=== PATIENT | male | born 1955 | race Caucasian/White ===

== ENCOUNTER 2020-03-06 07:24 | Day surgery (SDC) | payer BC, SELFPAY ==
[2020-03-04 12:58] VITALS: BMI 40.6
[2020-03-06 07:39] VITALS: BP 159/78; PULSE 94; RESP 18; TEMP 36.7; O2SAT 95
--- NOTE | 2020-03-06 07:54 | P.PN_ITS ---
[facility] Anesthesia Checklist - Patient Identification Patient Identification: Arm Band, Verbal (Name & ) - Structural Data Admitted From: Home Planned Operative Procedure/s: colon Consent for Planned Operative Procedure(s) Verified: Yes Verified Documents: History and Physical - NPO Status Verified Time NPO: 00:00 - Additional verifications Patient : No Anesthesia Reactions: No Hx Blood Transfusions: No Blood Transfusion Reaction: No Cephalosporin Allergy: No Previous Colonoscopy: Yes - Cardiovascular Assessment Heart Sounds: S1 & S2 Pulse Strength: Baseline Pulse Rhythm: Regular Peripheral Edema: No - Airway Assessment C-Spine Mobility Assessed: Yes TMJ Mobility Assessed: Yes Dentition: Good Dentition - Neurological Assessment Level of Consciousness: Awake, Alert, Appropriate Hx Seizures: No Numbness or tingling in extremities: No - Anesthesia Plan Anesthesia Risk discussed: Yes Anesthesia Plan: Verified ASA Class: III Anesthesia Type: MAC [facility] History I have reviewed the patient's past medical history: Yes Medical History: Reports:: Anxiety, Hyperlipidemia, Hypertension Denies:: Cancer, Diabetes Mellitus Type 1, Diabetes Mellitus Type 2, Internal Pacemaker, Lung Disease, MRSA, Seizures *Have you ever received a pneumonia vaccine?: No *Have you received a flu vaccine this season?: No Other Medical History: Denies: Blood Transfusion Reaction Anesthesia experience/problems:: none Laterality Cases: Left: Arthroscopy Knee, Other Other Surgeries: Yes: Colonoscopy, Other. No: Pacemaker Amputation: No Fractures: No - *Social History Last grade of school completed: Some college Smoking Status: Never smoker Alcohol Intake: current Alcohol Intake Frequency:: holidays/special occasions only Substance Use Type: denies use *Occupational Status:: retired Housing: house Household Members: spouse *Travel in the last 8 weeks: [facility] - Psychiatric History Pschychiatric History:: Reports:: Anxiety Family Hx:: Cancer
[2020-03-06 08:04] VITALS: O2SAT 95
[2020-03-06 08:46] VITALS: BP 91/50; PULSE 89; RESP 18; TEMP 36.5; O2SAT 91
--- NOTE | 2020-03-06 08:46 | P.PCN_ITS ---
- Procedure: Date: 03/06/20 Patient Date of :: 1955 Procedure Performed:: Colonoscopy with polypectomy by means other than snare Indications:: History of colon polyps Diverticulosis Performing Provider:: Sheng Fernandez MD Referring Provider:: . Sedation:: Monitored anesthesia care Procedure:: After informed consent was obtained the patient was taken to the endoscopy suite. Sedation ensued after the patient was transferred to the left lateral decubitus position. Pulse, blood pressure, and oxygen saturation were monitored throughout the procedure. Digital rectal exam revealed no significant abnormality. The colonoscope was placed in position. The entire colon was evaluated. The colonoscope was carefully removed and the patient was t ransferred to recovery in stable condition. Please see findings and specimens below for detail. Findings:: Bowel prep fair Fairly significant lack of relaxation Significant tortuosity of sigmoid Unchanged diverticulosis Polyps (see specimens) Specimens:: Periappendiceal polyp Adjacent sessile polyps of the transverse colon Recommendations:: Timing of repeat colonoscopy is pending pathology but will likely be between 3-5 years secondary to history of polyps, lack of relaxation, and spasticity. Complications:: No immediate Estimated blood obtained (mL): 1
[2020-03-06 08:56] VITALS: BP 129/77; PULSE 91; RESP 18; O2SAT 95
[2020-03-06 09:06] VITALS: BP 135/71; PULSE 77; RESP 18; O2SAT 97
[2020-03-06 09:19] VITALS: BP 150/93; PULSE 78; RESP 18; O2SAT 96
== END 2020-03-06 09:23 | disposition home or self-care (01) ==
LOC: OUTP 07:26
PROVIDERS: PCP Internal Medicine; Visit Provider Surgery
PROC: 0DJD8ZZ Inspection of Lower Intestinal Tract, Via Natural or Artificial Opening Endoscopic (ICD-10-PCS; CPT 45380; principal; 2020-03-06 08:30)
DX: Z12.11 Encounter for screening for malignant neoplasm of colon (principal); Z86.010 Personal history of colon polyps; K56.2 Volvulus; K57.30 Diverticulosis of large intestine without perforation or abscess without bleeding; K63.5 Polyp of colon; I10 Essential (primary) hypertension; E78.5 Hyperlipidemia, unspecified; F41.9 Anxiety disorder, unspecified; Z87.39 Personal history of other diseases of the musculoskeletal system and connective tissue; Z80.9 Family history of malignant neoplasm, unspecified
CPT/HCPCS: 45380

== ENCOUNTER → 2021-01-30 11:22 | Outpatient (CLI) | payer BC, SELFPAY | PROVIDERS: PCP Internal Medicine; Visit Provider Nurse Practitioner | DX: Z20.822 Contact with and (suspected) exposure to COVID-19 (principal); U07.1 COVID-19 | CPT/HCPCS: C9803; U0003; U0005 ==

== ENCOUNTER 2021-02-03 07:56 | Outpatient (CLI) | payer BC, SELFPAY ==
[2021-02-03 08:30] VITALS: BP 134/77; PULSE 82; RESP 18; TEMP 36.9; O2SAT 92
[2021-02-03 09:00] VITALS: BP 131/80; PULSE 79; RESP 18; O2SAT 94
[2021-02-03 09:15] VITALS: BP 140/80; PULSE 83; RESP 18; O2SAT 95
[2021-02-03 09:30] VITALS: BP 143/81; PULSE 72; RESP 18; O2SAT 95
[2021-02-03 09:45] VITALS: BP 143/84; PULSE 75; RESP 18; O2SAT 96
[2021-02-03 10:00] VITALS: BP 151/83; PULSE 76; RESP 18; TEMP 36.5; O2SAT 97
== END 2021-02-03 10:00 | disposition home or self-care (01) ==
LOC: INF 07:57
PROVIDERS: PCP Internal Medicine; Visit Provider Emergency Medicine
DX: U07.1 COVID-19 (principal)
CPT/HCPCS: 96365

== ENCOUNTER → 2021-07-21 10:27 | Outpatient (CLI) | payer MEDICAID, SELFPAY ==
--- NOTE | 2021-07-21 10:40 | XR_ITS ---
FINAL REPORT CLINICAL HISTORY: HTN COMPARISON: January 28, 2017 FINDINGS: Two views of the chest were obtained. The heart size and pulmonary vascularity are within normal limits. The mediastinum is normal. No acute pulmonary abnormality is identified. There is no pneumothorax. There is moderate degenerative change of the thoracic spine. IMPRESSION: No active cardiopulmonary disease. Reviewed, Interpreted and Dictated by Stewart Shah III, MD Transcribed by Jey Grant Authenticated by Stewart Shah III, MD on 07/21/2021 01:03:19 PM [facility]
--- NOTE | 2021-07-21 11:08 | ECG_ITS ---
APPROVED REPORT Exam: Resting ECG HR:76 bpm ECG Measurements Heart Rate 76 AXES WV 166 P 12 QRSd 104 QRS -24 QT 372 T 20 QTc 403 Conclusion SINUS RHYTHM BORDERLINE LEFT AXIS DEVIATION [QRS AXIS < -20] LOW QRS VOLTAGE IN PRECORDIAL LEADS [QRS DEFLECTION < 1.0 mV IN CHEST LEADS] BORDERLINE ECG Electronically signed by : Trae Samuel MD 07/22/2021 13:38:13
[2021-07-21 15:09] LABS: Basophils % 0.4 % (0.1-2.0); Eosinophils # 0.1 K/mm3 (0.0-0.4); Eosinophils % 1.2 % (0.1-12.0); Hematocrit 48.8 % (42.0-52.0); Hemoglobin 15.6 g/dL (14.1-18.0); Lymphocytes # 1.4 K/mm3 (0.7-4.5); Lymphocytes % 23.1 % (10-50); Mean Corpuscular HGB Conc 31.9 g/dL (31.8-35.4); Mean Corpuscular Hemoglobin 34.4 pg (27.0-31.2); Mean Corpuscular Volume 107.6 fl (80-94); Mean Platelet Volume 9.3 fl (7.4-10.4); Monocytes # 0.5 K/mm3 (0.1-1.0); Monocytes % 7.8 % (1.7-9.3); Neutrophils # 4.1 K/mm3 (1.8-7.8); Neutrophils % 67.5 % (37.0-80.0); Platelet Count 225 K/mm3 (142-424); Red Blood Count 4.54 M/mm3 (4.60-6.20); Red Cell Distribution Width 14.4 % (11.5-17.5); White Blood Count 6.1 K/mm3 (4.8-10.8)
[2021-07-21 16:55] LABS: Alanine Aminotransferase 44 U/L (12-78); Albumin Level 4.5 g/dl (3.5-5.0); Albumin/Globulin Ratio 1.7 (1.1-1.8); Alkaline Phosphatase 78 U/L (38-126); Aspartate Amino Transferase 39 U/L (17-59); Bilirubin,Total 0.7 mg/dl (0.2-1.3); Blood Urea Nitrogen 14 mg/dl (9-20); Carbon Dioxide 25 mmol/L (22.0-30.0); Chloride 104 mmol/L (98-107); Estimated Glomerular Filt Rate 135 ml/min (>60); GFR (African American) 164 ML/MIN (>60); Globulin 2.6 g/dL (1.3-3.2); Glucose 98 mg/dl (74-100); Sodium 139 mmol/L (136-145); Total Protein,Serum 7.1 g/dl (6.3-8.2)
[2021-07-21 17:25] LABS: Hemoglobin A1C 5.6 % (4.0-6.0)
[2021-07-21 17:26] LABS: Prostate Specific Ag Screen 1.7 ng/ml (0.0-4.0)
== END ==
PROVIDERS: PCP Internal Medicine; Visit Provider Internal Medicine
DX: Z01.810 Encounter for preprocedural cardiovascular examination (principal); M05.80 Other rheumatoid arthritis with rheumatoid factor of unspecified site; N40.1 Benign prostatic hyperplasia with lower urinary tract symptoms; M15.0 Primary generalized (osteo)arthritis; I10 Essential (primary) hypertension; Z12.5 Encounter for screening for malignant neoplasm of prostate
CPT/HCPCS: 71046; 80053; 83036; 85025; 93005; G0103

== ENCOUNTER → 2021-07-29 16:49 | Outpatient (CLI) | payer MEDICARE, SELFPAY ==
[2021-07-29 17:28] LABS: Activated Partial Thrombo Time 25.1 seconds (22.8-30.6); INR 0.91 (0.9-1.1); Prothrombin Time 10.4 seconds (10.1-12.5)
== END ==
PROVIDERS: PCP Internal Medicine; Visit Provider Internal Medicine
DX: Z01.810 Encounter for preprocedural cardiovascular examination (principal); M17.11 Unilateral primary osteoarthritis, right knee; Z51.81 Encounter for therapeutic drug level monitoring
CPT/HCPCS: 85610; 85730

== ENCOUNTER → 2021-08-12 15:47 | Outpatient (CLI) | payer MEDICARE, SELFPAY ==
--- NOTE | 2021-08-12 | CA_ITS ---
FINAL REPORT TECHNIQUE: Color Doppler, duplex Doppler and compression sonography of the right lower extremity venous system was performed. CLINICAL HISTORY: Patient had a total knee replacement RLE 08/05/21. Has edema RLE with redness x 2-3 days. HTN, hyperlipidemia, obesity. FINDINGS: There is no evidence of deep venous thrombosis from the level of the groin to the calf. The veins are patent and compressible. IMPRESSION: No evidence of deep venous thrombosis right lower extremity. Reviewed, Interpreted and Dictated by Stewart Shah III, MD Transcribed by Dunia Lynn Authenticated by Stewart Shah III, MD on 08/13/2021 08:10:35 AM [facility]
== END ==
PROVIDERS: PCP Internal Medicine; Visit Provider Orthopaedic Surgery
DX: R22.42 Localized swelling, mass and lump, left lower limb (principal)
CPT/HCPCS: 93971

== ENCOUNTER 2021-10-19 08:00 | Outpatient (RCR) | payer MEDICARE, SELFPAY | END 2021-10-19 08:05 | disposition home or self-care (01) | LOC: PT 08:00 | PROVIDERS: PCP Internal Medicine; Visit Provider Orthopaedic Surgery | DX: M25.561 Pain in right knee (principal); Z96.651 Presence of right artificial knee joint | CPT/HCPCS: 97010; 97014; 97110; 97140; 97163; 97164; 97530; 97760; G0283 ==

== ENCOUNTER 2022-05-13 09:00 | Outpatient (RCR) | payer MEDICARE, SELFPAY | END 2022-05-13 09:05 | disposition home or self-care (01) | LOC: PT 09:00 | PROVIDERS: PCP Internal Medicine | DX: M51.36 Other intervertebral disc degeneration, lumbar region (principal) | CPT/HCPCS: 97010; 97012; 97014; 97110; 97163; G0283 ==

== ENCOUNTER → 2023-02-03 06:42 | Outpatient (CLI) | payer MEDICARE, SELFPAY ==
--- NOTE | 2023-02-03 06:49 | US_ITS ---
FINAL REPORT TECHNIQUE: Sonographic images of the right upper quadrant were obtained. CLINICAL HISTORY: HEPATIC FIBROSIS FINDINGS: PANCREAS: Unremarkable. LIVER: Homogeneous. No focal hepatic lesion. No intrahepatic biliary ductal dilatation. GALLBLADDER: No gallstones. No gallbladder wall thickening or pericholecystic fluid. COMMON DUCT: 5 mm. Normal for age. RIGHT KIDNEY: The right kidney measures 12.8 cm. There is no hydronephrosis, mass, or stone. FREE FLUID: None. IMPRESSION: Unremarkable ultrasound of the right upper quadrant. Reviewed, Interpreted and Dictated by Nelly Vargas MD Transcribed by Dunia Lynn Authenticated and [facility]
== END ==
PROVIDERS: PCP Internal Medicine; Visit Provider Physician Assistant
DX: K74.00 Hepatic fibrosis, unspecified (principal)
CPT/HCPCS: 76705

== ENCOUNTER → 2023-02-23 13:32 | Outpatient (CLI) | payer MEDICARE, SELFPAY ==
[2023-02-23 14:17] LABS: Prothrombin Time 10.8 seconds (10.1-12.5)
[2023-02-23 14:28] LABS: Chloride 101 mmol/L (98-107); Potassium 4.4 mmoL/L (3.5-5.1); Sodium 137 mmol/L (136-145)
[2023-02-23 14:30] LABS: Basophils # 0.1 K/mm3 (0-0.2); Basophils % 0.5 % (0.1-2.0); Eosinophils # 0.1 K/mm3 (0.0-0.4); Eosinophils % 0.7 % (0.1-12.0); Hematocrit 43.3 % (42.0-52.0); Hemoglobin 15.2 g/dL (14.1-18.0); Lymphocytes # 1.8 K/mm3 (0.7-4.5); Mean Corpuscular HGB Conc 35.1 g/dL (31.8-35.4); Mean Corpuscular Hemoglobin 34.9 pg (27.0-31.2); Mean Corpuscular Volume 99.4 fl (80-94); Mean Platelet Volume 8.3 fl (7.4-10.4); Monocytes # 0.7 K/mm3 (0.1-1.0); Neutrophils # 9.1 K/mm3 (1.8-7.8); Neutrophils % 77.8 % (37.0-80.0); Platelet Count 217 K/mm3 (142-424); Red Blood Count 4.36 M/mm3 (4.60-6.20); Red Cell Distribution Width 13.1 % (11.5-17.5); White Blood Count 11.7 K/mm3 (4.8-10.8)
[2023-02-23 14:31] LABS: Alanine Aminotransferase 26 U/L (12-78); Albumin Level 3.7 g/dl (3.5-5.0); Albumin/Globulin Ratio 1.2 (1.1-1.8); Alkaline Phosphatase 84 U/L (38-126); Anion Gap 8.4 mEq/L (5-15); Aspartate Amino Transferase 28 U/L (17-59); Bilirubin,Total 0.7 mg/dl (0.2-1.3); Blood Urea Nitrogen 13 mg/dl (9-20); Carbon Dioxide 32 mmol/L (22.0-30.0); Estimated Glomerular Filt Rate 135 ml/min (>60); GFR (African American) 163 ML/MIN (>60); Globulin 3.2 g/dL (1.3-3.2); Glucose 116 mg/dl (74-100); Total Protein,Serum 6.9 g/dl (6.3-8.2)
[2023-02-25 10:11] LABS: HBsAg Screen Negative (Negative); HCV Ab Non Reactive (Non Reactive); Hep A Ab, IgM Negative (Negative); Hep B Core Ab, IgM Negative (Negative); Hepatitis B Surf Ab Quant <3.1 mIU/mL (Immunity>9.9)
[2023-03-02 12:36] LABS: Hep A Ab, IGM Negative
[2023-03-02 12:37] LABS: Fibrosis Score 0.13; Fibrosis Stage F0-NO FIBROSIS; Steatosis Score 0.59
[2023-03-02 12:38] LABS: Steatosis Grade S2-S3
[2023-03-02 12:39] LABS: Alpha 2-Macroglobulins, Qn 200; NASH Grade N1-MILD NASH
[2023-03-02 12:40] LABS: Apolipoprotein A-1 123; Haptoglobin 207
[2023-03-02 12:41] LABS: Bilirubin, Total 0.1; GGT 35
[2023-03-02 12:42] LABS: ALT (SGPT) P5P 19; AST (SGOT) P5P 16
[2023-03-02 12:43] LABS: Cholesterol, Total 158; Glucose 111; Triglycerides 167
== END ==
LOC: LAB 13:36
PROVIDERS: PCP Internal Medicine; Visit Provider Physician Assistant
DX: K75.81 Nonalcoholic steatohepatitis (NASH) (principal); R71.8 Other abnormality of red blood cells
CPT/HCPCS: 36415; 80053; 80074; 85025; 85610; 86706; 86709

== ENCOUNTER 2023-05-24 08:18 | Day surgery (SDC) | payer MEDICARE, SELFPAY ==
[2023-05-19 17:19] VITALS: BMI 37.2
[2023-05-24] MEDS: LACTATED RINGERS 1000ML 1,000 ML 25 ML IV (08:27)
[2023-05-24 08:29] VITALS: BP 157/105; PULSE 123; RESP 18; TEMP 36.2; O2SAT 97
--- NOTE | 2023-05-24 08:31 | P.PCN_ITS ---
Procedure: Date: 05/24/23 Patient Date of :: 1955 Procedure Performed:: Colonoscopy with polypectomy by means other than snare Indications:: History of colon polyps Note: Most recent colonoscopy in February 2020 was somewhat complicated by poor relaxation and fairly severe tortuosity. Bowel preparation was fair. Unchanged diverticulosis noted. Adjacent adenomatous polyps of the transverse colon were excised. Performing Provider:: Sheng Fernandez MD Referring Provider:: . Sedation:: Monitored anesthesia care Procedure:: After informed consent was obtained the patient was taken to the endoscopy carnes ite. Sedation ensued after the patient was transferred to the left lateral decubitus position. Pulse, blood pressure, and oxygen saturation were monitored throughout the procedure. Digital rectal exam revealed no significant abnormality. The colonoscope was placed in position. The entire colon was evaluated. The colonoscope was carefully removed and the patient was transferred to recovery in stable condition. Please see findings and specimens below for detail. Findings:: Bowel preparation fair to moderate Fairly significant spasticity/lack of relaxation Polyp at 60 cm Specimens:: Polyp at 60 cm (cold biopsy forceps) Recommendations:: Timing of repeat colonoscopy is pending pathology but will likely be around 3 years secondary to history of complex polyps, spasticity, and lack of relaxation. Complications:: No immediate Estimated blood obtained (mL): 1 Colonoscopy Component Colonoscopy Component Was a colonoscopy performed during today's procedure?: Yes Recommended follow up colonoscopy of at least 10 years?: No If no, follow up colonoscopy recommended in ___ years?: (See above) Reason for not recommending >/= 10 yr follow-up interval?: (See above)
[2023-05-24 08:48] VITALS: O2SAT 95
--- NOTE | 2023-05-24 09:08 | P.PNANES_ITS ---
[facility] Disclaimer: The information contained in this section may have been updated after the patient was seen, as this information can be updated by other users. Medical History ABIOLA (obstructive sleep apnea) ABIOLA on CPAP Surgical History History of colonoscopy History of colonoscopy with polypectomy History of knee replacement Family History Other Family history of lung cancer Social History Smoking Status: Never smoker second hand exposure: No alcohol intake: current substance use type: denies use current occupational status: retired Travel in the last 8 weeks: None household members: spouse housing: house current occupational exposures/hazards: No caffeine: No [facility] Anesthesia Checklist Patient Identification Patient Identification: Arm Band Structural Data Admitted From: Home Planned Operative Procedure/s: colonoscopy Consent for Planned Operative Procedure(s) Verified: Yes Verified Documents: Surgical Consent and History and Physical NPO Status Verified Time NPO: 00:00 Additional verifications Anesthesia Reactions: No Hx Blood Transfusions: No Blood Transfusion Reaction: No Airway Assessment Mallampati Score:: Class II C-Spine Mobility Assessed: Yes TMJ Mobility Assessed: Yes Dentition: Good Dentition Neurological Assessment Level of Consciousness: Awake and Alert Anesthesia Plan Anesthesia Risk discussed: Yes Anesthesia Plan: Verified ASA Class: III Anesthesia Type: MAC
[2023-05-24 09:23] VITALS: BP 110/64; PULSE 107; RESP 18; TEMP 36.5; O2SAT 93
[2023-05-24 09:33] VITALS: BP 121/77; PULSE 104; RESP 18; O2SAT 95
[2023-05-24 09:41] VITALS: BP 113/74; PULSE 99; RESP 18; O2SAT 95
== END 2023-05-24 09:43 | disposition home or self-care (01) ==
PROVIDERS: PCP Internal Medicine; Visit Provider Surgery
PROC: 0DJD8ZZ Inspection of Lower Intestinal Tract, Via Natural or Artificial Opening Endoscopic (ICD-10-PCS; CPT 45380; principal; 2023-05-24 09:30)
DX: Z12.11 Encounter for screening for malignant neoplasm of colon (principal); Z86.010 Personal history of colon polyps; D12.4 Benign neoplasm of descending colon
CPT/HCPCS: 45380; 88305

== ENCOUNTER 2024-01-03 12:14 | Outpatient (CLI) | payer MEDICARE, SELFPAY ==
--- NOTE | 2024-01-03 12:24 | XR_ITS ---
FINAL REPORT CLINICAL HISTORY: Right knee pain and swelling prev knee replacement FINDINGS: RIGHT KNEE Three views demonstrate postoperative changes from total knee arthroplasty. There is no acute fracture or dislocation. There is a small joint effusion. IMPRESSION: Postoperative changes and a small joint effusion. Reviewed, Interpreted and Dictated by Steven Pantoja MD Transcribed by Radha Lane Authenticated and [facility]
== END 2024-01-03 23:59 | disposition home or self-care (01) ==
LOC: RAD 12:16
PROVIDERS: PCP Internal Medicine; Visit Provider Internal Medicine
DX: Z96.651 Presence of right artificial knee joint (principal); M25.461 Effusion, right knee; M06.9 Rheumatoid arthritis, unspecified
CPT/HCPCS: 73562

== ENCOUNTER 2024-03-07 10:55 | Outpatient (CLI) | payer MEDICARE, SELFPAY ==
[2024-03-07 09:44] LABS: Basophils % 0.7 % (0.1-2.0); Eosinophils # 0.1 K/mm3 (0.0-0.4); Eosinophils % 1.8 % (0.1-12.0); Lymphocytes # 1.6 K/mm3 (0.7-4.5); Lymphocytes % 26.6 % (10-50); Mean Corpuscular HGB Conc 33.3 g/dL (31.8-35.4); Mean Corpuscular Hemoglobin 32.9 pg (27.0-31.2); Mean Corpuscular Volume 98.8 fl (80-94); Mean Platelet Volume 7.7 fl (7.4-10.4); Monocytes # 0.4 K/mm3 (0.1-1.0); Monocytes % 6.8 % (1.7-9.3); Neutrophils # 3.9 K/mm3 (1.8-7.8); Neutrophils % 64.1 % (37.0-80.0); Platelet Count 226 K/mm3 (142-424); Red Blood Count 4.56 M/mm3 (4.60-6.20); Red Cell Distribution Width 13.8 % (11.5-17.5); Reticulocyte % (Auto) 2.1 % (0.9-3.2); White Blood Count 6.1 K/mm3 (4.8-10.8)
[2024-03-07 10:51] LABS: Albumin Level 4.1 g/dl (3.5-5.0); Chloride 105 mmol/L (98-107); Sodium 139 mmol/L (136-145)
[2024-03-07 10:52] LABS: Potassium 4.5 mmoL/L (3.5-5.1)
[2024-03-07 10:54] LABS: Alanine Aminotransferase 22 U/L (12-78); Albumin/Globulin Ratio 1.3 (1.1-1.8); Alkaline Phosphatase 91 U/L (38-126); Anion Gap 13.5 mEq/L (5-15); Aspartate Amino Transferase 25 U/L (17-59); Bilirubin,Total 0.7 mg/dl (0.2-1.3); Blood Urea Nitrogen 14 mg/dl (9-20); Carbon Dioxide 25 mmol/L (22.0-30.0); Estimated Glomerular Filt Rate 112 ml/min (>60); GFR (African American) 136 ML/MIN (>60); Globulin 3.2 g/dL (1.3-3.2); Iron 93 ug/dL (49-181); Total Protein,Serum 7.3 g/dl (6.3-8.2)
[2024-03-07 10:55] LABS: Calcium 9.2 mg/dl (8.4-10.2); Chol/HDL Ratio 4.1 (1-3.5); Cholesterol 148 mg/dl (140-200); Glucose 131 mg/dl (74-100); HDL Cholesterol 36 mg/dl (40-60); Triglycerides 160 mg/dl (30-150); VLDL Cholesterol 32 mg/dL (0-40)
[2024-03-07 11:05] LABS: Total Iron Binding Capacity 325 ug/dL (261-462)
[2024-03-07 11:06] LABS: Direct LDL Cholesterol 86.16 mg/dL (100-129)
[2024-03-07 11:24] LABS: Thyroid Stimulating Hormone 2.87 uIU/mL (0.465-4.68)
[2024-03-07 15:18] LABS: Prostate Specific Ag Screen 0.6 ng/ml (0.0-4.0)
[2024-03-07 15:37] LABS: Vitamin B12 326 pg/mL (239-931)
[2024-03-08 11:38] LABS: Hemoglobin A1C 5.5 % (4.0-6.0)
== END 2024-03-07 23:59 | disposition home or self-care (01) ==
LOC: LAB.DROPOF 10:55
PROVIDERS: PCP Internal Medicine; Visit Provider Internal Medicine
DX: D64.9 Anemia, unspecified (principal); I10 Essential (primary) hypertension; Z12.5 Encounter for screening for malignant neoplasm of prostate; R73.01 Impaired fasting glucose; R53.83 Other fatigue; E78.5 Hyperlipidemia, unspecified
CPT/HCPCS: 80053; 80061; 82607; 83036; 83540; 83550; 84443; 85025; 85044; G0103

== ENCOUNTER 2024-08-30 09:20 | Outpatient (CLI) | payer MEDICARE, SELFPAY ==
[2024-08-30 13:35] LABS: Basophils % 0.3 % (0.1-2.0); Eosinophils # 0.1 Kmm3 (0.0-0.4); Hematocrit 43.3 % (42.0-52.0); Hemoglobin 14.6 g/dL (14.1-18.0); Lymphocytes # 1.9 K/mm3 (0.7-4.5); Lymphocytes % 28.3 % (10-50); Mean Corpuscular HGB Conc 33.7 g/dL (31.8-35.4); Mean Corpuscular Hemoglobin 32.7 pg (27.0-31.2); Mean Corpuscular Volume 96.9 fl (80-94); Mean Platelet Volume 9.7 fl (7.4-10.4); Monocytes # 0.5 K/mm3 (0.1-1.0); Monocytes % 6.9 % (1.7-9.3); Neutrophils # 4.3 K/mm3 (1.8-7.8); Neutrophils % 63.2 % (37.0-80.0); Nucleated Red Blood Cells # 0 10^3/uL; Nucleated Red Blood Cells % 0 %; Platelet Count 236 K/mm3 (142-424); Red Blood Count 4.47 M/mm3 (4.60-6.20); Red Cell Distribution Width 13.2 % (11.5-17.5); Red Cell Distribution Width-SD 47.7 fL; Reticulocyte % (Auto) 2.1 % (0.9-3.2); White Blood Count 6.9 K/mm3 (4.8-10.8)
[2024-08-30 13:57] LABS: Hemoglobin A1C 5.6 % (4.0-6.0)
[2024-08-30 14:27] LABS: Alanine Aminotransferase 25 U/L (12-78); Albumin Level 4.1 g/dl (3.5-5.0); Albumin/Globulin Ratio 1.3 (1.1-1.8); Alkaline Phosphatase 96 U/L (38-126); Anion Gap 14.6 mEq/L (5-15); Aspartate Amino Transferase 23 U/L (17-59); Bilirubin,Total 0.8 mg/dl (0.2-1.3); Blood Urea Nitrogen 17 mg/dl (9-20); Carbon Dioxide 26 mmol/L (22.0-30.0); Chloride 101 mmol/L (98-107); Chol/HDL Ratio 2.7 (1-3.5); Cholesterol 140 mg/dl (140-200); Estimated Glomerular Filt Rate 134 ml/min (>60); GFR (African American) 162 ML/MIN (>60); Globulin 3.1 g/dL (1.3-3.2); Glucose 95 mg/dl (74-100); HDL Cholesterol 51 mg/dl (40-60); Potassium 4.6 mmoL/L (3.5-5.1); Sodium 137 mmol/L (136-145); Total Protein,Serum 7.2 g/dl (6.3-8.2); Triglycerides 66 mg/dl (30-150); VLDL Cholesterol 13 mg/dL (0-40)
[2024-08-30 14:38] LABS: Direct LDL Cholesterol 66.75 mg/dL (100-129)
[2024-08-30 14:47] LABS: Iron 203 ug/dL (49-181)
[2024-08-30 14:59] LABS: Total Iron Binding Capacity 387 ug/dL (261-462)
--- OUTSIDE RECORDS SUMMARY | 2024-08-31 09:40 | XMS_ITS ---
Author Organization [facility] , [facility] Address [address] [place] [address] Phone Care Team Providers Care Cold Type Artist Name Role Phone Terrance JUNIOR, Car Banuelos Unavailable [phone] SHAWN JUNIOR, XAVI Guzman Primary Care Provider [phone] Reason for Referral Date Encounter Description Provider Reason for Referral 07/23/24 Follow Up LUIS MIGUEL LEO PA-C Referral To Physician 04/12/24 Follow Up LUIS MIGUEL LEO PA-C Referral To Physician 12/21/23 Follow Up LUIS MIGUEL LEO PA-C Referral To Physician 09/14/23 Follow Up LUIS MIGUEL LEO PA-C Referral To Physician 06/08/23 Follow Up LUIS MIGUEL LEO PA-C Referral To Physician 04/26/22 IN HOUSE REFERRAL LUIS MIGUEL LEO PA-C Ref erral To Physician 04/15/22 Phone Call Flavia Stafford PA-C Referra l To Physician 04/06/22 NEW PROBLEM/EST PT Flavia Stafford PA-C R eferral To Physician; Referral To Physician 03/15/22 Follow Up Flavia Stafford PA-C Referra l To Physician; Referral To Physician 11/18/21 Follow Up Flavia Stafford PA-C Referra l To Physician; Referral To Physician 08/19/21 Post Op Flavia Stafford PA-C Referra l To Physician 05/18/21 Physician Specified Flavia Stafford PA-C Referral To Physician Problems Includes: Active, inactive, and resolved Problems All Visits Onset Date Resolved Date Provider Condition S tatus Joint Pain in the Left Knee 08/19/2022 Flavia Stafford PA-C Active Last Documented On 3 8:26AM ; [facility], [facility] Pain in the Lumbar Spine 04/15/2022 Flavia west PA-C Active Last Documented On 2 9:45AM ; [facility] Joint Pain in the Right Hip 04/06/2022 Flavia RICARDO-C Active Last Documented On 2 10:08AM ; [facility] Joint Pain in the Right Knee 03/15/2022 Flavia RICARDO-C Active Last Documented On 2 2:37PM ; [facility], [facility] Plan of Treatment Findings Encounter Date Patient screened for future fall risk: documentation of any fall with injury in past year Follow Up with LUIS MIGUEL LEO PA-C 07/23/2024 Last Documented On 5 8:38AM ; [facility] Patient screened for future fall risk: documentation of any fall with injury in past year Follow Up with LUIS MIGUEL LEO PA-C 04/12/2024 Last Documented On 4 1:31PM ; [facility] Patient screened for future fall risk: documentation of any fall with injury in past year Follow Up with LUIS MIGUEL LEO PA-C 12/21/2023 Last Documented On 4 7:08PM ; [facility] Patient screened for future fall risk: documentation of any fall with injury in past year Follow Up with LUIS MIGUEL LEO PA-C 09/14/2023 Last Documented On 4 8:04AM ; [facility] Referrals To Diagnosis Consult with Rhuematologist Last Documented On 9 3:23PM ; [facility], [facility] Future Appointments Date Time Location Provi sahra Follow Up 11/07/2024 8:00AM [facility] LUIS MIGUEL LEO PA-C Last Documented On 5 11:32AM ; [facility] Epidural Steroid Injection 11/14/2024 8:45AM [facility] Paulo eLmus CRNA Last Documented On 5 11:33AM ; [facility] Instructions to patient Lose weight Last Documented On 5 8:47AM ; [facility] Lose weight Last Documented On 4 9:34AM ; [facility] Lose weight Last Documented On 4 9:11AM ; [facility] Lose weight Last Documented On 4 8:35AM ; [facility] Lose weight Last Documented On 4 2:12PM ; [facility] Lose weight Last Documented On 3 8:26AM ; [facility] Lose weight Last Documented On 3 8:16AM ; [facility] Lose weight Last Documented On 2 8:25AM ; [facility] Lose weight Last Documented On 2 10:09AM ; [facility] Lose weight Last Documented On 2 2:37PM ; [facility] Lose weight Last Documented On 2 9:11AM ; [facility] Lose weight Last Documented On 2 10:49AM ; [facility] Instructions for patient to see pcp for weight and bp Last Documented On 2 8:22AM ; [facility] Lose weight Last Documented On 2 8:22AM ; [facility] Instructions for patient to see pcp for weight and bp Last Documented On 0 10:03AM ; [facility] Lose weight Last Documented On 0 10:03AM ; [facility] Instructions for patient to see pcp for weight and bp Last Documented On 0 8:46AM ; [facility] Lose weight Last Documented On 0 8:46AM ; [facility] Instructions for patient to see pcp for weight and bp Last Documented On 9 8:28AM ; [facility] Lose weight Last Documented On 9 8:28AM ; [facility] Lose weight Last Documented On 9 8:30AM ; [facility] Instructions for patient see pcp for bp and weight Last Documented On 8 11:18AM ; [facility] Lose weight Last Documented On 8 11:18AM ; [facility] Instructions for patient see pcp for bp and weight Last Documented On 8 9:26AM ; [facility] Lose weight Last Documented On 8 9:26AM ; [facility] Instructions for patient see pcp for bp and weight Last Documented On 7 9:26AM ; [facility] Lose weight Last Documented On 7 9:26AM ; [facility] Instructions for patient see pcp for bp and weight Last Documented On 7 9:26AM ; [facility] Lose weight Last Documented On 7 9:26AM ; [facility] Assessments Includes: Assessments for all patient encounters Findings Encounter Date Overweight Follow Up with LUIS MIGUEL Siddiqi 07/23/2024 Last Documented On 5 8:38AM ; [facility] Overweight Follow Up with LUIS MIGUEL RICARDO -C 04/12/2024 Last Documented On 4 1:31PM ; [facility] Overweight Follow Up with LUIS MIGUEL RICARDO -C 12/21/2023 Last Documented On 4 7:08PM ; [facility] Overweight Follow Up with LUIS MIGUEL RICARDO -C 09/14/2023 Last Documented On 4 8:04AM ; [facility] Referral to physician Phone Call with Flavia Stafford PA-C 04/15/2022 Last Documented On 2 10:23AM ; [facility] Referral to physician NEW PROBLEM/EST PT with Aleja Stafford PA-C 04/06/2022 Last Documented On 2 12:09PM ; [facility] Referral to physician Follow Up with Flavia west PA-C 03/15/2022 Last Documented On 2 4:35PM ; [facility] Referral to physician Follow Up with Flavia west PA-C 11/18/2021 Last Documented On 2 9:52AM ; [facility] Instructions Includes: Instructions for all patient encounters Instructions to patient Lose weight Last Documented On 5 8:47AM ; [facility] Lose weight Last Documented On 4 9:34AM ; [facility] Lose weight Last Documented On 4 9:11AM ; [facility] Lose weight Last Documented On 4 8:35AM ; [facility] Lose weight Last Documented On 4 2:12PM ; [facility] Lose weight Last Documented On 3 8:26AM ; [facility] Lose weight Last Documented On 3 8:16AM ; [facility] Lose weight Last Documented On 2 8:25AM ; [facility] Lose weight Last Documented On 2 10:09AM ; [facility] Lose weight Last Documented On 2 2:37PM ; [facility] Lose weight Last Documented On 2 9:11AM ; [facility] Lose weight Last Documented On 2 10:49AM ; [facility] Instructions for patient to see pcp for weight and bp Last Documented On 2 8:22AM ; [facility] Lose weight Last Documented On 2 8:22AM ; [facility] Instructions for patient to see pcp for weight and bp Last Documented On 0 10:03AM ; [facility] Lose weight Last Documented On 0 10:03AM ; [facility] Instructions for patient to see pcp for weight and bp Last Documented On 0 8:46AM ; [facility] Lose weight Last Documented On 0 8:46AM ; [facility] Instructions for patient to see pcp for weight and bp Last Documented On 9 8:28AM ; [facility] Lose weight Last Documented On 9 8:28AM ; [facility] Lose weight Last Documented On 9 8:30AM ; [facility] Instructions for patient see pcp for bp and weight Last Documented On 8 11:18AM ; [facility] Lose weight Last Documented On 8 11:18AM ; [facility] Instructions for patient see pcp for bp and weight Last Documented On 8 9:26AM ; [facility] Lose weight Last Documented On 8 9:26AM ; [facility] Instructions for patient see pcp for bp and weight Last Documented On 7 9:26AM ; [facility] Lose weight Last Documented On 7 9:26AM ; [facility] Instructions for patient see pcp for bp and weight Last Documented On 7 9:26AM ; [facility] Lose weight Last Documented On 7 9:26AM ; [facility] Medical Equipment - Implanted Devices Includes: Current and historical Devices No Medical Equipment Recorded Medications Includes: Current and historical Medications Current Medications (continue as prescribed) Finasteride 1 MG Oral Tablet 02/21/2023 Provider: Diagnosis: Last Documented On 3 11:13AM By Blossom Acuña ; [facility], [facility] Lisinopril 10 MG Oral Tablet 02/21/2023 Provider: Diagnosis: Last Documented On 3 11:13AM By Blossom Acuña ; [facility] Esomeprazole Magnesium 20 MG Oral Capsule De layed Release 02/21/2023 Provider: Diagnosis: Last Documented On 3 11:11AM By Blossom Acuña ; [facility], [facility] Tamsulosin HCl 0.4 MG Oral Capsule 02/21/2023 Provid er: Diagnosis: Last Documented On 3 11:12AM By Blossom Acuña ; [facility], [facility] HYDROcodone-Acetaminophen 5-325 MG Oral Tablet 022 Provider: XAVI ESCOBAR MD Diagnosis: Last Documented On 2 8:21AM By Val Swift ; [facility], [facility] diazePAM 5 MG Oral Tablet 04/19/2022 Provider: BLUE ESCOBAR MD Diagnosis: Last Documented On 2 8:22AM By Val Swift ; [facility] Methotrexate Sodium 2.5 MG Oral Tablet 04/19/2022 Pr ovider: Levi Stark Diagnosis: Last Documented On 2 8:22AM By Val Swift ; [facility] azaTHIOprine 50 MG Oral Tablet 04/14/2022 Provider: Levi Stark Diagnosis: Last Documented On 2 8:22AM By Val Swift ; [facility] Folic Acid 1 MG Oral Tablet 04/14/2022 Provider: Levitessa Stark Diagnosis: Last Documented On 2 8:22AM By Val Swift ; [facility] Past Medications on file Ativan 1 MG Oral Tablet 04/06/2022 - 04/07/2022 Provid er: Car Carlos MD Diagnosis: take as directed; Take 1 tab let 1 hour before MRI; May take an additional tablet if needed. Last Documented On 2 12:46PM By Dr. Carlos ; [facility] Folic Acid 1 MG Oral Tablet 11/18/2021 - 02/16/2022 Pr ovider: Levi Stark Diagnosis: Last Documented On 2 9:10AM By Javier Choe ; [facility] Tamsulosin HCl 0.4 MG Oral Capsule 11/18/2021 - 02/16/2022 Provider: XAVI Martinez Diagnosis: Last Documented On 2 9:10AM By Javier Choe ; [facility] azaTHIOprine 50 MG Oral Tablet 11/18/2021 - 12/18/2021 Provider: Levi Stark Diagnosis: Last Documented On 2 9:10AM By Javier Choe ; [facility] HYDROcodone-Acetaminophen 5- 325 MG Oral Tablet 11/13/2021 - 11/18/2021 Provider: XAVI ESCOBAR MD Diagnosis: Last Documented On 2 9:11AM By Javier Choe ; [facility] diazePAM 5 MG Oral Tablet 11/13/2021 - 11/18/2021 Prov ider: XAVI ESCOBAR MD Diagnosis: Last Documented On 2 9:10AM By Javier Choe ; [facility] Methotrexate Sodium 2.5 MG O ral Tablet 11/03/2021 - 11/18/2021 Provider: Levi hartman Diagnosis: Last Documented On 2 9:11AM By Javier Choe ; [facility] Tamsulosin HCl 0.4 MG Oral Capsule 10/31/2021 - 11/18/2021 Provider: XAVI Martinez Diagnosis: Last Documented On 2 9:10AM By Javier Choe ; [facility] azaTHIOprine 50 MG Oral Tablet 10/31/2021 - 11/18/2021 Provider: Levi Stark Diagnosis: Last Documented On 2 9:10AM By Javier Choe ; [facility] Folic Acid 1 MG Oral Tablet 10/31/2021 - 11/18/2021 Pr ovider: Levi Stark Diagnosis: Last Documented On 2 9:10AM By Javier Choe ; [facility] traMADol HCl 50 MG Oral Tablet 08/12/2021 - 08/19/2021 Provider: Car byrd MD Diagnosis: 1-2 po q6h prn pain Last Documented On 2 10:42AM By Dr. Carlos ; [facility] oxyCODONE HCl 5 MG Oral Tablet 08/12/2021 - 11/18/2021 Provider: Diagnosis: Last Documented On 2 9:09AM By Javier Choe ; [facility] oxyCODONE HCl 5 MG Oral Tablet 08/12/2021 - 08/19/2021 Provider: Car byrd MD Diagnosis: 1-2 po q 4-6h prn pain Last Documented On 2 10:42AM By Dr. Carlos ; [facility] traMADol HCl 50 MG Oral Tablet 08/12/2021 - 11/18/2021 Provider: Diagnosis: Last Documented On 2 9:09AM By Javier Choe ; [facility] Nystatin [id number] UNIT/GM Exte rnal Cream 08/11/2021 - 11/18/2021 Provider: XAVI Martinez Diagnosis: Last Documented On 2 9:09AM By Javier Choe ; [facility] azaTHIOprine 50 MG Oral Tablet 08/10/2021 - 11/18/2021 Provider: Levi Stark Diagnosis: Last Documented On 2 9:09AM By Javier Choe ; [facility] oxyCODONE HCl 5 MG Oral Tablet 08/04/2021 - 08/11/2021 Provider: Car byrd MD Diagnosis: 1-2 po q 4-6h prn pain Last Documented On 2 5:29PM By Dr. Carlos ; [facility] Ondansetron HCl 4 MG Oral Tablet 08/04/2021 - 08/08/2021 Provider: Car byrd MD Diagnosis: 1 po q 6h prn nausea Last Documented On 2 5:29PM By Dr. Carlos ; [facility] Mobic 15 MG Oral Tablet 08/04/2021 - 08/18/2021 Provid er: Car Carlos MD Diagnosis: once a day Last Documented On 2 5:29PM By Dr. Carlos ; [facility] traMADol HCl 50 MG Oral Tablet 08/04/2021 - 08/11/2021 Provider: Car byrd MD Diagnosis: 1-2 po q6h prn pain Last Documented On 2 5:29PM By Dr. Carlos ; [facility] Cefadroxil 500 MG Oral Capsule 08/04/2021 - 11/18/2021 Provider: Diagnosis: Last Documented On 2 9:09AM By Javier Choe ; [facility] Docusate Sodium 100 MG Oral Capsule 08/04/2021 - 11/18 Provider: Diagnosis: Last Documented On 2 9:09AM By Javier Choe ; [facility] Meloxicam 15 MG Oral Tablet 08/04/2021 - 11/18/2021 Pr ovider: Diagnosis: Last Documented On 2 9:09AM By Javier Choe ; [facility], [facility] Acetaminophen 500 MG Oral Tablet 08/04/2021 - 09/03/2021 Provider: Car byrd MD Diagnosis: take as directed; take 2 tablets three times a d ay Last Documented On 2 5:29PM By Dr. Carlos ; [facility] Aspirin Adult Low Dose 81 MG Oral Tablet Delayed Release 08/04/2021 - 09/15/2021 Provider: Car Carlos MD Diagnosis: twice a day Last Documented On 2 5:29PM By Dr. Carlos ; [facility] Cefadroxil 500 MG Oral Capsule 08/04/2021 - 08/07/2021 Provider: Car byrd MD Diagnosis: twice a day Last Documented On 2 5:29PM By Dr. Carlos ; [facility], [facility] Colace 100 MG Oral Capsule 08/04/2021 - 11/02/2021 Pro vider: Car Carlos MD Diagnosis: 1-2 tabs daily Last Documented On 2 5:29PM By Dr. Carlos ; [facility] Ondansetron HCl 4 MG Oral Tablet 08/04/2021 - 11/19/19 Provider: Diagnosis: Last Documented On 2 9:09AM By Javier Choe ; [facility] diazePAM 5 MG Oral Tablet 07/31/2021 - 11/18/2021 Prov ider: XAVI ESCOBAR MD Diagnosis: Last Documented On 2 9:09AM By Javier Choe ; [facility], [facility] Tamsulosin HCl 0.4 MG Oral Capsule 07/31/2021 - 11/18/2021 Provider: XAVI Martinez Diagnosis: Last Documented On 2 9:10AM By Javier Choe ; [facility] Acyclovir 400 MG Oral Tablet 07/30/2021 - 11/18/2021 P rovider: XAVI ESCOBAR MD Diagnosis: Last Documented On 2 9:10AM By Javier Choe ; [facility] Folic Acid 1 MG Oral Tablet 06/23/2021 - 11/18/2021 Pr ovider: Levi Stark Diagnosis: Last Documented On 2 9:10AM By Javier Choe ; [facility] HYDROcodone-Acetaminophen 5- 300MG Oral Tablet 08/15/2018 - 08/19/2021 Provider: XAVI ESCOBAR MD Diagnosis: Last Documented On 2 10:24AM By Javier Choe ; [facility] Fluticasone Propionate 50MCG/ACT Nasal Suspension 08/15/2018 - 08/19/2021 Provider: XAVI ESCOBAR MD Diagnosis: Last Documented On 2 10:24AM By Javier Choe ; [facility] Enbrel 25MG Subcutaneous Solution Reconstituted 08/08/2018 - 08/19/2021 Provider: Diagnosis: Last Documented On 2 10:24AM By Javier Choe ; [facility] B Iqnydwz-A-Nmvzp Acid Oral Tablet 08/08/2018 - 08/19/2021 Provider: Levi hartman Diagnosis: Last Documented On 2 10:24AM By Javier Choe ; [facility] diazePAM 10MG Rectal Gel 08/07/2018 - 08/19/2021 Provi sahra: XAVI ESCOBAR MD Diagnosis: Last Documented On 2 10:24AM By Javier Choe ; [facility] Enbrel 25MG/0.5ML Subcutaneo us Solution Prefilled Syringe 07/28/2018 - 08/19/2021 Provider: Diagnosis: Last Documented On 2 10:24AM By Javier Choe ; [facility] Methotrexate 2.5MG Oral Tablet 07/28/2018 - 08/19/2021 Provider: Diagnosis: Last Documented On 2 10:24AM By Javier Choe ; [facility] Naproxen 500 MG OR TABS 03/15/2018 - 04/14/2018 Provid er: Ranjith Avila MD Diagnosis: Take one tablet twice a day prn following surger y Last Documented On 8 11:11AM By Fátima Willis ; [facility] Vitamin C 1000 MG OR TABS 03/15/2018 - 05/14/2018 Prov ider: Ranjith Avila MD Diagnosis: Take one tablet once a day following surgery Last Documented On 8 11:11AM By Fátima Willis ; [facility] PredniSONE Powder 01/19/2018 - 08/19/2021 Provider: Diagnosis: Last Documented On 2 10:24AM By Javier Choe ; [facility] NexIUM 10MG Oral Powder, packet 01/19/2018 - Provider: Diagnosis: Last Documented On 2 10:24AM By Javier Choe ; [facility] Hydrocodone-Acetaminophen 5-325 MG Tablet 12/30/2016 - 01/19/2018 Provider: Diagnosis: Last Documented On 8 9:27AM By Nury Gaming ; [facility] Simvastatin 40 MG Tablet 12/30/2016 - 08/19/2021 Provi sahra: Diagnosis: Last Documented On 2 10:24AM By Javier Choe ; [facility] Xeljanz 5 MG Tablet 12/30/2016 - 01/19/2018 Provider: Diagnosis: Last Documented On 8 9:27AM By Nury Gaming ; [facility] Acyclovir 400 MG Tablet 12/30/2016 - 01/19/2018 Provid er: Diagnosis: Last Documented On 8 9:27AM By Nury Gaming ; [facility] Omeprazole 40 MG Capsule Delayed Release 12/30/2016 - 01/19/2018 Provider: Diagnosis: Last Documented On 8 9:27AM By Nury Gaming ; [facility] DiazePAM 5 MG Tablet 12/29/2016 - 08/19/2021 Provider: XAVI ESCOBAR MD Diagnosis: Last Documented On 2 10:24AM By Javier Choe ; [facility] Fluticasone Propionate 50 MC G/ACT Suspension 11/30/2016 - 01/19/2018 Provider: XAVI Martinez Diagnosis: Last Documented On 8 9:27AM By Nury Gaming ; [facility] Lisinopril 20 MG Tablet 11/30/2016 - 08/19/2021 Provid er: XAVI ESCOBAR MD Diagnosis: Last Documented On 10:24AM By Javier Choe ; [facility] Diclofenac Sodium 75 MG Tablet Delayed Release 0 11/30/2016 - 08/19/2021 Provider: Diagnosis: Last Documented On 10:24AM By Javier Choe ; [facility], [facility] Medications Administered Includes: Administered Medications in patient's chart No Administered Medications Recorded Vital Signs Includes: Vital Signs from 09/01/2023 through 08/31/2024 Vital Name 04/12/2024 09:38A 12/21/2023 10:13A 09/13 08:51A Height (in) 74 74 74 Weight (lb) 313 314 316.2 Body Mass Index 40.2 40.3 40.6 Body Surface Area 2.6 2.6 2.6 Note: PW PW ct Last Documented: On 04/12/2024 9:39AM ; [facility] On 12/21/2023 10:13AM ; [facility] On 09/14/2023 8:52AM ; [facility], [facility] Results Includes: Results from 09/01/2023 through 08/31/2024 No Results Recorded For Specified Dates History of Present Illness History of Present Illness not supported for this document type No History of Present Illness Recorded Social History Description Last Updated Tobacco non-user 08/19/2022 Last Documented On 4 6:52PM ; [facility] Not a smoker 08/19/2022 Last Documented On 4 6:52PM ; [facility], [facility] No recent change in diet 05/20/2022 Last Documented On 4 2:18PM ; [facility] Not a current smoker. 05/20/2022 Last Documented On 4 2:18PM ; [facility] Non-smoker 11/18/2021 Last Documented On 2 9:52AM ; [facility] No caffeine use 07/28/2018 Last Documented On 9 3:18PM ; [facility] No recent change in diet 07/28/2018 Last Documented On 9 3:18PM ; [facility] Not a current smoker 07/28/2018 Last Documented On 9 3:18PM ; [facility] Not exercising regularly 07/28/2018 Last Documented On 9 3:18PM ; [facility] Not using alcohol 07/28/2018 Last Documented On 9 3:18PM ; [facility] Not using drugs 07/28/2018 Last Documented On 9 3:18PM ; [facility] No tobacco use 07/28/2018 Last Documented On 9 3:18PM ; [facility] Smoking status : Never smoker 07/28/2018 Last Documented On 9 3:18PM ; [facility] Procedures and Surgical History Includes: Procedures from 09/01/2023 through 08/31/2024 Procedures Code Diagnosis Performing Provider Service Location Service Date Triamcinolone/Ke nalog, 10mg per cc [id number] Spinal stenosis, lumbar region with neurogenic claudication Paulo Lemus CRNA [facility] 08/08/2024 Last Documented On 5 3:48PM ; [facility] Lumbar epidural 89423 Spinal stenosis, lumbar region with neurogenic claudication Paulo Lemus CRNA [facility] 08/08/2024 Last Documented On 5 3:48PM ; [facility] X-RAY EXAM OF LOWER SPINE 2-3 VIEWS LIMITED [id number] Spinal stenosis, lumbar region with neurogenic claudication LUIS MIGUEL LEO PA-C [facility] 07/23/2024 Last Documented On 5 2:04PM ; [facility] Triamcinolone/Kenalog, 10mg per cc [id number] Spinal stenosis, lumbar region with neurogenic claudication Paulo Lemus CRNA [facility] 04/18/2024 Last Documented On 4 10:22AM ; [facility] Lumbar epidural 31961 Spinal stenosis, lumbar region with neurogenic claudication Paulo Lemus [employer] [facility] 04/18/2024 Last Documented On 4 10:22AM ; [facility] Triamcinolone/Kenalog, 10mg per cc [id number] Spinal stenosis, lumbar region with neurogenic claudication Paulo Lemus [employer] [facility] 01/13/2024 Last Documented On 4 9:58AM ; [facility] Lumbar epidural 13471 Spinal stenosis, lumbar region with neurogenic claudication Paulo Lemus [employer] [facility] 01/13/2024 Last Documented On 4 9:58AM ; [facility] Triamcinolone/Kenalog, 10mg per cc [id number] Spinal stenosis, lumbar region with neurogenic claudication Paulo Lemus [employer] [facility] 09/28/2023 Last Documented On 4 5:41AM ; [facility] Lumbar epidural [id number] Spinal stenosis, lumbar region with neurogenic claudication Paulo Lemus [employer] [facility] 09/28/2023 Last Documented On 4 5:41AM ; [facility] Surgical History Last Updated History of total knee arthroplasty 04/26 Last Documented On 2 8:50AM ; [facility] Medical History Includes: Medical History in patient's chart Description Last Updated Past medical and surgical history non-co ntributory 08/19/2022 Last Documented On 4 6:52PM ; [facility] Past Surgical History: left hand sx ~ Last Documented On 2 8:50AM ; [facility] History of arthritis 04/26/2022 Last Documented On 2 8:50AM ; [facility] History of Heartburn / Acid Reflux 04/26 Last Documented On 2 8:50AM ; [facility] History of History of Rheumatology 12/19 /2022 Last Documented On 2 8:50AM ; [facility], [facility] History of Hypertension 04/26/2022 Last Documented On 2 8:50AM ; [facility], [facility] History of Sleep Apnea 04/26/2022 Last Documented On 2 8:50AM ; [facility] Recent immunization for flu 02/2022 Last Documented On 2 8:50AM ; [facility] No recent immunization for pneumococcal pneumonia 04/26/2022 Last Documented On 2 8:50AM ; [facility] A recent injection 07/28/2018 Last Documented On 9 3:18PM ; [facility] Arthritic joint problems 07/28/2018 Last Documented On 9 3:18PM ; [facility] History of gastric ulcer 07/28/2018 Last Documented On 9 3:18PM ; [facility] Intermittent hypertension 07/28/2018 Last Documented On 9 3:18PM ; [facility] Rheumatology history 07/28/2018 Last Documented On 9 3:18PM ; [facility], [facility] Family History Includes: Family History in patient's chart Description Last Updated No significant family history 08/19/2022 Last Documented On 4 6:52PM ; [facility] Family history of cancer 07/28/2018 Last Documented On 9 3:18PM ; [facility] Family history of hypertension 9 Last Documented On 9 3:18PM ; [facility] Review of Systems Review of Systems not supported for this document type No Review of Systems Recorded Mental Status No Mental Status Recorded Functional Status No Functional Status Recorded Physical Exam Physical Exam not supported for this document type No Physical Exam Recorded Immunizations Includes: Immunizations in patient's chart Vaccine Dose # Date Site Reaction(s) Status Source Influenza 1 02/06/2022 Complete (Reported) Patient Last Documented On 2 8:34AM ; [facility], [facility] Allergies Includes: Active, inactive, and resolved Allergies No Known Allergies Encounters Includes: Encounters from 09/01/2023 through 08/31/2024 Encounter Provider Location Date Check-In Time Check-Out Time Diagnosis Epidural Steroid Injection Paulo Lemus [employer] 08/09/19 25 07/23/2024 1:00PM 07/23/2024 11:59PM Epidural Steroid Injection Paulo Lemus [employer] [facility] 08/09/19 11:01AM 11:30AM Epidural Steroid Injection Paulo Lemus [employer] 08/02/19 25 04/18/2024 4:01PM 04/18/2024 11:59PM Follow Up LUIS MIGUEL LEO PA-C [facility] 07/24/19 8:45AM 9:18AM Overweight Epidural Steroid Injection Paulo Lemus [employer] 04/18/20 24 04/12/2024 2:27PM 04/12/2024 11:59PM Epidural Steroid Injection Paulo Lemus [employer] [facility] 04/18/20 9:02AM 9:41AM Follow Up LUIS MIGUEL LEO PA-C [facility] 04/12/20 24 9:24AM 9:55AM Overweight Epidural Steroid Injection Paulo Lemus [employer] 01/13/20 24 12/21/2023 11:31AM 12/21/2023 11:59PM Epidural Steroid Injection Paulo Lemus [employer] [facility] 01/13/20 24 9:05AM 9:19AM Follow Up LUIS MIGUEL LEO PA-C [facility] 12/21/19 9:11AM 9:31AM Overweight Epidural Steroid Injection Paulo Lemus [employer] 09/28/19 24 09/14/2023 1:19PM 09/14/2023 11:59PM Epidural Steroid Injection Paulo Lemus [employer] [facility] 09/28/19 24 9:15AM 9:39AM Follow Up LUIS MIGUEL LEO PA-C [facility] 09/14/19 8:29AM 9:11AM Overweight Insurance Includes: Active Insurance Policies Plan Name Member ID Group # Subscriber Relationship Effect arcadio Dates 1 - [employer] [id number] Bryant Jacobson 06/09/2021 - Unknown Clinical Notes Includes: Signed Clinical Notes starting from 04/22/2022 * Progress note Date Encounter Last Documented by 07/23/2024 Follow Up Last documented on 08/01/2024; 8:38 AM, LUIS MIGUEL Dunlap; [facility], [facility] Active Problems & Conditions - Joint Pain in the Left Knee - Joint Pain in the Right Hip - Joint Pain in the Right Knee - Pain in the Lumbar Spine Chief Complaint The Chief Complaint is: Lower back pain. Referred Here Referred by IHR. History of Present Illness Bryant Bonds is a 69 year old male. - Allergy list reviewed - Problem list reviewed - Medication reconciliation performed - Medication list reviewed - Previous history of new onset pain Injury is not work related or an automotive accident - Patient pain level from 1-10: 7 - Yes, previous treatment. - History of Home Exercise 05/23/2023 DAILY HEP USING SPINE BROCHURE - History of Injections 09/28/2023 05/05/2022-JUAN JOSE L2-3 11/24/2022 JUAN JOSE L2-3 02/25/2023 JUAN JOSE L2-3 06/29/2023 JUAN JOSE L2-3 09/28/2023 L2-3 JUAN JOSE 90% FOR 2 MTHS 01/13/2024 L2-3 JUAN JOSE 100% FOR 3 MTHS 04/18/2024 L2-3 JUAN JOSE 80-90% FOR 2 MTHS - - Review of medications documented Patient returns ready to repeat a lumbar epidural injection. He is still getting excellent results out of the injections. Having 80-90% relief for at least 2 months before the symptoms started to worsen. His last injection was April 18. He is just now starting to notice worsening symptoms. Patient reports increasing pain and tightness across the lower back after he had been standing or walking for several minutes this affect the anterior thighs both right and left sides. Having difficulty going up and down steps due to the leg weakness. The injections significantly improve the strength and function of his legs for a couple of months before the symptoms worsened. In his ready to repeat an injection. He reports that his pain improvement is now around 60%. Current Medication - azaTHIOprine 50 MG Oral Tablet once a day 30 days, 0 refills - [facility] Esomepraz[facility] Magnesium 20 MG Oral Capsule Delayed Release take as directed 0 days, 0 refills - diazePAM 5 MG Oral Tablet take as directed 17 days, 0 refills - Finasteride 1 MG Oral Tablet take as directed 0 days, 0 refills - Folic Acid 1 MG Oral Tablet twice a day 30 days, 0 refills - HYDROcodone-Acetaminophen 5-325 MG Oral Tablet use as directed 13 days, 0 refills - Lisinopril 10 MG Oral Tablet take as directed 0 days, 0 refills - Methotrexate Sodium 2.5 MG Oral Tablet take as directed 28 days, 0 refills - Tamsulosin HCl 0.4 MG Oral Capsule take as directed 0 days, 0 refills Past Medical/Surgical History Reported: Medical: Rheumatology history. Arthritic joint problems. Intermittent hypertension. Medications: A recent injection. Immunization History: Recent immunization for flu 02/2022. No recent immunization for pneumococcal pneumonia. Diagnoses: Sleep Apnea Heartburn / Acid Reflux Hypertension History of Rheumatology. Gastric ulcer. Arthritis Past medical and surgical history non-contributory. Surgical: - Total knee arthroplasty Social History Not a current smoker. Current diet: No recent change in diet. Caffeine use: No caffeine use. Tobacco use: Not a smoker. Alcohol: Not using alcohol. Drug Use: Not using drugs. Habits: Not exercising regularly. Allergies - No Known Allergies Family History Cancer No significant family history Systemic hypertension Review Of Systems Systemic: Not feeling tired, no recent weight loss, and no recent weight gain. No edema. Head: No headache and no sinus pain. Eyes: No vision problems and no glaucomatous visual field defect. No Cataracts. Glasses/Contacts. No Glaucoma. Otolaryngeal: No hearing loss. Tinnitus. No nasal symptoms. Cardiovascular: No chest pain or discomfort and no palpitations. Hypertension and High Cholesterol. Pulmonary: No daytime asthma symptoms, no cough, and no chronic cough. No wheezing. Gastrointestinal: No heartburn and no abdominal pain. No Indigestion, no Peptic Ulcer, and no GI Stomach Bleed. Ulcers and Acid Reflux. Endocrine: No hot flashes, no muscle weakness, no Diabetes, no Hypothyroid, and no Hyperthyroid. Hematologic: No easy bleeding, no tendency for easy bruising, and no Anemia. Musculoskeletal: Arthritis and lower back pain. No soft tissue swelling. Pain localized to one or more joints. Neurological: No dizziness, no convulsions, and no numbness. Psychological: Anxiety. No emotional lability, no depression, and no insomnia. Not crying for no reason. Skin: No dry skin. No Ulcers. Scars. No rash and no ulcers. Allergic and Immunologic: Complaint of seasonal allergic reaction. Physical Findings Standard Measurements: - Patient was overweight. Skin is unremarkable. Patient has good mobility. He has a normal gait. Patient's symptoms occur after he had been standing or walking for several minutes at that point then started getting some upper and mid lumbar pain and tightness and discomfort with referred symptoms down into the hips and legs affecting the anterior thighs mostly. Tests 2v lumbar spine xrays AP and Lateral views of the lumbar spine were obtained today X-rays lumbar spine essentially unchanged from his last x-rays. He has advanced disc degeneration throughout the lumbar spine. This is associated with facet arthritis and advanced foraminal narrowing at multiple levels. Assessment - Overweight Lumbar disc degeneration with stenosis predominantly at the L2-3 level. Patient has been receiving the epidural injections fairly regularly over the past couple of years with great success. He would like to continue this. He does not have any interested in pursuing surgical treatment. Previous Tests Imaging: X-Ray: X-ray 04/06/2022-[facility] @ [facility] 05/21/2023 [facility] 07/23/2024 [facility]. MRI Scan: An MRI was performed 04/14/2022-[facility] @ [facility] . Therapy - Follow-up visit in one month. - Referral to physician. Counseling/Education - Tobacco non-user - Use of tobacco assessment performed - Lose weight Plan - Patient screened for future fall risk: documentation of any fall with injury in past year Fall Risk Assessment: This patient has been identified as a fall risk. Balance/gait along with postural blood pressure, vision and home fall hazards have been assessed. Medications have been reviewed, and recommendations made with regard to contributing factors for future falls. Plan of care: Consideration of vitamin D supplementation along with balance and strength training with consideration for formal physical therapy has been discussed with the patient. PCP is sent each office and procedure note, they are aware of continued steroid injection use. They are aware if the patient is having a positive response to the steroid injections we will continue these instead of providing surgical intervention. Repeat L2-3 epidural injection. Follow up as needed. Notes This dictation was done with the voice recognition software and may contain errors and omissions. Practice Management Use of tobacco assessment performed and patient screened for future fall risk documentation of any fall with injury in past year. Care Team - XAVI ESCOBAR MD - HOG STOMACH PREPARER Health Reminders - Assess Tobacco Use satisfied 07/23/2024. - Follow Up Plan BMI Management satisfied 07/23/2024. * Progress note Date Encounter Last Documented by 04/12/2024 Follow Up Last documented on 04/13/2024; 1:31 PM, LUIS MIGUEL Dunlap; [facility], [facility] Active Problems & Conditions - Joint Pain in the Left Knee - Joint Pain in the Right Hip - Joint Pain in the Right Knee - Pain in the Lumbar Spine Chief Complaint The Chief Complaint is: Lower back pain. Referred Here Referred by IHR. History of Present Illness Bryant Bonds is a 68 year old male. - Allergy list reviewed - Problem list reviewed - Medication reconciliation performed - Medication list reviewed - Previous history of new onset pain Injury is not work related or an automotive accident - Patient pain level from 1-10: 7 - Yes, previous treatment. - History of Home Exercise 05/23/2023 DAILY HEP USING SPINE BROCHURE - History of Injections 09/28/2023 05/05/2022-JUAN JOSE L2-3 11/24/2022 JUAN JOSE L2-3 02/25/2023 JUAN JOSE L2-3 06/29/2023 JUAN JOSE L2-3 09/28/2023 L2-3 JUAN JOSE 90% FOR 2 MTHS 01/13/2024 L2-3 JUAN JOSE 100% FOR 3 MTHS - - Review of medications documented Patient has returned ready to repeat the L2-3 epidural injection. Patient is getting excellent results out of the injections. He reports 100% relief of his back hip and leg symptoms. These tend to last close to 3 months. It has been 3 months since his last injection and he is just now starting to notice some increasing symptoms. Having increasing discomfort in the upper mid lumbar spine with some referred numbness and weakness that affect the both legs. Patient feels like the present time he is about 70% improved. In his ready to repeat the injection as it dramatically improves his pain and improves his function allowing him to continue with his regular activities. Current Medication - azaTHIOprine 50 MG Oral Tablet once a day 30 days, 0 refills - [facility] Esomepraz[facility] Magnesium 20 MG Oral Capsule Delayed Release take as directed 0 days, 0 refills - diazePAM 5 MG Oral Tablet take as directed 17 days, 0 refills - Finasteride 1 MG Oral Tablet take as directed 0 days, 0 refills - Folic Acid 1 MG Oral Tablet twice a day 30 days, 0 refills - HYDROcodone-Acetaminophen 5-325 MG Oral Tablet use as directed 13 days, 0 refills - Lisinopril 10 MG Oral Tablet take as directed 0 days, 0 refills - Methotrexate Sodium 2.5 MG Oral Tablet take as directed 28 days, 0 refills - Tamsulosin HCl 0.4 MG Oral Capsule take as directed 0 days, 0 refills Past Medical/Surgical History Reported: Medical: Rheumatology history. Arthritic joint problems. Intermittent hypertension. Medications: A recent injection. Immunization History: Recent immunization for flu 02/2022. No recent immunization for pneumococcal pneumonia. Diagnoses: Sleep Apnea Heartburn / Acid Reflux Hypertension History of Rheumatology. Gastric ulcer. Arthritis Past medical and surgical history non-contributory. Surgical: - Past Surgical History: left hand sx - Total knee arthroplasty Social History Not a current smoker. Current diet: No recent change in diet. Caffeine use: No caffeine use. Tobacco use: Tobacco non-user. Alcohol: Not using alcohol. Drug Use: Not using drugs. Habits: Not exercising regularly. Allergies - No Known Allergies Family History Cancer No significant family history Systemic hypertension Review Of Systems Systemic: Not feeling tired, no recent weight loss, and no recent weight gain. No edema. Head: No headache and no sinus pain. Eyes: No vision problems and no glaucomatous visual field defect. No Cataracts. Glasses/Contacts. No Glaucoma. Otolaryngeal: No hearing loss. Tinnitus. No nasal symptoms. Cardiovascular: No chest pain or discomfort and no palpitations. Hypertension and High Cholesterol. Pulmonary: No daytime asthma symptoms, no cough, and no chronic cough. No wheezing. Gastrointestinal: No heartburn and no abdominal pain. No Indigestion, no Peptic Ulcer, and no GI Stomach Bleed. Ulcers and Acid Reflux. Endocrine: No hot flashes, no muscle weakness, no Diabetes, no Hypothyroid, and no Hyperthyroid. Hematologic: No easy bleeding, no tendency for easy bruising, and no Anemia. Musculoskeletal: Arthritis and lower back pain. No soft tissue swelling. Pain localized to one or more joints. Neurological: No dizziness, no convulsions, and no numbness. Psychological: Anxiety. No emotional lability, no depression, and no insomnia. Not crying for no reason. Skin: No dry skin. No Ulcers. Scars. No rash and no ulcers. Allergic and Immunologic: Complaint of seasonal allergic reaction. Physical Findings - Vitals taken 04/12/2024 09:38 am PW Height 74 in 60 - 80 Weight 313 lbs 123 - 215 Body Mass Index 40.2 kg/m2 Body Surface Area 2.6 m2 Standard Measurements: - Patient was overweight. At rest he does not have a lot of symptoms. He is able to get up and down easily without assistance. He has a normal gait. He does have stiffness with range of motion but his symptoms usually occur after he had been standing or walking for several minutes. Then he will have some increasing tightness and discomfort across the upper lumbar region with referred symptoms down the hips in the legs with some numbness and tingling and some L3 radicular symptoms that bother him especially with weight-bearing activities. Hip knee and ankle motion are unremarkable. Straight leg raising is negative for nerve root compression Assessment - Overweight Patient has advanced lumbar disc degeneration with facet arthropathy and stenosis predominantly at the L2-3 level. Patient is getting excellent results out of the occasional epidural injection. He would like to continue these. He is not interested in pursuing anything surgical at this time. Previous Tests Imaging: X-Ray: An X-ray was performed 04/06/2022-[facility] @ [facility] 05/21/2023 [facility]. MRI Scan: An MRI was performed 04/14/2022-[facility] @ [facility] . Therapy - Follow-up visit in one month. - Referral to physician. Counseling/Education - Tobacco non-user - Use of tobacco assessment performed - Lose weight Plan - Patient screened for future fall risk: documentation of any fall with injury in past year Fall Risk Assessment: This patient has been identified as a fall risk. Balance/gait along with postural blood pressure, vision and home fall hazards have been assessed. Medications have been reviewed, and recommendations made with regard to contributing factors for future falls. Plan of care: Consideration of vitamin D supplementation along with balance and strength training with consideration for formal physical therapy has been discussed with the patient. Repeat L2-3 epidural injection. He will continue his daily home therapy and follow up as needed. PCP is sent each office and procedure note, they are aware of continued steroid injection use. They are aware if the patient is having a positive response to the steroid injections we will continue these instead of providing surgical intervention. Notes This dictation was done with the voice recognition software and may contain errors and omissions. Practice Management Use of tobacco assessment performed and patient screened for future fall risk documentation of any fall with injury in past year. Care Team - XAVI ESCOBAR MD - HOG STOMACH PREPARER Health Reminders - Assess BMI satisfied 04/12/2024. - Assess Tobacco Use satisfied 08/19/2022. - Follow Up Plan BMI Management satisfied 04/12/2024. * Progress note Date Encounter Last Documented by 12/21/2023 Follow Up Last documented on 01/05/2024; 7:08 PM, LUIS MIGUEL Dunlap; [facility], [facility] Active Problems & Conditions - Joint Pain in the Left Knee - Joint Pain in the Right Hip - Joint Pain in the Right Knee - Pain in the Lumbar Spine Chief Complaint The Chief Complaint is: Lower back pain. Referred Here Referred by IHR. History of Present Illness Bryant Bonds is a 68 year old male. - Allergy list reviewed - Problem list reviewed - Medication reconciliation performed - Medication list reviewed - Previous history of new onset pain Injury is not work related or an automotive accident - Patient pain level from 1-10: 9 - Yes, previous treatment. - History of Home Exercise 05/23/2023 - History of Injections 09/28/2023 05/05/2022-JUAN JOSE L2-3 11/24/2022 JUAN JOSE L2-3 02/25/2023 JUAN JOSE L2-3 06/29/2023 JUAN JOSE L2-3 09/28/2023 L2-3 JUAN JOSE 90% FOR 2 MTHS - - Review of medications documented Patient returns ready to schedule repeat lumbar epidural injection. Typically he will get 90% relief for close to 3 months before the symptoms started to worsen. Patient is just 8 days shy of his three-month mireya in his last injection. He is still doing well but starting to notice some increasing symptoms again with some lower back pain and leg numbness and weakness that affects mainly the anterior and lateral aspect of the legs. Patient finds the injections very effective. It allows him to be a lot more active. He can participate with most of his activities. With the results of the injections he is not interested in pursuing any surgical treatment as he finds the injections very effective. Patient also continues with a home exercise program to do some stretches and strengthening. He will modifies his activities accordingly depending on his symptoms. Amended- 01/05/2024 patient is still reporting 90% pain relief it has been 3 mths and 7 days. Current Medication - azaTHIOprine 50 MG Oral Tablet once a day 30 days, 0 refills - [facility] Esomepraz[facility] Magnesium 20 MG Oral Capsule Delayed Release take as directed 0 days, 0 refills - diazePAM 5 MG Oral Tablet take as directed 17 days, 0 refills - Finasteride 1 MG Oral Tablet take as directed 0 days, 0 refills - Folic Acid 1 MG Oral Tablet twice a day 30 days, 0 refills - HYDROcodone-Acetaminophen 5-325 MG Oral Tablet use as directed 13 days, 0 refills - Lisinopril 10 MG Oral Tablet take as directed 0 days, 0 refills - Methotrexate Sodium 2.5 MG Oral Tablet take as directed 28 days, 0 refills - Tamsulosin HCl 0.4 MG Oral Capsule take as directed 0 days, 0 refills Past Medical/Surgical History Reported: Medical: Rheumatology history. Arthritic joint problems. Intermittent hypertension. Medications: A recent injection. Immunization History: Recent immunization for flu 02/2022. No recent immunization for pneumococcal pneumonia. Diagnoses: Sleep Apnea Heartburn / Acid Reflux Hypertension History of Rheumatology. Gastric ulcer. Arthritis Past medical and surgical history non-contributory. Surgical: - Past Surgical History: left hand sx - Total knee arthroplasty Social History Not a current smoker. Current diet: No recent change in diet. Caffeine use: No caffeine use. Tobacco use: Tobacco non-user. Alcohol: Not using alcohol. Drug Use: Not using drugs. Habits: Not exercising regularly. Allergies - No Known Allergies Family History Cancer No significant family history Systemic hypertension Review Of Systems Systemic: Not feeling tired, no recent weight loss, and no recent weight gain. No edema. Head: No headache and no sinus pain. Eyes: No vision problems and no glaucomatous visual field defect. No Cataracts. Glasses/Contacts. No Glaucoma. Otolaryngeal: No hearing loss. Tinnitus. No nasal symptoms. Cardiovascular: No chest pain or discomfort and no palpitations. Hypertension and High Cholesterol. Pulmonary: No daytime asthma symptoms, no cough, and no chronic cough. No wheezing. Gastrointestinal: No heartburn and no abdominal pain. No Indigestion, no Peptic Ulcer, and no GI Stomach Bleed. Ulcers and Acid Reflux. Endocrine: No hot flashes, no muscle weakness, no Diabetes, no Hypothyroid, and no Hyperthyroid. Hematologic: No easy bleeding, no tendency for easy bruising, and no Anemia. Musculoskeletal: Arthritis and lower back pain. No soft tissue swelling. Pain localized to one or more joints. Neurological: No dizziness, no convulsions, and no numbness. Psychological: Anxiety. No emotional lability, no depression, and no insomnia. Not crying for no reason. Skin: No dry skin. No Ulcers. Scars. No rash and no ulcers. Allergic and Immunologic: Complaint of seasonal allergic reaction. Physical Findings - Vitals taken 12/21/2023 10:13 am PW Height 74 in 60 - 80 Weight 314 lbs 123 - 215 Body Mass Index 40.3 kg/m2 Body Surface Area 2.6 m2 Standard Measurements: - Patient was overweight. Tests Review of his previous MRI scan shows that he is on a fused at the L1-2 level. He has advanced disc degeneration with facet arthritis and stenosis at multiple levels throughout the remaining lumbar spine. With the most severe level being at the L2-3 level. Assessment - Overweight Lumbar spinal stenosis mainly at the L2-3 level. Patient is getting excellent results out of the occasional epidural injection. Previous Tests Imaging: X-Ray: An X-ray was performed 04/06/2022-Garry espinoza @ [facility]. MRI Scan: An MRI was performed 04/14/2022-Kira @ [facility] . Therapy - Follow-up visit in one month. - Referral to physician. Counseling/Education - Tobacco non-user - Use of tobacco assessment performed - Lose weight Plan - Patient screened for future fall risk: documentation of any fall with injury in past year Fall Risk Assessment: This patient has been identified as a fall risk. Balance/gait along with postural blood pressure, vision and home fall hazards have been assessed. Medications have been reviewed, and recommendations made with regard to contributing factors for future falls. Plan of care: Consideration of vitamin D supplementation along with balance and strength training with consideration for formal physical therapy has been discussed with the patient. We will see if we can go ahead and schedule repeat L2-3 epidural injection. Hopefully this will continue to provide good relief. We will see him back on an as-needed basis otherwise. PCP is sent each office and procedure note, they are aware of continued steroid injection use. They are aware if the patient is having a positive response to the steroid injections we will continue these instead of providing surgical intervention. Notes This dictation was done with the voice recognition software and may contain errors and omissions. Practice Management Use of tobacco assessment performed and patient screened for future fall risk documentation of any fall with injury in past year. Care Team - XAVI ESCOBAR MD - HOG STOMACH PREPARER Health Reminders - Assess BMI satisfied 12/21/2023. - Assess Tobacco Use satisfied 08/19/2022. - Follow Up Plan BMI Management satisfied 12/21/2023. * Progress note Date Encounter Last Documented by 09/14/2023 Follow Up Last documented on 09/15/2023; 8:04 AM, LUIS MIGUEL [place]; [facility], [facility] Active Problems & Conditions - Joint Pain in the Left Knee - Joint Pain in the Right Hip - Joint Pain in the Right Knee - Pain in the Lumbar Spine Chief Complaint The Chief Complaint is: Lower back pain. Referred Here Referred by [facility]. History of Present Illness Bryant Bonds is a 68 year old male. - Allergy list reviewed - Problem list reviewed - Medication reconciliation performed - Medication list reviewed - Previous history of new onset pain Injury is not work related or an automotive accident - Patient pain level from 1-10: 9 - Yes, previous treatment. - History of Injections 05/05/2022-JUAN JOSE L2-3 11/24/2022 JUAN JOSE L2-3 02/25/2023 JUAN JOSE L2-3 06/29/2023 JUAN JOSE L2-3 - - Review of medications documented Patient returns prior to another L2-3 lumbar epidural injection. Patient finds him very effective. He has been receiving these over the past year and a half with good success. Patient reports that he will get 90% relief for 3 months before he is in need of another injection. The injections allow him to be more mobile. He would get out and function. He can participate with some home activities and even some yd work. Without the injections he would need a very sedentary life him. Patient reports that he has increasing symptoms with prolonged standing or walking. With some symptoms at rest. Patient has been doing some home exercises to try to manage his symptoms. He also sees a chiropractor on a regular basis with good results. Patient is not interested in pursuing any surgical treatment. He finds the injections very effective and would like to continue these. Current Medication - azaTHIOprine 50 MG Oral Tablet once a day 30 days, 0 refills - [facility] Esomeprazole Magnesium 20 MG Oral Capsule Delayed Release take as directed 0 days, 0 refills - diazePAM 5 MG Oral Tablet take as directed 17 days, 0 refills - Finasteride 1 MG Oral Tablet take as directed 0 days, 0 refills - Folic Acid 1 MG Oral Tablet twice a day 30 days, 0 refills - HYDROcodone-Acetaminophen 5-325 MG Oral Tablet use as directed 13 days, 0 refills - Lisinopril 10 MG Oral Tablet take as directed 0 days, 0 refills - Methotrexate Sodium 2.5 MG Oral Tablet take as directed 28 days, 0 refills - Tamsulosin HCl 0.4 MG Oral Capsule take as directed 0 days, 0 refills Past Medical/Surgical History Reported: Medical: Rheumatology history. Arthritic joint problems. Intermittent hypertension. Medications: A recent injection. Immunization History: Recent immunization for flu 02/2022. No recent immunization for pneumococcal pneumonia. Diagnoses: Sleep Apnea Heartburn / Acid Reflux Hypertension History of Rheumatology. Gastric ulcer. Arthritis Past medical and surgical history non-contributory. Surgical: - Past Surgical History: left hand sx - Total knee arthroplasty Social History Not a current smoker. Current diet: No recent change in diet. No recent change in diet. Caffeine use: No caffeine use. Tobacco use: No tobacco use and not a current smoker. Tobacco non-user. Not a smoker. Non-smoker. Smoking status: Never smoker. Alcohol: Not using alcohol. Drug Use: Not using drugs. Habits: Not exercising regularly. Allergies - No Known Allergies Family History Cancer No significant family history Systemic hypertension Review Of Systems Systemic: Not feeling tired, no recent weight loss, and no recent weight gain. No edema. Head: No headache and no sinus pain. Eyes: No vision problems and no glaucomatous visual field defect. No Cataracts. Glasses/Contacts. No Glaucoma. Otolaryngeal: No hearing loss. Tinnitus. No nasal symptoms. Cardiovascular: No chest pain or discomfort and no palpitations. Hypertension and High Cholesterol. Pulmonary: No daytime asthma symptoms, no cough, and no chronic cough. No wheezing. Gastrointestinal: No heartburn and no abdominal pain. No Indigestion. Acid Reflux. No Peptic Ulcer and no GI Stomach Bleed. Ulcers. Endocrine: No hot flashes, no muscle weakness, no Diabetes, no Hypothyroid, and no Hyperthyroid. Hematologic: No easy bleeding, no tendency for easy bruising, and no Anemia. Musculoskeletal: Arthritis and lower back pain. No soft tissue swelling. Pain localized to one or more joints. Neurological: No dizziness, no convulsions, and no numbness. Psychological: Anxiety. No emotional lability, no depression, and no insomnia. Not crying for no reason. Skin: No dry skin. No Ulcers. Scars. No rash and no ulcers. Allergic and Immunologic: Complaint of seasonal allergic reaction. Physical Findings - Vitals taken 09/14/2023 08:[address] Height 74 in 60 - 80 Weight 316 lbs 3.2 oz 123 - 215 Body Mass Index 40.6 kg/m2 Body Surface Area 2.6 m2 Standard Measurements: - Patient was overweight. At rest he does not have any symptoms. He is able to get up and down easily without assistance. He does have some stiffness with range of motion. Hip knee and ankle motion normal. He has good strength and function in the lower extremities. But after prolonged standing or walking he will get some referred symptoms into the right anterior thigh and knee with some numbness and weakness Tests Patient's x-ray shows that he has advanced degenerative changes throughout the lumbar spine. He has vacuum phenomena noted in the upper lumbar levels. He had a be auto fused at the L4-5 and L5-S1 levels. There is considerable foraminal narrowing with facet arthritis noted throughout the lumbar spine. Assessment - Overweight Symptomatic lumbar disc degeneration with stenosis mainly at the L2-3 level. Patient is being getting excellent results with the occasional injection. He would like to continue these as long as they are effective. Previous Tests Imaging: Intravascular Ultrasound (Coronary Vessel/Graft): An X-ray was performed 04/06/2022-Lsp ine @ [facility]. CT Scan Lower Extremity Foot: An MRI was performed 04/14/2022-Lspine @ [facility] . Therapy - Follow-up visit in one month. - Referral to physician. Counseling/Education - Tobacco non-user - Use of tobacco assessment performed - Lose weight Plan - Patient screened for future fall risk: documentation of any fall with injury in past year Fall Risk Assessment: This patient has been identified as a fall risk. Balance/gait along with postural blood pressure, vision and home fall hazards have been assessed. Medications have been reviewed, and recommendations made with regard to contributing factors for future falls. Plan of care: Consideration of vitamin D supplementation along with balance and strength training with consideration for formal physical therapy has been discussed with the patient. Patient is already scheduled for repeat epidural injection. As long as he is getting good results nothing needs to be changed. We will continue these. He will continue his exercises and chiropractic treatments. Anti-inflammatories as needed. Notes This dictation was done with the voice recognition software and may contain errors and omissions. Practice Management Use of tobacco assessment performed and patient screened for future fall risk documentation of any fall with injury in past year. Care Team - XAVI ESCOBAR MD - HOG STOMACH PREPARER Health Reminders - Assess BMI satisfied 09/14/2023. - Assess Tobacco Use satisfied 07/28/2018. - Follow Up Plan BMI Management satisfied 09/14/2023.
--- OUTSIDE RECORDS SUMMARY | 2024-08-31 09:40 | XMS_ITS | Data Portability ---
Author Organization [facility] [facility] [place] & TERE Flowers ADMIN Address [address] [place] [id number] Assessment Encounter Date Assessment Date Assessment LastModified by Organization Details LastModified Time 01/26/2023 01/26/2023 67-year-old male referred for evaluation of hepatic fibrosis stage 1-2 based off of labs from Rheumatology. -Will order a liver US (faxed to [facility]). -I suspect SCHWARTZ. Will start vitamin E supplementation . I have counseled continued efforts for additional weight loss. He practices intermittent fasting. I have also recommended he cut back significantly on his alcohol consumption, preferably by being completely abstinent. -He will follow-up in 3 weeks to discuss the US results. I will plan to repeat his hepatic function labs at that time in the setting of (hopeful) reduced etoh consumption, as well as plan to check viral hepatitis labs and a SCHWARTZ fibrosure. I would allow him likely 4-6 months at that point to continue lifestyle changes. 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 US liver recently was negative. He reported mild to moderate alcohol consumption. He has recently decreased his drinking and has been successful at losing weight via lifestyle changes. -I suspect SCHWARTZ. Continue vitamin E supplementation . I have counseled continued efforts for additional weight loss. He practices intermittent fasting. He was encouraged to continue to limit alcohol intake. -Will obtain labs per below for baseline monitoring. Will check for immunity to hepatitis A & B and offer vaccination if indicated. -He will continue his currently lifestyle changes and follow-up in 4-6 months. [email or web address] Not available 02/23/2023 12:50:26 07/15/2023 07/15/2023 68-year-old with history of hepatic fibrosis stage 1-2 based off of prior labs from Rheumatology. US liver recently was 01/2023. His liver enzymes previously normalized with reduction in alcohol consumption and weight loss. He is binge drinking once weekly. He reports recent labs with Rheumatology were unremarkable.. -I suspect hepatic steatosis due to both metabolic reasons as well as alcohol consumption. Continue vitamin E supplementation . I have counseled continued efforts for additional weight loss. He was encouraged to continue to limit alcohol intake. -Will obtain recent labs from [facility] Rheumatology. If hepatic function labs are again normal, I recommend continued follow-up with his PCP for routine lab monitoring and return to our office is he develops recurrence of transaminitis. [email or web address] Not available 07/15/2023 11:56:33 Plan of Treatment Reminders Order Date Submit Date Provider Last Modified By Organization Details Last Modified Time Details Appointments None recorded. Lab nonalcoholi c steatohepat itis + fibrosis panel, serum or plasma [facility]), [address] [place] [address], [place], [address], 3 08:38:03 CMP, serum or plasma [facility] [address] [place] [address], [place], [address], 3 15:15:15 PT/INR 2022 023 [facility] (Lab), [address], [place], [address], 3 15:15:15 CBC 2022 023 [facility] (Lab), [address], [place], [address], 3 15:15:15 hepatitis panel (A+B+C), acute, serum 2022 023 [email or web address] [facility] (Lab), [address] [place] [address], [place], [address], 3 08:38:03 hepatitis A Ab, total, serum [address] (Lab), [address] [place], [place] [address], [place], [address], 3 08:38:03 hepatitis B surface Ab, quantitativ e, serum [address] (Lab), [address] [place] [address] [address], [place], [address], 3 08:38:04 Referral None recorded. Procedures None recorded. Surgeries None recorded. Imaging US, liver 2022 023 [facility] ([facility] [address] [place] [address] [address], [place], [address], 3 08:53:31 Medication Orders vitamin E 268 mg (400 unit) capsule 2023 024 [facility], [address] [place] [address] E [address], [id number], 4 17:24:58 vitamin E 268 mg (400 unit) capsule 2022 023 [facility], [address] [place] [address] E [address]-[place]umber[place], [id number], 4 11:32:31 Patient TargetsNo targets recorded. Patient InstructionsNo instructions recorded. Reason for Referral None Reported. Results Created Date Observation Date Name Description Value Unit Range Abnormal Flag Note LastModifiedBy Organization Detail LastModifiedTime 02/04/20 23 02/03/2023 US, liver No observ ation record ed. [address], [place], [address], 03/25/2023 15:41:09 Result Notes None recorded. Problems Name Problem SNOMED Code Status Onset Date Resolution Date Notes Provider Name and Address Organization Details Recorded Time Hepatic fibrosis 04999125 Active 2022 Roby Vaughan PA-C [address], [place], [address] , [facility] & [place] 3 09:33:53 Nonalcoholic steatohepatit is 366545256 Active 2022 Roby Vaughan PA-C [address], [place], [address] , [facility] & [place] 3 09:34:16 Binge drinker 304824125 Active 2023 Roby Vaughan PA-C [address], [place], [address] , [facility] & [place] 4 11:54:37 Problem Notes None recorded. Procedures Surgical History None recorded. Imaging Results Imaging Date Name Status LastModified by Organiz ation Details LastModified Time 02/03/2023 US, liver completed [facility] [address], [place], [address], 03/25/2023 15:41:09 Procedure Notes None recorded. Medical Equipment None Reported. Medications Name Sig Start Date Stop Date Status Note LastModified by Organization Details LastModified Time amoxicillin 500 mg capsule TAKE FOUR CAPSULES BY MOUTH 1 hour prior TO appointme nt active Not Available Not Available No t Available prednisone 10 mg tablet take 4 tablets by mouth once daily in the morning for 5 days, then take 3 tablets each morning for 2 days, then take 2 tablets each morning for 2 days, then take 1 tablet each morning for 2 days, then stop --take with food-- active Not Available Not Available No t Available hydrocodone 5 mg-acetamin ophen 325 mg tablet TAKE ONE TABLET BY MOUTH EVERY 6 HOURS NEEDED FOR PAIN MAY CAUSE DROWSINES S active Not Available Not Available No t Available lisinopril 20 mg tablet TAKE ONE TABLET BY MOUTH EVERY DAY active Not Available Not Available No t Available fluorouraci l 5 % topical cream APPLY TOPICALLY TO THE AFFECTED AREA(S) TWICE DAILY FOR 3 TO 6 WEEKS DIRECTED -- FOR EXTERNAL USE ONLY-- active Not Available Not Available No t Available Remicade 100 mg intravenous solution INFUSE 690MG INTRAVENO USLY EVERY 8 WEEKS active Not Available Not Available No t Available azathioprin e 50 mg tablet TAKE ONE TABLET BY MOUTH EVERY DAY active Not Available Not Available No t Available acyclovir 400 mg tablet TAKE ONE TABLET BY MOUTH THREE TIMES DAILY FOR 7 DAYS -- FINISH ALL MEDICINE -- active Not Available Not Available No t Available ciprofloxac in 500 mg tablet TAKE ONE TABLET BY MOUTH EVERY TWELVE HOURS FOR 10 DAYS -- FINISH ALL MEDICINE -- 01/26 completed Not Available Not Available Not Available simvastatin 40 mg tablet TAKE ONE TABLET BY MOUTH EVERY DAY AT BEDTIME active Not Available Not Available No t Available oxycodone-a cetaminophe n 5 mg-325 mg tablet TAKE ONE TABLET BY MOUTH EVERY 6 HOURS NEEDED FOR PAIN MAY CAUSE DROWSINES S active Not Available Not Available No t Available methotrexat e sodium 2.5 mg tablet take 10 TABLETS BY MOUTH every WEEK active Not Available Not Available No t Available tamsulosin 0.4 mg capsule TAKE TWO CAPSULES BY MOUTH EVERY DAY AT BEDTIME active Not Available Not Available No t Available erythromyci n 5 mg/gram (0.5 %) eye ointment apply a 1/4 INCH ribbon of ointment TO each eye DIRECTED EVERY DAY AT BEDTIME active Not Available Not Available No t Available esomeprazol e magnesium 40 mg capsule,del ayed release TAKE ONE CAPSULE BY MOUTH EVERY DAY active Not Available Not Available No t Available folic acid 1 mg tablet TAKE TWO TABLETS BY MOUTH EVERY DAY active Not Available Not Available No t Available lorazepam 1 mg tablet TAKE ONE TABLET BY MOUTH 1 hour BEFORE MRI, MAY take an additiona l tablet if needed MAY CAUSE DROWSINES S active Not Available Not Available No t Available vitamin E 268 mg (400 unit) capsule Take 2 capsule(s ) every day by oral route with meals for 30 days. active Not Available Not Available No t Available finasteride 5 mg tablet TAKE ONE TABLET BY MOUTH ONCE DAILY FOR PROSTATE active Not Available Not Available No t Available diazepam 5 mg tablet TAKE ONE TABLET BY MOUTH THREE TIMES DAILY NEEDED FOR nerves MAY CAUSE DROWSINES S active Not Available Not Available No t Available vitamin E (dl, acetate) 180 mg (400 unit) capsule TAKE TWO CAPSULES BY MOUTH EVERY DAY with meals active Not Available Not Available No t Available Clenpiq 10 mg-3.5 gram-12 gram/175 mL oral solution take 175 ML BY MOUTH DAILY FOR 2 doses; take THE first DOSE AT 5-9pm THE evening BEFORE THE colonosco py; THEN take THE second DOSE THE NEXT DAY approxima tely 5 hours BEFORE colonosco py active Not Available Not Available No t Available Vitals Date Recorded Body weight Body mass index (BMI) Body height Heart rate Body temperature Oxygen saturation Oxygen saturation in Arterial blood by Pulse oximetry Heart rate Systolic blood pressure Diastolic blood pressure Provider Name and Address Organization Details Last Updated DateTime 3 675312. 08 g 39 kg/m2 187.96 cm 85 /min 98.6 [degF] 97 % 97 % 73 /min 155 mm[Hg] 85 mm[Hg] Malachi [facility] & [place] 3 08:58:50 Social History Question Answer Notes LastModified by Handup ion Details LastModified Time What Is Your Level Of Alcohol Consumption? Occasional [email or web address] Information not available 01/26/2023 What Is Your Level Of Caffeine Consumption? None [email or web address] Information not available 01/26/2023 What Type Of Diet Are You Following? REGULAR [email or web address] Information n ot available 01/26/2023 Do You Use Any Illicit Or Recreational Drugs? No [email or web address] Information not available 01/26/2023 Do You Or Have You Ever Used Any Other Forms Of Tobacco Or Nicotine? No [email or web address] Information not available 01/26/2023 Sex: Unknown Functional Status Question Answer Note LastModified by [employer] ion Details LastModified Time What is your exercise level? Occasional [email or web address] Information not available 01/26/2023 Mental Status None recorded. Family History Nothing Reported Notes:mother had lung cancer Medical History Condition Response Arthritis Y Hypertension Y Colon Polyps Y GERD/Reflux Y Past Encounters Encounter ID Performer Location Encounter Start Date Encounter Closed Date Diagnosis/Indication Diagnosis SNOMED-CT Code Diagnosis ICD10 Code Diagnosis Note [id number] Roby Vaughan PA-C [facility] [address] [facility] [address] [place] [address] 01/26/2023 08:30:22 01/26/2023 09:35:07 Hepatic fibrosis 96026271 K74.00 Nonalcohol ic steatohepatitis 510546202 K75.81 [id number] Roby Vaughan PA-C [facility] [address] [address] 02/23/2023 11:42:27 02/23/2023 12:58:50 Nonalcoholic steatohepatitis 040455084 K75.81 Hepatic fibrosis 1154483 2 K74.00 [id number] Roby Vaughan PA-C [facility] [address] [address] 07/15/2023 11:26:14 07/15/2023 11:50:37 Nonalcoholic steatohepatitis 924857827 K75.81 Hepatic fibrosis 6983049 2 K74.00 Binge drinker 712248171 F10.10 Health Concerns Section Related Observation LastModified by Organization Detai ls LastModified Time None Recorded Concern Status LastModified by Organization Details LastModified Time None Recorded Advance Directives Directive None Recorded Payers Encounter Date Sequence Insurance Name Policy Number Policy Regalado Covered Member ID Regalado Member ID Guarantor Name 01/26/2023 1 [employer] (MEDICARE REPLACEMENT/A DVANTAGE - PPO) Bryant Poole Vamshi [id number] Bryant Poole Vamshi 02/23/2023 1 [employer] (MEDICARE REPLACEMENT/A DVANTAGE - PPO) Bryant Poole Vamshi [id number] Bryant Poole Vamshi 07/15/2023 1 [employer] (MEDICARE REPLACEMENT/A DVANTAGE - PPO) Bryant Poole Vamshi [id number] Bryant Poole Bonds Notes Date Note Type Note Provider Name and Address Organization Details Recorded Time 01/26/2023 text/html Mr. Bonds is a very pleasant 67-year-old male who was referred by Dr. Levi Stark (Rheumatology) for evaluation of elevated liver enzymes with recent serum hepatic fibrosis panel c/w F1-F2 fibrosis stage with minimal (A1-A2) necroinflammatory grade. He is prescribed Remicade and Methotrexate for treatment of rheumatoid arthritis. He reports prior finding of possible fatty liver. He states he has lost approximately 30 lbs recently with lifestyle changes. He drinks 6-8 Michelob ultra beers 2 days per week when golfing, but does not drink the rest of the week. He denies a family history of cirrhosis or liver disease otherwise. He feels well overall at this time. Roby Vaughan PA-C [address], [place], [address], [facility] & [place] 01/26/2023 16:02:30 02/23/2023 text/html PREVIOUS ( 3): Mr. Bonds is a very pleasant 67-year-old male who was referred by Dr. Levi Stark (Rheumatology) for evaluation of elevated liver enzymes with recent serum hepatic fibrosis panel c/w F1-F2 fibrosis stage with minimal (A1-A2) necroinflammatory grade. He is prescribed Remicade and Methotrexate for treatment of rheumatoid arthritis. He reports prior finding of possible fatty liver. He states he has lost approximately 30 lbs recently with lifestyle changes. He drinks 6-8 Michelob ultra beers 2 days per week when golfing, but does not drink the rest of the week. He denies a family history of cirrhosis or liver disease otherwise. He feels well overall at this time. CURRENT (02/23/23): Mr. Bonds Presents via telephonic encounter today for follow-up regarding fatty liver disease. Recent liver ultrasound was performed that was unremarkable. States he has decreased his alcohol consumption to approximately 6 beers per week. He has continued to do well with weight loss and has lost an additional 9 lb since his last office visit 1 month ago. He reports feeling well overall at this time and denies any particular physical complaints. I spent a total of 13 minutes during this real-time clinical encounter that was initiated by the patient which started at 1227 and ended at 1240. Consent was obtained to engage in telephonic service. Greater than 50% of the time spent was devoted to counseling and coordinating care including review of patient record, patient lab data and studies as well as discussing diagnostic evaluation and workup, planned therapeutic intervention and further disposition of care. Roby Vaughan PA-C [address], [place], [address], [facility] & [place] 02/23/2023 12:50:41 07/15/2023 text/html PREVIOUS ( 3): Mr. Bonds is a very pleasant 67-year-old male who was referred by Dr. Levi Stark (Rheumatology) for evaluation of elevated liver enzymes with recent serum hepatic fibrosis panel c/w F1-F2 fibrosis stage with minimal (A1-A2) necroinflammatory grade. He is prescribed Remicade and Methotrexate for treatment of rheumatoid arthritis. He reports prior finding of possible fatty liver. He states he has lost approximately 30 lbs recently with lifestyle changes. He drinks 6-8 Michelob ultra beers 2 days per week when golfing, but does not drink the rest of the week. He denies a family history of cirrhosis or liver disease otherwise. He feels well overall at this time. PREVIOUS (02/23/23): Mr. Bonds Presents via telephonic encounter today for follow-up regarding fatty liver disease. Recent liver ultrasound was performed that was unremarkable. States he has decreased his alcohol consumption to approximately 6 beers per week. He has continued to do well with weight loss and has lost an additional 9 lb since his last office visit 1 month ago. He reports feeling well overall at this time and denies any particular physical complaints. JGT (07/15/23): Mr. Bonds presents via telephonic encounter today for follow-up regarding hepatic steatosis with history of elevated liver enzymes. He reports feeling very well at this time. He states that he recently had labs with Rheumatology at [facility] and was told that his hepatic function labs were again unremarkable. He states that his weight has remained steady in the low 300s. He is not exercising or dieting regularly. He reports drinking around 12 beers 1 day per week when [place] is playing on TV. He does not typically drink the remainder of the week. He has no additional complaints at this time. I spent a total of 6 minutes during this real-time clinical encounter that was initiated by the patient which started at 1130 and ended at 1136. Consent was obtained to engage in telephonic service. Greater than 50% of the time spent was devoted to counseling and coordinating care including review of patient record, patient lab data and studies as well as discussing diagnostic evaluation and workup, planned therapeutic intervention and further disposition of care. Roby Vaughan PA-C [address] , [place], [address], [facility] [place] & [place] 07/15/2023 11:56:54
--- OUTSIDE RECORDS SUMMARY | 2024-08-31 09:40 | XMS_ITS | Clinical Summary ---
Author Organization [facility] , [facility] Address [address] [place] [address] Phone Care Team Providers Care Principal Network Engineer Name Role Phone Terrance JUNIOR, Car Banuelos Unavailable [phone] SHAWN JUNIOR, XAVI Guzman Primary Care Provider [phone] Reason for Referral Date Encounter Description Provider Reason for Referral 07/23/24 Follow Up LUIS MIGUEL LEO PA-C Referral To Physician Reason for Visit and Chief Complaint The Chief Complaint is: lower back pain Problems Includes: Problems addressed during this encounter and other active Problems All Visits Onset Date Resolved Date Provider Condition S tatus Joint Pain in the Left Knee 08/19/2022 Flavia Stafford PA-C Active Last Documented On 3 8:26AM ; [facility] Pain in the Lumbar Spine 04/15/2022 Flavia west PA-C Active Last Documented On 2 9:45AM ; [facility] Joint Pain in the Right Hip 04/06/2022 Flavia Stafford PA-C Active Last Documented On 2 10:08AM ; [facility] Joint Pain in the Right Knee 03/15/2022 Flavia Stafford PA-C Active Last Documented On 2 2:37PM ; [facility], [facility] Plan of Treatment - Patient screened for future fall risk: documentation of any fall with injury in past year - Last Documented On 08/01/2024 8:38AM ; [facility], [facility] Fall Risk Assessment: This patient has been [...] therapy has been discussed with the patient. - Last Documented On 08/01/2024 8:38AM ; [facility], [facility] PCP is sent each office and procedure note, they are aware of continued steroid injection use. They are aware if the patient is having a positive response to the steroid injections we will continue these instead of providing surgical intervention. - Last Documented On 08/01/2024 8:38AM ; [facility], [facility] Repeat L2-3 epidural injection. Follow up as needed. - Last Documented On 08/01/2024 8:38AM ; [facility], [facility] Future Appointments Date Time Location Provi sahra Follow Up 11/07/2024 8:00AM [facility] LUIS MIGUEL LEO PA-C Last Documented On 11:32AM ; [facility] Epidural Steroid Injection 11/14/2024 8:45AM [facility] Paulo Lemus MANAGER [employer] Last Documented On 11:33AM ; [facility], [facility] Instructions to patient Lose weight Last Documented On 8:47AM ; [facility] Assessments Includes: Assessments from this encounter Findings - Overweight - Last Documented On 08/01/2024 8:38AM ; [facility], [facility] Lumbar disc degeneration with stenosis predominantly at the L2-3 level. Patient has been receiving the epidural injections fairly regularly over the past couple of years with great success. He would like to continue this. He does not have any interested in pursuing surgical treatment. - Last Documented On 08/01/2024 8:38AM ; [facility], [facility] Instructions Includes: Instructions from this encounter Instructions to patient Lose weight Last Documented On 8:47AM ; [facility] Medical Equipment - Implanted Devices Includes: Current Devices No Medical Equipment Recorded Medications Includes: Medications discussed during this encounter and other current Medications Current Medications (continue as prescribed) Finasteride 1 MG Oral Tablet 02/21/2023 Provider: Diagnosis: Last Documented On 11:13AM By Blossom Acuña ; [facility], [facility] Lisinopril 10 MG Oral Tablet 02/21/2023 Provider: Diagnosis: Last Documented On 3 11:13AM By Blossom Acuña ; [facility] Esomeprazole Magnesium 20 MG Oral Capsule De layed Release 02/21/2023 Provider: Diagnosis: Last Documented On 3 11:11AM By Blossom Acuña ; [facility] Tamsulosin HCl 0.4 MG Oral Capsule 02/21/2023 Provid er: Diagnosis: Last Documented On 3 11:12AM By Blossom Acuña ; [facility] HYDROcodone-Acetaminophen 5-325 MG Oral Tablet 022 Provider: XAVI ESCOBAR MD Diagnosis: Last Documented On 2 8:21AM By Val Swift ; [facility] diazePAM 5 MG Oral Tablet 04/19/2022 Provider: BLUE ESCOBAR MD Diagnosis: Last Documented On 2 8:22AM By Val Swift ; [facility] Methotrexate Sodium 2.5 MG Oral Tablet 04/19/2022 Pr ovider: Levitessa Stark Diagnosis: Last Documented On 2 8:22AM By Val Swift ; [facility] azaTHIOprine 50 MG Oral Tablet 04/14/2022 Provider: Levi Stark Diagnosis: Last Documented On 2 8:22AM By Val Swift ; [facility] Folic Acid 1 MG Oral Tablet 04/14/2022 Provider: Levi Stark Diagnosis: Last Documented On 2 8:22AM By Val Swift ; [facility] Past Medications on file Ativan 1 MG Oral Tablet 04/06/2022 - 04/07/2022 Provid er: Car Carlos MD Diagnosis: take as directed; Take 1 tab let 1 hour before MRI; May take an additional tablet if needed. Last Documented On 2 12:46PM By Dr. Carlos ; [facility] Folic Acid 1 MG Oral Tablet 11/18/2021 - 02/16/2022 Pr ovider: Levi Nino Abbcorey Diagnosis: Last Documented On 2 9:10AM By Javier Choe ; [facility], [facility] Tamsulosin HCl 0.4 MG Oral Capsule 11/18/2021 - 02/16/2022 Provider: XAVI Martinez Diagnosis: Last Documented On 2 9:10AM By Javier Choe ; [facility] azaTHIOprine 50 MG Oral Tablet 11/18/2021 - 12/18/2021 Provider: Levi Stark Diagnosis: Last Documented On 2 9:10AM By Javier Choe ; [facility] traMADol HCl 50 MG Oral Tablet 08/12/2021 - 08/19/2021 Provider: Car byrd MD Diagnosis: 1-2 po q6h prn pain Last Documented On 2 10:42AM By Dr. Carlos ; [facility] oxyCODONE HCl 5 MG Oral Tablet 08/12/2021 - 08/19/2021 Provider: Car byrd MD Diagnosis: 1-2 po q 4-6h prn pain Last Documented On 2 10:42AM By Dr. Carlos ; [facility] oxyCODONE HCl 5 MG Oral Tablet 08/04/2021 - 08/11/2021 Provider: Car byrd MD Diagnosis: 1-2 po q 4-6h prn pain Last Documented On 2 5:29PM By Dr. Carlos ; [facility], [facility] Ondansetron HCl 4 MG Oral Tablet 08/04/2021 - 08/08/2021 Provider: Car byrd MD Diagnosis: 1 po q 6h prn nausea Last Documented On 2 5:29PM By Dr. Carlos ; [facility], [facility] Mobic 15 MG Oral Tablet 08/04/2021 - 08/18/2021 Provid er: Car Carlos MD Diagnosis: once a day Last Documented On 2 5:29PM By Dr. Carlos ; [facility], [facility] traMADol HCl 50 MG Oral Tablet 08/04/2021 - 08/11/2021 Provider: Car byrd MD Diagnosis: 1-2 po q6h prn pain Last Documented On 2 5:29PM By Dr. Carlos ; [facility], [facility] Acetaminophen 500 MG Oral Tablet 08/04/2021 - 09/03/2021 Provider: Car byrd MD Diagnosis: take as directed; take 2 tablets three times a d ay Last Documented On 2 5:29PM By Dr. Carlos ; [facility], [facility] Aspirin Adult Low Dose 81 MG Oral Tablet Delayed Release 08/04/2021 - 09/15/2021 Provider: Car Carlos MD Diagnosis: twice a day Last Documented On 2 5:29PM By Dr. Carlos ; [facility], [facility] Cefadroxil 500 MG Oral Capsule 08/04/2021 - 08/07/2021 Provider: Car byrd MD Diagnosis: twice a day Last Documented On 2 5:29PM By Dr. Carlos ; [facility], [facility] Colace 100 MG Oral Capsule 08/04/2021 - 11/02/2021 Pro vider: Car Carlos MD Diagnosis: 1-2 tabs daily Last Documented On 2 5:29PM By Dr. Carlos ; [facility], [facility] Naproxen 500 MG OR TABS 03/15/2018 - 04/14/2018 Provid er: Ranjith Avila MD Diagnosis: Take one tablet twice a day prn following surger y Last Documented On 8 11:11AM By Fátima Willis ; [facility], [facility] Vitamin C 1000 MG OR TABS 03/15/2018 - 05/14/2018 Prov ider: Ranjith Avila MD Diagnosis: Take one tablet once a day following surgery Last Documented On 8 11:11AM By Fátima Willis ; [facility], [facility] Medications Administered Includes: Administered Medications from this encounter No Administered Medications Recorded Results Includes: Results discussed during this encounter No Results Recorded For Specified Dates History of Present Illness Includes: History of Present Illness from this encounter ALEJANDRA Bonds is a 69 year old male. [...] his pain improvement is now around 60%. Social History Description Last Updated Not a smoker 08/19/2022 Last Documented On 5 8:47AM ; [facility], [facility] No recent change in diet 05/20/2022 Last Documented On 5 8:47AM ; [facility], [facility] Not a current smoker. 05/20/2022 Last Documented On 5 8:47AM ; [facility], [facility] No caffeine use 07/28/2018 Last Documented On 5 8:47AM ; [facility], [facility] Not exercising regularly 07/28/2018 Last Documented On 5 8:47AM ; [facility] Not using alcohol 07/28/2018 Last Documented On 5 8:47AM ; [facility] Not using drugs 07/28/2018 Last Documented On 5 8:47AM ; [facility] Smoking Status Unknown Procedures and Surgical History Includes: Procedures from this encounter Procedures Code Diagnosis Performing Provider Service Location Service Date X-RAY EXAM OF LOWER SPINE 2-3 VIEWS LIMITED 44640 Spinal stenosis, lumbar region with neurogenic claudication LUIS MIGUEL LEO PA-C [facility] 07/23/2024 Last Documented On 5 2:04PM ; [facility] use of tobacco assessment performed 1000F Last Documented On 5 8:47AM ; [facility] patient screened for future fall risk 3288F Last Documented On 5 8:47AM ; [facility] patient screened for future fall risk: documentation of any fall with injury in past year 1100F Last Documented On 5 8:47AM ; [facility] follow-up visit in one month Last Documented On 5 8:47AM ; [facility] referral to physician Last Documented On 5 8:47AM ; [facility] X-ray 04/06/2022-[facility] ~05/21/19 24 [facility] ~07/23/2024 [facility] [id number] Last Documented On 5 8:48AM ; [facility] an MRI was performed 04/14/2022-[facility]ine @ [facility] ~ [id number] Last Documented On 5 8:47AM ; [facility] Surgical History Last Updated History of total knee arthroplasty 04/26 Last Documented On 5 8:47AM ; [facility] Medical History Includes: Medical History addressed during this encounter Description Last Updated Past medical and surgical history non-co ntributory 08/19/2022 Last Documented On 5 8:47AM ; [facility] History of arthritis 04/26/2022 Last Documented On 5 8:47AM ; [facility] History of Heartburn / Acid Reflux 04/26 Last Documented On 5 8:47AM ; [facility] History of History of Rheumatology 04/26 Last Documented On 5 8:47AM ; [facility], [facility] History of Hypertension 04/26/2022 Last Documented On 5 8:47AM ; [facility], [facility] History of Sleep Apnea 04/26/2022 Last Documented On 5 8:47AM ; [facility], [facility] Recent immunization for flu 02/2022 Last Documented On 5 8:47AM ; [facility], [facility] No recent immunization for pneumococcal pneumonia 04/26/2022 Last Documented On 5 8:47AM ; [facility], [facility] A recent injection 07/28/2018 Last Documented On 5 8:47AM ; [facility], [facility] Arthritic joint problems 07/28/2018 Last Documented On 5 8:47AM ; [facility], [facility] History of gastric ulcer 07/28/2018 Last Documented On 5 8:47AM ; [facility] Intermittent hypertension 07/28/2018 Last Documented On 5 8:47AM ; [facility] Rheumatology history 07/28/2018 Last Documented On 5 8:47AM ; [facility], [facility] Family History Includes: Family History addressed during this encounter Description Last Updated No significant family history 08/19/2022 Last Documented On 5 8:47AM ; [facility], [facility] Family history of cancer 07/28/2018 Last Documented On 5 8:47AM ; [facility] Family history of hypertension 9 Last Documented On 5 8:47AM ; [facility], [facility] Review of Systems Includes: Review of Systems from this encounter Systemic: Not feeling tired, no recent weight [...] and Immunologic: Complaint of seasonal allergic reaction. Mental Status Includes: Mental Status from this encounter Description Anxiety Functional Status Includes: Functional Status from this encounter No Functional Status Recorded Physical Exam Includes: Physical Exam from this encounter Allergies Includes: Active Allergies No Known Allergies Encounters Encounter Provider Location Date Check-In Time Check-Out Time Diagnosis Follow Up LUIS MIGUEL LEO PA-C [facility] 8:45AM 9:18AM Overweight Insurance Includes: Active Insurance Policies Plan Name Member ID Group # Subscriber Relationship Effect arcadio Dates 1 - [employer] [id number] Bryant Bonds Self 06/09/2021 - Unknown Clinical Notes Includes: Clinical Notes from this encounter * Progress note Date Encounter Last Documented by 07/23/2024 Follow Up Last documented on 08/01/2024; 8:38 AM, LUIS MIGUEL [place]; [facility] Active Problems & Conditions - Joint [...] surgical treatment. Previous Tests Imaging: X-Ray: X-ray 04/06/2022-[facility] @ [facility] 05/21/2023 [facility] 07/23/2024 [facility]. MRI Scan: An MRI was performed 04/14/2022-Lspine @ [facility] . 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 - Follow Up Plan BMI Management satisfied 07/23/2024.
--- OUTSIDE RECORDS SUMMARY | 2024-08-31 09:40 | XMS_ITS | Data Portability ---
Author Organization [facility] OUSMANE YangS MAXBASS CLOSED Address [address] [place] [address] Care Team Providers Care Finishing Technician Name Role Phone SHAWNCHARISSAKirsty Guzman Primary Care Provider [phone] MAGDALENA CANTU Microfilm Equipment Inspector Assessment Encounter Date Assessment Date Assessment LastModified by Organization Details LastModified Time 08/20/2024 08/20/2024 69-year-old with rheumatoid arthritis. Follow-up visit: lori Not available 08/20/2024 15:48:37 Plan of Treatment Reminders Order Date Submit Date Provider Last Modified By Organization Details Last Modified Time Details Appointments REMICADE RAPID 2024 08:30A M RHEUM_INF USION Not available Not available Not available IV INFUSION MIX 2024 08:30A M Pharmacy_ infusion Not available Not available Not available IV INFUSION MIX 2024 08:30A M Pharmacy_ infusion Not available Not available Not available REMICADE RAPID 2024 08:30A M RHEUM_INF USION Not available Not available Not available RHEUM RECHECK 2024 08:45A M MAGDALENA CANTU MD Not available Not available Not available Lab None recorded. Referral None recorded. Procedures None recorded. Surgeries None recorded. Imaging XR, knee, 3 view 2024 025 [facility], [address] [facility], [place], [address], 07/03/2024 09:24:45 Medication Orders Remicade 100 mg intraveno us solution [address] [facility], [address] [place] [address] [address] [place], [id number], 08/20/2024 14:40:59 Remicade 100 mg intraveno us solution [address] [facility], [address] [place] [address] [address] [place], [id number], 07/09/2024 10:35:05 Remicade 100 mg intraveno us solution [address] [facility], [address] [place] [address] [address] [place], [id number], 05/28/2024 11:41:12 Patient TargetsNo targets recorded. Patient InstructionsNo instructions recorded. Reason for Referral None Reported. Results Created Date Observation Date Name Description Value Unit Range Abnormal Flag Note LastModifiedBy Organization Detail LastModifiedTime 07/10/1907/09/2024 COMPL ETE BLOOD COUNT white blood cells 7.7 10*3/ uL 3.8-10 .8 normal Not Available [facility] [address] [place] [address], [phone], 07/09/2024 09:45:52 07/10/19 25 07/09/2024 COMPL ETE BLOOD COUNT red blood cells 4.47 10*6/ uL 4.20-5 .80 normal Not Available [facility] [address] [place] [address], [address], 07/09/2024 09:45:52 07/10/19 25 07/09/2024 COMPL ETE BLOOD COUNT hemoglobin 14.2 g/dL 14.0-1 8.0 normal Not Available [facility] [address] [place] [address], [phone], 07/09/2024 09:45:52 07/10/19 25 07/09/2024 COMPL ETE BLOOD COUNT hematocrit 42.7 % 40.0-5 2.0 normal Not Available [facility] [address] [place] [address], [phone], 07/09/2024 09:45:52 07/10/19 25 07/09/2024 COMPL ETE BLOOD COUNT MCV 95 fL 80-100 normal Not Available [facility] [address] [place] [address], [phone], 07/09/2024 09:45:52 07/10/19 25 07/09/2024 COMPL ETE BLOOD COUNT MCH 32 pg 26-35 normal Not Available [facility] [address] [place] [address], [address], 07/09/2024 09:45:52 07/10/19 25 07/09/2024 COMPL ETE BLOOD COUNT MCHC 33 g/dL 32-36 normal Not Available [facility] [address] [place] [address], [address], 07/09/2024 09:45:52 07/10/19 25 07/09/2024 COMPL ETE BLOOD COUNT RDW 14.2 % 11.0-1 5.0 normal Not Available [facility] [address] [place] [address], [address], 07/09/2024 09:45:52 07/10/19 25 07/09/2024 COMPL ETE BLOOD COUNT MPV 7.6 fL 6.2-10 .5 normal Not Available [facility] [address] [place] [address], [address], 07/09/2024 09:45:52 07/10/19 25 07/09/2024 COMPL ETE BLOOD COUNT platelet count 276 10*3/ uL 150-40 0 normal Not Available [facility] [address] [place] [address], [address], 07/09/2024 09:45:52 07/10/19 25 07/09/2024 COMPL ETE BLOOD COUNT neutrophil,a bsolute 5.2 10*3/ uL 1.6-8. 4 normal Not Available [facility] [address] [place] [address], [address], 07/09/2024 09:45:52 07/10/19 25 07/09/2024 COMPL ETE BLOOD COUNT lymphocyte,a bsolute 1.8 10*3/ uL 0.4-5. 1 normal Not Available [facility] [address] [place] [address], [address], 07/09/2024 09:45:52 07/10/19 25 07/09/2024 COMPL ETE BLOOD COUNT monocyte,abs olute 0.5 10*3/ uL 0.0-1. 2 normal Not Available [facility] [address] [place] [address], [address], 07/09/2024 09:45:52 07/10/19 25 07/09/2024 COMPL ETE BLOOD COUNT eosinophil,a bsolute 0.1 10*3/ uL 0.0-0. 8 normal Not Available [facility] [address] [place] [address], [address], 07/09/2024 09:45:52 07/10/19 25 07/09/2024 COMPL ETE BLOOD COUNT basophil,abs olute 0.0 10*3/ uL 0.0-0. 3 normal Not Available [facility] [address] [place] [address], [address], 07/09/2024 09:45:52 07/10/19 25 07/09/2024 COMPL ETE BLOOD COUNT % neutrophils 67.6 % 42.0-7 8.0 normal Not Available [facility] [address] [place] [address], [address], 07/09/2024 09:45:52 07/10/19 25 07/09/2024 COMPL ETE BLOOD COUNT % lymphocytes 23.8 % 11.0-4 7.0 normal Not Available [facility] [address] [place] [address], [address], 07/09/2024 09:45:52 07/10/19 25 07/09/2024 COMPL ETE BLOOD COUNT % monocytes 6.5 % 0.0-11 .0 normal Not Available [facility] [address] [place] [address], [address], 07/09/2024 09:45:52 07/10/19 25 07/09/2024 COMPL ETE BLOOD COUNT % eosinophils 1.6 % 0.0-7. 0 normal Not Available [facility] [address] [place] [address], [address], 07/09/2024 09:45:52 07/10/19 25 07/09/2024 COMPL ETE BLOOD COUNT % basophils 0.5 % 0.0-3. 0 normal Not Available [facility] [address] [place] [address], [address], 07/09/2024 09:45:52 07/10/19 25 07/09/2024 COMPL ETE BLOOD COUNT nucleated red cells 0.0 % 0.0-0. 9 normal Not Available [facility] [address] [place] [address], [address], 07/09/2024 09:45:52 07/10/19 25 07/09/2024 COMPL ETE BLOOD COUNT nucleated RBCs, absolute 0.00 10*3/ uL not estab. normal Not Available [facility] [address] [place] [address], [address], 07/09/2024 09:45:52 07/10/19 25 07/09/2024 ESR, AUTOM ATED ESR, automated 25 mm 0-19 high Not Available [facility] [address] [place] [address], [address], 07/09/2024 10:09:03 07/10/19 25 07/09/2024 GFR ESTIM ATE GFR 99 >= 60 normal NOT E New calcu latcarla n for GFR (CKD- EPI 2020) is formu lated witho ut race adjus tment facto rs at the recom menda tion of the Natio nal Kidne y Found ation and [place] can Socie ty of Nephr ology . This calcu latio n has not been valid ated in pregn ant women . For nevaeh genna patie nts refer to https ://jaxson w.sue fariay.o rg/pr ofess ional s/KDO QI/gf r_cal culat orPed Not Available [facility] [address] [place] [address], [address], 07/09/2024 10:12:52 07/10/19 25 07/09/2024 AST AST 15 U/L 0-40 normal Not Available [facility] [address] [place] [address], [address], 07/09/2024 10:12:54 07/10/19 25 07/09/2024 ALT ALT 18 U/L 0-41 normal Not Available [facility] [address] [place] [address], [address], 07/09/2024 10:12:56 07/10/19 25 07/09/2024 CREAT ININE creatinine 0.74 mg/dL 0.70-1 .28 normal Not Available [facility] [address] [place] [address], [address], 07/09/2024 10:12:57 07/03/19 25 07/03/2024 XR, knee, [address] [address] Patien t Name: BRYANT Andersonen t : [birth year] 58 Patien t Orderi ng Provid er: CARROL CANTU EXAM DATE: 2024 EXAM: XR LT KNEE 3 VIEWS COMPAR ROBERTO: None. HISTOR Y: Left knee pain. FINDIN GS: No fractu re is identi fied. 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 There is near comple te latera l joint space loss. There is modera te to severe margin al spurri ng. Contra latera l knee: There is a total knee arthro plasty is place. IMPRES DM: 1. 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 Interp reted By: Derrell barber MD Electr onical ly Signed By: Derrell barber MD on 025 9:19 AM [facility] [address] [place], [address], 07/06/2024 13:47:18 Result Notes None recorded. Problems No Known Problems Procedures Surgical History Date Name Laterality Status Provider Name and Address Organization Details Recorded Time 08/21/19 25 Remicade Infusion completed Aracely Jim [facility] 08/20/2024 14:31:08 07/10/19 25 Remicade Infusion completed [facility] 07/09/2024 10:54:46 07/03/19 25 Injection Joint/Bursa, Major, w/o US completed MAGDALENA CANTU MD [address] [place], [address], [facility] 07/03/2024 09:38:50 05/28/19 25 Remicade Infusion completed [facility] 05/28/2024 12:01:37 04/06/20 24 Remicade Infusion completed [facility] 04/06/2024 08:53:00 03/15/20 24 Injection Joint/Bursa, Major, w/o US completed MAGDALENA CANTU MD [facility] [place], [address], [facility] 03/15/2024 12:34:32 02/24/20 24 Remicade Infusion completed [facility] 02/24/2024 12:12:59 01/12/20 24 Injection Joint/Bursa, Major, w/o US completed MAGDALENA CANTU MD [address] [place], [address], [facility] 01/12/2024 12:58:03 01/12/20 24 Remicade Infusion completed Shashi Saldaña [facility] 01/12/2024 09:33:19 11/17/19 24 Remicade Infusion completed Paulo Camarillo [facility] 11/17/2023 09:40:51 09/22/19 24 Injection Joint/Bursa, Major, w/o US completed MAGDALENA CANTU MD [address] [place], [address], [facility] 09/22/2023 08:32:32 09/22/19 24 Remicade Infusion completed Shashi Saldaña [facility] 09/22/2023 09:24:57 07/28/19 24 Remicade Infusion completed Shashi Piotr [facility] 07/28/2023 09:49:14 06/02/19 24 Remicade Infusion completed Shashi Piotr [facility] 06/02/2023 12:09:58 04/07/20 23 Remicade Infusion completed Shashi Saldaña [facility] 04/07/2023 11:31:24 03/03/20 23 Injection Joint/Bursa, Major, w/o US completed MAGDALENA CANTU MD [address] [place], [address], [facility] 03/03/2023 11:59:07 02/11/20 23 Remicade Infusion completed Paulo Camarillo [facility] 02/10/2023 12:22:47 12/17/19 23 Remicade Infusion completed Shashi Saldaña [facility] 12/16/2022 12:18:00 12/03/19 23 Injection Joint/Bursa, Major, w/o US completed MAGDALENA CANTU MD [address] [place], [address], [facility] 12/02/2022 11:48:47 12/03/19 23 Injection Joint/Bursa, Second, Major completed MAGDALENA CANTU MD [address] [place], [address], [place] [facility] 12/02/2022 11:49:53 10/22/19 23 Remicade Infusion completed Shashi Saldaña [facility] 10/21/2022 13:08:33 09/10/19 23 Remicade Infusion completed Shashi Saldaña [facility] 09/09/2022 10:55:34 08/28/19 23 Remicade Infusion completed Shashi Saldaña [facility] 08/27/2022 12:09:41 04/16/20 21 Injection Joint/Bursa, Major, w/o US completed MAGDALENA CANTU MD [address] [place], [address], [facility] 04/16/2021 09:03:50 02/05/20 21 Injection Joint/Bursa, Major, w/o US completed MAGDALENA CANTU MD [address] [place], [address], [facility] 02/04/2021 08:54:38 11/05/19 21 Injection Joint/Bursa, Major, w/o US completed MAGDALENA CANTU MD [address] [place], [address], [facility] 11/04/2020 08:38:34 08/07/19 21 Injection Joint/Bursa, Interm, w/o US completed MAGDALENA CANTU MD [address] [place], [address], [facility] 08/06/2020 08:39:30 08/07/19 21 Injection Joint/Bursa, Major, w/o US completed MAGDALENA CANTU MD [address] [place], [address], [facility] 08/06/2020 08:39:49 05/07/20 20 Injection Joint/Bursa, Interm, w/o US completed MAGDALENA CANTU MD [address] [place], [address], [facility] 05/07/2020 10:36:34 05/07/20 20 Injection Joint/Bursa, Major, w/o US completed MAGDALENA CANTU MD [address] [place], [address], [facility] 05/07/2020 10:36:11 02/05/20 20 Injection Joint/Bursa, Interm, w/o US completed MAGDALENA CANTU MD [address] [place], [address], [facility] 02/05/2020 16:19:36 02/05/20 20 Injection Joint/Bursa, Major, w/o US completed MAGDALENA CANTU MD [address] [place], [address], [facility] 02/05/2020 16:19:32 11/07/19 20 Injection Joint/Bursa, Interm, w/o US completed MAGDALENA CANTU MD [address] [place], [address], [facility] 11/07/2019 08:40:12 11/07/19 20 Injection Joint/Bursa, Major, w/o US completed MAGDALENA CANTU MD [address] [place], [address], [facility] 11/07/2019 08:40:05 11/07/19 20 Injection Joint/Bursa, Second, Intermediate completed MAGDALENA CANTU MD [address] [place], [address], [facility] 11/07/2019 08:40:35 07/11/19 20 Injection Joint/Bursa, Interm, w/o US completed MAGDAELNA CANTU MD [address] [place], [address], [facility] 07/11/2019 08:36:01 04/10/20 19 Injection Joint/Bursa, Interm, w/o US completed MAGDALENA CANTU MD [address] [place], [address], [facility] 04/10/2019 08:47:22 12/15/19 19 Injection Joint/Bursa, Interm, w/o US completed MAGDALENA CANTU MD [address] [place], [address], [facility] 12/14/2018 09:04:11 12/15/19 19 Injection Joint/Bursa, Major, w/o US completed MAGDALENA CANTU MD [address] [place], [address], [facility] 12/14/2018 09:04:39 02/16/20 18 Skin Tag Removal completed Aissatou Wilson [facility] 02/15/2018 08:32:42 02/16/20 18 Destruction Premalignant Lesion(s) completed Aissatou Katie [facility] 02/15/2018 08:27:15 Imaging Results Imaging Date Name Status LastModified by Organiz ation Details LastModified Time 07/03/2024 XR, knee, 3 view completed [facility] [address] [place], [address], 07/06/2024 13:47:18 Procedure Notes None recorded. Medical Equipment None Reported. Allergies No known drug allergies Medications Name Sig Start Date Stop Date Status Note LastModified by Organization Details LastModified Time Compound Rx Alternati ves General Pain Cream apply 1 gm q 8 hours 2022 active Not Available Not Available Not Avai lable amoxicill in 500 mg capsule TAKE FOUR CAPSULES BY MOUTH 1 hour prior TO appointm ent active Not Available Not Available No t Available neomycin- polymyxin -hydrocor t 3.5 mg/mL-10, 000 unit/mL-1 % ear solution instill 2 drops in each affected ear FOUR TIMES DAILY active Not Available Not Available No t Available nystatin 100,000 unit/mL oral suspensio n 02/15 completed Not Available Not Available Not Available prednison e 10 mg tablet take 4 tablets by mouth once daily in the morning for 5 days, then take 3 tablets each morning for 2 days, then take 2 tablets each morning for 2 days, then take 1 tablet each morning for 2 days, then stop --take with food-- active Not Available Not Available No t Available doxycycli ne hyclate 100 mg capsule TAKE ONE CAPSULE BY MOUTH TWICE DAILY -- FINISH ALL MEDICINE -- 08/06 completed Not Available Not Available Not Available azithromy jean 250 mg tablet 02/15 completed Not Available Not Available Not Available ofloxacin 0.3 % eye drops 08/06 completed Not Available Not Available Not Available fluconazo le 150 mg tablet 02/15 completed Not Available Not Available Not Available benzonata te 200 mg capsule 08/06 completed Not Available Not Available Not Available hydrocodo ne 5 mg-acetam inophen 325 mg tablet TAKE ONE TABLET BY MOUTH EVERY 6 HOURS NEEDED FOR PAIN MAY CAUSE DROWSINE SS active Not Available Not Available No t Available bacitraci n 500 unit/gram eye ointment 08/06 completed Not Available Not Available Not Available meloxicam 15 mg tablet TAKE ONE TABLET BY MOUTH EVERY DAY --TAKE WITH FOOD-- 03/03 completed Not Available Not Available Not Available lisinopri l 20 mg tablet TAKE ONE TABLET BY MOUTH EVERY DAY active Not Available Not Available No t Available ondansetr on HCl 4 mg tablet TAKE ONE TABLET BY MOUTH EVERY 6 HOURS NEEDED FOR NAUSEA active Not Available Not Available No t Available prednison e 20 mg tablet TAKE THREE TABLETS BY MOUTH EVERY MORNING FOR 7 DAYS, THEN TAKE TWO TABLETS BY MOUTH EVERY MORNING FOR 2 DAYS, THEN TAKE ONE TABLET BY MOUTH EVERY MORNING FOR 2 DAYS, THEN TAKE 1/2 TABLET BY MOUTH EVERY MORNING FOR 2 DAYS, THEN STOP 04/16 completed Not Available Not Available Not Available fluoroura cil 5 % topical cream APPLY TOPICALL Y TO THE AFFECTED AREA(S) TWICE DAILY FOR 3 TO 6 WEEKS DIRECTED -- FOR EXTERNAL USE ONLY-- active Not Available Not Available No t Available prednison e 5 mg tablet 15mg poqd in am x 2 weeks, then 10 mg poqd x 2 weeks, then 5 mg poqd x 2 weeks, 08/06 completed Not Available Not Available Not Available Remicade 100 mg intraveno us solution INFUSE 5 mg/kg (700 MG) IV EVERY 6 WEEKS 2024 active Remicade 700 mg - 5 mg/kg - q6wks - next infusion 10/04/19 25 @ 0830 - ICD 10 M05.79 - med by Leslie - DO NOT BILL - rapid infusion Not Available Not Available Not Available azathiopr ine 50 mg tablet TAKE ONE TABLET BY MOUTH EVERY DAY active Not Available Not Available No t Available acyclovir 400 mg tablet TAKE ONE TABLET BY MOUTH THREE TIMES DAILY FOR 7 DAYS -- FINISH ALL MEDICINE -- 07/03 completed Not Available Not Available Not Available ciproflox acin 500 mg tablet TAKE ONE TABLET BY MOUTH EVERY TWELVE HOURS FOR 10 DAYS -- FINISH ALL MEDICINE -- 03/03 completed Not Available Not Available Not Available aspirin 81 mg tablet,de layed release TAKE ONE TABLET BY MOUTH TWICE DAILY 10/22 completed Not Available Not Available Not Available tramadol 50 mg tablet TAKE 1 TO 2 TABLET(S ) BY MOUTH EVERY 6 HOURS NEEDED FOR PAIN MAY CAUSE DROWSINE SS 03/03 completed Not Available Not Available Not Available simvastat in 40 mg tablet TAKE ONE TABLET BY MOUTH EVERY DAY AT BEDTIME active Not Available Not Available No t Available Depo-Medr ol 80 mg/mL suspensio n for injection Take 120 mg by injectio n route. 2022 active Not Available Not Available Not Avai lable cefadroxi l 500 mg capsule TAKE ONE CAPSULE BY MOUTH TWICE DAILY FOR 3 DAYS -- FINISH ALL MEDICINE -- 10/22 completed Not Available Not Available Not Available oxycodone -acetamin ophen 5 mg-325 mg tablet TAKE ONE TABLET BY MOUTH EVERY 6 HOURS NEEDED FOR PAIN MAY CAUSE DROWSINE SS 07/22 completed Not Available Not Available Not Available terbinafi ne HCl 250 mg tablet TAKE ONE TABLET BY MOUTH EVERY DAY active Not Available Not Available No t Available prednisol one acetate 1 % eye drops,mago pension INSTILL ONE DROP into BOTH eyes FOUR TIMES DAILY 08/06 completed Not Available Not Available Not Available methotrex ate sodium 2.5 mg tablet take 5 TABLETS BY MOUTH every WEEK 2024 active Not Available Not Available Not Avai lable tamsulosi n 0.4 mg capsule TAKE TWO CAPSULES BY MOUTH EVERY DAY AT BEDTIME active Not Available Not Available No t Available cephalexi n 500 mg capsule 02/15 completed Not Available Not Available Not Available erythromy jean 5 mg/gram (0.5 %) eye ointment apply a 1/4 INCH ribbon of ointment TO each eye DIRECTED EVERY DAY AT BEDTIME active Not Available Not Available No t Available esomepraz ole magnesium 40 mg capsule,d elayed release TAKE ONE CAPSULE BY MOUTH EVERY DAY active Not Available Not Available No t Available tobramyci n 0.3 % eye drops 08/06 completed Not Available Not Available Not Available nystatin 100,000 unit/gram topical cream APPLY TOPICALL Y TO THE AFFECTED AREA(S) TWICE DAILY active Not Available Not Available No t Available docusate sodium 100 mg capsule TAKE 1 TO 2 CAPSULE( S) BY MOUTH EVERY DAY 10/22 completed Not Available Not Available Not Available diclofena c sodium 75 mg tablet,de layed release 07/10 completed Not Available Not Available Not Available folic acid 1 mg tablet TAKE TWO TABLETS BY MOUTH EVERY DAY active Not Available Not Available No t Available lorazepam 1 mg tablet TAKE ONE TABLET BY MOUTH 1 hour BEFORE MRI, MAY take an addition al tablet if needed MAY CAUSE DROWSINE SS 07/22 completed Not Available Not Available Not Available methylpre dnisolone 4 mg tablets in a dose pack TAKE ACCORDIN G TO PACKAGE INSTRUCT IONS --TAKE WITH FOOD-- -- FINISH ALL MEDICINE -- active Not Available Not Available No t Available cefdinir 300 mg capsule 05/07 completed Not Available Not Available Not Available piroxicam 20 mg capsule TAKE ONE CAPSULE BY MOUTH EVERY MORNING WITH FOOD active Not Available Not Available No t Available fluticaso ne propionat e 50 mcg/actua tion nasal spray,mago pension 08/06 completed Not Available Not Available Not Available finasteri de 5 mg tablet TAKE ONE TABLET BY MOUTH ONCE DAILY FOR PROSTATE active Not Available Not Available No t Available naproxen 500 mg tablet 07/10 completed Not Available Not Available Not Available diazepam 5 mg tablet TAKE ONE TABLET BY MOUTH THREE TIMES DAILY NEEDED FOR ANXIETY active Not Available Not Available No t Available oxycodone 5 mg tablet TAKE 1 TO 2 TABLET(S ) BY MOUTH EVERY 4 TO 6 HOURS NEEDED FOR PAIN MAY CAUSE DROWSINE 07/22 completed Not Available Not Available Not Available neomycin- polymyxin -hydrocor t 3.5 mg-10,000 unit/mL-1 % ear drops,mgao p 02/15 completed Not Available Not Available Not Available Allergy Relief (loratadi ne) 10 mg tablet TAKE ONE TABLET BY MOUTH EVERY DAY NEEDED FOR ALLERGIE S 08/06 completed Not Available Not Available Not Available moxifloxa jean 0.5 % eye drops INSTILL ONE DROP into BOTH eyes FOUR TIMES DAILY FOR 10 DAYS 08/06 completed Not Available Not Available Not Available magnesium active Not Available Not Chrissie ilable Not Available Vitamin C active Not Available Not Chrissie ilable Not Available zinc active Not Available Not Availa ble Not Available Solu-Medr ol 500mg IV every 4 wks x 3months (infusio n partners ) 07/10 completed stopped 12/14/18 BCBS ref # [id number] no PA required Not Available Not Available Not Available Vitamin D3 active Not Available Not Available Not Available Nexium 08/06 completed Not Available Not Available Not Available Enbrel SureClick qwk 08/11 completed Not Available Not Available Not Available MoviPrep 100 gram-7.5 gram-2.69 1 gram oral powder packet 02/15 completed Not Available Not Available Not Available Enbrel SureClick 50 mg/mL (1 mL) subcutane ous pen injector INJECT 1 PEN UNDER THE SKIN EVERY 7 DAYS. 11/15 completed Not Available Not Available Not Available Vaqta (PF) 50 unit/mL intramusc ular syringe 07/10 completed Not Available Not Available Not Available Vaqta (PF) 50 unit/mL intramusc ular suspensio n 07/10 completed Not Available Not Available Not Available vitamin E (dl, acetate) 180 mg (400 unit) capsule TAKE TWO CAPSULES BY MOUTH EVERY DAY with meals active Not Available Not Available No t Available Suprep Bowel Prep Kit 17.5 gram-3.13 gram-1.6 gram oral solution TAKE ACCORDIN G TO PACKAGE INSTRUCT IONS 08/06 completed Not Available Not Available Not Available Xeljanz 5 mg tablet 02/15 completed Not Available Not Available Not Available Gel-One 30 mg/3 mL intra-art icular syringe 07/10 completed Not Available Not Available Not Available Enbrel Mini 50 mg/mL (1 mL) subcutane ous cartridge 07/10 completed Not Available Not Available Not Available Kevzara 200 mg/1.14 mL subcutane ous pen injector 08/11 completed Not Available Not Available Not Available cannabidi ol (CBD) extract 07/10 completed Not Available Not Available Not Available turmeric 12/14 completed Not Available Not Available Not Available Rinvoq 15 mg tablet,ex tended release TAKE 1 TABLET BY MOUTH 1 TIME A DAY. 10/22 completed Not Available Not Available Not Available Fluarix Quad (PF) 60 mcg (15 mcg x 4)/0.5 mL IM syringe ADM 0.5ML IM UTD 08/06 completed Not Available Not Available Not Available Clenpiq 10 mg-3.5 gram-12 gram/175 mL oral solution active Not Available Not Available Not Available Vitals Date Recorded Body height Respiratory rate Body mass index (BMI) Body weight Oxygen saturation Oxygen saturation in Arterial blood by Pulse oximetry Heart rate Systolic blood pressure Diastolic blood pressure Provider Name and Address Organization Details Last Updated DateTime 5 187.96 cm 16 /min 36.8 kg/m2 606107. 01 g 98 % 98 % 95 /min 124 mm[Hg] 78 mm[Hg] Antonio Aidan [facility] 5 08:34:06 Date Recorded Body height Body mass index (BMI) Body weight Body temperature Heart rate Respiratory rate Systolic blood pressure Diastolic blood pressure Provider Name and Address Organization Details Last Updated DateTime 5 187.96 cm 37 kg/m2 561532. 7 g 97.9 [degF] 94 /min 16 /min 136 mm[Hg] 83 mm[Hg] Aracely Diandra [facility] 5 12:37:56 Social History Question Answer Notes LastModified by Organizat ion Details LastModified Time Tobacco Smoking Status [facility]10[facility]2018 10:37:10 What Is Your Level Of Alcohol Consumption? Occasional Information not available 07/22/2022 How Much Tobacco Do You Chew? None Information not available 12/14/2018 Do You Or Have You Ever Used E-cigarettes Or Vape? Never Used Electronic Cigarettes Information not available 12/14/2018 What Was The Date Of Your Most Recent Tobacco Screening? 08/20/2024 [email or web address] Information not available 08/20/2024 Do You Or Have You Ever Used Smokeless Tobacco? Never Used Smokeless Tobacco Information not available 12/14/2018 How Much Tobacco Do You Smoke? No Information not available 12/14/2018 Do You Use Any Illicit Or Recreational Drugs? No Information not available 01/06/2021 Has Tobacco Cessation Counseling Been Provided? No Information not available 12/14/2018 On What Date Was Tobacco Cessation Counseling Provided? 08/06/2020 [email or web address] Answered No To The Tobacco Cessation Counseling Provided Question On 12/14/2018. [email or web address] Information not available 08/06/2020 How Many Years Have You Smoked Tobacco? 0 Information not available 12/14/2018 Have You Recently Traveled Abroad? No Information not available 07/22/2022 Do You Or Have You Ever Used Any Other Forms Of Tobacco Or Nicotine? No Information not available 01/06/2021 Sex: Male Functional Status None recorded. Mental Status None recorded. Family History Relationship Description Onset Age of this Age Resolved Age Notes LastModified by Organization Details LastModified Time Father Hypertensive disorder [email or web address] Not available 07/10 10:37:03 Medical History Condition Response Emphysema N COPD N Diabetes N Bleeding Disorder N Arthritis Y Acid Reflux (GERD) Y Asthma N Heart Disease N Rheumatoid Arthritis Y Hypertension Y Immunizations Vaccine Type Date Status Note Provider Nam e and Address Organization Details Recorded Time Hep A, adult 12/07/2018 completed Marcelo Cooper [facility] 12/14/2018 08:21:28 Hep A, adult 07/07/2018 completed Marcelo Cooper [facility] 12/14/2018 08:22:13 Past Encounters Encounter ID Performer Location Encounter Start Date Encounter Closed Date Diagnosis/Indication Diagnosis SNOMED-CT Code Diagnosis ICD10 Code Diagnosis Note [id number] DOMINIC DEUTSCH MD [facility] [address] [place] [id number] 02/15/2018 07:54:43 02/15/2018 13:13:58 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 Despite being on the current combinatio n of medication s, his disease is clinically very active and symptomati c. He has active synovitis involving the bilateral hands, right wrist with significan t nodulosis, along with contractur es at bilateral elbows. further has significan t fatigue and morning stiffness. We had a rodney discussion about rheumatoid arthritis and its management . He has tried and failed to benefit from leflunomid e, sulfasalaz ine, Orencia, and most recently Kevzara. He has done relatively well on the Enbrel injections in the past. Did best on Xeljanz which caused his liver inflammati on and had to stop. At this point, I would consider to go on a combinatio n therapy with reintroduc tion of Enbrel injection at 50 mg once a week in combinatio n with methotrexa te at 12.5 mg once a week and folic acid 1 mg a day. I will discontinu e both diclofenac as well as prednisone . Further, I will initiate IV Methyl prednisolo ne 500 mg once a month for the next 3 months. He is also given IM Depo-Medro l 80 mg today. Labs 04/10/2018. Reviewed and stable. Medication [facility]#:[id number] Medication Lot#:[id number] Medication Exp: 9. [id number] MAGDALENA CANTU MD R[facility]UMATOL [place] [address] [place] [address] 09/12/2018 08:31:17 09/12/2018 09:01:15 Rheumatoid arthritis [id number] M06.9 63-year-ol d gentleman with significan t rheumatoid arthritis followed at the [facility]. this is his follow-up visit after an initial visit in July 2018. He is now on the combinatio n of Enbrel injections 50 mg once a week along with methotrexa te at 12.5 mg once a week, folic acid 1 mg a day and has recently started IV Solu-Medro l 500 mg every once a month for total of 3 months. He has come off the nonsteroid al anti-infla mmatory medication s as well as oral prednisone . Further he has stopped Kevzara. overall, he is heading in the right direction with some improvemen t in his pains, stiffness as well as some joint swelling. However he still has a long way to go. Still has some evidence of synovitis involving his joints especially in the upper extremitie s. Contractur es at the elbows. Chronic synovitis at the wrists. His systemic examinatio n remained stable. at this point, I would like him to continue with Enbrel injections 50 mg once a week, titrate the methotrexa te dose to 20 mg once a week along with folic acid 1 mg a day.. He will complete the IV Solu-Medro l infusions 500 mg every once a month for total of 3 months. Labs 04/10/2018. he will repeat the labs today. I plan to see him back in 3 months. Long-term drug therapy [id number] Z79.899 labs obtained to follow-up on the current medication s. [id number] MAGDALENA CANTU MD RHEUMATOL [facility] [address] [place] [address] 12/14/2018 08:05:40 12/15/2018 14:12:12 Rheumatoid arthritis [id number] M06.9 63-year-ol d gentleman with significan t rheumatoid arthritis followed at the arthritis Center, [facility]. He is now on the combinatio n of Enbrel injections 50 mg once a week along with methotrexa te at 17.5 mg once a week, folic acid 1 mg a day and has recently completed IV Solu-Medro l 500 mg every once a month for total of 3 months. He has come off the nonsteroid al anti-infla mmatory medication s as well as oral prednisone . Further he has stopped Kevzara. His systemic examinatio n remained stable. At this point, I would like him to continue with Enbrel injections 50 mg once a week, maintain the methotrexa te dose to 17.5 mg once a week along with folic acid 1 mg a day.. we injected the elbows and right knee. Labs 09/2018 reviewed. He will repeat the labs today. I plan to see him back in 3 months. Long-term drug therapy [id number] Z79.899 labs obtained to follow-up on the current medication s. Synovitis of joint of right knee [id number] 6629393 M25.861 symptomati c right knee secondary to rheumatoid arthritis along with chronic underlying osteoarthr itis. Maintain the rheumatoid treatment as above. For symptomati c relief the right knee joint is injected with Depo-Medro l. Synovitis of elbow 09387 6008 M65.9 symptomati c bilateral elbow joint with fixed flexion contractur e. Maintain cardiac care as above. On account of pain and discomfort in the elbow joints are injected with Depo-Medro l. [id number] MAGDALENA CANTU MD RHEUMATOL [facility] [address] [place] [address] 04/10/2019 08:17:04 04/10/2019 09:01:43 Rheumatoid arthritis [id number] M06.9 63-year-ol d gentleman with chronic but active rheumatoid arthritis. He is now on the combinatio n of Enbrel injections 50 mg once a week along with methotrexa te at 17.5 mg once a week, folic acid 1 mg a day and has completed IV Solu-Medro l 500 mg once a month for total of 3 months in summer. He has come off the nonsteroid al anti-infla mmatory medication s as well as oral prednisone . Further he has stopped Kevzara. musculoske letal examinatio n demonstrat ed chronic but active synovitis involving multiple joints in both upper and lower extremitie s. He is very tender at the elbows with contractur es. His systemic examinatio n remained stable. At this point, I would like him to continue with Enbrel injections 50 mg once a week, and increase methotrexa te to 25 mg once a week, folic acid 2 mg a day. I performed bilateral elbow joint corticoste roid injection. If this combinatio n fails to help his symptoms, I would consider changing the Enbrel injections to Actemra 162 mg once a week. He has tried Xeljanz in the past but stopped because of the elevated liver enzymes. Similarly he has failed Kevzara. Labs 09/2018 reviewed. He will repeat the labs today. I plan to see him back in 3 months. Long-term drug therapy [id number] Z79.899 labs obtained to follow-up on the current medication s. Synovitis of elbow 71379 6008 M65.9 symptomati c bilateral elbow joint with fixed flexion contractur e. On account of pain and discomfort in the elbow joints, both joints are injected with Depo-Medro l. Screening for malignant neoplasm of prostate 506713777 Z12.5 he has concerns about BPH, suggested him to follow with his family physician and consider urology evaluation . Meantime I've obtained a PSA. [id number] MAGDALENA CANTU MD RHEUMATOL [facility] [address] [place] [address] 07/11/2019 08:08:41 07/11/2019 08:41:31 Rheumatoid arthritis 99048789 M06.9 64-year-ol d gentleman with chronic but symptomati c rheumatoid arthritis. He is now on the combinatio n of Enbrel injections 50 mg once a week along with methotrexa te at 25 mg once a week, folic acid 1 mg a day. He has come off the nonsteroid al anti-infla mmatory medication s as well as oral prednisone . Further he has stopped Kevzara. His musculoske letal examinatio n demonstrat ed chronic but active synovitis involving right elbow and right wrist. Rest of the joints are stable. His systemic examinatio n remained stable. At this point, I would like him to continue with Enbrel injections 50 mg once a week, and methotrexa te to 25 mg once a week, folic acid 2 mg a day. I performed right elbow joint corticoste roid injection. I contact his insurance to see if he can be approved for Actemra 162 mg once a week increase of Enbrel. Other options include Rinvoq 15 mg po qd. He has tried Xeljanz in the past but stopped because of the elevated liver enzymes. Similarly he has failed Kevzara. He will repeat the labs today. I plan to see him back in 3 - 4 months. Long-term drug therapy [id number] Z79.899 labs obtained to follow-up on the current medication s. Synovitis of elbow 37858 6008 M65.9 symptomati c bilateral elbow joint with fixed flexion contractur e right > left. x-rays obtained [id number] MAGDALENA CANTU MD R[facility]UMATOL [facility] [address] [place] [address] 11/07/2019 07:58:15 11/07/2019 08:32:31 Rheumatoid arthritis [id number] M06.9 64-year-ol d gentleman with chronic but symptomati c rheumatoid arthritis. He is now on the combinatio n of Enbrel injections 50 mg once a week along with methotrexa te at 25 mg once a week, folic acid 1 mg a day. He has come off the nonsteroid al anti-infla mmatory medication s as well as oral prednisone . Further he has stopped Kevzara. His musculoske letal examinatio n demonstrat ed chronic but active synovitis involving right elbow and right wrist and tenderness along with synovitis involving the right knee. Rest of the joints are stable. His systemic examinatio n remained stable. At this point, I would like him to consider trial of Rinvoq 15 mg once a day. We can discontinu e Enbrel once approved for the Rinvoq. Maintain methotrexa te to 25 mg once a week, folic acid 2 mg a day. I performed right elbow, right knee and right wrist steroid injection. I also gave him a brief course of oral prednisone . joint corticoste roid injection. He has tried Xeljanz in the past but stopped because of the elevated liver enzymes. Similarly he has failed Kevzara. He will repeat the labs today. I plan to see him back in 3 - 4 months. Long-term drug therapy [id number] Z79.899 labs obtained to follow-up on the current medication s. [id number] MAGDALENA CANTU [facility] [address] [place] [address] 02/05/2020 14:52:56 02/05/2020 15:33:37 Rheumatoid arthritis [id number] M06.9 64-year-ol d gentleman with chronic rheumatoid arthritis. He is now on the combinatio n of Rinvoq 15 mg once a day and methotrexa te at 25 mg once a week, folic acid 2 mg a day. He has come off the nonsteroid al anti-infla mmatory medication s as well as oral prednisone . Further he has stopped Enbrel and before that stopped the Kevzara. His musculoske letal examinatio n demonstrat ed chronic but active synovitis involving right elbow and right knee, modest right wrist. otherwise rest of the joints look much better. Systemic examinatio n is stable. I want him to maintain the current combinatio n of Rinvoq 15 mg once a day. Maintain methotrexa te to 25 mg once a week, folic acid 2 mg a day. I performed right elbow, and right knee steroid injection. hold off on oral steroids. as mentioned before, has tried Xeljanz in the past but stopped because of the elevated liver enzymes. Similarly he has failed Kevzara/ Enbrel. He will repeat the labs today. I plan to see him back in 3 - 4 months. Long-term drug therapy [id number] Z79.899 labs obtained to follow-up on the current medication s. [id number] MAGDALENA CANTU MD RHEUMATOL [facility] [address] [place] [address] 05/07/2020 07:39:15 05/07/2020 10:52:40 Rheumatoid arthritis [id number] M06.9 64-year-ol d gentleman with chronic rheumatoid arthritis. Chronic disease, fairly stable. Most of his pains are now mechanical because of Superimpos ed secondary degenerati ve process. Especially in his right elbow and right knee joint. In therapy discussed the need for considerin g right knee joint replacemen t. He is now on the combinatio n of Rinvoq 15 mg once a day and methotrexa te at 25 mg once a week, folic acid 2 mg a day. He has come off the nonsteroid al anti-infla mmatory medication s as well as oral prednisone . Has failed the Enbrel as well as Kevzara. His musculoske letal examinatio n demonstrat ed chronic, deformity right elbow and right knee, modest right wrist. otherwise rest of the joints look much better. Systemic examinatio n is stable. I want him to maintain the current combinatio n of Rinvoq 15 mg once a day.[place]ta in methotrexa te to 25 mg once a week, folic acid 2 mg a day. I performed right elbow, and right knee steroid injection. As mentioned before, has tried Xeljanz in the past but stopped because of the elevated liver enzymes. Similarly he has failed Kevzara/ Enbrel. He will repeat the labs in 4 weeks. Last lab studies February were normal. I plan to see him back in 3 - 4 months. Long-term drug therapy [id number] Z79.899 labs obtained to follow-up on the current medication s. Pain in right knee 06130 49497 99928 M25.561 secondary to osteoarthr itis. Symptomati feliz treatment for now, the right knee is given steroid injection. He will contact [facility] to discuss knee joint replacemen t. [id number] [place] [address] [place] [address] 08/06/2020 07:44:24 08/06/2020 09:09:16 Rheumatoid arthritis [id number] M06.9 very pleasant 65-year-ol d gentleman with chronic rheumatoid arthritis. Chronic disease, with some activity in his right elbow and right knee joint. Minimal activity in the right wrist. Otherwise, rest of the joints are fair. Cardiopulm onary examinatio n is physiologi c. Today, the right knee and the right elbow are given steroid injection. suggested to maintain the combinatio n of Rinvoq 15 mg once a day and methotrexa te at 25 mg once a week, folic acid 2 mg a day. He has come off the nonsteroid al anti-infla mmatory medication s as well as oral prednisone . As mentioned before, has tried Xeljanz in the past but stopped because of the elevated liver enzymes. Similarly he has failed Kevzara/ Enbrel. obtain lab studies from his primary care physician. Follow-up with me in 3 months. Long-term drug therapy [id number] Z79.899 high-risk medication s. Labs every 3 months. Recently done through primary care physician. Pain in right knee 80446 76299 78189 M25.561 chronic, secondary to osteoarthr itis. Symptomati feliz treatment for now, the right knee is given steroid injection. He will contact [facility] to discuss knee joint replacemen t. [id number] [place] [address] [place] [address] 11/04/2020 07:43:39 11/04/2020 09:22:37 Rheumatoid arthritis 39337726 M06.9 very pleasant 65-year-ol d gentleman with chronic rheumatoid arthritis. Chronic disease, In general has done very well. The right knee pain secondary to osteoarthr itis. Most of the joints are doing very well. In fact the right elbow looks great. The contractur e has significan tly improved after the steroid injection. Stable cardiopulm onary examinatio n. We discussed his Medicare situation in the coming months and the need to change to a new biologic. I would suggest intravenou s Simponi aria at 2 mg/kg q 1 month. will discontinu e the Rinvoq once he goes into Medicare. Continue with the current dose of methotrexa te at 25 mg once a week, folic acid 2 mg a day. He has come off the non-steroi jazmin anti-infla mmatory medication s as well as oral prednisone . As mentioned before, has tried Xeljanz in the past but stopped because of the elevated liver enzymes. Similarly he has failed Kevzara/ Enbrel. obtain lab studies. follow-up 3 months Long-term drug therapy [id number] Z79.899 high-risk medication s. Labs every 3 months. Pain in right knee 45324 62907 12128 M25.561 chronic, secondary to osteoarthr itis. Symptomati c treatment for now, the right knee is given steroid injection. In case of knee replacemen t, he would like to see [facility] sDr. Priyank en. 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 Unfortunat amna the insurance has refused Rinvoq which has helped him a lot in the last 12 months. His disease is clinically active without the Rinvoq. We are trying to provide him some samples. He remains on methotrexa te at 25 mg once a week. He remains on steroids both oral as well as intra-sy cular. Remains on folic acid. The clinical disease activity index, CDAI is 47.5, suggestive of very active disease. Routine assessment of patient index data, RAPID3 21 out of 30, high severity disease activity. Stable cardiopulm onary charley guzman We discussed his Medicare situation in the coming months and the need to change to a new biologic. I would suggest intravenou s Simponi aria at 2 mg/kg q 1 month or intravenou s Remicade infusion between 5 to 10 mg/kg body weight. Of course we will discontinu e Rinvoq once he goes into Medicare insurance and starts intravenou s biologic. As mentioned before, has tried Xeljanz in the past but stopped because of the elevated liver enzymes. Similarly he has failed Kevzara/ Enbrel. Long-term drug therapy [id number] Z79.899 high-risk medication s. Labs every 3 months. Most recent labs 11/04/2020 fairly stable. Modest elevation in the ALT. Repeat next month [id number] MAGDALENA CANTU [facility] [address] [place] [address] 02/04/2021 08:03:35 02/04/2021 09:22:13 Pain in right knee [id number] 56547 M25.561 Symptomati c right knee joint, advanced degenerati ve process. Today the right knee is given intra-sy cular steroid injection. Ultimately as discussed, he would need to consider right knee replacemen t. He would like to see Dr. Lita guzman in case if he decides to proceed with a knee replacemen t. Weight loss and exercise reviewed. Long-term drug therapy [id number] Z79.899 high-risk medication s. Labs every 3 months. Most recent labs 11/04/2020 fairly stable. Modest elevation in the ALT. Repeat next month Repeat the CBC today. 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 Unfortunat amna the insurance has refused Rinvoq which has helped him a lot in the last 12 months. We decided to continue to provide him the samples. He is still on methotrexa te at 25 mg q. weekly and folic acid once a day. The clinical disease activity index, CDAI is 47.5, suggestive of very active disease. Routine assessment of patient index data, RAPID3 21 out of 30, high severity disease activity. Stable cardiopulm onary examinatio n We have stopped Simponi aria. Of course we will discontinu e Rinvoq once he goes into Medicare insurance and starts intravenou s biologic, such as IV Inflectra As mentioned before, has tried Xeljanz in the past but stopped because of the elevated liver enzymes. Similarly he has failed Kevzara/ Enbrel. Follow-up with me in couple of months. [id number] MAGDALENA CANTU MD RHEUMATOL [facility] [address] [place] [address] 04/16/2021 07:42:44 04/16/2021 09:27:15 Pain in right knee [id number] 44514 M25.561 Symptomati c right knee joint, advanced degenerati ve process. He needs right knee replacemen t. He is requesting [facility]. In the meantime, the right knee is given intra-sy cular steroid for symptomati c relief. We are trying to schedule his appointmen t in early spring next year to consider the knee replacemen t Weight loss and exercise reviewed. Long-term drug therapy [id number] Z79.899 high-risk medication s. Labs every 3 months. Lab studies 02/04/2021 stable negative TB test. 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 On Rinvoq 15 mg po qd, he is still on methotrexa te at 25 mg q. weekly and folic acid once a day. The combinatio n is very helpful!ex cept for right knee, rest of the msk is stable. Has, clinical disease activity index, CDAI is 47.5, suggestive of very active disease. Routine assessment of patient index data, RAPID3 21 out of 30, high severity disease activity. Stable cardiopulm onary examinatio n We have stopped Simponi aria. As mentioned before, has tried Xeljanz in the past but stopped because of the elevated liver enzymes. Similarly he has failed Kevzara/ Enbrel. Follow-up with me in couple of months. [id number] MAGDALENA CANTU MD RHEUMATOL [facility] [address] [place] [address] 07/23/2021 08:05:52 07/23/2021 13:03:53 Pain in right knee [id number] M25.561 Symptomati c right knee joint, advanced degenerati ve process.He has failed conservati ve care in terms of right knee management . He is now scheduled for total replacemen t. I agree with the plan. Schedule knee replacemen t on the fourth day post event walk intake. Do not take Rinvoq for at least 3 days prior to the knee replacemen t. He can still maintain methotrexa te and folic acid without interrupti on. No steroid is given in the knee in anticipati on of knee replacemen t surgery. Long-term drug therapy [id number] Z79.899 high-risk medication s. Labs every 3 months.Lab s are repeated. TPMT enzyme activity obtained in anticipati on of Imuran. 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 He has done well on Rinvoq 15 mg po qd, he is still on methotrexa te at 25 mg q. weekly and folic acid once a day.Unfort unately, the cost of Rinvoq is a concern. He is going to be on Medicare. Not covered by the insurance. We will try to help him with the patient assistance program. We will also explore options for other medication s including Imuran. TPMT enzyme activity obtained. As mentioned before, has had clinical disease activity index, CDAI is 47.5, suggestive of very active disease. Routine assessment of patient index data, RAPID3 21 out of 30, high severity disease activity. Stable cardiopulm onary examinatio n We have stopped Simponi aria. He has tried Xeljanz in the past but stopped because of the elevated liver enzymes. Similarly he has failed Kevzara/ Enbrel. Follow-up with me in couple of months. [id number] MAGDALENA CANTU MD RHEUMATOL [facility] [address] [place] [address] 10/22/2021 07:33:37 10/22/2021 13:06:31 Long-term drug therapy [id number] Z79.899 66-year-ol d gentleman on high risk medication including methotrexa te and Imuran. labs every 3 months.Lab s are repeated. 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 He did very well on the Rinvoq which is now off on account of insurance denial. Cost was a big concern. He is now on the combinatio n of methotrexa te 25 mg once a week folic acid 1 mg once a day and Imuran 50 mg once a day. Tolerating them well. Fairly stable examinatio n. Post right knee replacemen t which is clinically stable. Stable cardiopulm onary exam. Has had high disease activity indicis ; clinical disease activity index, CDAI is 47.5, suggestive of very active disease. Routine assessment of patient index data, RAPID3 21 out of 30, high severity disease activity. He has tried Xeljanz in the past but stopped because of the elevated liver enzymes. Similarly he has failed Kevzara/ Enbrel and Simponi. Follow-up with me in couple of months. [id number] MAGDALENA CANTU [facility] [address] [place] [address] 02/24/2022 07:41:09 02/24/2022 14:00:08 Long-term drug therapy [id number] Z79.899 66-year-ol d gentleman on high risk medication including methotrexa te and Imuran. labs every 3 months.Lab s are repeated. 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 Is now on the combinatio n of methotrexa te and Imuran. Tolerating the combinatio n well. As mentioned in the last notes, on account of cost we have stopped the Rinvoq extended release. This combinatio n seems to have kept him going. He is tolerating it quite well. Post right knee replacemen t which is clinically stable.The current MSK exam is stable.Sta ble cardiopulm onary exam. His previous disease activity index: clinical disease activity index, CDAI is 47.5, suggestive of very active disease. Routine assessment of patient index data, RAPID3 21 out of 30, high severity disease activity. He has tried Xeljanz in the past but stopped because of the elevated liver enzymes. Similarly he has failed Kevzara/ Enbrel and Simponi. Repeat CDAI on his next visit. Follow-up with me in couple of months. Benign pro static hyperplasia with outflow obstruction [id number] N40.1 History of BPH with changes in the urine stream. Has not done PSA recently I suggested him to repeat a PSA and we will schedule him to see a urologist. [id number] MAGDALENA CANTU MD RHEUMATOL [facility] [address] [place] [address] 07/22/2022 08:16:06 07/26/2022 11:25:05 Long-term drug therapy [id number] Z79.899 67-year-ol d gentleman on high risk medication including methotrexa te and Imuran. labs every 3 months.Lab s are repeated. 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 He is now on the combinatio n of methotrexa te and Imuran. He is having increased flares. As mentioned in the last notes, on account of cost we had to stopp the Rinvoq extended release. Unfortunat amna more symptomati c. Post right knee replacemen t which is clinically stable. Has more pains with recurrent flare up.Stable cardiopulm onary exam. His previous disease activity index: His last clinical disease activity index, CDAI is 29, high activity He has tried Xeljanz in the past but stopped because of the elevated liver enzymes. Similarly he has failed Kevzara/ Enbrel and Simponi.IM depo 120 mg to help the flares.Obt niko PA for Remicade at 3 Mg per KG body weight 8 weeks 0 ? 2 ? 6 as a loading dose and then a maintenanc e dose at 5 Mg per KG body weight.Pre medication with a loading dose Tylenol 1 g, Benadryl 50 mg and Solu-Medro l 60 mg.Premedi cation with maintenanc e dose Tylenol 1 g and Benadryl 25 mg. Follow-up with me in one month Fatigue [id number] R53.83 Chronic multifacto rial.Obtai n labs, hep panel toComplete the work-up [id number] [facility] WEINSTEIN APRN [facility] [address] [place] [address] 08/19/2022 10:23:26 08/24/2022 15:49:10 Long-term drug therapy [id number] Z79.899 67-year-ol d gentleman on high risk medication including methotrexa te and Imuran. 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 He is now on the combinatio n of methotrexa te and Imuran. He is having increased flares. As mentioned in the last notes, on account of cost we had to stopp the Rinvoq extended release. Unfortunat amna more symptomati c. Post right knee replacemen t which is clinically stable. Has more pains with recurrent flare up.Stable cardiopulm onary exam. His previous disease activity index: His last clinical disease activity index, CDAI is 29, high activity He has tried Xeljanz in the past but stopped because of the elevated liver enzymes. Similarly he has failed Kevzara/ Enbrel and Simponi. Depo medrol 120mg today for flare. He is scheduled for Remicade infusion on 08/27/22 Obtain PA for Remicade at 3 Mg per KG body weight 8 weeks 0 ? 2 ? 6 as a loading dose and then a maintenanc e dose at 5 Mg per KG body weight.Pre medication with a loading dose Tylenol 1 g, Benadryl 50 mg and Solu-Medro l 60 mg.Premedi cation with maintenanc e dose Tylenol 1 g and Benadryl 25 mg. 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 He is now on the combinatio n of methotrexa te and Imuran. He is having increased flares. As mentioned in the last notes, on account of cost we had to stopp the Rinvoq extended release. Unfortunat amna more symptomati c. Post right knee replacemen t which is clinically stable. Has more pains with recurrent flare up.Stable cardiopulm onary exam. His previous disease activity index: His last clinical disease activity index, CDAI is 29, high activity He has tried Xeljanz in the past but stopped because of the elevated liver enzymes. Similarly he has failed Kevzara/ Enbrel and Simponi.IM depo 120 mg to help the flares.Obt ain PA for Remicade at 3 Mg per KG body weight 8 weeks 0 ? 2 ? 6 as a loading dose and then a maintenanc e dose at 5 Mg per KG body weight.Pre medication with a loading dose Tylenol 1 g, Benadryl 50 mg and Solu-Medro l 60 mg.Premedi cation with maintenanc e dose Tylenol 1 g and Benadryl 25 mg. 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 He is now on the combinatio n of methotrexa te and Imuran. He is having increased flares. As mentioned in the last notes, on account of cost we had to stopp the Rinvoq extended release. Unfortunat amna more symptomati c. Post right knee replacemen t which is clinically stable. Has more pains with recurrent flare up.Stable cardiopulm onary exam. His previous disease activity index: His last clinical disease activity index, CDAI is 29, high activity He has tried Xeljanz in the past but stopped because of the elevated liver enzymes. Similarly he has failed Kevzara/ Enbrel and Simponi.IM depo 120 mg to help the flares.Obt ain PA for Remicade at 3 Mg per KG body weight 8 weeks 0 ? 2 ? 6 as a loading dose and then a maintenanc e dose at 5 Mg per KG body weight.Pre medication with a loading dose Tylenol 1 g, Benadryl 50 mg and Solu-Medro l 60 mg.Premedi cation with maintenanc e dose Tylenol 1 g and Benadryl 25 mg. 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 He is now on the combinatio n of methotrexa te and Imuran. As mentioned in the last notes, on account of cost we had to stop the Rinvoq extended release. Currently on Remicade infusions without adverse side effects. Remicade at 3 Mg per KG body weight 8 weeks 0 ? 2 ? 6 as a loading dose and then a maintenanc e dose at 5 Mg per KG body weight.Pre medication with a loading dose Tylenol 1 g, Benadryl 50 mg and Solu-Medro l 60 mg.Premedi cation with maintenanc e dose Tylenol 1 g and Benadryl 25 mg. Post right knee replacemen t which is clinically stable. Has more pains with recurrent flare up.Stable cardiopulm onary exam. His previous disease activity index: His last clinical disease activity index, CDAI is 29, high activity He has tried Xeljanz in the past but stopped because of the elevated liver enzymes. 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 He is now on the combinatio n of methotrexa te and Imuran. He is having increased flares. As mentioned in the last notes, on account of cost we had to stopp the Rinvoq extended release. Unfortunat amna more symptomati c. Post right knee replacemen t which is clinically stable. Has more pains with recurrent flare up.Stable cardiopulm onary exam. His previous disease activity index: His last clinical disease activity index, CDAI is 29, high activity He has tried Xeljanz in the past but stopped because of the elevated liver enzymes. Similarly he has failed Kevzara/ Enbrel and Simponi.IM depo 120 mg to help the flares.Obt niko PA for Remicade at 3 Mg per KG body weight 8 weeks 0 ? 2 ? 6 as a loading dose and then a maintenanc e dose at 5 Mg per KG body weight.Pre medication with a loading dose Tylenol 1 g, Benadryl 50 mg and Solu-Medro l 60 mg.Premedi cation with maintenanc e dose Tylenol 1 g and Benadryl 25 mg. 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 He is now on the combinatio n of methotrexa te and Remicade infusion therapy has made a huge difference . Tolerating it very well. Currently symptomati c left knee and right knee pes anserine bursa. Post right knee replacemen t which is clinically stable. His previous disease activity index: His last clinical disease activity index, CDAI is 29, high activity He has tried Xeljanz in the past but stopped because of the elevated liver enzymes. Similarly he has failed Kevzara/ Enbrel and Simponi.Re issa on methotrexa te. Suggested to continue methotrexa te at 25 mg once a week, folic acid 2 mg once a day and Remicade infusion therapy at 5 Mg per KG body weight every 8 weeks. The right knee pes anserine bursa and left knee intra-sy cular steroid injections were performed. Labs dated 10/21/2022 reviewed and fairly stable. Osteoarthr itis of left knee joint [id number] 45300 M17.12 Symptomati c left knee joint. Positive joint line tenderness with medial lateral joint line. Positive crepitus. Minimal synovitis. Unfortunat amna very symptomati c and discomfort . Local cares have not helped. Using ice applicatio n regularly. Today the left knee is given intra-sy cular steroid injection without complicati ons. Pes anseri nus bursitis of right knee [id number] M70.51 He is status post right knee replacemen t. However has persistent pain and discomfort involving the Pez anserine bursa. He has failed conservati ve care including ice applicatio n stretching for the last few months. Today the past anserine bursa is given a steroid injection without complicati on. 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 He is now on the combinatio n of methotrexa te and Remicade infusion therapy has made a huge difference . Tolerating it very well. Currently symptomati c left knee and right knee pes anserine bursa. Post right knee replacemen t which is clinically stable. His previous disease activity index: His last clinical disease activity index, CDAI is 29, high activity He has tried Xeljanz in the past but stopped because of the elevated liver enzymes. Similarly he has failed Kevzara/ Enbrel and Simponi.Re issa on methotrexa te. Suggested to continue methotrexa te at 25 mg once a week, folic acid 2 mg once a day and Remicade infusion therapy at 5 Mg per KG body weight every 8 weeks. The right knee pes anserine bursa and left knee intra-sy cular steroid injections were performed. Labs dated 10/21/2022 reviewed and fairly stable. 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 He is now on the combinatio n of methotrexa te and Remicade infusion therapy, tolerating it well. Has helped his RA. Mechanical pain left knee. Bursitis pain right knee. He has tried Xeljanz in the past but stopped because of the elevated liver enzymes. Similarly he has failed Kevzara/ Enbrel and Simponi. Suggested to continue methotrexa te at 10 mg once a week, folic acid 2 mg once a day and Remicade infusion therapy at 5 Mg per KG body weight every 8 weeks. Left knee intra-sy cular steroid injections was performed today, no complicati ons noted. Patient was given post injection instructio ns. Labs dated 02/09/2023 reviewed, all normal.Of note he has had elevated liver enzymes in the past. We have cut back on the methotrexa te which seems to have helped his liver enzymes.Me d list updated. Rx alternativ es compound cream reviewed with the patient as a potential alternativ e to injections . Prescripti on sent. Osteoarthr itis of left knee joint [id number] 60315 M17.12 Symptomati c left knee joint.Mode rately advanced disease.On account of his pain, discomfort the left knee is given intra-sy cular steroid injection. Further prescripti on for topical compound gel sent to the pharmacy. Ultimately , he would need left knee arthroplas ty. Pes anseri nus bursitis of right knee [id number] M70.51 Chronic recurrent right pes anserine bursitis. Post steroid injection modest benefit. Suggested local care ice heat. Further prescribed topical compound gel for symptomati c relief. 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 He is now on the combinatio n of methotrexa te and Remicade infusion therapy, tolerating it well. Has helped his RA. Mechanical pain left knee. Bursitis pain right knee. He has tried Xeljanz in the past but stopped because of the elevated liver enzymes. Similarly he has failed Kevzara/ Enbrel and Simponi. Suggested to continue methotrexa te at 10 mg once a week, folic acid 2 mg once a day and Remicade infusion therapy at 5 Mg per KG body weight every 8 weeks. Left knee intra-sy cular steroid injections was performed today, no complicati ons noted. Patient was given post injection instructio ns. Labs dated 02/09/2023 reviewed, all normal.Of note he has had elevated liver enzymes in the past. We have cut back on the methotrexa te which seems to have helped his liver enzymes.Me d list updated. Rx alternativ es compound cream reviewed with the patient as a potential alternativ e to injections . Prescripti on sent. 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 He is now on the combinatio n of methotrexa te and Remicade infusion therapy, tolerating it well. Has helped his RA. Mechanical pain left knee. Bursitis pain right knee. He has tried Xeljanz in the past but stopped because of the elevated liver enzymes. Similarly he has failed Kevzara/ Enbrel and Simponi. Suggested to continue methotrexa te at 10 mg once a week, folic acid 2 mg once a day and Remicade infusion therapy at 5 Mg per KG body weight every 8 weeks. Left knee intra-sy cular steroid injections was performed today, no complicati ons noted. Patient was given post injection instructio ns. Labs dated 02/09/2023 reviewed, all normal.Of note he has had elevated liver enzymes in the past. We have cut back on the methotrexa te which seems to have helped his liver enzymes.Me d list updated. Rx alternativ es compound cream reviewed with the patient as a potential alternativ e to injections . Prescripti on sent. 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 He is now on the combinatio n of methotrexa te and Remicade infusion therapy, tolerating it well. Some activity of the disease specially in the left hand second and third MCP as well as left second PIP, some activity in the right second and third MCP joint. 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 Right hand print shop helper strength is fairly stable. No active nodules. Cardiopulm onary semination is physiologi c. Left knee Pez anserine bursitis has resolved. He has tried Xeljanz in the past but stopped because of the elevated liver enzymes. Similarly he has failed Kevzara/ Enbrel and Simponi. Suggested to continue methotrexa te at 10 mg once a week, folic acid 2 mg once a day and Remicade infusion therapy at 5 Mg per KG body weight every 8 weeks. He has started Rapid Infusion therapy today. Bilateral hand synovitis, chronic findings. Encouraged he maintain use of his hands. Labs dated 02/09/2023 reviewed, all normal.Of note he has had elevated liver enzymes in the past. We have cut back on the methotrexa te which seems to have helped his liver enzymes.Me d list updated. Long-term current use of immunosuppressive drug [id number] Z79.60 Lab studies 06/02/2023, normal ESR/CRP. Normal AST and ALT. GFR normal at 102 mL/min. TB test up-to-date March 2023. Repeat in March 2024. 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 He is now on the combinatio n of methotrexa te and Remicade infusion therapy, tolerating it well.Sympt omatic left knee joint otherwise rest of the joints are fairly stable. Some chronic limitation in the left print shop helper strength. Cardiopulm onary semination is physiologi c. He has tried Xeljanz in the past but stopped because of the elevated liver enzymes. Similarly he has failed Kevzara/ Enbrel and Simponi. Suggested to continue methotrexa te at 10 mg once a week, folic acid 2 mg once a day and Remicade infusion therapy at 5 Mg per KG body weight every 8 weeks. Today we also gave left knee intra-sy cular steroid injection Patient was given post injection instructio ns. Labs dated 02/09/2023 reviewed, all normal.Of note he has had elevated liver enzymes in the past. We have cut back on the methotrexa te which seems to have helped his liver enzymes.Ia d list updated. 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 He is now on the combinatio n of methotrexa te and Remicade infusion therapy, tolerating it well.Sympt omatic left knee joint otherwise rest of the joints are fairly stable. Some chronic limitation in the left print shop helper strength. Cardiopulm onary semination is physiologi c. He has tried Xeljanz in the past but stopped because of the elevated liver enzymes. Similarly he has failed Kevzara/ Enbrel and Simponi. Suggested to continue methotrexa te at 10 mg once a week, folic acid 2 mg once a day and Remicade infusion therapy at 5 Mg per KG body weight every 8 weeks. Today we also gave left knee intra-sy cular steroid injection Patient was given post injection instructio ns. Labs dated 02/09/2023 reviewed, all normal.Of note he has had elevated liver enzymes in the past. We have cut back on the methotrexa te which seems to have helped his liver enzymes.Ia d list updated. Long-term current use of immunosuppressive drug [id number] Z79.60 Lab studies 06/02/2023, normal ESR/CRP. Normal AST and ALT. GFR normal at 102 mL/min. TB test up-to-date March 2023. Repeat in March 2024. Synovitis of joint of left knee [id number] M65.862 Symptomati c secondary to rheumatoid arthritis. Today the left knee is given intra-sy cular steroid injection without complicati ons. 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 He is now on the combinatio n of methotrexa te and Remicade infusion therapy, tolerating it well.Howev er he seems to be more symptomati c around sixth week post Remicade infusion. The Remicade infusion is at 5 Mg per KG body weight. Today is more tender in his wrist joint as well as left knee joint. He has morning stiffness and fatigue which tends to improve by the middle of the day. His right knee is replaced and stable. Cardiopulm onary semination is physiologi c. He has tried Xeljanz in the past but stopped because of the elevated liver enzymes. Similarly he has failed Kevzara/ Enbrel and Simponi. Suggested to continue methotrexa te at 10 mg once a week, folic acid 2 mg once a day and Remicade infusion therapy at 5 Mg per KG body weight with a plan to request his insurance to approve the infusion every 6 weeks instead of every 8 weeks to control his symptomato logy. He is also given IV Solu-Medro l at 120 mg. Patient was given post injection instructio ns. Labs from September 2023 reviewed and stableOf note he has had elevated liver enzymes in the past. We have cut back on the methotrexa te which seems to have helped his liver enzymes.Me d list updated. Long-term current use of immunosuppressive drug [id number] Z79.60 09/22/23 labs including CBC, GFR and liver functions. All normal Synovitis of joint of left knee [id number] M65.862 Chronic recurrent and symptomati c. Combinatio n of both OA and RA. Today suggested IV Solu-Medro l in combinatio n with the Remicade and we decided to hold off on the intra-sy cular steroid injection. 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 He is now on the combinatio n of methotrexa te and Remicade infusion therapy, tolerating it well.Howev er he seems to be more symptomati c around sixth week post Remicade infusion. The Remicade infusion is at 5 Mg per KG body weight. Today is more tender in his wrist joint as well as left knee joint. He has morning stiffness and fatigue which tends to improve by the middle of the day. His right knee is replaced and stable. Cardiopulm onary semination is physiologi c. He has tried Xeljanz in the past but stopped because of the elevated liver enzymes. Similarly he has failed Kevzara/ Enbrel and Simponi. Suggested to continue methotrexa te at 10 mg once a week, folic acid 2 mg once a day and Remicade infusion therapy at 5 Mg per KG body weight with a plan to request his insurance to approve the infusion every 6 weeks instead of every 8 weeks to control his symptomato logy. He is also given IV Solu-Medro l at 120 mg. Patient was given post injection instructio ns. Labs from September 2023 reviewed and stableOf note he has had elevated liver enzymes in the past. We have cut back on the methotrexa te which seems to have helped his liver enzymes.Me d list updated. 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 He is now on the combinatio n of methotrexa te and Remicade infusion therapy, tolerating it well.Sympt omatic left knee. Left shoulder pain is secondary to supraspina tus tendinopat hy. No interval infections . Cardiopulm onary semination is physiologi c. He has tried Xeljanz in the past but stopped because of the elevated liver enzymes. Similarly he has failed Kevzara/ Enbrel and Simponi.Coleman ggested to continue methotrexa te at 10 mg once a week, folic acid 2 mg once a day and Remicade infusion therapy at 5 Mg per KG body weight every 6 weeks. Left knee is given intra-sy cular steroid injectionP atient was given post injection instructio ns. Labs from September 2023 reviewed and stableOf note he has had elevated liver enzymes in the past. We have cut back on the methotrexa te which seems to have helped his liver enzymes.Me d list updated. Long-term current use of immunosuppressive drug [id number] Z79.60 09/22/23 labs including CBC, GFR and liver functions. 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 He is trying to hold off on the knee replacemen t. Today the left knee is given intra-sy cular steroid injection. No complicati ons noted. Patient was given post care instructio ns. Pain of le ft shoulder joint [id number] M25.512 Left shoulder pain seems to be more from supraspina tus tendinopat hy and some AC osteoarthr itis. Negative drop arm test. Negative effusion. Does have positive empty can test. Suggested local massage therapy such as [place] balm to apply to the left shoulder at least twice a day. Range of motion exercises reviewed. 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 He is now on the combinatio n of methotrexa te and Remicade infusion therapy, tolerating it well.Sympt omatic left knee. Left shoulder pain is secondary to supraspina tus tendinopat hy. No interval infections . Cardiopulm onary semination is physiologi c. He has tried Xeljanz in the past but stopped because of the elevated liver enzymes. Similarly he has failed Kevzara/ Enbrel and Simponi.Coleman ggested to continue methotrexa te at 10 mg once a week, folic acid 2 mg once a day and Remicade infusion therapy at 5 Mg per KG body weight every 6 weeks. Left knee is given intra-sy cular steroid injectionP atient was given post injection instructio ns. Labs from September 2023 reviewed and stableOf note he has had elevated liver enzymes in the past. We have cut back on the methotrexa te which seems to have helped his liver enzymes.Ia d list updated. 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 He is now on the combinatio n of methotrexa te and Remicade infusion therapy, tolerating it well.Sympt omatic left knee. Positive synovitis and effusion. No interval infections . Cardiopulm onary semination is physiologi c. He has tried Xeljanz in the past but stopped because of the elevated liver enzymes. Similarly he has failed Kevzara/ Enbrel and Simponi.Coleman ggested to continue methotrexa te at 10 mg once a week, folic acid 2 mg once a day and Remicade infusion therapy at 5 Mg per KG body weight every 6 weeks. Left knee is given intra-sy cular steroid injectionP atient was given post injection instructio ns. Labs from January 2024 reviewed. Of note he has had elevated liver enzymes in the past. We have cut back on the methotrexa te which seems to have helped his liver enzymes.Me d list updated. Long-term current use of immunosuppressive drug [id number] Z79.60 01/12/24 labsESR 20, CRP 0.60Creati nine, GFR normalAST, ALT normalCBC 13.7 hemoglobin . Recommende d to take 40mg iron supplement every other day. Synovitis of joint of left knee [id number] M65.862 Symptomati c left knee. Recurrent effusion and synovitis. Secondary to rheumatoid although there is a component of OA. Today the left knee is given intra-sy cular steroid injection. No complicati ons noted. Patient was given post care instructio ns. 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 He is now on the combinatio n of methotrexa te and Remicade infusion therapy, tolerating it well.Sympt omatic left knee. Positive synovitis and effusion. No interval infections . Cardiopulm onary semination is physiologi c. He has tried Xeljanz in the past but stopped because of the elevated liver enzymes. Similarly he has failed Kevzara/ Enbrel and Simponi.Coleman ggested to continue methotrexa te at 10 mg once a week, folic acid 2 mg once a day and Remicade infusion therapy at 5 Mg per KG body weight every 6 weeks. Left knee is given intra-sy cular steroid injectionP atient was given post injection instructio ns. Labs from January 2024 reviewed. Of note he has had elevated liver enzymes in the past. We have cut back on the methotrexa te which seems to have helped his liver enzymes.Me d list updated. 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 He is now on the combinatio n of methotrexa te and Remicade infusion therapy, tolerating it well.Sympt omatic left knee. Positive synovitis and effusion. No interval infections . Cardiopulm onary semination is physiologi c. He has tried Xeljanz in the past but stopped because of the elevated liver enzymes. Similarly he has failed Kevzara/ Enbrel and Simponi.Coleman ggested to continue methotrexa te at 10 mg once a week, folic acid 2 mg once a day and Remicade infusion therapy at 5 Mg per KG body weight every 6 weeks. Left knee is given intra-sy cular steroid injectionP atient was given post injection instructio ns. Labs from January 2024 reviewed. Of note he has had elevated liver enzymes in the past. We have cut back on the methotrexa te which seems to have helped his liver enzymes.Me d list updated. 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 He is now on the combinatio n of methotrexa te and Remicade infusion therapy, tolerating it well.Sympt omatic left knee. Secondary to the combinatio n of osteo and rheumatoid arthritis. Positive synovitis and effusion. No interval infections . Cardiopulm onary semination is physiologi c. Currently on Remicade infusion therapy the most recent therapy was on 05/28/2024 the next therapy is due on 07/09/2024 at 5 Mg per KG body weight. He has tried Xeljanz in the past but stopped because of the elevated liver enzymes. Similarly he has failed Kevzara/ Enbrel and Simponi.Coleman ggested to continue methotrexa te at 10 mg once a week, folic acid 2 mg once a day and Remicade infusion therapy at 5 Mg per KG body weight every 6 weeks. Left knee is given intra-sy cular steroid injectionP atient was given post injection instructio ns. Labs dated 04/06/2024 reviewed. Of note he has had elevated liver enzymes in the past. We have cut back on the methotrexa te which seems to have helped his liver enzymes. Follow-up with me in 3 to 4-month Long-term current use of immunosuppressive drug [id number] Z79.60 01/12/24 labsESR 20, CRP 0.60Creati nine, GFR normalAST, ALT normalCBC 13.7 hemoglobin . Recommende d to take 40mg iron supplement every other day. Synovitis of joint of left knee [id number] M65.862 Symptomati c left knee. Recurrent effusion and synovitis. Secondary to severe osteoarthr itis with superimpos ed rheumatoid . We are trying to avoid knee replacemen t. He is post right knee replacemen t. Today the left knee is given intra-sy cular steroid injection. No complicati ons noted. Patient was given post care instructio ns. Updated x-ray of left knee. 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 He is now on the combinatio n of methotrexa te and Remicade infusion therapy, tolerating it well.Sympt omatic left knee. Secondary to the combinatio n of osteo and rheumatoid arthritis. Positive synovitis and effusion. No interval infections . Cardiopulm onary semination is physiologi c. Currently on Remicade infusion therapy the most recent therapy was on 05/28/2024 the next therapy is due on 07/09/2024 at 5 Mg per KG body weight. He has tried Xeljanz in the past but stopped because of the elevated liver enzymes. Similarly he has failed Kevzara/ Enbrel and Simponi.Coleman ggested to continue methotrexa te at 10 mg once a week, folic acid 2 mg once a day and Remicade infusion therapy at 5 Mg per KG body weight every 6 weeks. Left knee is given intra-sy cular steroid injectionP atient was given post injection instructio ns. Labs dated 04/06/2024 reviewed. Of note he has had elevated liver enzymes in the past. We have cut back on the methotrexa te which seems to have helped his liver enzymes. 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 On the combinatio n of methotrexa te and Remicade infusion therapy, tolerating it well.Sympt omatic left knee. Residual synovitis with degenerati ve arthritis. Right knee replaced and stable. Cardiopulm onary semination is physiologi c. Currently on Remicade infusion therapy 5 Mg per KG body weight every 6 weeks Has failed multiple medication s including Xeljanz because of the elevated liver enzymes. Similarly he has failed Kevzara/ Enbrel and Simponi.Coleman ggested to continue methotrexa te at 10 mg once a week, folic acid 2 mg once a day and Remicade infusion therapy at 5 Mg per KG body weight every 6 weeks. Given IV Solu-Medro l during the infusion. Labs dated July 2024 reviewed and stable Of note he has had elevated liver enzymes in the past. We have cut back on the methotrexa te which seems to have helped his liver enzymes. Follow-up with me in 3 to 4-month Long-term current use of immunosuppressive drug [id number] Z79.60 01/12/24 labsESR 20, CRP 0.60Creati nine, GFR normalAST, ALT normalCBC 13.7 hemoglobin . July 09, 2024 reviewed. Stable Health Concerns Section Related Observation LastModified by Organization Detai ls LastModified Time None Recorded Concern Status LastModified by Organization Details LastModified Time None Recorded Advance Directives Directive None Recorded Payers Encounter Date Sequence Insurance Name Policy Number Policy Regalado Covered Member ID Regalado Member ID Guarantor Name 05/28/2024 1 [employer] (MEDICARE REPLACEMENT/A DVANTAGE - PPO) Bryant Zulema Vamshi [id number] Bryant Zulema Vamshi 07/03/2024 1 [employer] (MEDICARE REPLACEMENT/A DVANTAGE - PPO) Bryant Zulema Vamshi [id number] Bryant Zulema Vamshi 07/09/2024 1 [employer] (MEDICARE REPLACEMENT/A DVANTAGE - PPO) Bryant Bonds [id number] Bryant Zulema Vamshi 08/20/2024 1 [employer] (MEDICARE REPLACEMENT/A DVANTAGE - PPO) Bryant Zulema Vamshi [id number] Bryant Zulema Vamshi 08/20/2024 1 [employer] (MEDICARE REPLACEMENT/A DVANTAGE - PPO) Bryant Zulema Vamshi [id number] Bryant Zulema Vamshi Notes Date Note Type Note Provider Name and Address Organization Details Recorded Time 07/03/2024 text/html 69-year-old gentleman very well-known to me with rheumatoid arthritis. Bryant was last seen here in our rheumatology department 03/15/24. Currently on combination of methotrexate and Remicade infusion therapy. Has lost weight is now 288lbs. Has been trying some glucosamine. In terms of osteoarthritis is also on piroxicam once a day for as needed basis He is post right knee replacement and is trying to avoid the left knee replacement. As of chronic and recurrent pain in the left knee. No interval infections. No fevers or chills. Working on weight loss. His last Remicade infusion was on 05/28/2024. The next infusion is due on 07/09/2024 MAGDALENA CANTU MD [address] [place], [address], [facility] 07/03/2024 09:40:35 08/20/2024 text/html 69-year-old gentleman very well-known to me with rheumatoid arthritis. Bryant was last seen here in our rheumatology department June 2024. Currently on combination of methotrexate and Remicade infusion therapy. Has lost weight is now 288lbs. In terms of osteoarthritis is also on piroxicam once a day for as needed basis He is post right knee replacement and is trying to avoid the left knee replacement. Recurrent pain in the joints left knee a bit more symptomatic No interval infections. No fevers or chills. Working on weight loss. His Remicade infusion is done today. MAGDALENA CANTU MD [address] [place] [address], [phone], [facility] 08/20/2024 15:50:32
--- OUTSIDE RECORDS SUMMARY | 2024-08-31 09:40 | XMS_ITS | Clinical Summary ---
Author Organization [facility] Address [address] [place] [address] Phone Care Team Providers Care Manager Respiratory Care Name Role Phone Terrance JUNIOR, aCr Banuelos Unavailable [phone] SHAWN JUNIOR, XAVI Guzman Primary Care Provider [phone] Reason for Visit and Chief Complaint Epidural Steroid Injection Problems Includes: Problems addressed during this encounter and other active Problems All Visits Onset Date Resolved Date Provider Condition S tatus Joint Pain in the Left Knee 08/19/2022 Flavia Stafford PA-C Active Last Documented On 3 8:26AM ; [facility] Pain in the Lumbar Spine 04/15/2022 Flavia west PA-C Active Last Documented On 2 9:45AM ; [facility] Joint Pain in the Right Hip 04/06/2022 Flavia Stafford PA-C Active Last Documented On 2 10:08AM ; [facility] Joint Pain in the Right Knee 03/15/2022 Flavia MUÑOZC Active Last Documented On 2 2:37PM ; [facility] Plan of Treatment Future Appointments Date Time Location Provi sahra Follow Up 11/07/2024 8:00AM [facility] REINA RICARDO-C Last Documented On 5 11:32AM ; [facility] Epidural Steroid Injection 11/14/2024 8:45AM [facility] REINA Lemus MANAGER HUMAN [employer]OURCES Last Documented On 5 11:33AM ; [facility] Assessments Includes: Assessments from this encounter No Assessments Recorded Medical Equipment - Implanted Devices Includes: Current Devices No Medical Equipment Recorded Medications Includes: Medications discussed during this encounter and other current Medications Current Medications (continue as prescribed) Finasteride 1 MG Oral Tablet 02/21/2023 Provider: Diagnosis: Last Documented On 3 11:13AM By Blossom Acuña ; [facility] Lisinopril 10 MG Oral Tablet 02/21/2023 Provider: Diagnosis: Last Documented On 3 11:13AM By Blossom Acuña ; [facility] Esomeprazole Magnesium 20 MG Oral Capsule De layed Release 02/21/2023 Provider: Diagnosis: Last Documented On 3 11:11AM By Blossom Acuña ; [facility] Tamsulosin HCl 0.4 MG Oral Capsule 02/21/2023 Provid er: Diagnosis: Last Documented On 3 11:12AM By Blossom Acuña ; [facility] HYDROcodone-Acetaminophen 5-325 MG Oral Tablet 022 Provider: XAVI ESCOBAR MD Diagnosis: Last Documented On 2 8:21AM By Val Swift ; [facility] diazePAM 5 MG Oral Tablet 04/19/2022 Provider: BLUE ESCOBAR MD Diagnosis: Last Documented On 2 8:22AM By Val Swift ; [facility] Methotrexate Sodium 2.5 MG Oral Tablet 04/19/2022 Pr ovider: Levi Stark Diagnosis: Last Documented On 2 8:22AM By Val Swift ; [facility] azaTHIOprine 50 MG Oral Tablet 04/14/2022 Provider: Levi Stark Diagnosis: Last Documented On 2 8:22AM By Val Swift ; [facility] Folic Acid 1 MG Oral Tablet 04/14/2022 Provider: Levi Stark Diagnosis: Last Documented On 2 8:22AM By Val Swift ; [facility] Medications Administered Includes: Administered Medications from this encounter No Administered Medications Recorded Results Includes: Results discussed during this encounter No Results Recorded For Specified Dates History of Present Illness Includes: History of Present Illness from this encounter No History of Present Illness Recorded Social History No Social History Recorded - Smoking Status Unknown Medical History Includes: Medical History addressed during this encounter No Medical History Recorded Family History Includes: Family History addressed during this encounter No Family History Recorded Review of Systems Includes: Review of Systems from this encounter No Review of Systems Recorded Mental Status Includes: Mental Status from this encounter No Mental Status Recorded Functional Status Includes: Functional Status from this encounter No Functional Status Recorded Physical Exam Includes: Physical Exam from this encounter No Physical Exam Recorded Allergies Includes: Active Allergies No Known Allergies Encounters Encounter Provider Location Date Check-In Time Check-Out Time Diagnosis Epidural Steroid Injection Paulo Lemus CRNA 08/08/2024 1:00PM 11:59PM Insurance Includes: Active Insurance Policies Plan Name Member ID Group # Subscriber Relationship Effect arcadio Dates 1 - [employer] [id number] Bryant Jacobson 06/09/2021 - Unknown Clinical Notes Includes: Clinical Notes from this encounter No Clinical Notes Recorded
--- OUTSIDE RECORDS SUMMARY | 2024-08-31 09:40 | XMS_ITS | Clinical Summary ---
Author Organization [facility] , [facility] Address [address] [place] [address] Phone Care Team Providers Care Proofer Apprentice Name Role Phone Terrance JUNIOR, Car Banuelos Unavailable [phone] SHAWN JUNIOR, XAVI Guzman Primary Care Provider [phone] Reason for Visit and Chief Complaint Epidural Steroid Injection Problems Includes: Problems addressed during this encounter and other active Problems All Visits Onset Date Resolved Date Provider Condition S tatus Joint Pain in the Left Knee 08/19/2022 Flavia Stafford PA-C Active Last Documented On 3 8:26AM ; [facility], [facility] Pain in the Lumbar Spine 04/15/2022 Flavia wset PA-C Active Last Documented On 2 9:45AM ; [facility], [facility] Joint Pain in the Right Hip 04/06/2022 Flavia Stafford PA-C Active Last Documented On 2 10:08AM ; [facility], [facility] Joint Pain in the Right Knee 03/15/2022 Flavia Stafford PA-C Active Last Documented On 2 2:37PM ; [facility], [facility] Plan of Treatment Future Appointments Date Time Location Provi sahra Follow Up 11/07/2024 8:00AM [facility] REINA RICARDO-Germán Last Documented On 5 11:32AM ; [facility], [facility] Epidural Steroid Injection 11/14/2024 8:45AM [facility] REINA Lemus RETAIL TRAINING MANAGER Last Documented On 5 11:33AM ; [facility], [facility] Assessments Includes: Assessments from this encounter No Assessments Recorded Medical Equipment - Implanted Devices Includes: Current Devices No Medical Equipment Recorded Medications Includes: Medications discussed during this encounter and other current Medications Current Medications (continue as prescribed) Finasteride 1 MG Oral Tablet 02/21/2023 Provider: Diagnosis: Last Documented On 3 11:13AM By Blossom Acuña ; [facility] Lisinopril 10 MG Oral Tablet 02/21/2023 Provider: Diagnosis: Last Documented On 3 11:13AM By Blossom Acuña ; [facility] Esomeprazole Magnesium 20 MG Oral Capsule De layed Release 02/21/2023 Provider: Diagnosis: Last Documented On 3 11:11AM By Blossom Acuña ; [facility] Tamsulosin HCl 0.4 MG Oral Capsule 02/21/2023 Provid er: Diagnosis: Last Documented On 3 11:12AM By Blossom Acuña ; [facility] HYDROcodone-Acetaminophen 5-325 MG Oral Tablet 022 Provider: XAVI ESCOBAR MD Diagnosis: Last Documented On 2 8:21AM By Val Swift ; [facility] diazePAM 5 MG Oral Tablet 04/19/2022 Provider: BLUE ESCOBAR MD Diagnosis: Last Documented On 2 8:22AM By Val Swift ; [facility] Methotrexate Sodium 2.5 MG Oral Tablet 04/19/2022 Pr ovider: Levi Stark Diagnosis: Last Documented On 2 8:22AM By Val Swift ; [facility] azaTHIOprine 50 MG Oral Tablet 04/14/2022 Provider: Levi Stark Diagnosis: Last Documented On 2 8:22AM By Val Swift ; [facility] Folic Acid 1 MG Oral Tablet 04/14/2022 Provider: Levi Stark Diagnosis: Last Documented On 2 8:22AM By Val Swift ; [facility] Medications Administered Includes: Administered Medications from this encounter No Administered Medications Recorded Results Includes: Results discussed during this encounter No Results Recorded For Specified Dates History of Present Illness Includes: History of Present Illness from this encounter No History of Present Illness Recorded Social History No Social History Recorded - Smoking Status Unknown Procedures and Surgical History Includes: Procedures from this encounter Procedures Code Diagnosis Performing Provider Service Location Service Date Lumbar epidural 77064 Spinal stenosis, lumbar region with neurogenic claudication Paulo Sellers Trist[place]y RETAIL TRAINING MANAGER [facility] 08/08/2024 Last Documented On 5 3:48PM ; [facility] Triamcinolone/Kenalog, 10mg per cc [id number] Spinal stenosis, lumbar region with neurogenic claudication Paulo Sellers Allan PAYNE [facility] 08/08/2024 Last Documented On 5 3:48PM ; [facility] Medical History Includes: Medical History addressed [...] Check-Out Time Diagnosis Epidural Steroid Injection Paulo Sellers Tr[place]y [facility] 08/09/19 25 11:01AM 11:30AM Insurance Includes: Active Insurance Policies Plan Name Member ID Group # Subscriber Relationship Effect arcadio Dates 1 - [employer] [id number] Bryant Jacobson 06/09/2021 - Unknown Clinical Notes Includes: Clinical Notes from this encounter No Clinical Notes Recorded
--- OUTSIDE RECORDS SUMMARY | 2024-08-31 09:40 | XMS_ITS | Clinical Summary ---
Author Organization [facility] , [facility] Address [address] [place] [address] Phone Care Team Providers Care Hand Tool Lapper Name Role Phone Terrance JUNIOR, Car Banuelos Unavailable [phone] SHAWN JUNIOR, XAVI Guzman Primary Care Provider [phone] Reason for Visit and Chief Complaint Epidural Steroid Injection Problems Includes: Problems addressed during this encounter and other active Problems All Visits Onset Date Resolved Date Provider Condition S tatus Joint Pain in the Left Knee 08/19/2022 Flavia Stafford PA-C Active Last Documented On 3 8:26AM ; [facility], [facility] Pain in the Lumbar Spine 04/15/2022 Flavia west PA-C Active Last Documented On 2 9:45AM ; [facility], [facility] Joint Pain in the Right Hip 04/06/2022 Flavia Stafford PA-C Active Last Documented On 2 10:08AM ; [facility], [facility] Joint Pain in the Right Knee 03/15/2022 Flavia MUÑOZC Active Last Documented On 2 2:37PM ; [facility], [facility] Plan of Treatment Future Appointments Date Time Location Provi sahra Follow Up 11/07/2024 8:00AM [facility] REINA RICARDO-C Last Documented On 5 11:32AM ; [facility], [facility] Epidural Steroid Injection 11/14/2024 8:45AM [facility] REINA Lemus MANAGER LABORATORY Last Documented On 5 11:33AM ; [facility], [facility] Assessments Includes: Assessments from this encounter No Assessments Recorded Medical Equipment - Implanted Devices Includes: Current Devices No Medical Equipment Recorded Medications Includes: Medications discussed during this encounter and other current Medications Current Medications (continue as prescribed) Finasteride 1 MG Oral Tablet 02/21/2023 Provider: Diagnosis: Last Documented On 3 11:13AM By Blossom Acuña ; [facility] Lisinopril 10 MG Oral Tablet 02/21/2023 Provider: Diagnosis: Last Documented On 3 11:13AM By Blossom Acuña ; [facility], [facility] Esomeprazole Magnesium 20 MG Oral Capsule De layed Release 02/21/2023 Provider: Diagnosis: Last Documented On 3 11:11AM By Blossom Acuña ; [facility] Tamsulosin HCl 0.4 MG Oral Capsule 02/21/2023 Provid er: Diagnosis: Last Documented On 3 11:12AM By Blossom Acuña ; [facility], [facility] HYDROcodone-Acetaminophen 5-325 MG Oral Tablet 022 Provider: XAVI ESCOBAR MD Diagnosis: Last Documented On 2 8:21AM By Val Swift ; [facility], [facility] diazePAM 5 MG Oral Tablet 04/19/2022 Provider: BLUE ESCOBAR MD Diagnosis: Last Documented On 2 8:22AM By Val Swift ; [facility] Methotrexate Sodium 2.5 MG Oral Tablet 04/19/2022 Pr ovider: Levi Stark Diagnosis: Last Documented On 2 8:22AM By Val Swift ; [facility] azaTHIOprine 50 MG Oral Tablet 04/14/2022 Provider: Levi Stark Diagnosis: Last Documented On 2 8:22AM By Val Swift ; [facility] Folic Acid 1 MG Oral Tablet 04/14/2022 Provider: Levi Stark Diagnosis: Last Documented On 2 8:22AM By Val Swift ; [facility], [facility] Medications Administered Includes: Administered Medications [...] Diagnosis Epidural Steroid Injection Paulo Lemus CRNA 04/18/2024 2:27PM 11:59PM Insurance Includes: Active Insurance Policies Plan Name Member ID Group # Subscriber Relationship Effect arcadio Dates 1 - [employer] [id number] Bryant Jacobson 06/09/2021 - Unknown Clinical Notes Includes: Clinical Notes from this encounter No Clinical Notes Recorded
--- OUTSIDE RECORDS SUMMARY | 2024-08-31 09:40 | XMS_ITS ---
Care Plan - [facility], [facility] Created on: August 31, 2024 Bryant Bonds : 1955 Sex: Male Author Organization [facility] , [facility] Address [address] [place] [address] Phone Care Team Providers Care Fleet Salesperson Name Role Phone Terrance JUNIOR, Car Banuelos Unavailable [phone] SHAWN JUNIOR, XAVI Guzman Primary Care Provider [phone]
--- OUTSIDE RECORDS SUMMARY | 2024-08-31 09:41 | XMS_ITS | Continuity of Care Document ---
Author Organization [facility] Address [address] [place] [address] Care Team Providers Care Deputy Sheriff Civil Division Name Role Phone XAVI ESCOBAR Thomas Primary Care Provider MAGDALENA CANTU Pressure Welder Assessment No assessment recorded. Plan of Treatment Reminders Order Date Submit [...] available RHEUM RECHECK 2024 08:45A M MAGDALENA CARROL CANTU MD Not available Not available Not available Lab None recorded. Referral None recorded. Procedures None recorded. Surgeries None recorded. Imaging None recorded. Medication Orders Remicade 100 mg intraveno us solution [address] [facility], [facility] [address], [id number], 08/20/2024 14:40:59 Patient TargetsNo targets recorded. Patient InstructionsNo instructions recorded. Reason for Referral None Reported. Problems No Known Problems Procedures Surgical History Date Name Laterality Status Provider Name and Address Organization Details Recorded Time 08/21/19 25 Remicade Infusion completed Aracely Jim [facility] 08/20/2024 14:31:08 07/10/19 25 Rem[facility]ade Infusion [facility] 07/09/2024 10:54:46 07/03/19 25 Injection Joint/Bursa, Major, w/o US completed MAGDALENA CANTU MD [address] [place], [address], [facility] 07/03/2024 09:38:50 05/28/19 25 Remicade Infusion completed Shashi Piotr [facility] 05/28/2024 12:01:37 04/06/20 24 Remicade Infusion completed Shashi Piotr [facility] 04/06/2024 08:53:00 03/15/20 24 Injection Joint/Bursa, Major, w/o US completed MAGDALENA CANTU MD [address] [place], [address], [facility] 03/15/2024 12:34:32 02/24/20 24 Remicade Infusion completed Shashi Piotr [facility] 02/24/2024 12:12:59 01/12/20 24 Injection Joint/Bursa, Major, w/o US completed MAGDALENA CANTU MD [address] [place], [address], [facility] 01/12/2024 12:58:03 01/12/20 24 Remicade Infusion completed Shashi Saldaña [facility] 01/12/2024 09:33:19 11/17/19 24 Remicade Infusion completed Paulo Camarillo [facility] 11/17/2023 09:40:51 09/22/19 24 Injection Joint/Bursa, Major, w/o US completed MAGDALENA CANTU MD [address] [place], [address], [facility] 09/22/2023 08:32:32 09/22/19 24 Remicade Infusion completed Shashi Piotr [facility] 09/22/2023 09:24:57 07/28/19 24 Remicade Infusion completed Shashi Piotr [facility] 07/28/2023 09:49:14 06/02/19 24 Remicade Infusion completed Shashi Piotr [facility] 06/02/2023 12:09:58 04/07/20 23 Remicade Infusion completed Shashi Saldaña [facility] 04/07/2023 11:31:24 03/03/20 23 Injection Joint/Bursa, Major, w/o US completed MAGDALENA CANTU MD [address] [place], [address], [facility] 03/03/2023 11:59:07 02/11/20 23 Remicade Infusion completed Paulo Camarillo [facility] 02/10/2023 12:22:47 12/17/19 23 Remicade Infusion completed Shashi Saldaña [facility] 12/16/2022 12:18:00 12/03/19 23 Injection Joint/Bursa, Major, w/o US completed MAGDALENA CANTU MD [address] [place], [address], [facility] 12/02/2022 11:48:47 12/03/19 23 Injection Joint/Bursa, Second, Major completed MAGDALENA CANTU MD [address] [place], [address], [facility] 12/02/2022 11:49:53 10/22/19 23 Remicade Infusion completed Shashi Saldaña [facility] 10/21/2022 13:08:33 09/10/19 23 Remicade Infusion completed Shashi Saldaña [facility] 09/09/2022 10:55:34 08/28/19 23 Remicade Infusion completed Shashi Saldaña [facility] 08/27/2022 12:09:41 04/16/20 21 Injection Joint/Bursa, Major, w/o US completed MAGDALENA CANTU MD [address] [place], [address], [place] [facility] 04/16/2021 09:03:50 02/05/20 21 Injection Joint/Bursa, Major, w/o US completed MAGDALENA CANTU MD [address] [place], [address], [place] [facility] 02/04/2021 08:54:38 11/05/19 21 Injection Joint/Bursa, Major, w/o US completed MAGDALENA CANTU MD [address] [place], [address], [place] [facility] 11/04/2020 08:38:34 08/07/19 21 Injection Joint/Bursa, Interm, w/o US completed MAGDALENA CANTU MD [address] [place], [address], [facility] 08/06/2020 08:39:30 08/07/19 21 Injection Joint/Bursa, Major, w/o US completed MAGDALENA CANTU MD [address] [place], [address], [place] [facility] 08/06/2020 08:39:49 05/07/20 20 Injection Joint/Bursa, Interm, w/o US completed MAGDALENA CANTU MD [address] [place], [address], [facility] 05/07/2020 10:36:34 05/07/20 20 Injection Joint/Bursa, Major, w/o US completed MAGDALENA CANTU MD [address] [place], [address], [facility] 05/07/2020 10:36:11 02/05/20 20 Injection Joint/Bursa, Interm, w/o US completed MAGDALENA CANTU MD [address] [place], [address], [facility] 02/05/2020 16:19:36 02/05/20 20 Injection Joint/Bursa, Major, w/o US completed MAGDALENA CANTU MD [address] [place], [address], [facility] 02/05/2020 16:19:32 11/07/19 20 Injection Joint/Bursa, Interm, w/o US completed MAGDALENA CANTU MD [address] [place], [address], [facility] 11/07/2019 08:40:12 11/07/19 20 Injection Joint/Bursa, Major, w/o US completed MAGDALENA CANTU MD [address] [place], [address], [facility] 11/07/2019 08:40:05 11/07/19 20 Injection Joint/Bursa, Second, Intermediate completed MAGDALENA CANTU MD [address] [place], [address], [facility] 11/07/2019 08:40:35 07/11/19 20 Injection Joint/Bursa, Interm, w/o US completed MAGDALENA CANTU MD [address] [place], [address], [facility] 07/11/2019 08:36:01 04/10/20 19 Injection Joint/Bursa, Interm, w/o US completed MAGDALENA CANTU MD [address] [place], [address], [facility] 04/10/2019 08:47:22 12/15/19 19 Injection Joint/Bursa, Interm, w/o US completed MAGDALENA CANTU MD [address] [place], [address], [facility] 12/14/2018 09:04:11 12/15/19 19 Injection Joint/Bursa, Major, w/o US completed MAGDALENA CANTU MD [address] [place], [address], [facility] 12/14/2018 09:04:39 02/16/20 18 Skin Tag Removal completed Aissatou Wilson [facility] 02/15/2018 08:32:42 02/16/20 18 Destruction Premalignant Lesion(s) completed Aissatou Wilson [facility] 02/15/2018 08:27:15 Imaging Results None recorded. Procedure Notes None recorded. Medical Equipment None [...] - ICD 10 M05.79 - med by [facility] - DO NOT BILL - rapid infusion [...] -hydrocor t 3.5 mg-10,000 unit/mL-1 % ear drops,mago p 02/15 completed Not Available Not Available [...] 07/10 completed stopped 12/14/18 BCBS ref # [id number] no PA required Not Available Not [...] Not Available Vitals Date Recorded Body height Body mass index (BMI) Body weight Body temperature Heart rate Respiratory rate Systolic blood pressure Diastolic blood pressure Provider Name and Address Organization Details Last Updated DateTime 5 187.96 cm 37 kg/m2 238122. 7 g 97.9 [degF] 94 /min 16 /min 136 mm[Hg] 83 mm[Hg] Aracely Jim [facility] 5 12:37:56 Social History Question Answer Notes LastModified by Organizat ion Details LastModified Time Tobacco Smoking Status Never Smoker Yissel paz, [facility] 07/10/2018 10:37:10 What Is Your Level Of Alcohol Consumption? Occasional Information not available 07/22/2022 How Much Tobacco Do You Chew? None Information not available 12/14/2018 Do You Or Have You Ever Used E-cigarettes Or Vape? Never Used Electronic Cigarettes Information not available 12/14/2018 What Was The Date Of Your Most Recent Tobacco Screening? 08/20/2024 [email or web address] Information not available 08/20/2024 Do You Or [...] Tobacco Cessation Counseling Provided Question On 12/14/2018. [email or web address] Information not available 08/06/2020 How Many Years [...] Organization Details LastModified Time Father Hypertensive disorder [email or web address] Not available 07/10 10:37:03 Medical History Condition Response Emphysema N COPD N Arthritis Y Acid Reflux (GERD) Y Rheumatoid Arthritis Y Bleeding Disorder N Asthma N Diabetes N Heart Disease N Hypertension Y Immunizations Vaccine Type Date Status Note Provider Nam e and Address Organization Details Recorded Time Hep A, adult 12/07/2018 completed Marcelo Cooper [facility] 12/14/2018 08:21:28 Hep A, adult 07/07/2018 completed Marcelo Cooper [facility] 12/14/2018 08:22:13 Past Encounters Encounter ID Performer Location Encounter Start Date Encounter Closed Date Diagnosis/Indication Diagnosis SNOMED-CT Code Diagnosis ICD10 Code Diagnosis Note [id number] MAGDALENA CANTU MD [facility] [address] [place] [address] 08/20/2024 12:12:04 08/20/2024 14:36:36 Seropositive rheumatoid arthritis 227666409 M05.79 [id number] MAGDALENA CANTU MD [facility] [address] [place] [address] 08/20/2024 13:29:40 08/21/2024 15:32:36 Rheumatoid arthritis 00255074 M05.79 69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 On the combinatio [...] 4-month Long-term current use of immunosuppressive drug 520882156 Z79.60 01/12/24 labsESR 20, CRP 0.60Creati nine, GFR normalAST, ALT normalCBC 13.7 hemoglobin . July 09, 2024 reviewed. Stable Health Concerns Section Related Observation LastModified by Organization Detai ls LastModified Time None Recorded Concern Status LastModified by Organization Details LastModified Time None Recorded Payers Encounter Date Sequence Insurance Name Policy Number Policy Regalado Covered Member ID Regalaod Member ID Guarantor Name 08/20/2024 1 [employer] (MEDICARE REPLACEMENT/A DVANTAGE - PPO) Bryant Bonds [id number] Bryant Bonds Notes Date Note Type Note Provider Name and Address Organization Details Recorded Time 08/20/2024 text/html 69-year-old gentleman very well-known to [...] infusion is done today. MAGDALENA [place], [address], [facility] 08/20/2024 15:50:32
--- OUTSIDE RECORDS SUMMARY | 2024-08-31 09:41 | XMS_ITS | Continuity of Care Document ---
Author Organization [facility], RHEUMATOLOGY SB Address [address] [place] [address] Care Team Providers Care Manager Advanced Name Role Phone SHAWNCHARISSAKirsty Guzman Primary Care Provider MAGDALENA CANTU Construction Executive Assessment Encounter Date Assessment Date Assessment LastModified [...] None recorded. Imaging None recorded. Medication Orders None recorded. Patient TargetsNo targets recorded. Patient InstructionsNo instructions recorded. Reason for Referral None Reported. Problems No Known Problems Procedures Surgical History Date Name Laterality Status Provider Name and Address Organization Details Recorded Time 08/21/19 25 Remicade Infusion completed Aracely Jim [facility] 08/20/2024 14:31:08 07/10/19 25 Remicade Infusion completed Shashi Saldaña [facility] 07/09/2024 10:54:46 07/03/19 25 Injection Joint/Bursa, Major, w/o US completed MAGDALENA CANTU MD [address] [place], [address], [facility] 07/03/2024 09:38:50 05/28/19 25 Remicade Infusion completed Shashi Piotr [facility] 05/28/2024 12:01:37 04/06/20 24 Remicade Infusion completed [facility] 04/06/2024 08:53:00 03/15/20 24 Injection Joint/Bursa, Major, w/o US completed MAGDALENA CANTU MD [address] [place], [address], [facility] 03/15/2024 12:34:32 02/24/20 24 Remicade Infusion completed [facility] 02/24/2024 12:12:59 01/12/20 24 Injection Joint/Bursa, Major, w/o US completed MAGDALENA CANTU MD [address] [place], [address], [facility] 01/12/2024 12:58:03 01/12/20 24 Remicade Infusion completed Shashi Piotr [facility] 01/12/2024 09:33:19 11/17/19 24 Remicade Infusion completed Paulo Camarillo [facility] 11/17/2023 09:40:51 09/22/19 24 Injection Joint/Bursa, Major, w/o US completed MAGDALENA CANTU MD [address] [place], [address], [facility] 09/22/2023 08:32:32 09/22/19 24 Remicade Infusion completed Shashi Piotr [facility] 09/22/2023 09:24:57 07/28/19 24 Remicade Infusion completed [facility] 07/28/2023 09:49:14 06/02/19 24 Remicade Infusion completed [facility] 06/02/2023 12:09:58 04/07/20 23 Remicade Infusion completed Shashi Saldaña [facility] 04/07/2023 11:31:24 03/03/20 23 Injection Joint/Bursa, Major, w/o US completed MAGDALENA CANTU MD [address] [place], [address], [facility] 03/03/2023 11:59:07 02/11/20 23 Remicade Infusion completed Paulo Camarillo [facility] 02/10/2023 12:22:47 12/17/19 23 Remicade Infusion completed Shashi Saldaña [facility] 12/16/2022 12:18:00 12/03/19 23 Injection Joint/Bursa, Major, w/o US completed MAGDALENA CANTU MD [address] [place], [address], [facility] 12/02/2022 11:48:47 12/03/19 23 Injection Joint/Bursa, Second, Major completed MAGDALENA CANTU MD [address] [place], [address], [facility] 12/02/2022 11:49:53 10/22/19 23 Remicade Infusion completed Shashi Saldaña [facility] 10/21/2022 13:08:33 09/10/19 23 Remicade Infusion completed Shashi Saldaña [facility] 09/09/2022 10:55:34 08/28/19 23 Remicade Infusion completed Shashi Saldaña [facility] 08/27/2022 12:09:41 04/16/20 21 Injection Joint/Bursa, Major, w/o US completed MAGDALENA CANTU MD [address] [place], [address], [facility] 04/16/2021 09:03:50 02/05/20 21 Injection Joint/Bursa, Major, w/o US completed MAGDALEAN CANTU MD [address] [place], [address], [facility] 02/04/2021 08:54:38 11/05/19 21 Injection Joint/Bursa, Major, w/o US completed MAGDALENA CANTU MD [address] [place], [address], [place] [facility] 11/04/2020 08:38:34 08/07/19 21 Injection Joint/Bursa, Interm, w/o US completed MAGDALENA CANTU MD [address] [place], [address], [place] [facility] 08/06/2020 08:39:30 08/07/19 21 Injection Joint/Bursa, Major, w/o US completed MAGDALENA CANTU MD [address] [place], [address], [place] [facility] 08/06/2020 08:39:49 05/07/20 20 Injection Joint/Bursa, Interm, w/o US completed MAGDALENA CANTU MD [address] [place], [address], [place] [facility] 05/07/2020 10:36:34 05/07/20 20 Injection Joint/Bursa, Major, w/o US completed MAGDALENA CANTU MD [address] [place], [address], [place] [facility] 05/07/2020 10:36:11 02/05/20 20 Injection Joint/Bursa, Interm, w/o US completed MAGDALENA CANTU MD [address] [place], [address], [place] [facility] 02/05/2020 16:19:36 02/05/20 20 Injection Joint/Bursa, Major, w/o US completed MAGDALENA CANTU MD [address] [place], [address], [place] [facility] 02/05/2020 16:19:32 11/07/19 20 Injection Joint/Bursa, Interm, w/o US completed MAGDALENA CANTU MD [address] [place], [address], [place] [facility] 11/07/2019 08:40:12 11/07/19 20 Injection Joint/Bursa, Major, w/o US completed MAGDALENA CANTU MD [address] [place], [address], [facility] 11/07/2019 08:40:05 11/07/19 20 Injection Joint/Bursa, Second, Intermediate completed MAGDALENA CANTU MD [address] [place], [address], [facility] 11/07/2019 08:40:35 07/11/19 20 Injection Joint/Bursa, Interm, w/o US completed MAGDALENA CANTU MD [address] [place], [address] 07/11/2019 08:36:01 04/10/20 19 Injection Joint/Bursa, Interm, w/o US completed MAGDALENA CANTU MD [address] [place], [address] 04/10/2019 08:47:22 12/15/19 19 Injection Joint/Bursa, Interm, w/o US completed MAGDALENA CANTU MD [address] [place], [address] 12/14/2018 09:04:11 12/15/19 19 Injection Joint/Bursa, Major, w/o US completed MAGDALENA CANTU MD [address] [place], [address] 12/14/2018 09:04:39 02/16/20 18 Skin Tag Removal completed Aissatou Maskell [facility] 02/15/2018 08:32:42 02/16/20 18 Destruction Premalignant Lesion(s) completed Aissatou Wilson [facility] 02/15/2018 08:27:15 Imaging Results None [...] - ICD 10 M05.79 - med by [facility] - DO NOT BILL - rapid infusion [...] mg tablets in a dose pack TAKE BALDOMERO G TO PACKAGE INSTRUCT IONS --TAKE WITH [...] 07/10 completed stopped 12/14/18 BCBS ref # [id number] no PA required Not Available Not [...] Updated DateTime 5 187.96 cm 37 kg/m2 021369. 7 g 97.9 [degF] 94 /min 16 /min 136 mm[Hg] 83 mm[Hg] Aracely Jim [facility] 5 12:37:56 Social History Question Answer Notes LastModified by Organizat ion Details LastModified Time Tobacco Smoking Status [facility] 10:37:10 What Is Your Level Of Alcohol Consumption? Occasional Information not available 07/22/2022 How Much Tobacco Do You Chew? None Information not available 12/14/2018 Do You Or Have You Ever Used E-cigarettes Or Vape? Never Used Electronic Cigarettes Information not available 12/14/2018 What Was The Date Of Your Most Recent Tobacco Screening? 08/20/2024 [email or web address] Information not available 08/20/2024 Do You Or [...] Tobacco Cessation Counseling Provided Question On 12/14/2018. [email or web address] Information not available 08/06/2020 How Many Years [...] Organization Details LastModified Time Father Hypertensive disorder [email or web address] Not available 07/10 10:37:03 Medical History Condition Response Emphysema N COPD N Diabetes N Bleeding Disorder N Arthritis Y Acid Reflux (GERD) Y Asthma N Heart Disease N Rheumatoid Arthritis Y Hypertension Y Immunizations Vaccine Type Date Status Note Provider Nam e and Address Organization Details Recorded Time Hep A, adult 12/07/2018 completed Marcelo Cooper [facility] 12/14/2018 08:21:28 Hep A, adult 07/07/2018 completed Marcelo Cooper [facility] 12/14/2018 08:22:13 Past Encounters Encounter ID Performer Location Encounter Start Date Encounter Closed Date Diagnosis/Indication Diagnosis SNOMED-CT Code Diagnosis ICD10 Code Diagnosis Note [id number] MAGDALENA CANTU MD [facility] [address] [place] [address] 08/20/2024 12:12:04 08/20/2024 14:36:36 Seropositive rheumatoid arthritis 526740159 M05.79 [id number] MAGDALENA CANTU MD [facility] [address] [place] [address] 08/20/2024 13:29:40 08/21/2024 15:32:36 Rheumatoid arthritis 46305014 M05.79 69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 On the combinatio [...] 4-month Long-term current use of immunosuppressive drug 193646407 Z79.60 01/12/24 labsESR 20, CRP 0.60Creati nine, GFR normalAST, ALT normalCBC 13.7 hemoglobin . July 09, 2024 reviewed. Stable Health Concerns Section Related Observation LastModified by Organization Detai ls LastModified Time None Recorded Concern Status LastModified by Organization Details LastModified Time None Recorded Payers Encounter Date Sequence Insurance Name Policy Number Policy Regalado Covered Member ID Regalado Member ID Guarantor Name 08/20/2024 1 [employer] (MEDICARE REPLACEMENT/A DVANTAGE - PPO) Bryant Bonds [id number] Bryant Bonds Notes Date Note Type Note [...] infusion is done today. MAGDALENA CANTU MD [address] [place] [address], [address], [facility] 08/20/2024 15:50:32
--- OUTSIDE RECORDS SUMMARY | 2024-08-31 09:41 | XMS_ITS | Clinical Summary ---
Author Organization [facility] Address [address] [place] [address] Phone Care Team Providers Care Centrifugal Separator Name Role Phone Terrance JUNIOR, Car Banuelos Unavailable [phone] SHAWN JUNIOR, XAVI Guzman Primary Care Provider [phone] Reason for Visit and Chief Complaint Epidural Steroid Injection Problems Includes: Problems addressed during this encounter and other active Problems All Visits Onset Date Resolved Date Provider Condition S tatus Joint Pain in the Left Knee 08/19/2022 Flavia Stafford PA-C Active Last Documented On 3 8:26AM ; [facility] Pain in the Lumbar Spine 04/15/2022 Flavia west PA-C Active Last Documented On 2 9:45AM ; [facility] Joint Pain in the Right Hip 04/06/2022 Flavia Stafford PA-C Active Last Documented On 2 10:08AM ; [facility] Joint Pain in the Right Knee 03/15/2022 Flavia MUÑOZC Active Last Documented On 2 2:37PM ; [facility], [facility] Plan of Treatment Future Appointments Date Time Location Provi sahra Follow Up 11/07/2024 8:00AM [facility] REINA RICARDO-C Last Documented On 5 11:32AM ; [facility] Epidural Steroid Injection 11/14/2024 8:45AM [facility] REINA Lemus [employer]UR[employer] REPRESENTATIVE Last Documented On 5 11:33AM ; [facility] Assessments Includes: Assessments from this encounter No Assessments Recorded Medical Equipment - Implanted Devices Includes: Current Devices No Medical Equipment Recorded Medications Includes: Medications discussed during this encounter and other current Medications Current Medications (continue as prescribed) Finasteride 1 MG Oral Tablet 02/21/2023 Provider: Diagnosis: Last Documented On 3 11:13AM By Blossom Acuña ; [facility] Lisinopril 10 MG Oral Tablet 02/21/2023 Provider: Diagnosis: Last Documented On 3 11:13AM By Blossom Acuña ; [facility] Esomeprazole Magnesium 20 MG Oral Capsule De layed Release 02/21/2023 Provider: Diagnosis: Last Documented On 3 11:11AM By Blossom Acuña ; [facility] Tamsulosin HCl 0.4 MG Oral Capsule 02/21/2023 Provid er: Diagnosis: Last Documented On 3 11:12AM By Blossom Acuña ; [facility] HYDROcodone-Acetaminophen 5-325 MG Oral Tablet 022 Provider: XAVI ESCOBAR MD Diagnosis: Last Documented On 2 8:21AM By Val Swift ; [facility] diazePAM 5 MG Oral Tablet 04/19/2022 Provider: BLUE ESCOBAR MD Diagnosis: Last Documented On 2 8:22AM By Val Swift ; [facility] Methotrexate Sodium 2.5 MG Oral Tablet 04/19/2022 Pr ovider: Levi Stark Diagnosis: Last Documented On 2 8:22AM By Val Swift ; [facility] azaTHIOprine 50 MG Oral Tablet 04/14/2022 Provider: Levi Stark Diagnosis: Last Documented On 2 8:22AM By Val Swift ; [facility] Folic Acid 1 MG Oral Tablet 04/14/2022 Provider: Levi Stark Diagnosis: Last Documented On 2 8:22AM By Val Swift ; [facility] Medications Administered Includes: Administered Medications from this [...] Diagnosis Epidural Steroid Injection Paulo Lemus CRNA 08/01/2024 4:01PM 11:59PM Insurance Includes: Active Insurance Policies Plan Name Member ID Group # Subscriber Relationship Effect arcadio Dates 1 - [employer] [id number] Bryant Jacobson 06/09/2021 - Unknown Clinical Notes Includes: Clinical Notes from this encounter No Clinical Notes Recorded
== END 2024-08-30 23:59 | disposition home or self-care (01) ==
LOC: LAB.DROPOF 08-31 09:38
PROVIDERS: PCP Internal Medicine; Visit Provider Internal Medicine
DX: D64.9 Anemia, unspecified (principal); I10 Essential (primary) hypertension; E78.5 Hyperlipidemia, unspecified; R73.02 Impaired glucose tolerance (oral)
CPT/HCPCS: 80053; 80061; 83036; 83540; 83550; 85025; 85044

== ENCOUNTER 2024-10-13 23:15 | Emergency (ER) | payer MEDICARE, SELFPAY ==
[2024-10-13 23:26] VITALS: BP 150/80; PULSE 85; RESP 18; TEMP 37.1; O2SAT 98; BMI 37.5
--- NOTE | 2024-10-13 23:47 | XR_ITS ---
PROCEDURE INFORMATION: Exam: XR Right Knee Exam date and time: 10/14/2024 12:45 AM Age: 69 years old Clinical indication: Injury or trauma; Fall; Blunt trauma; Lower leg; Right; Additional info: Fall swelling ttp inferolateral aspect TECHNIQUE: Imaging protocol: Radiologic exam of the right knee. Views: 3 views. COMPARISON: CR XR KNEE RT 3V 01/03/2024 12:26 PM FINDINGS: Bones/joints: Stable knee arthroplasty without periprosthetic lucency. No fracture. Normal alignment. No effusion. Osteopenia. Soft tissues: Unremarkable. IMPRESSION: No acute radiographic findings identified.
--- NOTE | 2024-10-13 23:47 | XR_ITS ---
PROCEDURE INFORMATION: Exam: XR Chest Exam date and time: 10/14/2024 12:45 AM Age: 69 years old Clinical indication: Injury or trauma; Fall; Blunt trauma (contusions or hematomas); Additional info: Trauma, blunt strike to chest TECHNIQUE: Imaging protocol: Radiologic exam of the chest. Views: 1 view. COMPARISON: CT ANGIO CHEST 10/14/2024 12:33 AM FINDINGS: Lungs: Unremarkable. No consolidation. Pleural spaces: Unremarkable. No pleural effusion. No pneumothorax. Heart/Mediastinum: Unremarkable. No cardiomegaly. Bones/joints: Unremarkable. IMPRESSION: No acute findings.
--- NOTE | 2024-10-13 23:47 | XR_ITS ---
PROCEDURE INFORMATION: Exam: XR Pelvis Exam date and time: 10/14/2024 12:45 AM Age: 69 years old Clinical indication: Injury or trauma; Fall; Blunt trauma (contusions or hematomas); Does not apply; Abdomen, lower TECHNIQUE: Imaging protocol: Radiologic exam of the pelvis. Views: 1 or 2 view. COMPARISON: CT LUMBAR SPINE WO CON 10/14/2024 12:23 AM FINDINGS: Bones/joints: Unremarkable. No acute fracture. Soft tissues: Unremarkable. IMPRESSION: No acute findings.
--- NOTE | 2024-10-13 23:47 | XR_ITS ---
PROCEDURE INFORMATION: Exam: XR Right Tibia and Fibula Exam date and time: 10/14/2024 12:45 AM Age: 69 years old Clinical indication: Injury or trauma; Fall; Blunt trauma; Lower leg; Right; Additional info: Fall ttp swelling proximal fibula area TECHNIQUE: Imaging protocol: Radiologic exam of the right tibia and fibula. Views: 2 views. COMPARISON: CR XR TIBIA FIBULA RT 2V 10/14/2024 12:45 AM FINDINGS: Bones/joints: Stable knee arthroplasty without periprosthetic lucency. No fracture. Normal alignment. No effusion. Soft tissues: Unremarkable. IMPRESSION: No acute findings.
--- NOTE | 2024-10-13 23:49 | CT_ITS ---
PROCEDURE INFORMATION: Exam: CT Cervical Spine Without Contrast Exam date and time: 10/14/2024 12:18 AM Age: 69 years old Clinical indication: Injury or trauma; Fall; Blunt trauma; Additional info: Fall, blunt strike to chest w/ pain TECHNIQUE: Imaging protocol: Computed tomography of the cervical spine without contrast. Radiation optimization: All CT scans at this facility use at least one of these dose optimization techniques: automated exposure control; mA and/or kV adjustment per patient size (includes targeted exams where dose is matched to clinical indication); or iterative reconstruction. COMPARISON: CT HEAD/BRAIN WO CON 10/14/2024 12:15 AM FINDINGS: Bones: No acute fracture. Normal alignment. C4/5 and C5/6 fusion. Multilevel degenerative disc and joint space changes. Lungs: Unremarkable. Soft tissues: Unremarkable. IMPRESSION: No acute findings.
--- NOTE | 2024-10-13 23:49 | CT_ITS ---
PROCEDURE INFORMATION: Exam: CTA Head With Contrast, Arteriography Exam date and time: 10/14/2024 12:28 AM Age: 69 years old Clinical indication: Injury or trauma; Additional info: Fall, blunt strike to chest w/ pain TECHNIQUE: Imaging protocol: Computed tomographic angiography of the head with contrast. Exam focused on the arteries. 3D rendering (Not supervised by radiologist): MIP and/or 3D reconstructed images were created by the technologist. Radiation optimization: All CT scans at this facility use at least one of these dose optimization techniques: automated exposure control; mA and/or kV adjustment per patient size (includes targeted exams where dose is matched to clinical indication); or iterative reconstruction. Contrast material: ISOVUE; Contrast volume: 160 ml; Contrast route: INTRAVENOUS (IV); COMPARISON: CT HEAD/BRAIN WO CON 10/14/2024 12:15 AM FINDINGS: ANTERIOR CIRCULATION: Right internal carotid artery: Intracranial segment is patent with no significant stenosis or occlusion. No aneurysm. Right middle cerebral artery: No occlusion or significant stenosis. No aneurysm. Right anterior cerebral artery: No occlusion or significant stenosis. No aneurysm. Left internal carotid artery: Intracranial segment is patent with no significant stenosis. No aneurysm. Left middle cerebral artery: No occlusion or significant stenosis. No aneurysm. Left anterior cerebral artery: No occlusion or significant stenosis. No aneurysm. POSTERIOR CIRCULATION: Right vertebral artery: No occlusion or significant stenosis. No aneurysm. Left vertebral artery: No occlusion or significant stenosis. No aneurysm. Basilar artery: No occlusion or significant stenosis. No aneurysm. Right posterior cerebral artery: No occlusion or significant stenosis. No aneurysm. Left posterior cerebral artery: No occlusion or significant stenosis. No aneurysm. Veins: There is no venous thrombosis. Brain: Normal. No hemorrhage. Unremarkable white matter. No mass effect. Cerebral ventricles: Normal. No ventriculomegaly. Bones/joints: Unremarkable. No acute fracture. Soft tissues: Unremarkable. IMPRESSION: No evidence for a embolism, dissection, aneurysm, or venous thrombosis. There is no significant stenosis. PROCEDURE INFORMATION: Exam: CTA Neck With Contrast Exam date and time: 10/14/2024 12:28 AM Age: 69 years old Clinical indication: Injury or trauma; Additional info: Fall, blunt strike to chest w/ pain TECHNIQUE: Imaging protocol: Computed tomographic angiography of the neck with contrast. Exam focused on the cervical segments of the vasculature. 3D rendering (Not supervised by radiologist): MIP and/or 3D reconstructed images were created by the technologist. Radiation optimization: All CT scans at this facility use at least one of these dose optimization techniques: automated exposure control; mA and/or kV adjustment per patient size (includes targeted exams where dose is matched to clinical indication); or iterative reconstruction. COMPARISON: CT CERVICAL SPINE WO CON 10/14/2024 12:18 AM FINDINGS: Right common carotid artery: No stenosis. No dissection or occlusion. Right internal carotid artery: No significant stenosis. No dissection or occlusion. Right external carotid artery: No occlusion or stenosis of the origin. Left common carotid artery: No stenosis. No dissection or occlusion. Left internal carotid artery: No significant stenosis. No dissection or occlusion. Left external carotid artery: No occlusion or stenosis of the origin. Right vertebral artery: No stenosis. No dissection or occlusion. Left vertebral artery: No stenosis. No dissection or occlusion. Soft tissues: Normal. No significant soft tissue swelling. Bones/joints: No acute fracture. IMPRESSION: Unremarkable examination with no significant stenosis, dissection, or occlusion. REFERENCES: NASCET CRITERIA. The degree of stenosis in the cervical segment of the internal carotid artery is based on NASCET criteria. Normal is no stenosis. Mild is less than 50% stenosis. Moderate is 50-69% stenosis. Severe is 70% to 99% stenosis. Total occlusion is no detectable patent lumen.
--- NOTE | 2024-10-13 23:49 | CT_ITS ---
PROCEDURE INFORMATION: Exam: CT Lumbar Spine Without Contrast Exam date and time: 10/14/2024 12:23 AM Age: 69 years old Clinical indication: Injury or trauma; Additional info: Trauma, critical injury suspected TECHNIQUE: Imaging protocol: Computed tomography of the lumbar spine without contrast. Radiation optimization: All CT scans at this facility use at least one of these dose optimization techniques: automated exposure control; mA and/or kV adjustment per patient size (includes targeted exams where dose is matched to clinical indication); or iterative reconstruction. COMPARISON: CT THORACIC SPINE WO CON 10/14/2024 12:20 AM FINDINGS: Bones/joints: No acute fracture. Normal alignment. T12/L1 and L1/2 fusion. Multilevel degenerative disc and joint space changes most pronounced from L2/3 to L3/4 levels. Vertebral body heights grossly preserved. Osteopenia. Soft tissues: Unremarkable. IMPRESSION: No acute findings.
--- NOTE | 2024-10-13 23:49 | CT_ITS ---
PROCEDURE INFORMATION: Exam: CTA Chest With Contrast Exam date and time: 10/14/2024 12:33 AM Age: 69 years old Clinical indication: Injury or trauma; Additional info: Fall, blunt strike to chest w/ pain TECHNIQUE: Imaging protocol: Computed tomographic angiography of the chest with contrast. Exam focused on the arteries. 3D rendering (Not supervised by radiologist): MIP and/or 3D reconstructed images were created by the technologist. Radiation optimization: All CT scans at this facility use at least one of these dose optimization techniques: automated exposure control; mA and/or kV adjustment per patient size (includes targeted exams where dose is matched to clinical indication); or iterative reconstruction. Contrast material: ISOVUE; Contrast volume: 80 ml; Contrast route: INTRAVENOUS (IV); COMPARISON: CR XR CHEST 2V 07/21/2021 10:48 AM FINDINGS: Pulmonary arteries: No central or segmental pulmonary arterial embolism identified. Aorta: Atherosclerotic calcification of thoracic aorta without aneurysm or dissection. Lungs: Unremarkable. No consolidation. No masses. Pleural spaces: . No pneumothorax. No pleural effusion. Heart: Moderate pericardial effusion measuring 1.1 cm. Lymph nodes: Unremarkable. No enlarged lymph nodes. Bones/joints: Unremarkable. No acute fracture. Soft tissues: Unremarkable. IMPRESSION: 1. No acute findings identified. 2. Likely non traumatic pericardial effusion.
--- NOTE | 2024-10-13 23:49 | CT_ITS ---
PROCEDURE INFORMATION: Exam: CTA Abdomen and Pelvis With Contrast Exam date and time: 10/14/2024 12:33 AM Age: 69 years old Clinical indication: Fall, blunt strike to chest w/ pain TECHNIQUE: Imaging protocol: Computed tomographic angiography of the abdomen and pelvis with contrast. Exam focused on the arteries. 3D rendering (Not supervised by radiologist): MIP and/or 3D reconstructed images were created by the technologist. COMPARISON: CT LUMBAR SPINE WO CON 10/14/2024 12:23 AM FINDINGS: Aorta: No aortic aneurysm. No aortic dissection. Atherosclerotic calcification. Celiac trunk and mesenteric arteries: No occlusion or significant stenosis. Ostial atherosclerotic calcification. Renal arteries: No occlusion or significant stenosis. Ostial atherosclerotic calcification. Right iliac arteries: No occlusion or significant stenosis. Atherosclerotic calcification. Left iliac arteries: No occlusion or significant stenosis. Atherosclerotic calcification. Liver: No mass. Mild fatty infiltration. Measures 24 cm. Gallbladder and biliary ducts: Unremarkable. No calcified stones. No ductal dilation. Pancreas: Unremarkable. No mass. No ductal dilation. Spleen: Unremarkable. No splenomegaly. Adrenal glands: Unremarkable. No mass. Kidneys and ureters: Unremarkable. No solid mass. No nephroureterolithiasis. No hydronephrosis. Stomach and bowel: Unremarkable. No obstruction. No mucosal thickening. Appendix: No evidence of appendicitis. Intraperitoneal space: Unremarkable. No free air. No significant fluid collection. Lymph nodes: Unremarkable. No enlarged lymph nodes. Urinary bladder: Unremarkable. No mass. Reproductive: Unremarkable as visualized. Bones/joints: No acute fracture. Soft tissues: Unremarkable. IMPRESSION: 1. No acute findings. 2. Unremarkable CTA. 3. Hepatomegaly with mild fatty infiltration.
--- NOTE | 2024-10-13 23:49 | CT_ITS ---
PROCEDURE INFORMATION: Exam: CTA Neck With Contrast Exam date and time: 10/14/2024 12:28 AM Age: 69 years old Clinical indication: Injury or trauma; Additional info: Fall, blunt strike to chest w/ pain TECHNIQUE: Imaging protocol: Computed tomographic angiography of the neck with contrast. Exam focused on the cervical segments of the vasculature. 3D rendering (Not supervised by radiologist): MIP and/or 3D reconstructed images were created by the technologist. Radiation optimization: All CT scans at this facility use at least one of these dose optimization techniques: automated exposure control; mA and/or kV adjustment per patient size (includes targeted exams where dose is matched to clinical indication); or iterative reconstruction. Contrast material: ISOVUE; Contrast volume: 80 ml; Contrast route: INTRAVENOUS (IV); COMPARISON: CT ANGIO HEAD 10/14/2024 12:28 AM FINDINGS: Right common carotid artery: No dissection or laceration. No significant stenosis or occlusion. Right internal carotid artery: No dissection or laceration. No significant stenosis or occlusion. Right external carotid artery: No dissection or laceration. No significant stenosis or occlusion. Left common carotid artery: No dissection or laceration. No significant stenosis or occlusion. Left internal carotid artery: No dissection or laceration. No significant stenosis or occlusion. Left external carotid artery: No dissection or laceration. No significant stenosis or occlusion. Right vertebral artery: No dissection or laceration. No significant stenosis or occlusion. Left vertebral artery: No dissection or laceration. No significant stenosis or occlusion. Soft tissues: Normal. No significant soft tissue swelling. Bones/joints: There is no cervical fracture or dislocation present. IMPRESSION: No significant traumatic injury of the major vessels. REFERENCES: NASCET CRITERIA. The degree of stenosis in the cervical segment of the internal carotid artery is based on NASCET criteria. Normal is no stenosis. Mild is less than 50% stenosis. Moderate is 50-69% stenosis. Severe is 70% to 99% stenosis. Total occlusion is no detectable patent lumen.
--- NOTE | 2024-10-13 23:49 | CT_ITS ---
PROCEDURE INFORMATION: Exam: CT Head Without Contrast Exam date and time: 10/14/2024 12:15 AM Age: 69 years old Clinical indication: Injury or trauma; Additional info: Fall, blunt strike to chest w/ pain TECHNIQUE: Imaging protocol: Computed tomography of the head without contrast. Radiation optimization: All CT scans at this facility use at least one of these dose optimization techniques: automated exposure control; mA and/or kV adjustment per patient size (includes targeted exams where dose is matched to clinical indication); or iterative reconstruction. COMPARISON: No relevant prior studies available. FINDINGS: Brain: No hemorrhage. Unremarkable white matter. No mass effect. Cerebral ventricles: No ventriculomegaly. Paranasal sinuses: Visualized sinuses are unremarkable. No fluid levels. Mastoid air cells: Visualized mastoid air cells are well aerated. Bones: Unremarkable. No acute fracture. Soft tissues: Unremarkable. IMPRESSION: No acute intracranial abnormality.
--- NOTE | 2024-10-13 23:49 | CT_ITS ---
PROCEDURE INFORMATION: Exam: CT Thoracic Spine Without Contrast Exam date and time: 10/14/2024 12:20 AM Age: 69 years old Clinical indication: Injury or trauma; Additional info: Fall, blunt strike to chest w/ pain TECHNIQUE: Imaging protocol: Computed tomography of the thoracic spine without contrast. Radiation optimization: All CT scans at this facility use at least one of these dose optimization techniques: automated exposure control; mA and/or kV adjustment per patient size (includes targeted exams where dose is matched to clinical indication); or iterative reconstruction. COMPARISON: CT CERVICAL SPINE WO CON 10/14/2024 12:18 AM FINDINGS: Bones/joints: No acute fracture. Normal alignment. No significant disc bulge or herniation. No severe spinal canal stenosis. No significant neural foraminal narrowing. Soft tissues: Unremarkable. IMPRESSION: There is no significant traumatic injury of the thoracic spine.
[2024-10-14] VITALS (7 sets, daily range): BP systolic 98–160; BP diastolic 51–82; PULSE 76–89; RESP 12–18; TEMP 37.1; O2SAT 93–98
[2024-10-14] MEDS: ONDANSETRON 4MG/2ML VIAL 4 MG IV (00:08)
[2024-10-14] MEDS: MORPHINE 4MG/ML SYRINGE 4 MG IV ×2 (00:08→02:20)
--- NOTE | 2024-10-14 00:09 | HMH.EDGENADL ---
Discharge Plan Disposition Patient Disposition: Xfer Short-Term Hosp Condition: Fair Prescriptions Prescriptions: No Action folic acid 1 mg tablet 1 mg PO DAILY Patient Comments: TAKE TWO TABLETS BY MOUTH EVERY DAY acyclovir 400 mg tablet 400 mg PO DAILY PRN (Reason: herpes zoster) Patient Comments: TAKE ONE TABLET BY MOUTH THREE TIMES DAILY -- FINISH ALL MEDICINE -- methotrexate sodium 2.5 mg tablet 12.5 mg PO QWEEK Rx Instructions: TAKE 5 TABS ONCE WEEKLY piroxicam 20 mg capsule 20 mg PO DAILY Patient Comments: TAKE ONE CAPSULE BY MOUTH EVERY MORNING WITH FOOD vitamin E (dl, acetate) 180 mg (400 unit) capsule 180 mg PO BID Patient Comments: TAKE TWO CAPSULES BY MOUTH EVERY DAY with meals infliximab [Remicade] 100 mg recon soln IV Patient Comments: INFUSE 690 MG IV EVERY 8 WEEKS sertraline 25 mg tablet 25 mg PO DAILY Qty: 90 1RF finasteride 5 mg tablet See Rx Instructions .ROUTE .COMPLEX Qty: 90 1RF Dose Instruction: TAKE ONE TABLET BY MOUTH ONCE DAILY FOR PROSTATE Rx Instructions: TAKE ONE TABLET BY MOUTH ONCE DAILY FOR PROSTATE simvastatin 40 mg tablet See Rx Instructions .ROUTE .COMPLEX Qty: 90 1RF Dose Instruction: TAKE ONE TABLET BY MOUTH EVERY DAY AT BEDTIME Rx Instructions: TAKE ONE TABLET BY MOUTH EVERY DAY AT BEDTIME esomeprazole magnesium 40 mg capsule,delayed release(DR/EC) See Rx Instructions .ROUTE .COMPLEX Qty: 90 1RF Dose Instruction: TAKE ONE CAPSULE BY MOUTH EVERY DAY Rx Instructions: TAKE ONE CAPSULE BY MOUTH EVERY DAY lisinopril 20 mg tablet See Rx Instructions .ROUTE .COMPLEX Qty: 90 1RF Dose Instruction: TAKE ONE TABLET BY MOUTH EVERY DAY Rx Instructions: TAKE ONE TABLET BY MOUTH EVERY DAY tamsulosin 0.4 mg capsule 0.8 mg PO HS Qty: 180 1RF diazepam 5 mg tablet 5 mg PO TID PRN (Reason: anxiety) Qty: 60 0RF hydrocodone-acetaminophen 5-325 mg tablet 1 tab PO Q6H PRN (Reason: pain) Qty: 50 0RF Referrals Follow up/Referrals: Trae Samuel MD [Primary Care Provider, Medical] - See instructions Clinical Impressions Clinical Impression: Blunt chest trauma, Pericardial effusion, Hyponatremia Stand Alone Forms Stand Alone Forms: Transfer Record - ED Print Language Print Language: Czech Discharge ED Provider: Melani Iqbal General Adult HPI General Chief complaint: Fall Stated complaint: pain in right chest from fall Time Seen by Provider: 10/13/24 23:29 Mode of Arrival: Ambulatory Source of Information: Patient Description of Symptoms (Recalled from ER Triage Doc. by RN): PT presents to the ED for evaluation for a fall down stairs and hitting chest on a flower pot 1 hour ago. PT doesnt have abrasion, swelling on right chest. PT has abrasions to right knee and swelling. Denies LOC. Denies hitting head. Denies blood thinners. A&Ox4. PT stated he has had 7-12 beers today. PT was wheeled in Ed, was able to transfer per self to stretcher. History of Present Illness HPI narrative: 69-year-old male presents to the ER for complaints of fall and chest pain. Patient reports he tripped going down a few stairs and struck his chest on a ceramic flowerpot 1 hour ago. He has significant pain in the central and right side of the chest with associated bruising and abrasion. He also has a scrape to the right knee with swelling but states the right knee is not really hurting him. No blood thinners. Patient denies striking his head or losing consciousness, no neck pain or back pain, no numbness, tingling, or weakness. Patient admits he has had about a dozen beers today. He has been ambulatory since the incident. There is also an abrasion on the left forearm. No other complaints or concerns. Related Data Home Medications ?Medication ?Instructions ?Recorded ?Confirmed folic acid 1 mg tablet 1 mg PO DAILY Supplement 02/19/20 08/30/24 acyclovir 400 mg tablet 400 mg PO DAILY PRN herpes zoster 01/03/24 08/30/24 infliximab 100 mg intravenous mg IV 01/03/24 08/30/24 solution (Remicade) piroxicam 20 mg capsule 20 mg PO DAILY 01/03/24 08/30/24 vitamin E (dl, acetate) 180 mg 180 mg PO BID 01/03/24 08/30/24 (400 unit) capsule methotrexate sodium 2.5 mg tablet 12.5 mg PO QWEEK immunosuppressant 08/30/24 08/30/24 Previous Rx's ?Medication ?Instructions ?Recorded finasteride 5 mg tablet See Rx Instructions .Route 02/29/24 .COMPLEX #90 tabs simvastatin 40 mg tablet See Rx Instructions .Route 05/24/24 .COMPLEX #90 tabs esomeprazole magnesium 40 mg See Rx Instructions .Route 06/21/24 capsule,delayed release .COMPLEX #90 caps lisinopril 20 mg tablet See Rx Instructions .Route 06/21/24 .COMPLEX #90 tabs tamsulosin 0.4 mg capsule 0.8 mg (2 x 0.4 mg) PO HS #180 caps 06/21/24 sertraline 25 mg tablet 25 mg PO DAILY #90 tabs 08/30/24 diazepam 5 mg tablet 5 mg PO TID PRN anxiety #60 tabs 09/17/24 hydrocodone 5 mg-acetaminophen 325 1 tab PO Q6H PRN pain #50 tabs 09/17/24 mg tablet Allergies Allergy/AdvReac Type Severity Reaction Status Date / Time No Known Allergies Allergy Verified 08/30/24 08:34 [facility] Disclaimer: The information contained in this section may have been updated after the patient was seen, as this information can be updated by other users. Medical History ABIOLA (obstructive sleep apnea) ABIOLA on CPAP Surgical History History of colonoscopy with polypectomy History of colonoscopy History of knee replacement Family History Other Family history of lung cancer Social History Smoking Status: Never smoker second hand exposure: No alcohol intake: current alcohol intake frequency: holidays/special occasions only substance use type: denies use current occupational status: retired Travel in the last 8 weeks?: None household members: spouse housing: house current occupational exposures/hazards: No caffeine: No Have you lived/traveled outside US in past 30 days?: No Contact w/someone who lives/traveled outside US past 30 days?: No Exposure to someone with infectious disease in past 14 days?: No Do you have a fever (greater than 100.4 F or 38 C)?: No Have you tested positive for COVID-19?: No Exposed to someone with COVID-19 in past 14 days?: No Do you have a sore throat?: No Do you have a cough?: No Do you have any weakness?: No Do you have any diarrhea?: No Are you experiencing any unusual bleeding?: No Do you have any muscle aches/pain?: No Do you have any abdominal pain?: No Are you experiencing loss of taste or smell?: No Other Medical History Have you received the Flu Vaccine for this season: No Have you received the Pneumonia Vaccine: No ROS Obtained: Yes Systems reviewed as appropriate & no additional complaints except as documented Per HPI Physical Exam General General appearance: alert Comment: Appears uncomfortable but nontoxic, hemodynamically stable Head Head exam: atraumatic and normocephalic Eye Eye exam: Present PERRL and EOMI ENT ENT exam: Present mucous membranes moist Neck Neck exam: Present normal inspection, full ROM and trachea midline; Absent tenderness Chest Chest inspection: Present symmetric chest wall rise and tenderness (Low anterior chest wall tenderness with associated ecchymosis and abrasion extending to the right chest with no crepitus or deformity) Respiratory Respiratory exam: Present normal lung sounds bilaterally; Absent respiratory distress, wheezes or stridor Cardiovascular Cardiovascular exam: Present regular rate and normal rhythm Abdominal Exam Abdominal exam: Present soft; Absent distention, tenderness, guarding or rebound Extremities Exam Extremities exam: Present full ROM, normal capillary refill, edema (+1 bilateral lower extremity pitting edema), joint swelling (Swelling at the inferior lateral aspect of the right knee overlying the fibular head area with overlying abrasion, patient denies tenderness in this area) and other (Neurovascularly intact throughout) Neurological Exam Neurological exam: Present alert and oriented X3; Absent motor sensory deficit Psychiatric Psychiatric exam: Present normal affect and normal mood Skin Skin exam: Present warm and dry Medical Decision Making Medical Records Medical records reviewed: Yes I reviewed the patient's medical records. Screening: Per USPSTF and CDC recommendations, given the prevalence of disease in our region, it is our hospital?s policy to screen for HIV and viral Hepatitis for all patients aged 18 and over and those with ongoing risk factors. Jean Inquiry Pt receiving controlled substance: No Vital Signs: 10/13/24 23:26 10/14/24 00:00 10/14/24 01:06 Temperature 98.7 F Temperature Source Oral Pulse Rate 79 89 Pulse Rate [Left] 85 Respiratory Rate 18 18 16 Blood Pressure 160/82 H 144/68 H Blood Pressure [Left Arm] 150/80 H Blood Pressure Mean [Left Arm] 103 Blood Pressure Source Blood Pressure Position 02 Sat by Pulse Oximetry 98 98 97 Oxygen Delivery Method Room Air 10/14/24 01:31 10/14/24 02:00 10/14/24 02:31 Temperature Temperature Source Pulse Rate 82 80 78 Pulse Rate [Left] Respiratory Rate 12 15 13 Blood Pressure 128/61 125/62 98/51 L Blood Pressure [Left Arm] Blood Pressure Mean [Left Arm] Blood Pressure Source Blood Pressure Position 02 Sat by Pulse Oximetry 97 93 L 95 Oxygen Delivery Method 10/14/24 03:00 10/14/24 03:43 Temperature 98.7 F Temperature Source Oral Pulse Rate 76 80 Pulse Rate [Left] Respiratory Rate 15 18 Blood Pressure 98/52 L 121/71 Blood Pressure [Left Arm] Blood Pressure Mean [Left Arm] Blood Pressure Source Automatic Cuff Blood Pressure Position Sitting 02 Sat by Pulse Oximetry 93 L Oxygen Delivery Method Room Air Lab Data Lab Results 10/13/24 23:55: WBC 10.0, RBC 4.13 L, Hgb 13.5 L, Hct 40.0 L, MCV 96.9 H, MCH 32.7 H, MCHC 33.8, RDW 14.1, Plt Count 282, MPV 10.3, Neut % (Auto) 63.1, Lymph % (Auto) 27.0, [place] % (Auto) 7.0, Eos % (Auto) 1.5, Baso % (Auto) 0.4, Neut # (Auto) 6.3, Lymph # (Auto) 2.7, [place] # (Auto) 0.7, Eos # (Auto) 0.2, Baso # (Auto) 0.0 10/14/24 01:25: PT 10.9, INR 0.98, APTT 21.7 L, Sodium 127 L, Potassium 4.2, Chloride 98, Carbon Dioxide 22, Anion Gap 11.2, BUN 18, Creatinine 0.80, Estimated Creat Clear 129, Estimated GFR 96, Est GFR ( Amer) 116, Glucose 107 H, Calcium 8.4, Total Bilirubin 0.8, AST 31, ALT 21, Alkaline Phosphatase 88, Troponin I < 0.01, Total Protein 6.9, Albumin 3.8, Globulin 3.1, Albumin/Globulin Ratio 1.2 10/13/24 23:55 10/14/24 01:25 Orders (Tests/Meds): ED MEDICATIONS Discontinued Medications Generic Name Dose Route Start Last Admin Trade Name Alexys PRN Reason Stop Dose Admin Iopamidol 160 ml 10/14/24 00:37 10/14/24 00:38 Iopamidol-370 (76%);100ml Bottle IV 10/14/24 00:38 160 ml ONCE ONE Administration Lidocaine 1 each 10/14/24 02:41 10/14/24 02:49 Lidocaine 5% Transdermal Patch TD 10/14/24 02:42 1 each ONCE ONE Administration Morphine Sulfate 4 mg 10/13/24 23:47 10/14/24 00:08 Morphine 4mg/Ml Syringe IV 10/13/24 23:48 4 mg ONCE ONE Administration Morphine Sulfate 4 mg 10/14/24 02:02 10/14/24 02:20 Morphine 4mg/Ml Syringe IV 10/14/24 02:03 4 mg ONCE ONE Administration Ondansetron HCl 4 mg 10/13/24 23:47 10/14/24 00:08 Ondansetron 4mg/2ml Vial IV 10/13/24 23:48 4 mg ONCE ONE Administration Sodium Chloride 10 ml 10/13/24 23:47 Sodium Chloride 0.9% 10ml Flush Syringe IV 11/12/24 23:46 NEEDED PRN Maintain IV Site Sodium Chloride 50 ml 10/14/24 00:37 10/14/24 00:38 0.9 % Sodium Chloride 50 Ml Vial IV 10/14/24 00:38 50 ml ONCE ONE Administration Sodium Chloride 10 ml 10/14/24 00:37 10/14/24 00:38 Sodium Chloride 0.9% 10ml Syr (Rad Only) IV 10/14/24 00:38 10 ml ONCE ONE Administration ORDERS Category Date Time Status CT angio abd/pel - TRAUMA Stat Cat Scan 10/13/24 23:[address] angio chest - dissection Stat Cat Scan 10/13/24 23:[address] angio head Stat Cat Scan 10/13/24 23:[address] angio neck Stat Cat Scan 10/13/24 23:[address] cervical spine wo con Stat Cat Scan 10/13/24 23:[address] head/brain wo con Stat Cat Scan 10/13/24 23:[address] lumbar spine wo con Stat Cat Scan 10/13/24 23:[address] thoracic spine wo con Stat Cat Scan 10/13/24 23:49 Completed Knee XR right 3 views [XR knee RT 3V] Stat Exams 10/13/24 23:47 Completed POCUS Point of Care (ER Only) Stat Exams 10/13/24 23:48 Completed XR chest portable Stat Exams 10/13/24 23:47 Completed XR pelvis 1-2V Stat Exams 10/13/24 23:47 Completed XR tibia fibula RT 2V Stat Exams 10/13/24 23:47 Completed Activated Partial Thrombo Time Stat Lab 10/13/24 01:25 Completed Complete Blood Count Auto Diff Stat Lab 10/13/24 23:55 Completed Comprehensive Metabolic Panel Stat Lab 10/13/24 01:25 Completed Prothrombin Time INR Stat Lab 10/13/24 01:25 Completed Troponin I Stat Lab 10/13/24 01:25 Completed ECG Request Stat Y 10/14/24 00:12 Completed Medical Decision Narrative: In summary, this 69-year-old male with history of obesity, GERD, hyperlipidemia, hypertension, rheumatoid arthritis presents to the emergency department today with chest wall pain after fall striking the anterior chest. On initial evaluation patient has intact airway, bilateral breath sounds, 2+ radial pulses, GCS 15, patient has tenderness to the anterior chest wall with associated ecchymosis and abrasion as well as swelling, ecchymosis, abrasion over the right inferolateral aspect of the knee overlying the area of the fibular head, however the patient does not have tenderness here. Neurovascularly intact throughout. Abrasion on the left forearm present.. [id number] ultrasound personally performed and interpreted at bedside demonstrates negative E-FAST. See procedure note for details. Differential diagnosis includes but is not limited to intracranial bleed, skull fracture, spine injury including C-spine injury cannot be ruled out since patient reports alcohol use today, additionally I am concerned for potential blunt cardiac trauma, aortic dissection, pericardial effusion, pneumothorax, intra-abdominal trauma, fracture, among others. Based on these concerns, I ordered serum labs, CT imaging, cardiac workup, x-rays. ECG personally interpreted demonstrates sinus rhythm, rate 89, borderline left axis, normal NH and QTc, no STEMI. Patient received morphine, Zofran initially for treatment. Labs personally reviewed demonstrate no leukocytosis, anemia with hemoglobin 13.5 is present, platelets normal, PT/INR normal, APTT slightly low at 21.7 nonactionable, patient does have hyponatremia with sodium 127, initial troponin undetectably low less than 0.01. XR personally interpreted demonstrates no acute intrathoracic or pelvic injury, no fracture in the right lower extremity. See radiology read for final interpretation CT head and C-spine personally interpreted do not demonstrate acute traumatic injury, see radiology read for full interpretation. Additional CT imaging was all reviewed and is notable for pericardial effusion which has not been previously identified. Though radiology reads this as likely nontraumatic, patient had blunt anterior chest wall trauma with significant chest pain associated and I am concerned that this could be traumatic in nature. Patient does have fatty infiltration of the liver. No other acute traumatic injuries See radiology reads for full interpretations. On reassessment patient continues to be very uncomfortable, additional morphine administered. Patient also had lidocaine patch administered. As long as he does not have movement or deep breathing, his pain is controlled. I believe he requires transfer to higher level of care for admission for continued monitoring of blunt cardiac injury. I discussed this case with Dr. Pompa at . After reviewing this case, findings on CT, and patient's current symptoms, she graciously accepted the patient for ED to ED transfer to [facility]. Patient will be transferred by ALS ambulance for continued cardiac monitoring. Patient and family agreeable to this plan. Patient was reassessed immediately prior to transfer. He remains hemodynamically stable, GCS 15, airway patent. He is appropriate for transfer at this time. He was transferred in stable condition. Critical Care Critical Care Time Critical Care Time: Yes Attestation: On 10/13/24, the high probability of a clinically significant, sudden or life threatening deterioration of the following system(s) required my full and direct attention, intervention and personal management. The time I documented below is in addition to time spent performing reported procedures but includes the following listed in this critical care notation. Total Time Total Critical Care Time: 35
--- NOTE | 2024-10-14 00:09 | PC.NURSE ---
Pt taken to Ct scan at this time via er carrier with radiagraph operator
--- NOTE | 2024-10-14 00:10 | PC.NURSE ---
large hematoma to lateral aspect of right lower leg, no bleeding. Bruising and tenderness noted to epigastric area with painful inspiration. Small hematoma noted to ulnar side of right forearm.
[2024-10-14 00:12] LABS: Basophils % 0.4 % (0.1-2.0); Eosinophils # 0.2 Kmm3 (0.0-0.4); Eosinophils % 1.5 % (0.1-12.0); Hemoglobin 13.5 g/dL (14.1-18.0); Lymphocytes # 2.7 K/mm3 (0.7-4.5); Mean Corpuscular HGB Conc 33.8 g/dL (31.8-35.4); Mean Corpuscular Hemoglobin 32.7 pg (27.0-31.2); Mean Corpuscular Volume 96.9 fl (80-94); Mean Platelet Volume 10.3 fl (7.4-10.4); Monocytes # 0.7 K/mm3 (0.1-1.0); Neutrophils # 6.3 K/mm3 (1.8-7.8); Neutrophils % 63.1 % (37.0-80.0); Nucleated Red Blood Cells # 0 10^3/uL; Nucleated Red Blood Cells % 0 %; Platelet Count 282 K/mm3 (142-424); Red Blood Count 4.13 M/mm3 (4.60-6.20); Red Cell Distribution Width 14.1 % (11.5-17.5); Red Cell Distribution Width-SD 50.7 fL
--- NOTE | 2024-10-14 00:12 | ECG_ITS ---
APPROVED REPORT Exam: Resting ECG HR:89 bpm ECG Measurements Heart Rate 89 AXES [place] 167 P -50 QRSd 97 QRS -22 QT 373 T 60 QTc 419 Conclusion ECTOPIC ATRIAL RHYTHM BORDERLINE LEFT AXIS DEVIATION [QRS AXIS < -20] ABNORMAL RHYTHM ECG Electronically signed by : MARY RASMUSSEN, 10/14/2024 07:13:07
--- NOTE | 2024-10-14 00:17 | PC.NURSE ---
pt medicated while in CT scan in an attempt to ease patient pain while lying flat.
--- OUTSIDE RECORDS SUMMARY | 2024-10-14 00:22 | XMS_ITS | Referral Summary ---
Author Organization [employer] Address [address] [place] [address] Care Team Providers Care Electronic Scale Subassembler Name Role Phone Unavailable Primary Care Provider Unavailabl e Social History Tobacco Use Types Packs/Day Years Used Date Smoking Tobacco: Never Assessed Sex and Gender Information Value Date Recorded Sex Assigned at Male 11/03/2021 8:25 PM CDT Legal Sex Male 8:25 PM CDT Gender Identity Male 11/03/2021 8:25 PM CDT Sexual Orientation Not on file Plan of Treatment Not on file
--- OUTSIDE RECORDS SUMMARY | 2024-10-14 00:23 | XMS_ITS | Continuity of Care Document ---
Author Organization [facility], RHEUMATOLOGY SB Address [address] [place] [address] Care Team Providers Care Removable Prosthodontist Name Role Phone SHAWNXAVI Thomas Primary Care Provider MAGDALENA CANTU Director Of Career Resources Assessment No assessment recorded. Plan of Treatment Reminders Order Date Submit Date Provider Last Modified By Organization Details Last Modified Time Details Appointments REMICADE RAPID 2024 08:00A M RHEUM_INF USION Not available Not available Not available IV INFUSION MIX 2024 08:00A M Pharmacy_ infusion Not available Not available Not available RHEUM RECHECK 2024 08:45A M MAGDALENA CANTU MD Not available Not available Not available IV INFUSION MIX 2024 08:00A M Pharmacy_ infusion Not available Not available Not available REMICADE RAPID 2024 08:00A M RHEUM_INF USION Not available Not available Not available IV INFUSION MIX 2024 07:30A M Pharmacy_ infusion Not available Not available Not available REMICADE RAPID 2024 07:30A M RHEUM_INF USION Not available Not available Not available RHEUM RECHECK 2024 08:15A M MAGDALENA CANTU MD Not available Not available Not available Lab None recorded. Referral None recorded. Procedures None recorded. Surgeries None recorded. Imaging None recorded. Medication Orders Remicade 100 mg intraveno us solution [address] [facility], [address] [facility] [address], [place], [place], [id number], 10/05/2024 10:05:18 Patient TargetsNo targets recorded. Patient InstructionsNo instructions recorded. Reason for Referral None Reported. Problems No Known Problems Procedures Surgical History Date Name Laterality Status Provider Name and Address Organization Details Recorded Time 10/06/19 25 Remicade Infusion completed [facility] 10/05/2024 09:15:47 08/21/19 25 Remicade Infusion completed Aracely Kayricks [facility] 08/20/2024 14:31:08 07/10/19 25 Remicade Infusion completed [facility] 07/09/2024 10:54:46 07/03/19 25 Injection Joint/Bursa, Major, w/o US completed MAGDALENA CANTU MD [facility] [place], [address], [facility] 07/03/2024 09:38:50 05/28/19 25 Remicade Infusion completed [facility] 05/28/2024 12:01:37 04/06/20 24 Remicade Infusion completed [facility] 04/06/2024 08:53:00 03/15/20 24 Injection Joint/Bursa, Major, w/o US completed MAGDALENA CANTU MD [facility] [place], [address], [facility] 03/15/2024 12:34:32 02/24/20 24 Remicade Infusion completed [facility] 02/24/2024 12:12:59 01/12/20 24 Injection Joint/Bursa, Major, w/o US completed MAGDALENA CANTU MD [facility] [place], [address], [facility] 01/12/2024 12:58:03 01/12/20 24 Remicade Infusion completed [facility] 01/12/2024 09:33:19 11/17/19 24 Remicade Infusion completed Paulo Camarillo [facility] 11/17/2023 09:40:51 09/22/19 24 Injection Joint/Bursa, Major, w/o US completed MAGDALENA CANTU MD [facility] [place], [address], [facility] 09/22/2023 08:32:32 09/22/19 24 Remicade Infusion completed Shashi Piotr [facility] 09/22/2023 09:24:57 07/28/19 24 Remicade Infusion completed Shashi Piotr [facility] 07/28/2023 09:49:14 06/02/19 24 Remicade Infusion completed [facility] 06/02/2023 12:09:58 04/07/20 23 Remicade Infusion completed [facility] 04/07/2023 11:31:24 03/03/20 23 Injection Joint/Bursa, Major, w/o US completed MAGDALENA CANTU MD [address] [place], [address], [facility] 03/03/2023 11:59:07 02/11/20 23 Remicade Infusion completed Paulo Camarillo [facility] 02/10/2023 12:22:47 12/17/19 23 Remicade Infusion completed [facility] 12/16/2022 12:18:00 12/03/19 23 Injection Joint/Bursa, Major, w/o US completed MAGDALNEA CANTU MD [address] [place], [address], [facility] 12/02/2022 11:48:47 12/03/19 23 Injection Joint/Bursa, Second, Major completed MAGDALENA CANTU MD [address] [place], [address], [facility] 12/02/2022 11:49:53 10/22/19 23 Remicade Infusion completed [facility] 10/21/2022 13:08:33 09/10/19 23 Remicade Infusion completed [facility] 09/09/2022 10:55:34 08/28/19 23 Remicade Infusion completed [facility] 08/27/2022 12:09:41 04/16/20 21 Injection Joint/Bursa, Major, w/o US completed MAGDALENA CANTU MD [address] [place], [address], [facility] 04/16/2021 09:03:50 02/05/20 21 Injection Joint/Bursa, Major, w/o US completed MAGDALENA CANTU MD [address] [place], [address], [facility] 02/04/2021 08:54:38 11/05/19 21 Injection Joint/Bursa, Major, w/o US completed MAGDALENA CANTU MD [facility] [place], [address], [facility] 11/04/2020 08:38:34 08/07/19 21 Injection Joint/Bursa, Interm, w/o US completed MAGDALENA CANTU MD [facility] [place], [address], [facility] 08/06/2020 08:39:30 08/07/19 21 Injection Joint/Bursa, Major, w/o US completed MAGDALENA CANTU MD [facility] [place], [address], [facility] 08/06/2020 08:39:49 05/07/20 20 Injection Joint/Bursa, Interm, w/o US completed MAGDALENA CANTU MD [facility] [place], [address], [facility] 05/07/2020 10:36:34 05/07/20 20 Injection Joint/Bursa, Major, w/o US completed MAGDALENA CANTU MD [facility] [place], [address], [facility] 05/07/2020 10:36:11 02/05/20 20 Injection Joint/Bursa, Interm, w/o US completed MAGDALENA CANTU MD [address] [place], [address], [facility] 02/05/2020 16:19:36 02/05/20 20 Injection Joint/Bursa, Major, w/o US completed [place], [address], [facility] 02/05/2020 16:19:32 11/07/19 20 Injection Joint/Bursa, Interm, w/o US completed MAGDALENA CANTU MD [address] [place], [address], [facility] 11/07/2019 08:40:12 11/07/19 20 Injection Joint/Bursa, Major, w/o US completed MAGDALENA CANTU MD [address] [place], [address], [facility] 11/07/2019 08:40:05 11/07/19 20 Injection Joint/Bursa, Second, Intermediate completed MAGDALENA CANTU MD [address] [place], [address], [facility] 11/07/2019 08:40:35 07/11/19 20 Injection Joint/Bursa, Interm, w/o US completed MAGDALENA CANTU MD [address] [place], [address], [facility] 07/11/2019 08:36:01 04/10/20 19 Injection Joint/Bursa, Interm, w/o US completed MAGDALENA CANTU MD [address] [place], [address], [facility] 04/10/2019 08:47:22 12/15/19 19 Injection Joint/Bursa, Interm, w/o US completed MAGDALENA CANTU MD [address] [place], [address], [facility] 12/14/2018 09:04:11 12/15/19 19 Injection Joint/Bursa, Major, w/o US completed MAGDALENA CANTU MD [address] [place], [address], [facility] 12/14/2018 09:04:39 02/16/20 18 Skin Tag Removal completed Aissatou Wilson [facility] 02/15/2018 08:32:42 02/16/20 18 Destruction Premalignant Lesion(s) completed Aissatou Wilson [facility] 02/15/2018 08:27:15 Imaging Results None recorded. Procedure [...] IV EVERY 6 WEEKS 2024 active Remicade - 5 mg/kg - 700 mg - Q 6 wks - next infusion 11/15/24 @ 0800 - ICD 10 - M05.79 - med by Leslie - DO NOT BILL - Rapid Infusion . Not Available Not Available Not Available azathiopr [...] completed Not Available Not Available Not Available sertralin e 25 mg tablet Take 1 tablet every day by oral route in the morning. 2024 active Not Available Not Available Not Avai lable diclofena c sodium 75 mg tablet,de layed [...] CAPSULE BY MOUTH EVERY MORNING WITH FOOD 2024 active Not Available Not Available Not Avai lable fluticaso ne propionat e 50 mcg/actua tion [...] n partners ) 07/10 completed stopped 12/14/18 BS ref # [id number] [id number] no PA required Not Available Not [...] height Body mass index (BMI) Body weight Provider Name and Address Organization Details Last Updated DateTime 10/05/2024 187.96 cm 37.2 kg/m2 241715.99 g [facility] 10/05/2024 08:09:26 Social History Question Answer Notes LastModified by Organizat ion Details LastModified Time Tobacco Smoking Status Never Smoker Yissel paz [facility] 07/10/2018 10:37:10 How Much Tobacco Do You Chew? None Information not available 12/14/2018 What Was The Date Of Your Most Recent Tobacco Screening? 08/20/2024 [email or web address] Information not available 08/20/2024 How Much Tobacco Do You Smoke? No Information not available 12/14/2018 Has Tobacco Cessation Counseling Been Provided? No Information not available 12/14/2018 On What Date Was Tobacco Cessation Counseling Provided? 08/06/2020 [email or web address] Answered No To The Tobacco Cessation Counseling Provided Question On 12/14/2018. [email or web address] Information not available 08/06/2020 How Many Years Have You Smoked Tobacco? 0 Information not available 12/14/2018 Have You Recently Traveled Abroad? No Information not available 07/22/2022 Sex: Male Functional Status Question Answer Note LastModified by Organizat ion Details LastModified Time Do you use any illicit or recreational drugs? No Information not available 01/06/2021 Do you or have you ever used any other forms of tobacco or nicotine? No Information not available 01/06/2021 What is your level of alcohol consumption? Occasional Information not available 07/22/2022 Do you or have you ever used smokeless tobacco? Never used smokeless tobacco Information not available 12/14/2018 Do you or have you ever used e-cigarettes or vape? Never used electronic cigarettes Information not available 12/14/2018 Mental Status None recorded. Family History Relationship Description Onset Age of this Age Resolved Age Notes LastModified by Organization Details LastModified Time Father Hypertensive disorder [email or web address] Not available 07/10 10:37:03 Medical History Condition Response Emphysema N COPD N Arthritis Y Acid Reflux (GERD) Y Rheumatoid Arthritis Y Bleeding Disorder N Asthma N Diabetes N Heart Disease N Hypertension Y Immunizations Vaccine Type Date Status Note Provider Nam e and Address Organization Details Recorded Time Hep A, adult 12/07/2018 [facility] 08:21:28 Hep A, adult 07/07/2018 [facility] 08:22:13 Past Encounters Encounter ID Performer Location Encounter Start Date Encounter Closed Date Diagnosis/Indication Diagnosis SNOMED-CT Code Diagnosis ICD10 Code Diagnosis Note [id number] MAGDALENA CANTU MD [facility] [address] [place] [address] 10/05/2024 07:20:32 10/05/2024 09:22:12 Rheumatoid arthritis of multiple joints 581940140 M05.79 69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 On the combinatio [...] Follow-up with me in 3 to 4-month Health Concerns Section Related Observation LastModified by Organization Detai ls LastModified Time None Recorded Concern Status LastModified by Organization Details LastModified Time None Recorded Payers Encounter Date Sequence Insurance Name Policy Number Policy Regalado Covered Member ID Regalado Member ID Guarantor Name 10/05/2024 1 [employer] (MEDICARE REPLACEMENT/A DVANTAGE - PPO) Bryant Bonds [id number] Bryant Bonds
--- OUTSIDE RECORDS SUMMARY | 2024-10-14 00:23 | XMS_ITS | Data Portability ---
Author Organization [facility] [place] & [facility] ADMIN Address [address] [place] [address] Assessment Encounter Date Assessment Date Assessment LastModified by Organization Details LastModified Time 01/26/2023 01/26/2023 67-year-old male referred for evaluation of hepatic fibrosis stage 1-2 based off of labs from Rheumatology. -Will order a liver US (faxed to [facility]). -I suspect SCHWARTZ. Will start vitamin [...] at that point to continue lifestyle changes. [email or web address] Not available 01/26/2023 16:01:46 02/23/2023 02/23/2023 67-year-old [...] lifestyle changes and follow-up in 4-6 months. [email or web address] Not available 02/23/2023 12:50:26 07/15/2023 07/15/2023 68-year-old [...] alcohol intake. -Will obtain recent labs from [facility] Rheumatology. If hepatic function labs are again normal, I recommend continued follow-up with his PCP for routine lab monitoring and return to our office is he develops recurrence of transaminitis. [email or web address] Not available 07/15/2023 11:56:33 Plan of Treatment Reminders Order Date Submit Date Provider Last Modified By Organization Details Last Modified Time Details Appointments None recorded. Lab nonalcoholi c steatohepat itis + fibrosis panel, serum or plasma 2022 023 [email or web address] ([facility]), [address], [place], [address], 3 08:38:03 CMP, serum or plasma 20[facility] [address], [place], [address], 3 15:15:15 PT/INR 2022 023 [facility] (Lab), [address], [place], [address], 3 15:15:15 CBC 2022 023 [facility] (Lab), [address], [place], [address], 3 15:15:15 hepatitis panel (A+B+C), acute, serum 2022 023 [email or web address] [facility] (Lab), [address], [place], [address], 3 08:38:03 hepatitis A Ab, total, serum [address] (Lab), [address] [place], [place] [address], [place], [address], 3 08:38:03 hepatitis B surface Ab, quantitativ e, serum [address] (Lab), [address] [place] [address] [address], [place], [address], 3 08:38:04 Referral None recorded. Procedures None recorded. Surgeries None recorded. Imaging US, liver 2022 023 [facility] ([facility]), [address] [place] [address] [address], [place], [address], 3 08:53:31 Medication Orders vitamin E 268 mg (400 unit) capsule 2023 024 [facility], [address] [place] [address] [address], [id number], 4 17:24:58 vitamin E 268 mg (400 unit) capsule 2022 023 [facility], [address] [place] [address] [address] Garcia-[place]umber[place], [id number], 4 11:32:31 Patient TargetsNo targets recorded. Patient InstructionsNo instructions recorded. Reason for Referral None Reported. Results Created Date Observation Date Name Description Value Unit Range Abnormal Flag Note LastModifiedBy Organization Detail LastModifiedTime 02/04/20 23 02/03/2023 US, liver No observ ation record ed. [address], [place], [address], 03/25/2023 15:41:09 Result Notes None recorded. Problems Name Problem SNOMED Code Status Onset Date Resolution Date Notes Provider Name and Address Organization Details Recorded Time Hepatic fibrosis 70626554 Active 2022 Roby Vaughan PA-C [address], [place], [address] , [facility] - [facility] & [place] 3 09:33:53 Metabolic dysfunction-a ssociated steatohepatit is 180617387 Active 2022 Roby Vaughan PA-C [address], [place], [address] , [facility] - [facility] & [place] 3 09:34:16 Binge drinker 275969441 Active 2023 Roby Vaughan PA-C [address], [place], [address] , [facility] - [facility] & [place] 4 11:54:37 Problem Notes None recorded. Medical Equipment None Reported. [...] Address Organization Details Last Updated DateTime 3 392915. 08 g 39 kg/m2 187.96 cm 85 /min 98.6 [degF] 97 % 97 % 73 /min 155 mm[Hg] 85 mm[Hg] Malachi Jay [place] - [facility] [place] & [place] 08:58:50 Social History Question Answer Notes LastModified by Organization D etails LastModified Time What Is Your Level Of Caffeine Consumption? None [email or web address] Information not available 01/26/2023 What Type Of Diet Are You Following? REGULAR [email or web address] Information not available 01/26/2023 Sex: Unknown Functional Status Question Answer Note LastModified by Organizat ion Details LastModified Time Do you use any illicit or recreational drugs? No [email or web address] Information not available 01/26/2023 Do you or have you ever used any other forms of tobacco or nicotine? No [email or web address] Information not available 01/26/2023 What is your level of alcohol consumption? Occasional [email or web address] Information not available 01/26/2023 What is your exercise level? Occasional [email or web address] Information not available 01/26/2023 Mental Status None recorded. Family History Nothing Reported Notes:mother had lung cancer Medical History Condition Response Arthritis Y Colon Polyps Y GERD/Reflux Y Hypertension Y Past Encounters Encounter ID Performer Location Encounter Start Date Encounter Closed Date Diagnosis/Indication Diagnosis SNOMED-CT Code Diagnosis ICD10 Code Diagnosis Note [id number] Roby Vaughan PA-C [facility] [address] [address] 01/26/2023 08:30:22 01/26/2023 09:35:07 Hepatic fibrosis 59892873 K74.00 Metabolic dysfunction-associate d steatohepatitis 901844597 K75.81 [id number] Roby Vaughan PA-C [facility] [address] [address] 02/23/2023 11:42:27 02/23/2023 12:58:50 Metabolic dysfunction-associate d steatohepatitis 114832178 K75.81 Hepatic fibrosis 3036041 2 K74.00 [id number] Roby Vaughan PA-C [facility] [address] [facility] [address] [place] [address] 07/15/2023 11:26:14 07/15/2023 11:50:37 Metabolic dysfunction-associate d steatohepatitis 696085795 K75.81 Hepatic fibrosis 4757147 2 K74.00 Binge drinker 268079588 F10.10 Health Concerns Section Related Observation LastModified by Organization Detai ls LastModified Time None Recorded Concern Status LastModified by Organization Details LastModified Time None Recorded Advance Directives Directive None Recorded Payers Insurance Date Sequence Insurance Name Policy Number Policy Regalado Covered Member ID Regalado Member ID Guarantor Name 07/12/2023 1 [employer] (MEDICARE REPLACEMENT/A DVANTAGE - PPO) Bryant Bonds [id number] Bryant Poole Vamshi Notes Date Note Type Note Provider [...] overall at this time. Roby Vaughan PA-C [facility], [place], [address], [facility] - [place] & [place] 01/26/2023 16:02:30 02/23/2023 text/html PREVIOUS ( 3): [...] further disposition of care. Roby Vaughan PA-C [address] [facility], [place], [address], [facility] - [place] - [place] & [place] 02/23/2023 12:50:41 07/15/2023 text/html PREVIOUS ( 3): [...] time and denies any particular physical complaints. DESIRAE (07/15/23): Mr. Bodns presents via telephonic encounter today for follow-up regarding hepatic steatosis with history of elevated liver enzymes. He reports feeling very well at this time. He states that he recently had labs with Rheumatology at [facility] and was told that his hepatic function [...] further disposition of care. Roby Vaughan PA-C [address] , [place], [address], [facility] - [place] - [place] & [place] 07/15/2023 11:56:54
--- OUTSIDE RECORDS SUMMARY | 2024-10-14 00:23 | XMS_ITS | Continuity of Care Document ---
Author Organization [facility], RHEUMATOLOGY SB Address [address] [place] [address] Care Team Providers Care Jet Operator Name Role Phone SHAWNCHARISSAKirsty Guzman Primary Care Provider [phone] MAGDALENA CANTU Child Support Case Officer Assessment Encounter Date Assessment Date Assessment LastModified [...] Recorded Time 10/06/19 25 Remicade Infusion completed [facility] 10/05/2024 09:15:47 08/21/19 25 Remicade Infusion completed Aracely Diandra [facility] 08/20/2024 14:31:08 07/10/19 25 Remicade Infusion completed [facility] 07/09/2024 10:54:46 07/03/19 25 Injection Joint/Bursa, Major, w/o US completed MAGDALENA CANTU MD [address] [place], [address], [facility] 07/03/2024 09:38:50 05/28/19 25 Remicade Infusion completed [facility] 05/28/2024 12:01:37 04/06/20 24 Remicade Infusion completed [facility] 04/06/2024 08:53:00 03/15/20 24 Injection Joint/Bursa, Major, w/o US completed MAGDALENA CANTU MD [address] [place], [address], [facility] 03/15/2024 12:34:32 02/24/20 24 Remicade Infusion completed [facility] 02/24/2024 12:12:59 01/12/20 24 Injection Joint/Bursa, Major, w/o US completed MAGDALENA CANTU MD [address] [place], [address], [facility] 01/12/2024 12:58:03 01/12/20 24 Remicade Infusion completed Shashi Saldaña [facility] 01/12/2024 09:33:19 11/17/19 24 Remicade Infusion completed Paulo Camarillo [facility] 11/17/2023 09:40:51 09/22/19 24 Injection Joint/Bursa, Major, w/o US completed MAGDALENA CANTU MD [address] [place], [address], [facility] 09/22/2023 08:32:32 09/22/19 24 Remicade Infusion completed [facility] 09/22/2023 09:24:57 07/28/19 24 Remicade Infusion completed [facility] 07/28/2023 09:49:14 06/02/19 24 Remicade Infusion completed [facility] 06/02/2023 12:09:58 04/07/20 23 Remicade Infusion completed [facility] 04/07/2023 11:31:24 03/03/20 23 Injection Joint/Bursa, Major, w/o US completed MAGDALENA CANTU MD [address] [place], [address], [facility] 03/03/2023 11:59:07 02/11/20 23 Remicade Infusion completed Paulo [facility] 02/10/2023 12:22:47 12/17/19 23 Remicade Infusion completed [facility] 12/16/2022 12:18:00 12/03/19 23 Injection Joint/Bursa, Major, w/o US completed MAGDALENA CANTU MD [address] [place], [address], [facility] 12/02/2022 11:48:47 12/03/19 23 Injection Joint/Bursa, Second, Major completed MAGDALENA CANTU MD [address] [place], [address], [facility] 12/02/2022 11:49:53 10/22/19 23 Remicade Infusion completed [facility] 10/21/2022 13:08:33 09/10/19 23 Remicade Infusion completed [facility] 09/09/2022 10:55:34 08/28/19 23 Remicade Infusion completed [facility] 08/27/2022 12:09:41 04/16/20 21 Injection Joint/Bursa, Major, w/o US completed MAGDALENA CANTU MD [address] [place], [address], [facility] 04/16/2021 09:03:50 02/05/20 21 Injection Joint/Bursa, Major, w/o US completed MAGDALENA CANTU MD [address] [place], [address], [facility] 02/04/2021 08:54:38 11/05/19 21 Injection Joint/Bursa, Major, w/o US completed MAGDALENA CANTU MD [address] [place], [address], [facility] 11/04/2020 08:38:34 08/07/19 21 Injection Joint/Bursa, Interm, w/o US completed MAGDALENA CANTU MD [address] [place], [address], [facility] 08/06/2020 08:39:30 08/07/19 21 Injection Joint/Bursa, Major, w/o US completed MAGDALENA CANTU MD [address] [place], [address], [facility] 08/06/2020 08:39:49 05/07/20 20 Injection Joint/Bursa, Interm, w/o US completed MAGDALENA CANTU MD [address] [place], [address], [facility] 05/07/2020 10:36:34 05/07/20 20 Injection Joint/Bursa, Major, w/o US completed MAGDALENA CANTU MD [address] [place], [address], [facility] 05/07/2020 10:36:11 02/05/20 20 Injection Joint/Bursa, Interm, w/o US completed MAGDALENA CANTU MD [address] [place], [address], [facility] 02/05/2020 16:19:36 02/05/20 20 Injection Joint/Bursa, Major, w/o US completed MAGDALENA CANTU MD [address] [place], [address], [facility] 02/05/2020 16:19:32 11/07/19 20 Injection Joint/Bursa, Interm, w/o US completed MAGDALENA CANTU MD [address] [place], [address], [facility] 11/07/2019 08:40:12 11/07/19 20 Injection Joint/Bursa, Major, w/o US completed MAGDALENA CANTU MD [address] [place], [address], [facility] 11/07/2019 08:40:05 11/07/19 20 Injection Joint/Bursa, Second, Intermediate completed MAGDALENA CANTU MD [address] [place], [address], [facility] 11/07/2019 08:40:35 07/11/19 20 Injection Joint/Bursa, Interm, w/o US completed MAGDALENA CANTU MD [address] [place], [address], [facility] 07/11/2019 08:36:01 04/10/20 19 Injection Joint/Bursa, Interm, w/o US completed MAGDALENA CANTU MD [address] [place], [address], [facility] 04/10/2019 08:47:22 12/15/19 19 Injection Joint/Bursa, Interm, w/o US completed MAGDALENA CANTU MD [address] [place], [address], [facility] 12/14/2018 09:04:11 12/15/19 19 Injection Joint/Bursa, Major, w/o US completed MAGDALENA CANTU MD [address] [place], [address], [facility] 12/14/2018 09:04:39 02/16/20 18 Skin Tag Removal completed Aissatou Wilson [facility] 02/15/2018 08:32:42 02/16/20 18 Destruction Premalignant Lesion(s) completed Aissatou Wilson [facility] 02/15/2018 08:27:15 Imaging Results None recorded. Procedure [...] ICD 10 - M05.79 - med by [employer] - DO NOT BILL - Rapid Infusion [...] 07/10 completed stopped 12/14/18 BCBS ref # [id number] no PA required Not Available Not [...] Updated DateTime 5 187.96 cm 37 kg/m2 746783. 7 g 97.9 [degF] 94 /min 16 /min 136 mm[Hg] 83 mm[Hg] Aracely Jim [facility] 12:37:56 Social History Question Answer Notes LastModified by Organizat ion Details LastModified Time Tobacco Smoking Status Never Smoker Yissel Zaldivar brandi, [facility] 07/10/2018 10:37:10 How Much Tobacco Do You Chew? None Information not available 12/14/2018 What Was The Date Of Your Most Recent Tobacco Screening? 08/20/2024 Information not available 08/20/2024 How Much Tobacco Do You Smoke? No Information not available 12/14/2018 Has Tobacco Cessation Counseling Been Provided? No Information not available 12/14/2018 On What Date Was Tobacco Cessation Counseling Provided? 08/06/2020 [email or web address] Answered No To The Tobacco Cessation Counseling Provided Question On 12/14/2018. [email or web address] Information not available 08/06/2020 How Many Years [...] Organization Details LastModified Time Father Hypertensive disorder [email or web address] Not available 07/10 10:37:03 Medical History Condition Response Emphysema N COPD N Arthritis Y Acid Reflux (GERD) Y Rheumatoid Arthritis Y Bleeding Disorder N Asthma N Diabetes N Heart Disease N Hypertension Y Immunizations Vaccine Type Date Status Note Provider Nam e and Address Organization Details Recorded Time [facility], [facility]07[facility] 08:[facility]28 Hep A, adult 07[facility]07[facility]2018 [facility] 08:22:13 Past Encounters Encounter ID Performer Location Encounter Start Date Encounter Closed Date Diagnosis/Indication Diagnosis SNOMED-CT Code Diagnosis ICD10 Code Diagnosis Note [id number] MAGDALENA CANTU MD [facility] [address] [place] [address] 08/20/2024 12:12:04 08/20/2024 14:36:36 Seropositive rheumatoid arthritis 396439370 M05.79 [id number] MAGDALENA CANTU MD [address] [facility] [address] [place] [address] 08/20/2024 13:29:40 08/21/2024 15:32:36 Rheumatoid arthritis 40876664 M05.79 69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 On the [...] 4-month Long-term current use of immunosuppressive drug [id number] Z79.60 01/12/24 labsESR 20, CRP 0.60Creati nine, [...] (MEDICARE REPLACEMENT/A DVANTAGE - PPO) Bryant Bonds [id number] Bryant Bonds Notes Date Note Type Note [...] infusion is done today. MAGDALENA CANTU MD [facility] [place], [address], [facility] 08/20/2024 15:50:32
--- OUTSIDE RECORDS SUMMARY | 2024-10-14 00:23 | XMS_ITS | Data Portability ---
Author Organization [facility] [place] [facility] Address [address] [place] [address] Care Team Providers Care Peoplesoft Functional Analyst Name Role Phone SHAWN XAVI Guzman Primary Care Provider MAGDALENA CANTU Building Construction Supervisor Assessment Encounter Date Assessment Date Assessment LastModified [...] Imaging XR, knee, 3 view 2024 025 MARGARET [facility], [address] [place], [address], 07/03/2024 09:24:45 Medication Orders Remicade 100 mg intraveno us solution [address] [place] [address] Pharmacy [facility], [address] [place] [address] [place], [id number], 10/05/2024 10:05:18 Remicade 100 mg intraveno us solution [address] [place] [address] Pharmacy [facility], [address] [place] [address] E Edinson Garcia[place]Humber[place], [id number], 08/20/2024 14:40:59 Remicade 100 mg intraveno us solution [address] [place] [address] Pharmacy [facility], [address] [place] [address] E Humberto Aguilar [place], [id number], 07/09/2024 10:35:05 Patient TargetsNo targets recorded. Patient InstructionsNo instructions recorded. Reason for Referral None Reported. Results Created Date Observation Date Name Description Value Unit Range Abnormal Flag Note LastModifiedBy Organization Detail LastModifiedTime 07/10/1907/09/2024 COMPL ETE BLOOD COUNT white blood cells 7.7 10*3/ uL 3.8-10 .8 normal Not Available [facility] [address] [place] [address], [address], 07/09/2024 09:45:52 07/10/1907/09/2024 COMPL ETE BLOOD COUNT red blood cells 4.47 10*6/ uL 4.20-5 .80 normal Not Available [facility] [address] [place] [address], [address], 07/09/2024 09:45:52 07/10/19 25 07/09/2024 COMPL ETE BLOOD COUNT hemoglobin 14.2 g/dL 14.0-1 8.0 normal Not Available [facility] [address] [place] [address], [address], 07/09/2024 09:45:52 07/10/19 25 07/09/2024 COMPL ETE BLOOD COUNT hematocrit 42.7 % 40.0-5 2.0 normal Not Available [facility] [address] [place] [address], [address], 07/09/2024 09:45:52 07/10/19 25 07/09/2024 COMPL ETE BLOOD COUNT MCV 95 fL 80-100 normal Not Available [facility] [address] [place] [address], [address], 07/09/2024 09:45:52 07/10/19 25 07/09/2024 COMPL ETE BLOOD COUNT MCH 32 pg 26-35 normal Not Available [facility] [address] [place] [address], [address], 07/09/2024 09:45:52 07/10/19 25 07/09/2024 COMPL ETE BLOOD COUNT MCHC 33 g/dL 32-36 normal Not Available [facility] [address] [place] [address], [address], 07/09/2024 09:45:52 07/10/19 25 07/09/2024 COMPL ETE BLOOD COUNT RDW 14.2 % 11.0-1 5.0 normal Not Available [facility] [address] [place] [address], [address], 07/09/2024 09:45:52 07/10/19 25 07/09/2024 COMPL ETE BLOOD COUNT MPV 7.6 fL 6.2-10 .5 normal Not Available [facility] [address] [place] [address], [address], 07/09/2024 09:45:52 07/10/19 25 07/09/2024 COMPL ETE BLOOD COUNT platelet count 276 10*3/ uL 150-40 0 normal Not Available [facility] [address] [place] [address], [address], 07/09/2024 09:45:52 07/10/19 25 07/09/2024 COMPL ETE BLOOD COUNT neutrophil,a bsolute 5.2 10*3/ uL 1.6-8. 4 normal Not Available [facility] [address] [place] [address], [address], 07/09/2024 09:45:52 07/10/19 25 07/09/2024 COMPL ETE BLOOD COUNT lymphocyte,a bsolute 1.8 10*3/ uL 0.4-5. 1 normal Not Available [facility] [address] [place] [address], [address], 07/09/2024 09:45:52 07/10/19 25 07/09/2024 COMPL ETE BLOOD COUNT monocyte,abs olute 0.5 10*3/ uL 0.0-1. 2 normal Not Available [facility] [address] [place] [address], [address], 07/09/2024 09:45:52 07/10/19 25 07/09/2024 COMPL ETE BLOOD COUNT eosinophil,a bsolute 0.1 10*3/ uL 0.0-0. 8 normal Not Available [facility] [address] [place] [address], [address], 07/09/2024 09:45:52 07/10/19 25 07/09/2024 COMPL ETE BLOOD COUNT basophil,abs olute 0.0 10*3/ uL 0.0-0. 3 normal Not Available [facility] [address] [place] [address], [address], 07/09/2024 09:45:52 07/10/19 25 07/09/2024 COMPL ETE BLOOD COUNT % neutrophils 67.6 % 42.0-7 8.0 normal Not Available [facility] [address] [place] [address], [address], 07/09/2024 09:45:52 07/10/19 25 07/09/2024 COMPL ETE BLOOD COUNT % lymphocytes 23.8 % 11.0-4 7.0 normal Not Available [facility] [address] [place] [address], [address], 07/09/2024 09:45:52 07/10/19 25 07/09/2024 COMPL ETE BLOOD COUNT % monocytes 6.5 % 0.0-11 .0 normal Not Available [facility] [address] [place] [address], [address], 07/09/2024 09:45:52 07/10/19 25 07/09/2024 COMPL ETE BLOOD COUNT % eosinophils 1.6 % 0.0-7. 0 normal Not Available [facility] [address] [place] [address], [address], 07/09/2024 09:45:52 07/10/19 25 07/09/2024 COMPL ETE BLOOD COUNT % basophils 0.5 % 0.0-3. 0 normal Not Available [facility] [address] [place] [address], [address], 07/09/2024 09:45:52 07/10/19 25 07/09/2024 COMPL ETE BLOOD COUNT nucleated red cells 0.0 % 0.0-0. 9 normal Not Available [facility] [address] [place] [address], [address], 07/09/2024 09:45:52 07/10/19 25 07/09/2024 COMPL ETE BLOOD COUNT nucleated RBCs, absolute 0.00 10*3/ uL not estab. normal Not Available [facility] [address] [place] [address], [address], 07/09/2024 09:45:52 07/10/19 25 07/09/2024 ESR, AUTOM ATED ESR, automated 25 mm 0-19 high Not Available [facility] [address] [place] [address], [address], 07/09/2024 10:09:03 07/10/19 25 07/09/2024 GFR ESTIM ATE GFR 99 >= 60 normal NOT E New calcu latio n for GFR (CKD- EPI 2020) is formu lated witho ut race adjus tment facto rs at the recom menda tion of the Natio nal Kidne y Found ation and Ameri can [place] ty of Nephr ology . This calcu latio n has not been valid ated in pregn ant women . For pedia tric patie nts refer to https ://jaxson w.sue fariay.o rg/pr ofess ional s/KDO QI/gf r_cal culat orPed Not Available [facility] [address] [place] [address], [address], 07/09/2024 10:12:52 07/10/19 25 07/09/2024 AST AST 15 U/L 0-40 normal Not Available [facility] [address] [place] [address], [address], 07/09/2024 10:12:54 07/10/19 25 07/09/2024 ALT ALT 18 U/L 0-41 normal Not Available [facility] [address] [place] [address], [address], 07/09/2024 10:12:56 07/10/19 25 07/09/2024 CREAT ININE creatinine 0.74 mg/dL 0.70-1 .28 normal Not Available [facility] [address] [place] [address], [address], 07/09/2024 10:12:57 07/03/19 25 07/03/2024 XR, [facility], [address] [facility] [address] [place], [place] [id number] Patihugh t Name: BRYANT Yepez t : [birth year] 58 Patihugh t Orderi ng Provid er: CARROL CANTU [...] Derrell barber MD on 025 9:19 AM [facility] Radiology [facility] [address] [place] [address], [address], 07/06/2024 13:47:18 Result Notes None recorded. Problems No Known Problems Procedures Surgical History Date Name Laterality Status Provider Name and Address Organization Details Recorded Time 10/06/19 25 Remicade Infusion completed [facility] 10/05/2024 09:15:47 08/21/19 25 Remicade Infusion completed Aracely Jim [facility] 08/20/2024 14:31:08 07/10/19 25 Remicade Infusion completed [facility] 07/09/2024 10:54:46 07/03/19 25 Injection Joint/Bursa, Major, w/o US completed MAGDALENA CANTU MD [address] [place], [address], [facility] 07/03/2024 09:38:50 05/28/19 25 Remicade Infusion completed [facility] 05/28/2024 12:01:37 04/06/20 24 Remicade Infusion completed [facility] 04/06/2024 08:53:00 03/15/20 24 Injection Joint/Bursa, Major, w/o US completed MAGDALENA CANTU MD [address] [place], [address], [facility] 03/15/2024 12:34:32 02/24/20 24 Remicade Infusion completed Shashi Saldaña [facility] 02/24/2024 12:12:59 01/12/20 24 Injection Joint/Bursa, Major, w/o US completed MAGDALENA CANTU MD [address] [place], [address], [facility] 01/12/2024 12:58:03 01/12/20 24 [facility]/12/[facility]24 09:33:19 11/17/19 24 Remicade Infusion completed Paulo Camarillo [facility] 11/17/2023 09:40:51 09/22/19 24 Injection Joint/Bursa, Major, w/o US completed MAGDALENA CANTU MD [address] [place], [address], [facility] 09/22/2023 08:32:32 09/22/19 24 Rem[facility]ade [facility]fusion [facility] 09/22/2023 09:24:57 07/28/19 24 Remicade Infusion completed Shashi Saldaña [facility] 07/28/2023 09:49:14 06/02/19 24 Remicade Infusion completed Shashi Piotr [facility] 06/02/2023 12:09:58 04/07/20 23 Remicade Infusion completed Shashi Saldaña [facility] 04/07/2023 11:31:24 03/03/20 23 Injection Joint/Bursa, Major, w/o US completed MAGDALENA CANTU MD [address] [place], [address], [facility] 03/03/2023 11:59:07 02/11/20 23 Remicade Infusion completed Paulo Camarillo [facility] 02/10/2023 12:22:47 12/17/19 23 Remicade Infusion [facility] 12/16/2022 12:18:00 12/03/19 23 Injection Joint/Bursa, Major, w/o US completed MAGDALENA CANTU MD [address] [place], [address], [facility] 12/02/2022 11:48:47 12/03/19 23 Injection Joint/Bursa, Second, Major completed MAGDALENA CANTU MD [address] [place], [address], [facility] 12/02/2022 11:49:53 10/22/19 23 Remicade Infusion completed Shashi Saldaña [facility] 10/21/2022 13:08:33 09/10/19 23 Remicade Infusion completed Shashi Saldaña [facility] 09/09/2022 10:55:34 08/28/19 23 Remicade Infusion completed Shashi Saldaña [facility] 08/27/2022 12:09:41 04/16/20 21 Injection Joint/Bursa, Major, w/o US completed MAGDALENA CANTU MD [address] [place], [address], [facility] 04/16/2021 09:03:50 02/05/20 21 Injection Joint/Bursa, Major, w/o US completed MAGDALENA CANTU MD [address] [place], [address], [facility] 02/04/2021 08:54:38 11/05/19 21 Injection Joint/Bursa, Major, w/o US completed MAGDALENA CANTU MD [address] [place], [address], [facility] 11/04/2020 08:38:34 08/07/19 21 Injection Joint/Bursa, Interm, w/o US completed MAGDALENA CANTU MD [address] [place], [address], [facility] 08/06/2020 08:39:30 08/07/19 21 Injection Joint/Bursa, Major, w/o US completed MAGDALENA CANTU MD [address] [place], [address], [facility] 08/06/2020 08:39:49 05/07/20 20 Injection Joint/Bursa, Interm, w/o US completed MAGDALENA CANTU MD [address] [place], [address], [facility] 05/07/2020 10:36:34 05/07/20 20 Injection Joint/Bursa, Major, w/o US completed MAGDALENA CANTU MD [address] [place], [address], [facility] 05/07/2020 10:36:11 02/05/20 20 Injection Joint/Bursa, Interm, w/o US completed MAGDALENA CANTU MD [address] [place], [address], [facility] 02/05/2020 16:19:36 02/05/20 20 Injection Joint/Bursa, Major, w/o US completed MAGDALENA CANTU MD [address] [place], [address], [facility] 02/05/2020 16:19:32 11/07/19 20 Injection Joint/Bursa, Interm, w/o US completed MAGDALENA CANTU MD [address] [place], [address], [facility] 11/07/2019 08:40:12 11/07/19 20 Injection Joint/Bursa, Major, w/o US completed MAGDALENA CANTU [place] [facility] [place], [address], [facility] 11/07/2019 08:40:05 11/07/19 20 Injection Joint/Bursa, Second, Intermediate completed MAGDALENA CANTU MD [address] [place], [address], [facility] 11/07/2019 08:40:35 07/11/19 20 Injection Joint/Bursa, Interm, w/o US completed MAGDALENA CANTU MD [address] [place], [address], [facility] 07/11/2019 08:36:01 04/10/20 19 Injection Joint/Bursa, Interm, w/o US completed MAGDALENA CANTU MD [address] [place], [address], [facility] 04/10/2019 08:47:22 12/15/19 19 Injection Joint/Bursa, Interm, w/o US completed MAGDALENA CANTU MD [address] [place], [address], [facility] 12/14/2018 09:04:11 12/15/19 19 Injection Joint/Bursa, Major, w/o US completed MAGDALENA CANTU MD [address] [place], [address], [facility] 12/14/2018 09:04:39 02/16/20 18 Skin Tag Removal completed Aissatou [facility] 02/15/2018 08:32:42 02/16/20 18 Destruction Premalignant Lesion(s) completed Aissatou Katie [facility] 02/15/2018 08:27:15 Imaging Results None recorded. [...] Not Available ofloxacin 0.3 % eye drops 03/31 /2021 completed Not Available Not Available Not Available [...] active Not Available Not Available Not Avai labyumiko diclofena c sodium 75 mg tablet,de layed [...] 07/10 completed stopped 12/14/18 BCBS ref # [id number] no PA required Not Available Not [...] 5 187.96 cm 16 /min 36.8 kg/m2 488128. 01 g 98 % 98 % 95 /min 124 mm[Hg] 78 mm[Hg] Antonio Bermudez [facility] 5 08:34:06 Date Recorded Body height Body mass index (BMI) Body weight Body temperature Heart rate Respiratory rate Systolic blood pressure Diastolic blood pressure Provider Name and Address Organization Details Last Updated DateTime 5 187.96 cm 37 kg/m2 973640. 7 g 97.9 [degF] 94 /min 16 /min 136 mm[Hg] 83 mm[Hg] Aracely Diandra [facility] 5 12:37:56 Date Recorded Body height Body mass index (BMI) Body weight Provider Name and Address Organization Details Last Updated DateTime 10/05/2024 187.96 cm 37.2 kg/m2 555335.99 g Shashi Saldaña [facility] 10/05/2024 08:09:26 Social History Question Answer Notes LastModified by Organizat ion Details LastModified Time Tobacco Smoking Status Never Smoker Yissel paz, [facility] 07/10/2018 10:37:10 How Much Tobacco Do You Chew? None Information not available 12/14/2018 What Was The Date Of Your Most Recent Tobacco Screening? 08/20/2024 [email or web address] Information not available 08/20/2024 How Much Tobacco Do You Smoke? No Information not available 12/14/2018 Has Tobacco Cessation Counseling Been Provided? No Information not available 12/14/2018 On What Date Was Tobacco Cessation Counseling Provided? 08/06/2020 [email or web address] Answered No To The Tobacco Cessation Counseling Provided Question On 12/14/2018. [email or web address] Information not available 08/06/2020 How Many Years [...] Organization Details LastModified Time Father Hypertensive disorder [email or web address] Not available 07/10 10:37:03 Medical History Condition Response Emphysema N COPD N Arthritis Y Acid Reflux (GERD) Y Rheumatoid Arthritis Y Bleeding Disorder N Asthma N Diabetes N Heart Disease N Hypertension Y Immunizations Vaccine Type Date Status Note Provider Nam e and Address Organization Details Recorded Time Hep A, adult 12/07/2018 completed Marcelo Cooper [facility] 12/14/2018 08:21:28 Hep A, adult 07/07/2018 completed Marcelo Cooper [facility] 12/14/2018 08:22:13 Past Encounters Encounter ID Performer Location Encounter Start Date Encounter Closed Date Diagnosis/Indication Diagnosis SNOMED-CT Code Diagnosis ICD10 Code Diagnosis Note [id number] DOMINIC DEUTSCH MD [facility] [address] [place] [address] 02/15/2018 07:54:43 02/15/2018 13:13:58 Lentigo 502925459 L81.4 reassuranc e Actinic keratosis 606952 [address] x 4 Senile hyperkeratosis 39 4904968 L82.1 reassuranc e Multiple skin tags [address] x 5 Pain of skin 593834303 R 52 [id number] MAGDALENA CANTU MD RHEUMATOL [facility] [address] [place] [address] 07/10/2018 09:36:35 07/12/2018 10:16:50 Rheumatoid arthritis 04811290 M06.9 a very pleasant 63-year-ol d gentleman [...] today. Labs 04/10/2018. Reviewed and stable. Medication [facility]#:[id number] Medication Lot#:[id number] Medication Exp: 9. [id number] MAGDALENA CANTU MD RHEUMATOL [facility] [address] [place] [address] 09/12/2018 08:31:17 09/12/2018 09:01:15 Rheumatoid arthritis 76307708 M06.9 63-year-ol d gentleman with significan t [...] back in 3 months. Long-term drug therapy 416192308 Z79.899 labs obtained to follow-up on the current medication s. [id number] MAGDALENA CANTU MD RHEUMATOL [facility] [address] [place] [address] 12/14/2018 08:05:40 12/15/2018 14:12:12 Rheumatoid arthritis 10038874 M06.9 63-year-ol d gentleman with significan t rheumatoid arthritis followed at the arthritis Center, [facility]. He is now on the combinatio n [...] back in 3 months. Long-term drug therapy 628976981 Z79.899 labs obtained to follow-up on the current medication s. Synovitis of joint of right knee 1179047194 1435044 M25.861 symptomati c right knee secondary to rheumatoid arthritis along with chronic underlying osteoarthr itis. Maintain the rheumatoid treatment as above. For symptomati c relief the right knee joint is injected with Depo-Medro l. Synovitis of elbow 31689 6008 M65.9 symptomati c bilateral elbow joint with fixed flexion contractur e. Maintain cardiac care as above. On account of pain and discomfort in the elbow joints are injected with Depo-Medro l. [id number] MAGDALENA CANTU MD RHEUMATOL [facility] [address] [place] [address] 04/10/2019 08:17:04 04/10/2019 09:01:43 Rheumatoid arthritis 70027756 M06.9 63-year-ol d gentleman with chronic but [...] back in 3 months. Long-term drug therapy 884887726 Z79.899 labs obtained to follow-up on the current medication s. Synovitis of elbow 36684 6008 M65.9 symptomati c bilateral elbow joint with fixed flexion contractur e. On account of pain and discomfort in the elbow joints, both joints are injected with Depo-Medro l. Screening for malignant neoplasm of prostate 487184499 Z12.5 he has concerns about BPH, suggested him to follow with his family physician and consider urology evaluation . Meantime I've obtained a PSA. [id number] MAGDALENA CANTU MD RHEUMATOL [facility] [address] [place] [address] 07/11/2019 08:08:41 07/11/2019 08:41:31 Rheumatoid arthritis 89383828 M06.9 64-year-ol d gentleman with chronic but [...] 3 - 4 months. Long-term drug therapy 727141233 Z79.899 labs obtained to follow-up on the current medication s. Synovitis of elbow 77285 6008 M65.9 symptomati c bilateral elbow joint with fixed flexion contractur e right > left. x-rays obtained [id number] MAGDALENA CANTU MD RHEUMATOL [facility] [address] [place] [address] 11/07/2019 07:58:15 11/07/2019 08:32:31 Rheumatoid arthritis 00635313 M06.9 64-year-ol d gentleman with chronic but [...] 3 - 4 months. Long-term drug therapy 262846818 Z79.899 labs obtained to follow-up on the current medication s. [id number] MAGDALENA CANTU MD [facility] [address] [place] [address] 02/05/2020 14:52:56 02/05/2020 15:33:37 Rheumatoid arthritis 09062323 M06.9 64-year-ol d gentleman with chronic rheumatoid [...] 3 - 4 months. Long-term drug therapy 124982644 Z79.899 labs obtained to follow-up on the current medication s. [id number] MAGDALENA CANTU MD RHEUMATOL [facility] [address] [place] [address] 05/07/2020 07:39:15 05/07/2020 10:52:40 Rheumatoid arthritis 82805163 M06.9 64-year-ol d gentleman with chronic rheumatoid [...] 3 - 4 months. Long-term drug therapy 865651736 Z79.899 labs obtained to follow-up on the current medication s. Pain in right knee 42837 80738 42516 M25.561 secondary to osteoarthr itis. Symptomati feliz treatment for now, the right knee is given steroid injection. He will contact [facility] to discuss knee joint replacemen t. [id number] MAGDALENA CANTU MD RHEUMATOL [facility] [address] [place] [address] 08/06/2020 07:44:24 08/06/2020 09:09:16 Rheumatoid arthritis 40258876 M06.9 very pleasant 65-year-ol d gentleman with [...] me in 3 months. Long-term drug therapy 980057444 Z79.899 high-risk medication s. Labs every 3 months. Recently done through primary care physician. Pain in right knee 16483 43605 57402 M25.561 chronic, secondary to osteoarthr itis. Symptomati feliz treatment for now, the right knee is given steroid injection. He will contact [facility] to discuss knee joint replacemen t. [id number] MAGDALENA CANTU MD RHEUMATOL [facility] [address] [place] [address] 11/04/2020 07:43:39 11/04/2020 09:22:37 Rheumatoid arthritis 41349060 M06.9 very pleasant 65-year-ol d gentleman with [...] studies. follow-up 3 months Long-term drug therapy 581432263 Z79.899 high-risk medication s. Labs every 3 months. Pain in right knee 89733 86685 94498 M25.561 chronic, secondary to osteoarthr itis. Symptomati c treatment for now, the right knee is given steroid injection. In case of knee replacemen t, he would like to see [facility], Dr. Priyank Jean Baptiste en. 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 Unfortunat [...] has failed Kevzara/ Enbrel. Long-term drug therapy 526477992 Z79.899 high-risk medication s. Labs every 3 months. Most recent labs 11/04/2020 fairly stable. Modest elevation in the ALT. Repeat next month [id number] MAGDALENA CANTU MD RHEUMATOL [facility] [address] [place] [address] 02/04/2021 08:03:35 02/04/2021 09:22:13 Pain in right knee 3081405876 70972 M25.561 Symptomati c right knee joint, advanced degenerati ve process. Today the right knee is given intra-sy cular steroid injection. Ultimately as discussed, he would need to consider right knee replacemen t. He would like to see Dr. Lita guzman in case if he decides to proceed with a knee replacemen t. Weight loss and exercise reviewed. Long-term drug therapy 716812966 Z79.899 high-risk medication s. Labs every 3 months. Most recent labs 11/04/2020 fairly stable. Modest elevation in the ALT. Repeat next month Repeat the CBC today. 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 Unfortunat amna the [...] Follow-up with me in couple of months. [id number] MAGDALENA CANTU MD RHEUMATOL [facility] [address] [place] [address] 04/16/2021 07:42:44 04/16/2021 09:27:15 Pain in right knee 9708678284 53340 M25.561 Symptomati c right knee joint, advanced degenerati ve process. He needs right knee replacemen t. He is requesting [facility]. In the meantime, the right knee is given intra-sy cular steroid for symptomati c relief. We are trying to schedule his appointmen t in early spring next year to consider the knee replacemen t Weight loss and exercise reviewed. Long-term drug therapy [id number] Z79.899 high-risk medication s. Labs every 3 months. Lab studies 02/04/2021 stable negative TB test. 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 On Rinvoq 15 [...] Follow-up with me in couple of months. [id number] MAGDALENA CANTU MD RHEUMATOL [facility] [address] [place] [address] 07/23/2021 08:05:52 07/23/2021 13:03:53 Pain in right knee [id number] 74612 M25.561 Symptomati c right knee joint, advanced [...] knee replacemen t surgery. Long-term drug therapy [id number] Z79.899 high-risk medication s. Labs every 3 months.Lab s are repeated. TPMT enzyme activity obtained in anticipati on of Imuran. 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 He has done [...] Follow-up with me in couple of months. [id number] MAGDALENA CANTU MD [facility]OL [facility] [address] [place] [address] 10/22/2021 07:33:37 10/22/2021 13:06:31 Long-term drug therapy [id number] Z79.899 66-year-ol d gentleman on high risk medication including methotrexa te and Imuran. labs every 3 months.Lab s are repeated. 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 He did very [...] Follow-up with me in couple of months. [id number] MAGDALENA CANTU MD R[facility]ATOL [facility] [address] [place] [address] 02/24/2022 07:41:09 02/24/2022 14:00:08 Long-term drug therapy [id number] Z79.899 66-year-ol d gentleman on high risk medication including methotrexa te and Imuran. labs every 3 months.Lab s are repeated. 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 Is now on [...] Benign pro static hyperplasia with outflow obstruction [id number] N40.1 History of BPH with changes in the urine stream. Has not done PSA recently I suggested him to repeat a PSA and we will schedule him to see a urologist. [id number] MAGDALENA CANTU MD RHEUMATOL [facility] [address] [place] [address] 07/22/2022 08:16:06 07/26/2022 11:25:05 Long-term drug therapy [id number] Z79.899 67-year-ol d gentleman on high risk medication including methotrexa te and Imuran. labs every 3 months.Lab s are repeated. 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 He is now [...] per KG body weight 8 weeks 0 2 6 as a loading dose and then a maintenanc e dose at 5 Mg per KG body weight.Pre medication with a loading dose Tylenol 1 g, Benadryl 50 mg and Solu-Medro l 60 mg.Premedi cation with maintenanc e dose Tylenol 1 g and Benadryl 25 mg. Follow-up with me in one month Fatigue [id number] R53.83 Chronic multifacto rial.Obtai n labs, hep panel toComplete the work-up [id number] [facility] APRN [facility]OL [facility] [address] [place] [address] 08/19/2022 10:23:26 08/24/2022 15:49:10 Long-term drug therapy [id number] Z79.899 67-year-ol d gentleman on high risk medication including methotrexa te and Imuran. 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 He is now [...] is scheduled for Remicade infusion on 08/27/22 Adalgisa PA for Remicade at 3 Mg per KG body weight 8 weeks 0 2 6 as a loading dose and then a maintenanc e dose at 5 Mg per KG body weight.Pre medication with a loading dose Tylenol 1 g, Benadryl 50 mg and Solu-Medro l 60 mg.Premedi cation with maintenanc e dose Tylenol 1 g and Benadryl 25 mg. 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 He is now [...] 120 mg to help the flares.Obt niko RICARDO for Remicade at 3 Mg per KG body weight 8 weeks 0 2 6 as a loading dose and then a maintenanc e dose at 5 Mg per KG body weight.Pre medication with a loading dose Tylenol 1 g, Benadryl 50 mg and Solu-Medro l 60 mg.Premedi cation with maintenanc e dose Tylenol 1 g and Benadryl 25 mg. 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 He is now [...] per KG body weight 8 weeks 0 2 6 as a loading dose and then a maintenanc e dose at 5 Mg per KG body weight.Pre medication with a loading dose Tylenol 1 g, Benadryl 50 mg and Solu-Medro l 60 mg.Premedi cation with maintenanc e dose Tylenol 1 g and Benadryl 25 mg. 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 He is now on the combinatio n of methotrexa te and Imuran. As mentioned in the last notes, on account of cost we had to stop the Rinvoq extended release. Currently on Remicade infusions without adverse side effects. 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 He is now [...] per KG body weight 8 weeks 0 2 6 as a loading dose and then a maintenanc e dose at 5 Mg per KG body weight.Pre medication with a loading dose Tylenol 1 g, Benadryl 50 mg and Solu-Medro l 60 mg.Premedi cation with maintenanc e dose Tylenol 1 g and Benadryl 25 mg. 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 He is now [...] stable. Osteoarthr itis of left knee joint [id number] 17470 M17.12 Symptomati c left knee joint. Positive joint line tenderness with medial lateral joint line. Positive crepitus. Minimal synovitis. Unfortunat amna very symptomati c and discomfort . Local cares have not helped. Using ice applicatio n regularly. Today the left knee is given intra-sy cular steroid injection without complicati ons. Pes anseri nus bursitis of right knee [id number] 597758 M70.51 He is status post right knee replacemen t. However has persistent pain and discomfort involving the Pez anserine bursa. He has failed conservati ve care including ice applicatio n stretching for the last few months. Today the past anserine bursa is given a steroid injection without complicati on. 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 He is now [...] Labs dated 10/21/2022 reviewed and fairly stable. 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 He is now [...] sent. Osteoarthr itis of left knee joint [id number] 17735 M17.12 Symptomati c left knee joint.Mode rately advanced disease.On account of his pain, discomfort the left knee is given intra-sy cular steroid injection. Further prescripti on for topical compound gel sent to the pharmacy. Ultimately , he would need left knee arthroplas ty. Pes anseri nus bursitis of right knee [id number] 874674 M70.51 Chronic recurrent right pes anserine bursitis. Post steroid injection modest benefit. Suggested local care ice heat. Further prescribed topical compound gel for symptomati c relief. 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 He is now [...] e to injections . Prescripti on sent. 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 He is now [...] e to injections . Prescripti on sent. 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 He is now on the combinatio n of methotrexa te and Remicade infusion therapy, tolerating it well. Some activity of the disease specially in the left hand second and third MCP as well as left second PIP, some activity in the right second and third MCP joint. Limited left hand legal document assistant strength. Right hand legal document assistant strength is fairly stable. No active nodules. [...] updated. Long-term current use of immunosuppressive drug [id number] Z79.60 Lab studies 06/02/2023, normal ESR/CRP. Normal AST and ALT. GFR normal at 102 mL/min. TB test up-to-date March 2023. Repeat in March 2024. 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 He is now on the combinatio n of methotrexa te and Remicade infusion therapy, tolerating it well.Sympt omatic left knee joint otherwise rest of the joints are fairly stable. Some chronic limitation in the left legal document assistant strength. Cardiopulm onary semination is physiologi c. [...] helped his liver enzymes.Me d list updated. 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 He is now on the combinatio n of methotrexa te and Remicade infusion therapy, tolerating it well.Sympt omatic left knee joint otherwise rest of the joints are fairly stable. Some chronic limitation in the left legal document assistant strength. Cardiopulm onary semination is physiologi c. [...] which seems to have helped his liver enzymes.Pr d list updated. Long-term current use of immunosuppressive drug 242168727 Z79.60 Lab studies 06/02/2023, normal ESR/CRP. Normal AST and ALT. GFR normal at 102 mL/min. TB test up-to-date March 2023. Repeat in March 2024. Synovitis of joint of left knee 0238361399 4854300 M65.862 Symptomati c secondary to rheumatoid arthritis. Today the left knee is given intra-sy cular steroid injection without complicati ons. 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 He is now [...] updated. Long-term current use of immunosuppressive drug [id number] Z79.60 09/22/23 labs including CBC, GFR and liver functions. All normal Synovitis of joint of left knee 6455600569 [id number] M65.862 Chronic recurrent and symptomati c. Combinatio n of both OA and RA. Today suggested IV Solu-Medro l in combinatio n with the Remicade and we decided to hold off on the intra-sy cular steroid injection. 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 He is now [...] helped his liver enzymes.Me d list updated. 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 He is now [...] updated. Long-term current use of immunosuppressive drug 851685579 Z79.60 09/22/23 labs including CBC, GFR and liver functions. All normal Synovitis of joint of left knee 2723759990 4474782 M65.862 Traumatic left knee. Unfortunat amna chronic and recurrent. He is trying to hold off on the knee replacemen t. Today the left knee is given intra-sy cular steroid injection. No complicati ons noted. Patient was given post care instructio ns. Pain of le ft shoulder joint [id number] M25.512 Left shoulder pain seems to be more from supraspina tus tendinopat hy and some AC osteoarthr itis. Negative drop arm test. Negative effusion. Does have positive empty can test. Suggested local massage therapy such as [place] balm to apply to the left shoulder at least twice a day. Range of motion exercises reviewed. 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 He is now [...] helped his liver enzymes.Me d list updated. 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 He is now [...] updated. Long-term current use of immunosuppressive drug 532029253 Z79.60 01/12/24 labsESR 20, CRP 0.60Creati nine, GFR normalAST, ALT normalCBC 13.7 hemoglobin . Recommende d to take 40mg iron supplement every other day. Synovitis of joint of left knee 0089661814 [id number] M65.862 Symptomati c left knee. Recurrent effusion and synovitis. Secondary to rheumatoid although there is a component of OA. Today the left knee is given intra-sy cular steroid injection. No complicati ons noted. Patient was given post care instructio ns. 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 He is now [...] helped his liver enzymes.Me d list updated. 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 He is now [...] helped his liver enzymes.Me d list updated. 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 He is now [...] 4-month Long-term current use of immunosuppressive drug 821026589 Z79.60 01/12/24 labsESR 20, CRP 0.60Creati nine, GFR normalAST, ALT normalCBC 13.7 hemoglobin . Recommende d to take 40mg iron supplement every other day. Synovitis of joint of left knee 0566420213 5335022 M65.862 Symptomati c left knee. Recurrent effusion and synovitis. Secondary to severe osteoarthr itis with superimpos ed rheumatoid . We are trying to avoid knee replacemen t. He is post right knee replacemen t. Today the left knee is given intra-sy cular steroid injection. No complicati ons noted. Patient was given post care instructio ns. Updated x-ray of left knee. 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 On the combinatio [...] 4-month Long-term current use of immunosuppressive drug 562646290 Z79.60 01/12/24 labsESR 20, CRP 0.60Creati nine, GFR normalAST, ALT normalCBC 13.7 hemoglobin . July 09, 2024 reviewed. 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 On the combinatio [...] Member ID Regalado Member ID Guarantor Name 09/30/2024 1 [employer] [id number] Bryant Bonds [id number] Bryant Bonds 10/10/2024 1 [id number] (MEDICARE REPLACEMENT/A DVANTAGE - PPO) Bryant Bonds [id number] Bryant Bonds Notes Date Note Type Note [...] is due on 07/09/2024 MAGDALENA CANTU MD [address] [place] [address], [phone], [facility] 07/03/2024 09:40:35 08/20/2024 text/html 69-year-old gentleman very [...] infusion is done today. MAGDALENA CANTU MD [address] [place] [address], [phone], [facility] 08/20/2024 15:50:32
--- OUTSIDE RECORDS SUMMARY | 2024-10-14 00:23 | XMS_ITS | Clinical Summary ---
Author Organization [employer] Address [address] [place] [address] Care Team Providers Care Bible Worker Name Role Phone Unavailable Primary Care Provider [...]
--- OUTSIDE RECORDS SUMMARY | 2024-10-14 00:24 | XMS_ITS | Continuity of Care Document ---
Author Organization [facility], RHEUMATOLOGY SB Address [address] [place] [address] Care Team Providers Care Chainstitch Felled Seam Operator Name Role Phone [id number] Thomas Primary Care Provider MAGDALENA CANTU Wax Engraver Assessment No assessment recorded. Plan of Treatment [...] 100 mg intraveno us solution [address] [facility], [address] [facility] [address], [place], [place], [id number], 08/20/2024 14:40:59 Patient TargetsNo targets recorded. Patient InstructionsNo instructions recorded. Reason for Referral None Reported. Problems No Known Problems Procedures Surgical History Date Name Laterality Status Provider Name and Address Organization Details Recorded Time 10/06/19 25 Remicade Infusion completed [facility] 10/05/2024 09:15:47 08/21/19 25 Remicade Infusion completed Aracely Kayricks [facility] 08/20/2024 14:31:08 07/10/19 25 Remicade Infusion completed [facility] 07/09/2024 10:54:46 07/03/19 25 Injection Joint/Bursa, Major, w/o US completed MAGDALENA CANTU MD [facility] [place], [address], [facility] 07/03/2024 09:38:50 05/28/19 25 Remicade Infusion completed [facility] 05/28/2024 12:01:37 04/06/20 24 Remicade Infusion completed [facility] 04/06/2024 08:53:00 03/15/20 24 Injection Joint/Bursa, Major, w/o US completed MAGDALENA CANTU MD [facility] [place], [address], [facility] 03/15/2024 12:34:32 02/24/20 24 Remicade Infusion completed [facility] 02/24/2024 12:12:59 01/12/20 24 Injection Joint/Bursa, Major, w/o US completed MAGDALENA CANTU MD [facility] [place], [address], [facility] 01/12/2024 12:58:03 01/12/20 24 Remicade Infusion completed [facility] 01/12/2024 09:33:19 11/17/19 24 Remicade Infusion completed Paulo Camarillo [facility] 11/17/2023 09:40:51 09/22/19 24 Injection Joint/Bursa, Major, w/o US completed MAGDALENA CANTU MD [address] [place], [address], [facility] 09/22/2023 08:32:32 09/22/19 24 Remicade Infusion completed Shashi Piotr [facility] 09/22/2023 09:24:57 07/28/19 24 Remicade Infusion completed Shashi Piotr [facility] 07/28/2023 09:49:14 06/02/19 24 Remicade Infusion completed [facility] 06/02/2023 12:09:58 04/07/20 23 Remicade Infusion completed [facility] 04/07/2023 11:31:24 03/03/20 23 Injection Joint/Bursa, Major, w/o US completed MAGDALENA CANTU MD [address] [place], [address], [facility] 03/03/2023 11:59:07 02/11/20 23 Remicade Infusion completed Paulo Camarillo [facility] 02/10/2023 12:22:47 12/17/19 23 Remicade Infusion completed [facility] 12/16/2022 12:18:00 12/03/19 23 Injection Joint/Bursa, Major, w/o US completed MAGDALENA CANTU MD [address] [place], [address], [facility] 12/02/2022 11:48:47 12/03/19 23 Injection Joint/Bursa, Second, Major completed MAGDALENA CANTU MD [address] [place], [address], [facility] 12/02/2022 11:49:53 10/22/19 23 Remicade Infusion completed [facility] 10/21/2022 13:08:33 09/10/19 23 Remicade Infusion completed [facility] 09/09/2022 10:55:34 08/28/19 23 Remicade Infusion completed [facility] 08/27/2022 12:09:41 04/16/20 21 Injection Joint/Bursa, Major, w/o US completed MAGDALENA CANTU MD [address] [place], [address], [facility] 04/16/2021 09:03:50 02/05/20 21 Injection Joint/Bursa, Major, w/o US completed MAGDALENA CANTU MD [address] [place], [address], [facility] 02/04/2021 08:54:38 11/05/19 21 Injection Joint/Bursa, Major, w/o US completed MAGDALENA CANTU MD [facility] [place], [address], [facility] 11/04/2020 08:38:34 08/07/19 21 Injection Joint/Bursa, Interm, w/o US completed MAGDALENA CANTU MD [facility] [place], [address], [facility] 08/06/2020 08:39:30 08/07/19 21 Injection Joint/Bursa, Major, w/o US completed MAGDALENA CANTU MD [facility] [place], [address], [facility] 08/06/2020 08:39:49 05/07/20 20 Injection Joint/Bursa, Interm, w/o US completed MAGDALENA CANTU MD [facility] [place], [address], [facility] 05/07/2020 10:36:34 05/07/20 20 Injection Joint/Bursa, Major, w/o US completed MAGDALENA CANTU MD [facility] [place], [address], [facility] 05/07/2020 10:36:11 02/05/20 20 Injection Joint/Bursa, Interm, w/o US completed MAGDALENA CANTU MD [address] [place], [address], [facility] 02/05/2020 16:19:36 02/05/20 20 Injection Joint/Bursa, Major, w/o US completed MD [place], [address], [facility] 02/05/2020 16:19:32 11/07/19 20 Injection Joint/Bursa, Interm, w/o US completed MAGDALENA CANTU MD [address] [place], [address], [facility] 11/07/2019 08:40:12 11/07/19 20 Injection Joint/Bursa, Major, w/o US completed MAGDALENA CANTU MD [address] [place], [address], [facility] 11/07/2019 08:40:05 11/07/19 20 Injection Joint/Bursa, Second, Intermediate completed MAGDALENA CANTU MD [address] [place], [address], [facility] 11/07/2019 08:40:35 07/11/19 20 Injection Joint/Bursa, Interm, w/o US completed MAGDALENA CANTU MD [address] [place], [address], [facility] 07/11/2019 08:36:01 04/10/20 19 Injection Joint/Bursa, Interm, w/o US completed MAGDALENA CANTU MD [address] [place], [address], [facility] 04/10/2019 08:47:22 12/15/19 19 Injection Joint/Bursa, Interm, w/o US completed MAGDALENA CANTU MD [address] [place], [address], [facility] 12/14/2018 09:04:11 12/15/19 19 Injection Joint/Bursa, Major, w/o US completed MAGDALENA CANTU MD [address] [place], [address], [facility] 12/14/2018 09:04:39 02/16/20 18 Skin Tag Removal completed Aissatou Wilson [facility] 02/15/2018 08:32:42 02/16/20 18 Destruction Premalignant Lesion(s) completed Aissatou Wilson [facility] 02/15/2018 08:27:15 Imaging Results None recorded. [...] 07/10 completed stopped 12/14/18 BS ref # [id number] no PA required Not Available Not [...] Updated DateTime 5 187.96 cm 37 kg/m2 069278. 7 g 97.9 [degF] 94 /min 16 /min 136 mm[Hg] 83 mm[Hg] Aracely Jim [facility] 12:37:56 Social History Question Answer Notes LastModified by Organizat ion Details LastModified Time Tobacco Smoking Status Never Smoker [facility] 10:37:10 How Much Tobacco Do You Chew? None Information not available 12/14/2018 What Was The Date Of Your Most Recent Tobacco Screening? 08/20/2024 [email or web address] Information not available 08/20/2024 How Much Tobacco Do You Smoke? No Information not available 12/14/2018 Has Tobacco Cessation Counseling Been Provided? No Information not available 12/14/2018 On What Date Was Tobacco Cessation Counseling Provided? 08/06/2020 [email or web address] Answered No To The Tobacco Cessation Counseling Provided Question On 12/14/2018. [email or web address] Information not available 08/06/2020 How Many Years [...] Organization Details LastModified Time Father Hypertensive disorder [email or web address] Not available 07/10 10:37:03 Medical History Condition Response Emphysema N COPD N Arthritis Y Acid Reflux (GERD) Y Rheumatoid Arthritis Y Bleeding Disorder N Asthma N Diabetes N Heart Disease N Hypertension Y Immunizations Vaccine Type Date Status Note Provider Nam e and Address Organization Details Recorded Time Hep A, adult 12/07/2018 completed Marcelohuy Gagnono [facility] 12/14/2018 08:21:28 Hep A, adult 07/07/2018 completed Marcelohuy Gagnono [facility] 12/14/2018 08:22:13 Past Encounters Encounter ID Performer Location Encounter Start Date Encounter Closed Date Diagnosis/Indication Diagnosis SNOMED-CT Code Diagnosis ICD10 Code Diagnosis Note [id number] MAGDALENA CANTU MD [facility] [address] [place] [address] 08/20/2024 12:12:04 08/20/2024 14:36:36 Seropositive rheumatoid arthritis 597744043 M05.79 [id number] MAGDALENA CANTU MD [facility] [address] [place] [address] 08/20/2024 13:29:40 08/21/2024 15:32:36 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 On the combinatio [...] 4-month Long-term current use of immunosuppressive drug 947387416 Z79.60 01/12/24 labsESR 20, CRP 0.60Creati nine, [...] [employer] (MEDICARE REPLACEMENT/A DVANTAGE - PPO) Bryant A Vamshi [id number] Bryant Bonds Notes Date Note Type Note [...] infusion is done today. MAGDALENA CANTU MD [address] [place], [address], [facility] 08/20/2024 15:50:32
[2024-10-14] MEDS: IOPAMIDOL-370 (76%);100ML BOTTLE 160 ML IV (00:38)
[2024-10-14] MEDS: SODIUM CHLORIDE 0.9% 10ML SYR (RAD ONLY) 10 ML IV (00:38)
[2024-10-14] MEDS: 0.9 % SODIUM CHLORIDE 50 ML VIAL IV (00:38)
[2024-10-14 01:58] LABS: Alanine Aminotransferase 21 U/L (12-78); Albumin Level 3.8 g/dl (3.5-5.0); Albumin/Globulin Ratio 1.2 (1.1-1.8); Alkaline Phosphatase 88 U/L (38-126); Anion Gap 11.2 mEq/L (5-15); Aspartate Amino Transferase 31 U/L (17-59); Bilirubin,Total 0.8 mg/dl (0.2-1.3); Blood Urea Nitrogen 18 mg/dl (9-20); Calcium 8.4 mg/dl (8.4-10.2); Carbon Dioxide 22 mmol/L (22.0-30.0); Chloride 98 mmol/L (98-107); Creatinine Clearance Estimated 129 mL/min (50-200); Estimated Glomerular Filt Rate 96 ml/min (>60); GFR (African American) 116 ML/MIN (>60); Globulin 3.1 g/dL (1.3-3.2); Glucose 107 mg/dl (74-100); Potassium 4.2 mmoL/L (3.5-5.1); Sodium 127 mmol/L (136-145); Total Protein,Serum 6.9 g/dl (6.3-8.2)
[2024-10-14 02:12] LABS: Troponin I < 0.01 ng/ml (0.00-0.034)
[2024-10-14 02:14] LABS: Activated Partial Thrombo Time 21.7 seconds (22.8-30.6); INR 0.98 (0.9-1.1); Prothrombin Time 10.9 seconds (10.1-12.5)
--- NOTE | 2024-10-14 02:33 | PC.NURSE ---
Pt family reporting that pt has began to hiccup with an increase in pain, pillow given for patient to squeeze to attempt to alleviate pain. Pt gcs 15, NAD noted, RR even and non labored, skin pwd.
--- NOTE | 2024-10-14 02:45 | PC.NURSE ---
ED provider at the bedside to update pt on POC.
[2024-10-14] MEDS: LIDOCAINE 5% TRANSDERMAL PATCH 1 EACH TD (02:49)
--- NOTE | 2024-10-14 03:03 | PC.NURSE ---
Report given to JORGE larios at ED
== END 2024-10-14 03:52 | disposition short-term general hospital (02) ==
PROVIDERS: Emergency Provider Emergency Medicine; PCP Internal Medicine
DX: S29.8XXA Other specified injuries of thorax, initial encounter (principal); I31.39 Other pericardial effusion (noninflammatory); E87.1 Hypo-osmolality and hyponatremia; R07.89 Other chest pain; W10.8XXA Fall (on) (from) other stairs and steps, initial encounter
CPT/HCPCS: 36415; 70450; 70496; 70498; 71045; 71275; 72125; 72128; 72131; 72170; 73562; 73590; 74174; 80053; 84484; 85025; 85610; 85730; 93005; 96374; 96375; 96376; 99291; J2270; J2405; Q9967

== ENCOUNTER 2024-12-03 08:55 | Outpatient (CLI) | payer MEDICARE, SELFPAY ==
--- OUTSIDE RECORDS SUMMARY | 2024-10-14 04:43 | XMS_ITS | Encounter Summary ---
Author Organization Healthcare Address [address] [place] [address] Care Team Providers Care Substance Abuse Prevention Coordinator Name Role Phone Pcp, No Primary Care Provider Unavailabl e Reason for Referral * Consultation (Urgent) - Authorized Specialty Diagnoses / Procedures Referred By Angy t Referred To Contact Cardiology Diagnoses Contusion of chest wall, unspecified laterality, initial encounter Fantasma Mccurdy MD [address] [place] [phone] Phone: tel: fax: Referral ID Status Reason Start Date Expiration Date Visits Requested Visits Authorized [id number] Authorized Specialty Services Required 10/14/2024 04/15/2026 1 1 Reason for Visit * Reason Comments Trauma Alert Encounter Details Date Type Department Care Team ([facility] st Contact Info) Description 10/14/2024 4:43 AM EDT - 10/14/2024 6:51 AM EDT Emergency [facility] Emergency Department [address] [place] [address] Fantasma Mccurdy MD [address] [place] [phone] Contusion of chest wall, unspecified laterality, initial encounter (Primary Dx) Discharge Disposition: Home or Self Care Social History Tobacco Use Types Packs/Day Years Used Date Smoking Tobacco: Never Assessed Sex and Gender Information Value Date Recorded Sex Assigned at Not on file Legal Sex Male 8:42 PM EDT Gender Identity Male 10/17/2024 2:22 PM EDT Sexual Orientation Not on file documented as of this encounter Last Filed Vital Signs Vital Sign Reading Time Taken Comments Blood Pressure 110/49 10/14/2024 6:30 AM EDT Pulse 81 10/14/2024 6:30 AM EDT Temperature 36.6 C (97.9 F) 10/14/2024 4:48 AM EDT Respiratory Rate 16 10/14/2024 6:30 AM EDT Oxygen Saturation 91% 10/14/2024 6:30 AM EDT Inhaled Oxygen Concentration - - Weight 136 kg (299 lb 6.2 oz) 10/14/2024 4:47 AM EDT Height - - Body Mass Index - - documented in this encounter Functional Status * Calculated C-SSRS Risk Score (Lifetime/Recent) Answer Date of Assessment Author No Risk Indicated 10/14/2024 5:19 AM EDT Chiquita Esquivel RN * Question Answer Date of Assessment Author 1. Wish to be (Past 1 Month) No 025 5:19 AM EDT Chiquita Esquivel, RN 2. Non-Specific Active Suici jazmin Thoughts (Past 1 Month) No 10/14/2024 5:19 AM EDT Chiquita Esquivel RN 6. Suicidal Behavior (Lifetime) No 5:19 AM EDT Chiquita Esquivel, JORGE documented as of this encounter Discharge Instructions * Discharge Instructions* Usha Edmonds MD - 10/14/2024 6:38 AM EDT A referral was placed to cardiology for outpatient follow-up about the fluid around your heart. Please return to ED if your symptoms worsen, change in location, change in severity, new symptoms develop or if you become concerned for your health. documented in this encounter Miscellaneous Notes * Significant Event - Alexa Roberts MD - 10/14/2024 4:56 AM EDT I was present at the trauma activation. I have spoken with the EM physician. 69M fall on to a ceramic flower pot after drinking approximately 12 beers today. Patient is currently hemodynamically stable. eFAST equivocal, possible small volume pericardial fluid. OSH CT reports with 1cm non-traumatic pericardial effusion; no traumatic injuries. ATLS resuscitation is in process and I have assessed the need for immediate surgery. No acute surgical intervention indicated. Trauma/Surgical Critical Care will be available as needed. Alexa Roberts MD Pager: [phone] * ED Provider Notes - Usha Edmonds MD - 10/14/2024 4:43 AM EDT Images from the original note were not included. - HPI Chief Complaint Patient presents with Trauma Alert HPI Bryant Bonds is a 69 y.o. male presenting to the ED with chest wall trauma. Patient reports he had drank around 8-12 beers today when he was walking down several stairs and tripped down the final 3 landing with his chest on a concrete powder vase. Denies hitting head or loss of consciousness.Patient was ambulatory following the fall. He was taken to outside hospital where he obtained trauma imaging. CT head, C-spine and thoracic spine without acute traumatic injury. Of note, CT chest showed 1.1 cm pericardial effusion, specifically noted by radiology that it was likely nontraumatic butin the setting of acute trauma to chest wall, [facility] was contacted about transferring patient for further traumatic workup. Patient was subsequently sent to [facility] for higher-level care. On arrival, patient has reproducible chest wall tenderness to palpation but is hemodynamically stable. Patient History Past Medical History[1] Surgical History[2] Family History[3] Social History[4] Allergies: Allergies[5] Physical Exam ED Triage Vitals Temp Heart Rate Resp BP 10/14/247 10/14/245 10/14/24 0445 10/14/24444 36.6 ??C (97.9 ??F) 82 17 (!) 161/77 SpO2 Temp Source Heart Rate Source Patient Position 10/14/245 10/14/247 10/14/247 10/14/24446 94 % Oral Monitor Lying BP Location FiO2 (%) -- -- Physical Exam Vitals and nursing note reviewed. Constitutional: General: He is not in acute distress. Appearance: He is well-developed. HENT: Head: Normocephalic and atraumatic. Nose: Nose normal. Mouth/Throat: Mouth: Mucous membranes are moist. Eyes: Conjunctiva/sclera: Conjunctivae normal. Pupils: Pupils are equal, round, and reactive to light. Cardiovascular: Rate and Rhythm: Normal rate and regular rhythm. Pulses: Normal pulses. Heart sounds: Normal heart sounds. No murmur heard. Pulmonary: Effort: Pulmonary effort is normal. No respiratory distress. Breath sounds: Normal breath sounds. Comments: Small contusion to anterior chest wall with reproducible tenderness to palpation. Chest: Chest wall: Tenderness present. Abdominal: Palpations: Abdomen is soft. Tenderness: There is no abdominal tenderness. There is no guarding or rebound. Musculoskeletal: General: No swelling or deformity. Cervical back: Normal range of motion and neck supple. No tenderness. Comments: Skin tear to right anterior howe. No tenderness to palpation. BUE and BLE with normal ROMwithout pain. Skin: General: Skin is warm and dry. Capillary Refill: Capillary refill takes less than 2 seconds. Neurological: General: No focal deficit present. Mental Status: He is alert and oriented to person, place, and time. Psychiatric: Mood and Affect: Mood normal. [place] Coma Scale Score: 15 ED Course & MDM - Assessment: 69 y.o. male presents to ED with complaint of chest wall pain after fall. It should be noted that the chronic conditions includes rheumatoid arthritis and fatty liver disease, which currently is not at goal therapy. This complicates the clinical picture because it Comorbidities: may be exacerbatingsymptoms Differential Diagnosis: Blunt cardiac injury, sternal fracture, contusion, pneumothorax In order to fully explore the differential diagnosis the following treatments and tests were ordered: ED Medication Administration from 10/14/2024 0256 to 10/15/2024 0940 Date/Time Order Dose Route Action 10/14/2024 06 EDT morphine PF 4 mg 4 mg Intravenous Given 10/14/2024605 EDT ondansetron (Zofran) injection 4 mg 4 mg Intravenous Given All Other Orders Ordered Status Ordering Provider 10/14/24 0602 PROCEDURE ONCE Canceled USHA EDMONDS 10/14/24 0638 Once Specialty: Cardiology Provider: (Not yet assigned) Canceled USHA EDMONDS 10/14/24 0519 XR Pelvis 1 or 2 Views Once Final result USHA EDMONDS 10/14/24 0519 XR Chest 1 View One time imaging Final result USHA EDMONDS 10/14/24 0513 Troponin T, High Sensitivity, 0 Hour Plasma, Reflex to 2 Hour STAT Final result USHA EDMONDS 10/14/24 0513 ECG Adult Once Final result USHA EDMONDS 10/14/24 0513 CBC and Differential STAT Final result USHA EDMONDS 10/14/24 0639 Discharge Ambulatory referral to Cardiology Ordered USHA EDMONDS ED Course as of 10/15/24 0940 Sun Oct 14, 2024 05 ECG Adult EKG, interpreted by me, shows no acute ST-elevation or T-wave inversions. Ventricular rate 81. [MARNI] 0621 Troponin T, High Sensitivity, 0 Hour: 6 WNL. In the setting of his recent chest trauma, if reported effusion was related to blunt cardiac trauma would expect elevated troponin in time since injury [MARNI] ED Course User Index [MARNI] Usha Edmonds MD Clinical Impressions as of 10/15/24 0940 Contusion of chest wall, unspecified laterality, initial encounter Social Determinates of Health Risks (including Economic Stability, Education and level of understanding, Healthcare access and quality and concerning social factors): None identified on this visit I maging from outside hospital did not show acute intracranial injury or fracture of head. Cervical and thoracic spine CT exams did not show any acute fracture either. CT imaging of the chest wall showed 1.1 cm pericardial effusion, radiology noted that it is likely nontraumatic. Patient will be given referral to Cardiology for formal echo but it is likely not associated with his traumatic injury today. Had had an interactive discussion with patient and family about his reassuring laboratory and imaging workup. Discussed possible etiologies of the patient's pericardial effusion and likely chronicity. Patient states his pain should be well-controlled at home with his previously prescribed [place] and Tylenol. Discussed ensuring that he does not take excessive amounts of Tylenol given both those medications are acetaminophen containing. He expressed understanding. He was able to tolerate oralintake and ambulate prior to discharge. He was given strict return precautions and expresses understanding. Ultimately, this patient was Was discharged Home (Discharge) The encounter diagnosis was Contusion of chest wall, unspecified laterality, initial encounter. . Patient was counseled on the diagnoses. Discharge medications if any are listed below. Listed medications are thought be either curative for listed diagnoses or will help control ongoing symptoms. Patient is requested to follow up with Patient's Primary Care Provider in order to obtain routine follow-up. Instructions on follow up as well as precautions to return to the ER provided verbally by the EM provider, as well as written in patients discharge education packet. ED Prescriptions None Discharge Instructions A referral was placed to [facility] for outpatient follow-up about the fluid around your heart. Please return to ED if your symptoms worsen, change in location, change in severity, new symptoms develop or if you become concerned for your health. Disposition Discharge AVS (Swedish Snapshot) - Printed 10/14/2024 Discharge Orders Discharge Ambulatory referral to [facility] Authorized - [1] No past medical history on file. [2] No past surgical history on file. [3] No family history on file. [4] [5] No Known Allergies Usha Edmonds MD Resident 10/15/24 0940 Cosigned by Fantasma Mccurdy MD at 10/17/2024 12:31 AM EDT Associated attestation - Fantasma Mccurdy MD - 10/17/2024 12:31 AM EDT I saw and evaluated the patient with the resident/fellow. I discussed the case with the resident/fellow and agree with the findings and plan as documented. * ED Triage Notes - Chiquita Esquivel RN - 10/14/2024 4:43 AM EDT Pt presents to the Er transfer from [facility] for a fall that caused pleural effusion and skin tear to right knee. 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 GCS 15, Aox4 No loc, -Negative blood thinner, Denies any head trauma. Received 8mg morphine,4mg Zofran, and lidopatch . * Consults - Umer Hackett - 10/14/2024 4:37 AM EDT Pastoral Care Note Practice Or Student Teacher responded to trauma alert. Patient was being tended to be medical staff, and there was no family present at this time. Referral From: Ancillary services Pastoral Care Provided For: Patient Patient Profile: Consult Reasons: Trauma alert Unable to Assess: Medical status, No family present at this time Interventions: Interventions Provided: Consulted with care team Pastoral Care Outcomes: Patient Outcomes: Unable to Assess documented in this encounter Plan of Treatment Upcoming Encounters Date Type Department Care Team (Late st Contact Info) Description 12/21/2024 8:45 AM EDT Office Visit [facility] [address], [address] [place] [address] Sancho Menon, DO [address] [place] [address] Scheduled Referrals Name Type Priority Associated Diagnoses Orde r Schedule Discharge Ambulatory referral to Cardiology Outpatient Referral Routine Contusion of chest wall, unspecified laterality, initial encounter Expected: 10/14/2024 (Approximate), Expires: 04/17/2026 documented as of this encounter Procedures Procedure Name Priority Date/Time Associated Diagnosis Comments ECG ADULT STAT 10/14/2024 5:39 AM EDT XR PELVIS 1 OR 2 VIEWS STAT 10/14/2024 5:21 AM EDT XR CHEST 1 VIEW STAT 10/14/2024 5:21 AM EDT TROPONIN T, HIGH SENSITIVITY, 0 HOUR, PLASMA, REFLEX TO 2 HOUR STAT 10/14/2024 5:15 AM EDT CBC WITH AUTO DIFFERENTIAL STAT 10/14/2024 5:15 AM EDT documented in this encounter Results * ECG Adult (10/14/2024 5:39 AM EDT) EKG DIAGNOSIS CLASS Abnormal MUSE ECG Ventricular Rate 81 BPM MUSE ECG Atrial Rate 81 BPM MUSE ECG CO Interval 228 ms MUSE ECG QRSD Interval 96 ms MUSE ECG QT Interval 378 ms MUSE ECG QTC Interval 439 ms MUSE ECG P [place] 84 degrees MUSE ECG R [place] -15 degrees MUSE ECG T Wave [place] 34 degrees MUSE ECG Diagnosis Sinus rhythm with 1st degree AV block MUSE ECG Diagnosis RSR' V1, is likely a normal variant MUSE ECG Diagnosis Abnormal ECG MUSE ECG Diagnosis MUSE ECG Diagnosis MUSE ECG Diagnosis Confirmed by Bright Stanton ([id number]) on 10/14/2024 11:53:19 AM MUSE ECG 10/14/2024 5:39 AM EDT 10/14/2024 11:53 AM EDT us Fantasma Mccurdy MD ECG ORDERABLES Final Result MUSE ECG * XR Pelvis 1 or 2 Views (10/14/2024 5:21 AM EDT) Anatomical Region Laterality Modality Body, Pelvis Digital Radiogra phy Impressions 10/14/2024 5:49 AM EDT No overt acute osseous abnormality of the pelvis. CRITICAL RESULT: No. COMMUNICATION: Per this written report. Preliminary report signed by Asad Talamantes MD on 10/14/2024 5:31 AM By electronically signing this report, I, the attending physician, attest that I have personally reviewed the images/data for the above examination(s) and agree with the final edited report. Drafted by Asad Talamantes MD on 10/14/2024 5:29 AM Final report signed by Paulo Lucas MD on 10/14/2024 5:49 AM Narrative 10/14/2024 5:49 AM EDT CLINICAL INDICATION: fall down stairs TECHNIQUE: XR PELVIS 1 OR 2 VIEWS COMPARISON: None. FINDINGS: No acute fracture or dislocation. Sacroiliac joints, hip joints, and pubic symphysis are intact. Degenerative change of L5 on S1. Contrast within the urinary bladder. Nonobstructive bowel gas pattern. Procedure Note Paulo Lucas MD - 10/14/2024 CLINICAL INDICATION: fall down stairs TECHNIQUE: XR PELVIS 1 OR 2 VIEWS COMPARISON: None. FINDINGS: No acute fracture or dislocation. Sacroiliac joints, hip joints, and pubicsymphysis are intact. Degenerative change of L5 on S1. Contrast within theurinary bladder. Nonobstructive bowel gas pattern. IMPRESSION: No overt acute osseous abnormality of the pelvis. CRITICAL RESULT: No. COMMUNICATION: Per this written report. Preliminary report signed by Asad Talamantes MD on 10/14/2024 5:31 AM By electronically signing this report, I, the attending physician, attestthat I have personally reviewed the images/data for the aboveexamination(s) and agree with the final edited report. Drafted by Asad Talamantes MD on 10/14/2024 5:29 AM Final report signed by Paulo Lucas MD on 10/14/2024 5:49 AM Fantasma Mccurdy MD IMG XR PROCEDURES Final Resul t * XR Chest 1 View (10/14/2024 5:21 AM EDT) Anatomical Region Laterality Modality Chest Digital Radiogra phy Impressions 10/14/2024 5:49 AM EDT Perihilar opacities with vascular crowding secondary due to atelectasis. Mild pulmonary vascular congestion present. CRITICAL RESULT: No. COMMUNICATION: Per this written report. Preliminary report signed by Asad Talamantes MD on 10/14/2024 5:28 AM By electronically signing this report, I, the attending physician, attest that I have personally reviewed the images/data for the above examination(s) and agree with the final edited report. Drafted by Asad Talamantes MD on 10/14/2024 5:23 AM Final report signed by Paulo Lucas MD on 10/14/2024 5:49 AM Narrative 10/14/2024 5:49 AM EDT CLINICAL INDICATION: acute chest trauma TECHNIQUE: XR CHEST 1 VIEW COMPARISON: None. FINDINGS: Cardiac silhouette is enlarged. Mediastinal contours are within normal limits. Perihilar opacities with pulmonary vascular congestion. No significant pleural effusions. No pneumothorax. Left-sided posterior, probably old rib fracture. Procedure Note Paulo Lucas MD - 10/14/2024 CLINICAL INDICATION: acute chest trauma TECHNIQUE: XR CHEST 1 VIEW COMPARISON: None. FINDINGS: Cardiac silhouette is enlarged. Mediastinal contours are within normallimits. Perihilar opacities with pulmonary vascular congestion. Nosignificant pleural effusions. No pneumothorax. Left-sided posterior,probably old rib fracture. IMPRESSION: Perihilar opacities with vascular crowding secondary due to atelectasis. Mild pulmonary vascular congestion present. CRITICAL RESULT: No. COMMUNICATION: Per this written report. Preliminary report signed by Asad Talamantes MD on 10/14/2024 5:28 AM By electronically signing this report, I, the attending physician, attestthat I have personally reviewed the images/data for the aboveexamination(s) and agree with the final edited report. Drafted by Asda Talamantes MD on 10/14/2024 5:23 AM Final report signed by Paulo Lucas MD on 10/14/2024 5:49 AM Fantasma Mccurdy MD IMG XR PROCEDURES Final Resul t * (ABNORMAL) CBC and Differential (10/14/2024 5:15 AM EDT) WBC Count 11.04(H) 3.70 - 10.30 10*3/uL LAB HEMATOLOGY METHOD 10/14/2024 5:20 AM EDT [facility] RBC Count 4.06(L) 4.60 - 6.10 10*6/uL LAB HEMATOLOGY METHOD 10/14/2024 5:20 AM EDT [facility] HGB 13.6(L) 13.7 - 17.5 g/dL LAB HEMATOLOGY METHOD 10/14/2024 5:20 AM EDT [facility] HCT 39.5(L) 40.0 - 51.0 % LAB HEMATOLOGY METHOD 10/14/2024 5:20 AM EDT [facility] Platelet Count 247 155 - 369 10*3/uL LAB HEMATOLOGY METHOD 10/14/2024 5:20 AM EDT [facility] MCV 97 79 - 98 fL LAB HEMATOLOGY METHOD 10/14/2024 5:20 AM EDT [facility] MCH 33.5(H) 26.0 - 32.0 pg LAB HEMATOLOGY METHOD 10/14/2024 5:20 AM EDT [facility] MCHC 34.4 30.7 - 35.5 g/dL LAB HEMATOLOGY METHOD 10/14/2024 5:20 AM EDT [facility] RDW 13.9 11.5 - 14.5 % LAB HEMATOLOGY METHOD 10/14/2024 5:20 AM EDT [facility] MPV 9.2 8.8 - 12.5 fL LAB HEMATOLOGY METHOD 10/14/2024 5:20 AM EDT [facility] nRBC 0.0 <=0.0 per 100 WBCs LAB HEMATOLOGY METHOD 10/14/2024 5:20 AM EDT [facility] Differential Type Automated LAB HEMATOLOGY METHOD 10/14/2024 5:20 AM EDT [facility] Neutrophils % 75 % LAB HEMATOLOGY METHOD 10/14/2024 5:20 AM EDT [facility] Lymphocytes % 18 % LAB HEMATOLOGY METHOD 10/14/2024 5:20 AM EDT [facility] Monocytes % 6 % LAB HEMATOLOGY METHOD 10/14/2024 5:20 AM EDT [facility] Eosinophils % 0 % LAB HEMATOLOGY METHOD 10/14/2024 5:20 AM EDT [facility] Basophils % 0 % LAB HEMATOLOGY METHOD 10/14/2024 5:20 AM EDT [facility] Immature Granulocytes % 1 % LAB HEMATOLOGY METHOD 10/14/2024 5:20 AM EDT [facility] Neutrophils Absolute 8.28(H) 1.60 - 6.10 10*3/uL LAB HEMATOLOGY METHOD 10/14/2024 5:20 AM EDT [facility] Lymphocytes Absolute 1.97 1.20 - 3.90 10*3/uL LAB HEMATOLOGY METHOD 10/14/2024 5:20 AM EDT [facility] Monocytes Absolute 0.68 0.30 - 0.90 10*3/uL LAB HEMATOLOGY METHOD 10/14/2024 5:20 AM EDT [facility] Eosinophils Absolute 0.03 0.00 - 0.50 10*3/uL LAB HEMATOLOGY METHOD 10/14/2024 5:20 AM EDT [facility] Basophils Absolute 0.03 0.00 - 0.10 10*3/uL LAB HEMATOLOGY METHOD 10/14/2024 5:20 AM EDT [facility] Immature Granulocytes Absolute 0.05 0.00 - 0.06 10*3/uL LAB HEMATOLOGY METHOD 10/14/2024 5:20 AM EDT [facility] Blood Venous blood specimen / Unknown Venipuncture / Unknown 10/14/2024 5:15 AM EDT 10/14/2024 5:17 AM EDT Narrative [facility] - 10/14/2024 5:20 AM EDT Therapeutic decision making should be based on absolute values, rather than percentages. Fantasma Mccurdy MD LAB BLOOD ORDERABLES Final Re sult Performing Organization Address City/[facility]/ZIP Co de Phone Number [facility] [address] [place] [address] * Troponin T, High Sensitivity, 0 Hour Plasma, Reflex to 2 Hour (10/14/2024 5:15 AM EDT) Troponin T, High Sensitivity, 0 Hour 6 <19 ng/L 10/14/2024 6:02 AM EDT [facility] Blood Venous blood specimen / Unknown Venipuncture / Unknown 10/14/2024 5:15 AM EDT 10/14/2024 5:34 AM EDT Fantasma Mccurdy MD LAB BLOOD ORDERABLES Final Re sult [facility] [address] [place] [address] documented in this encounter Visit Diagnoses Diagnosis Contusion of chest wall, unspecified laterality, initial encounter- Primary documented in this encounter Administered Medications Inactive Administered Medications - up to 3 most recent administrations Medication Order MAR Action Action Date Dose Rate Site morphine PF 4 MG/ML - Pyxis Override Pull 1 dose, Starting on 10/14/24 at 0603, Until 10/14/24 at 06 morphine PF 4 mg 4 mg, Intravenous, Once, 1 dose, On 10/14/24 at 0540, STAT Given 10/14/2024 6:06 AM EDT 4 mg ondansetron (Zofran) 4 MG/2ML injection - Pyxis Override Pull 1 dose, Starting on 10/14/24 at 0603, Until 10/14/24 at 0606 ondansetron (Zofran) injection 4 mg 4 mg, Intravenous, Once, 1 dose, On 10/14/24 at 0540, STAT Given 10/14/2024 6:06 AM EDT 4 mg documented in this encounter Active and Recently Administered Medications Times are shown in EDT. Scheduled Medication Order 10/12/2024 10/13/2024 10/14/2024 morphine PF 4 mg (COMPLETED) 4 mg, Intravenous, Once, 1 dose, On 10/14/24 at 0540, STAT 0606 (Given - Provid er: Chiquita Esquivel RN) ondansetron (Zofran) injection 4 mg (COMPLETED) 4 mg, Intravenous, Once, 1 dose, On 10/14/24 at 0540, STAT 0606 (Given - Provid er: Chiquita Esquivel RN) documented in this encounter Care Teams Substance Abuse Prevention Coordinator Relationship Specialty Start Date End Date Pcp, No [address] [place] [address] PCP - General Family Medicine 10/14/24 documented as of this encounter
[2024-12-03 14:35] LABS: Anion Gap 12.1 mEq/L (5-15); Blood Urea Nitrogen 25 mg/dl (9-20); Calcium 9.6 mg/dl (8.4-10.2); Carbon Dioxide 27 mmol/L (22.0-30.0); Chloride 103 mmol/L (98-107); Creatinine,Serum 0.70 mg/dl (0.66-1.25); Estimated Glomerular Filt Rate 112 ml/min (>60); GFR (African American) 136 ML/MIN (>60); Glucose 103 mg/dl (74-100); Potassium 5.1 mmoL/L (3.5-5.1); Sodium 137 mmol/L (136-145)
--- OUTSIDE RECORDS SUMMARY | 2024-12-04 15:20 | XMS_ITS | Continuity of Care Document ---
Author Organization [facility], RHEUMATOLOGY SB Address [address] [place] [address] Care Team Providers Care Plane Captain Name Role Phone XAVI ESCOBAR Primary Care Provider [phone] MAGDALENA CANTU Driving Teacher Assessment Encounter Date Assessment Date Assessment LastModified by Organization Details LastModified Time 11/15/2024 11/15/2024 69-year-old with rheumatoid arthritis. Follow-up visit: lori Not available 11/16/2024 08:42:24 Plan of Treatment Reminders Order Date Submit Date Provider Last Modified By Organization Details Last Modified Time Details Appointments IV INFUSION MIX 2024 08:00A M Pharmacy_ [...] Abnormal Flag Note LastModifiedBy Organization Detail LastModifiedTime 11/16/19 25 11/15/2024 COMPL ETE BLOOD COUNT white blood cells 7.7 10*3/ uL 3.8-10 .8 normal Not Available [facility] [address] [place] [address], [phone], 11/15/2024 08:13:09 11/16/1911/15/2024 COMPL ETE BLOOD COUNT red blood cells 4.31 10*6/ uL 4.20-5 .80 normal Not Available [facility] [address] [place] [address], [phone], 11/15/2024 08:13:09 11/16/19 25 11/15/2024 COMPL ETE BLOOD COUNT hemoglobin 14.4 g/dL 14.0-1 8.0 normal Not Available [facility] [address] [place] [address], [phone], 11/15/2024 08:13:11/16/1911/15/2024 COMPL ETE BLOOD COUNT hematocrit 41.5 % 40.0-5 2.0 normal Not Available [facility] [address] [place] [address], [address], 11/15/2024 08:13:11/16/1911/15/2024 COMPL ETE BLOOD COUNT MCV 96 fL 80-100 normal Not Available [facility] [address] [place] [address], [phone], 11/15/2024 08:13:11/16/1911/15/2024 COMPL ETE BLOOD COUNT MCH 33 pg 26-35 normal Not Available [facility] [address] [place] [address], [address], 11/15/2024 08:13:09 11/16/1911/15/2024 COMPL ETE BLOOD COUNT MCHC 35 g/dL 32-36 normal Not Available [facility] [address] [place] [address], [address], 11/15/2024 08:13:09 11/16/1911/15/2024 COMPL ETE BLOOD COUNT RDW 13.2 % 11.0-1 5.0 normal Not Available [facility] [address] [place] [address], [address], 11/15/2024 08:13:11/16/1911/15/2024 COMPL ETE BLOOD COUNT MPV 7.4 fL 6.2-10 .5 normal Not Available [facility] [address] [place] [address], [address], 11/15/2024 08:13:11/16/1911/15/2024 COMPL ETE BLOOD COUNT platelet count 222 10*3/ uL 150-40 0 normal Not Available [facility] [address] [place] [address], [address], 11/15/2024 08:13:11/16/1911/15/2024 COMPL ETE BLOOD COUNT neutrophil,a bsolute 6.0 10*3/ uL 1.6-8. 4 normal Not Available [facility] [address] [place] [address], [address], 11/15/2024 08:13:11/16/1911/15/2024 COMPL ETE BLOOD COUNT lymphocyte,a bsolute 1.2 10*3/ uL 0.4-5. 1 normal Not Available [facility] [address] [place] [address], [address], 11/15/2024 08:13:11/16/1911/15/2024 COMPL ETE BLOOD COUNT monocyte,abs olute 0.4 10*3/ uL 0.0-1. 2 normal Not Available [facility] [address] [place] [address], [address], 11/15/2024 08:13:11/16/1911/15/2024 COMPL ETE BLOOD COUNT eosinophil,a bsolute 0.0 10*3/ uL 0.0-0. 8 normal Not Available [facility] [address] [place] [address], [address], 11/15/2024 08:13:11/16/1911/15/2024 COMPL ETE BLOOD COUNT basophil,abs olute 0.0 10*3/ uL 0.0-0. 3 normal Not Available [facility] [address] [place] [address], [address], 11/15/2024 08:13:11/16/1911/15/2024 COMPL ETE BLOOD COUNT % neutrophils 77.9 % 42.0-7 8.0 normal Not Available [facility] [address] [place] [address], [address], 11/15/2024 08:13:11/16/1911/15/2024 COMPL ETE BLOOD COUNT % lymphocytes 16.0 % 11.0-4 7.0 normal Not Available [facility] [address] [place] [address], [address], 11/15/2024 08:13:11/16/1911/15/2024 COMPL ETE BLOOD COUNT % monocytes 5.7 % 0.0-11 .0 normal Not Available [facility] [address] [place] [address], [address], 11/15/2024 08:13:11/16/1911/15/2024 COMPL ETE BLOOD COUNT % eosinophils 0.2 % 0.0-7. 0 normal Not Available [facility] [address] [place] [address], [address], 11/15/2024 08:13:11/16/1911/15/2024 COMPL ETE BLOOD COUNT % basophils 0.2 % 0.0-3. 0 normal Not Available [facility] [address] [place] [address], [address], 11/15/2024 08:13:11/16/1911/15/2024 COMPL ETE BLOOD COUNT nucleated red cells 0.0 % 0.0-0. 9 normal Not Available [facility] [address] [place] [address] [place], [address], 11/15/2024 08:13:09 11/16/1911/15/2024 COMPL ETE BLOOD COUNT nucleated RBCs, absolute 0.00 10*3/ uL not estab. normal Not Available [facility] [address] [place], [address], 11/15/2024 08:13:09 11/16/1911/15/2024 CREAT ININE creatinine 0.72 mg/dL 0.70-1 .20 normal Not Available [facility] [address] [place], [address], 11/15/2024 08:25:14 11/16/1911/15/2024 ALT ALT 17 U/L 0-41 normal Not Available [facility] [address] [place], [address], 11/15/2024 08:25:16 11/16/1911/15/2024 GFR ESTIM ATE eGFR 99 >= 60 normal NOT E New calcu latio n for GFR (CKD- EPI 2020) is formu lated witho ut race adjus tment facto rs at the recom menda tion of the [employer] and Ameri can [place] of Nephr ology . This calcu latio n has not been valid ated in pregn ant women . For pedia tric patie nts refer to https ://jaxson love.o rg/pr gato oleary s/EDYO QI/gf r_cal culat orPed Not Available [facility] [address] [place], [address], 11/15/2024 08:25:19 11/16/1911/15/2024 AST AST 15 U/L 0-40 normal Not Available [facility] [address] [place], [address], 11/15/2024 08:25:20 11/16/19 25 11/15/2024 ESR, AUTOM ATED ESR, automated 28 mm 0-19 high Not Available [facility] [address] [place], [address], 11/15/2024 11:07:43 Result Notes None recorded. Problems No Known Problems Procedures Surgical History Date Name Laterality Status Provider Name and Address Organization Details Recorded Time 11/16/19 25 Injection Joint/Bursa, Major, w/o US completed MAGDALENA CANTU MD [address] [place], [address], [facility] 11/16/2024 08:42:14 11/16/19 25 Remicade Infusion completed Aracely [facility] 11/15/2024 09:46:56 10/06/19 25 Remicade Infusion completed [facility] 10/05/2024 09:15:47 08/21/19 25 Remicade Infusion completed Aracely [facility] 08/20/2024 14:31:08 07/10/19 25 Remicade Infusion completed [facility] 07/09/2024 10:54:46 07/03/19 25 Injection Joint/Bursa, Major, w/o US completed MAGDALENA CANTU MD [facility] [place], [address], [facility] 07/03/2024 09:38:50 05/28/19 25 Remicade Infusion completed [facility] 05/28/2024 12:01:37 04/06/20 24 Remicade Infusion completed [facility] 04/06/2024 08:53:00 03/15/20 24 Injection Joint/Bursa, Major, w/o US completed MAGDALENA CANTU MD [address] [place] [address], [address], [facility] 03/15/2024 12:34:32 02/24/20 24 Remicade Infusion completed [facility] 02/24/2024 12:12:59 01/12/20 24 Injection Joint/Bursa, Major, w/o US completed MAGDALENA CANTU MD [address] [place], [address], [place] [facility] 01/12/2024 12:58:03 01/12/20 24 Remicade Infusion completed Shashi Saldaña [facility] 01/12/2024 09:33:19 11/17/19 24 Remicade Infusion completed Paulo Camarillo [facility] 11/17/2023 09:40:51 09/22/19 24 Injection Joint/Bursa, Major, w/o US completed MAGDALENA CANTU MD [address] [place], [address], [place] [facility] 09/22/2023 08:32:32 09/22/19 24 Remicade Infusion completed Shashi Piotr [facility] 09/22/2023 09:24:57 07/28/19 24 Remicade Infusion completed Shashi Piotr [facility] 07/28/2023 09:49:14 06/02/19 24 Remicade Infusion completed Shashi Piotr [facility] 06/02/2023 12:09:58 04/07/20 23 Remicade Infusion completed Shashi Piotr [facility] 04/07/2023 11:31:24 03/03/20 23 Injection Joint/Bursa, Major, w/o US completed MAGDALENA CANTU MD [address] [place], [address], [facility] 03/03/2023 11:59:07 02/11/20 23 Remicade Infusion completed Paulo Camarillo [facility] 02/10/2023 12:22:47 12/17/19 23 Remicade Infusion completed Shashi Piotr [facility] 12/16/2022 12:18:00 12/03/19 23 Injection Joint/Bursa, Major, w/o US completed MAGDALENA CANTU MD [address] [place], [address], [place] [facility] 12/02/2022 11:48:47 12/03/19 23 Injection Joint/Bursa, Second, Major completed MAGDALENA CANTU MD [address] [place], [address], [facility] 12/02/2022 11:49:53 10/22/19 23 Remicade Infusion completed Shashi Saldaña [facility] 10/21/2022 13:08:33 09/10/19 23 Remicade Infusion completed Shashi Saldaña [facility] 09/09/2022 10:55:34 08/28/19 23 Remicade Infusion completed Shashi Saldaña [facility] 08/27/2022 12:09:41 04/16/20 21 Injection Joint/Bursa, Major, w/o US completed MAGDALENA CANTU MD [address] [place], [address], [facility] 04/16/2021 09:03:50 02/05/20 21 Injection Joint/Bursa, Major, w/o US completed MAGDALENA CANTU MD [address] [place], [address], [facility] 02/04/2021 08:54:38 11/05/19 21 Injection Joint/Bursa, Major, w/o US completed MAGDALENA CANTU MD [address] [place], [address], [facility] 11/04/2020 08:38:34 08/07/19 21 Injection Joint/Bursa, Interm, w/o US completed MAGDALENA CANTU MD [address] [place], [address], [facility] 08/06/2020 08:39:30 08/07/19 21 Injection Joint/Bursa, Major, w/o US completed MAGDALENA CANTU MD [address] [place], [address], [facility] 08/06/2020 08:39:49 05/07/20 20 Injection Joint/Bursa, Interm, w/o US completed MAGDALENA CANTU MD [address] [place], [address], [facility] 05/07/2020 10:36:34 05/07/20 20 Injection Joint/Bursa, Major, w/o US completed MAGDALENA CANTU MD [address] [place], [address], [place] [facility] 05/07/2020 10:36:11 02/05/20 20 Injection Joint/Bursa, Interm, w/o US completed MAGDALENA CANTU MD [address] [place], [address], [place] [facility] 02/05/2020 16:19:36 02/05/20 20 Injection Joint/Bursa, Major, w/o US completed MAGDALENA CANTU MD [address] [place], [address], [facility] 02/05/2020 16:19:32 11/07/19 20 Injection Joint/Bursa, Interm, w/o US completed MAGDALENA CANTU MD [address] [place], [address], [place] [facility] 11/07/2019 08:40:12 11/07/19 20 Injection Joint/Bursa, Major, w/o US completed MAGDALENA CANTU MD [address] [place], [address], [facility] 11/07/2019 08:40:05 11/07/19 20 Injection Joint/Bursa, Second, Intermediate completed MAGDALENA CANTU MD [address] [place], [address], [facility] 11/07/2019 08:40:35 07/11/19 20 Injection Joint/Bursa, Interm, w/o US completed MAGDALENA CANTU MD [address] [place], [address], [facility] 07/11/2019 08:36:01 04/10/20 19 Injection Joint/Bursa, Interm, w/o US completed MAGDALENA CANTU MD [address] [place], [address], [place] [facility] 04/10/2019 08:47:22 12/15/19 19 Injection Joint/Bursa, Interm, w/o US completed MAGDALENA CANTU MD [address] [place], [address], [facility] 12/14/2018 09:04:11 12/15/19 19 Injection Joint/Bursa, Major, w/o US completed MAGDALENA CANTU MD [address] [place], [address], [facility] 12/14/2018 09:04:39 02/16/20 18 Skin Tag Removal completed Aissatou [facility] 02/15/2018 08:32:42 02/16/20 18 Destruction Premalignant Lesion(s) completed Aissatou [facility] 02/15/2018 08:27:15 Imaging Results None recorded. [...] Remicade 700 mg - 5 mg/kg - Q6wks - next infusion 12/28/19 25 @ 0800 - ICD10 M05.79 - rapid infusion - med by [employer] - DO NOT BILL Not Available Not Available Not Available azathiopr ine 50 mg tablet TAKE ONE TABLET BY MOUTH EVERY DAY active Not Available Not Available No t Available acyclovir 400 mg tablet TAKE ONE TABLET BY MOUTH THREE TIMES DAILY FOR 7 DAYS -- FINISH ALL MEDICINE -- active Not Available Not Available No t Available ciproflox acin 500 mg tablet TAKE [...] take 5 TABLETS BY MOUTH every WEEK active Not Available Not Available No t Available tamsulosi n 0.4 mg capsule TAKE TWO [...] MOUTH THREE TIMES DAILY NEEDED FOR ANXIETY MAY CAUSE DROWSINE SS active Not Available Not Available No t Available oxycodone 5 mg tablet TAKE 1 TO 2 TABLET(S ) BY MOUTH EVERY 4 TO 6 HOURS NEEDED FOR PAIN MAY CAUSE DROWSINE SS 07/22 completed Not Available Not Available Not Available neomycin- polymyxin -hydrocor t 3.5 mg-10,000 unit/mL-1 % ear drops,amgo p 02/15 completed Not Available Not Available [...] n partners ) 07/10 completed stopped 12/14/18 [facility] ref # [id number] no PA required Not Available Not [...] Not Available Vitals Date Recorded Body height Provider Name an d Address Organization Details Last Updated DateTime 11/15/2024 187.96 cm Antonio Aidan [facility] 11/15/2024 07:39:42 Date Recorded Body height Body mass index (BMI) Body weight Body temperature Heart rate Respiratory rate Systolic And Diastolic Provider Name and Address Organization Details Last Updated DateTime 187.96 cm 37.3 kg/m2 124459. 59 g 97.7 [degF] 69 /min 16 /min 150/82 mm[Hg] Aracely [facility] 07:55:13 Social History Question Answer Notes LastModified by [employer] ion Details LastModified Time Tobacco Smoking Status [facility] 10:37:10 How Much Tobacco Do You Chew? None Information not available 12/14/2018 What Was The Date Of Your Most Recent Tobacco Screening? 11/15/2024 Information not available 11/15/2024 How Much Tobacco Do You Smoke? No Information not available 12/14/2018 Has Tobacco Cessation Counseling Been Provided? No Information not available 12/14/2018 On What Date Was Tobacco Cessation Counseling Provided? 08/06/2020 [email or web address] Answered No To The Tobacco Cessation Counseling Provided Question On 12/14/2018. [email or web address] Information not available 08/06/2020 How Many Years [...] Organization Details LastModified Time Father Hypertensive disorder [email or web address] Not available 07/10 10:37:03 Medical History Condition Response Emphysema N COPD N Arthritis Y Acid Reflux (GERD) Y Rheumatoid Arthritis Y Bleeding Disorder N Asthma N Diabetes N Heart Disease N Hypertension Y Immunizations Vaccine Type Date Status Note Provider Nam e and Address Organization Details Recorded Time Hep A, adult 12/07/2018 [facility] 12/14/2018 08:21:28 Hep A, adult 07/07/2018 [facility] 12/14/2018 08:22:13 Past Encounters Encounter ID Performer Location Encounter Start Date Encounter Closed Date Diagnosis/Indication Diagnosis SNOMED-CT Code Diagnosis ICD10 Code Diagnosis Note [id number] MAGDALENA CANTU MD R[facility] [address] [address] 11/15/2024 07:28:03 11/15/2024 09:47:09 Seropositive rheumatoid arthritis 043230315 M05.9 [id number] MAGDALENA CANTU MD [facility] [address] [address] 11/15/2024 07:29:14 11/19/2024 16:09:56 Rheumatoid arthritis 66963631 M05.79 69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 On the combinatio n of methotrexa te and Remicade infusion therapy, tolerating it well.Sympt omatic left knee. Secondary to the combinatio n of osteoarthr itis and rheumatoid arthritis chronic and recurrent. Otherwise stable joints. Right knee is replaced. Cardiopulm onary semination is physiologi c. Currently [...] Given IV Solu-Medro l during the infusion. of note he has had elevated liver enzymes in the past. We have cut back on the methotrexa te which seems to have helped his liver enzymes. The left knee joint is given intra-sy cular steroid injection. Follow-up with me in 3 to 4-month Long-term current use of immunosuppressive drug [id number] Z79.60 01/12/24 labsESR 20, CRP 0.60Creati nine, GFR normalAST, ALT normalCBC 13.7 hemoglobin . July 09, 2024 reviewed. Stable Labs will be repeated during the infusion. Health Concerns Section Related Observation LastModified by Organization Detai ls LastModified Time None Recorded Concern Status LastModified by Organization Details LastModified Time None Recorded Payers Encounter Date Sequence Insurance Name Policy Number Policy Regalado Covered Member ID Regalado Member ID Guarantor Name 11/15/2024 1 [employer] (MEDICARE REPLACEMENT/A DVANTAGE - PPO) Bryant Bonds [id number] Bryant Bonds
--- OUTSIDE RECORDS SUMMARY | 2024-12-04 15:20 | XMS_ITS | Data Portability ---
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 -Will order a liver US (faxed to [facility]). -I suspect SCHWARTZ. Will start vitamin [...] at that point to continue lifestyle changes. [email or web address] Not available 01/26/2023 16:01:46 02/23/2023 02/23/2023 67-year-old [...] lifestyle changes and follow-up in 4-6 months. [email or web address] Not available 02/23/2023 12:50:26 07/15/2023 07/15/2023 68-year-old [...] alcohol intake. -Will obtain recent labs from [facility] Rheumatology. If hepatic function labs are again normal, I recommend continued follow-up with his PCP for routine lab monitoring and return to our office is he develops recurrence of transaminitis. [email or web address] Not available 07/15/2023 11:56:33 Plan of Treatment Reminders Order Date Submit Date Provider Last Modified By Organization Details Last Modified Time Details Appointments None recorded. Lab nonalcoholi c steatohepat itis + fibrosis panel, serum or plasma 2022 023 [email or web address] (Lab), [address], [place], [address], 3 08:38:03 CMP, serum or plasma [facility] [address], [place], [address], 3 15:15:15 PT/INR 2022 023 [facility] (Lab), [address], [place], [address], 3 15:15:15 CBC 2022 023 [facility] (Lab), [address], [place], [address], 3 15:15:15 hepatitis panel (A+B+C), acute, serum 2022 023 [email or web address] 64 [facility] (Lab), [address], [place], [address], 3 08:38:03 hepatitis A Ab, total, serum [address] (Lab), [address] [place] [address] [address], [place], [address], 3 08:38:03 hepatitis B surface Ab, quantitativ e, serum [address] (Lab), [address] [place] [address] [address], [place], [address], 3 08:38:04 Referral None recorded. Procedures None recorded. Surgeries None recorded. Imaging US, liver 2022 023 [facility] ([facility]), [address] [place] [address] [address], [place], [address], 3 08:53:31 Medication Orders vitamin E 268 mg (400 unit) capsule 2023 024 [facility], [address] [place] [address] E Humberto Aguilar [place], [id number], 4 17:24:58 vitamin E 268 mg (400 unit) capsule 2022 023 [facility], [address] [place] [address] E Edinson Garcia-Humberto [place], [id number], 4 11:32:31 Patient TargetsNo targets recorded. Patient InstructionsNo instructions recorded. Reason for Referral None Reported. Results Created Date Observation Date Name Description Value Unit Range Abnormal Flag Note LastModifiedBy Organization Detail LastModifiedTime 02/04/20 23 02/03/2023 US, liver No observ ation record ed. [address], [place], [address], 03/25/2023 15:41:09 Result Notes None recorded. Problems Name Problem SNOMED Code Status Onset Date Resolution Date Notes Provider Name and Address Organization Details Recorded Time Hepatic fibrosis 57421843 Active 2022 Roby Vaughan PA-C [address], [place], [address] , [facility] [place] 3 09:33:53 Metabolic dysfunction-a ssociated steatohepatit is 754648269 Active 2022 Roby Vaughan PA-C [address], [place], [address] , [facility] [place] 3 09:34:16 Binge drinker 250873620 Active 2023 Roby Vaughan PA-C [address], [place], [address] , [facility] [place] 4 11:54:37 Problem Notes None recorded. Medical [...] blood by Pulse oximetry Heart rate Systolic And Diastolic Provider Name and Address Organization Details Last Updated DateTime 3 167358. 08 g 39 kg/m2 187.96 cm 85 /min 98.6 [degF] 97 % 97 % 73 /min 155/85 mm[Hg] Malachi aJy [place] [facility] [place] [facility] [place] 3 08:58:50 Social History Question Answer Notes LastModified by Organization D etails LastModified Time What Is Your Level Of Caffeine Consumption? None [email or web address] Information not available 01/26/2023 What Type Of Diet Are You Following? REGULAR [email or web address] Information not available 01/26/2023 Sex: Unknown Functional Status Question Answer Note LastModified by Organizat ion Details LastModified Time Do you use any illicit or recreational drugs? No [email or web address] Information not available 01/26/2023 Do you or have you ever used any other forms of tobacco or nicotine? No Information not available 01/26/2023 What is your level of alcohol consumption? Occasional [email or web address] Information not available 01/26/2023 What is your exercise level? Occasional Information not available 01/26/2023 Mental Status None recorded. Family History Nothing Reported Notes:mother had lung cancer Medical History Condition Response Arthritis Y Hypertension Y GERD/Reflux Y Colon Polyps Y Past Encounters Encounter ID Performer Location Encounter Start Date Encounter Closed Date Diagnosis/Indication Diagnosis SNOMED-CT Code Diagnosis ICD10 Code Diagnosis Note [id number] Roby Vaughan [facility] [address] [address] 01/26/2023 08:30:22 01/26/2023 09:35:07 Hepatic fibrosis 43771076 K74.00 Metabolic dysfunction-associate d steatohepatitis 867551098 K75.81 [id number] Roby Vaughan PA-C [facility] [address] [address] 02/23/2023 11:42:27 02/23/2023 12:58:50 Metabolic dysfunction-associate d steatohepatitis 677095821 K75.81 Hepatic fibrosis 0235015 2 K74.00 [id number] Roby Vaughan PA-C [facility] [address] [facility] [address] [place] [address] 07/15/2023 11:26:14 07/15/2023 11:50:37 Metabolic dysfunction-associate d steatohepatitis 397622933 K75.81 Hepatic fibrosis 8033852 2 K74.00 Binge drinker 484496601 F10.10 Health Concerns Section Related Observation LastModified by Organization Detai ls LastModified Time None Recorded Concern Status LastModified by Organization Details LastModified Time None Recorded Advance Directives Directive None Recorded Payers Insurance Date Sequence Insurance Name Policy Number Policy Regalado Covered Member ID Regalado Member ID Guarantor Name 07/12/2023 1 [employer] (MEDICARE REPLACEMENT/A DVANTAGE - PPO) Bryant Bonds [id number] Bryant Bonds
--- OUTSIDE RECORDS SUMMARY | 2024-12-04 15:20 | XMS_ITS | Clinical Summary ---
Author Organization Healthcare Address [address] [id number] Care Team Providers Care Paperhanger Supervisor Name Role Phone Pcp, No Primary Care Provider Unavailabl e Allergies No known active allergies Encounters Date Type Department Care Team Description 10/14/2024 4:43 AM EDT - 10/14/2024 6:51 AM EDT Emergency [facility] [address] [place] [address] Fantasma Mccurdy MD Contusion of chest wall, unspecified laterality, initial encounter (Primary Dx) Discharge Disposition: Home or Self Care 10/14/2024 Orders Only External Location [address] [place] [address] Provider, External 10/14/2024 Orders Only External Location [address] [place] [address] Provider, External 10/14/2024 Orders Only External Location [address] [place] [address] Provider, External 10/14/2024 Orders Only External Location [address] [place] [address] Provider, External 10/14/2024 Orders Only External Location [address] [place] [address] Provider, External 10/14/2024 Travel from Last 3 Months Social History Tobacco Use Types Packs/Day Years Used Date Smoking Tobacco: Never Assessed Sex and Gender Information Value Date Recorded Sex Assigned at Not on file Legal Sex Male 8:42 PM EDT Gender Identity Male 10/17/2024 2:22 PM EDT Sexual Orientation Not on file Last Filed Vital Signs Vital Sign Reading [...] - - Body Mass Index - - Plan of Treatment Upcoming Encounters Date Type Department Care Team (Late st Contact Info) Description 12/21/2024 8:45 AM EDT Office Visit [facility] [place] [address] [facility], [address] [place] [address] Sancho Menon DO [address] [place] [address] Health Maintenance Due Date Last Done Comments [facility]-Depression Screening 1955 [facility]-Hepatitis C Screening 1955 [facility]-Medicare Annual Wellness (AWV) 1955 [facility]-Infant/Child/Adol SDOH Screenings 1955 [facility]- SDOH Screenings 1974 [facility]-Adult SDOH Screenings 1974 [facility]-Pneumococcal Vaccine: 50 + Years (1 of 2 - PCV) 1975 [facility]-DTaP,Tdap,and Td Vaccine s (1 - Tdap) 07/12/1996 07/11/1996 CT Colonography 2001 Colonoscopy 2001 FIT-DNA 2001 FIT 2001 FOBT 2001 Sigmoidoscopy 2001 [facility]-Colorectal Cancer Screening 2001 [facility]-Zoster Vaccines (1 of 2) 2006 [id number] Vaccine (1 - 2023- season) 2024 [facility]-Influenza Vaccine (#1) 01/07/202503/07, 03/15/2020 [facility]-RSV Vaccine: 60+ Years o r (1 - 1-dose 75+ series) 2031 [facility]-Hepatitis A Vaccines Aged Out 019, 07/07/2018 No longer eligible based on patient's age to complete this topic HPV Vaccines Aged Out No longer eligi ble based on patient's age to complete this topic [facility]-HIB Vaccines Aged Out No longer e ligible based on patient's age to complete this topic [facility]-IPV Vaccines Aged Out No longer e ligible based on patient's age to complete this topic [facility]-Rotavirus Vaccines Aged Out No lo nger eligible based on patient's age to complete this topic Procedures Procedure Name Priority Date/Time Associated Diagnosis Comments ECG ADULT STAT 10/14/2024 5:39 AM EDT XR PELVIS 1 OR 2 VIEWS STAT 10/14/2024 5:21 AM EDT XR CHEST 1 VIEW STAT 10/14/2024 5:21 AM EDT CBC WITH AUTO DIFFERENTIAL STAT 10/14/2024 5:15 AM EDT TROPONIN T, HIGH SENSITIVITY, 0 HOUR, PLASMA, REFLEX TO 2 HOUR STAT 10/14/2024 5:[address] NEURO OUTSIDE IMAGES 10/14/2024 12:[address] NEURO OUTSIDE IMAGES 10/14/2024 12:[address] NEURO OUTSIDE IMAGES 10/14/2024 12:[address] NEURO OUTSIDE IMAGES 10/14/2024 12:[address] NEURO OUTSIDE IMAGES 10/14/2024 12:15 AM EDT from Last 3 Months Results * ECG Adult (10/14/2024 5:39 AM EDT) EKG DIAGNOSIS CLASS Abnormal MUSE ECG Ventricular Rate 81 BPM MUSE ECG Atrial Rate 81 BPM MUSE ECG AZ Interval 228 ms MUSE ECG QRSD Interval 96 ms MUSE ECG QT Interval 378 ms MUSE ECG QTC Interval 439 ms MUSE ECG P Parlin 84 degrees MUSE ECG R [place]lin -15 degrees MUSE ECG T Wave Parlin 34 degrees MUSE ECG Diagnosis Sinus rhythm with 1st degree AV block MUSE ECG Diagnosis RSR' V1, is likely a normal variant MUSE ECG Diagnosis Abnormal ECG MUSE ECG Diagnosis MUSE ECG Diagnosis MUSE ECG Diagnosis Confirmed by Bright Stanton ([id number]) on 10/14/2024 11:53:19 AM MUSE ECG 10/14/2024 [...] Paulo Lucas MD on 10/14/2024 5:49 AM us Fantasma Mccurdy MD IMG XR PROCEDURES Final [...] IMG XR PROCEDURES Final Resul t * Troponin T, High Sensitivity, 0 Hour Plasma, Reflex to 2 Hour (10/14/2024 5:15 AM EDT) Troponin T, High Sensitivity, 0 Hour 6 <19 ng/L 10/14/2024 6:02 AM EDT [facility] Blood Venous blood specimen / Unknown Venipuncture / Unknown 10/14/2024 5:15 AM EDT 10/14/2024 5:34 AM EDT Fantasma Mccurdy MD LAB BLOOD ORDERABLES Final Re sult [facility] [address] [place] [address] * (ABNORMAL) CBC and Differential (10/14/2024 5:15 AM EDT) WBC Count 11.04(H) 3.70 - 10.30 10*3/uL LAB HEMATOLOGY METHOD 10/14/2024 5:20 AM EDT [facility] RBC Count 4.06(L) 4.60 - 6.10 10*6/uL LAB HEMATOLOGY METHOD 10/14/2024 5:20 AM EDT [facility] HGB 13.6(L) 13.7 - 17.5 g/dL LAB HEMATOLOGY METHOD 10/14/2024 5:20 AM EDT [facility] HCT 39.5(L) 40.0 - 51.0 % LAB HEMATOLOGY METHOD 10/14/2024 5:20 AM EDT [facility] Platelet Count 247 155 - 369 10*3/uL LAB HEMATOLOGY METHOD 10/14/2024 5:20 AM EDT [facility] MCV 97 79 - 98 fL LAB HEMATOLOGY METHOD 10/14/2024 5:20 AM EDT [facility] MCH 33.5(H) 26.0 - 32.0 pg LAB HEMATOLOGY METHOD 10/14/2024 5:20 AM EDT [facility] MCHC 34.4 30.7 - 35.5 g/dL LAB HEMATOLOGY METHOD 10/14/2024 5:20 AM EDT [facility] RDW 13.9 11.5 - 14.5 % LAB HEMATOLOGY METHOD 10/14/2024 5:20 AM EDT [facility] MPV 9.2 8.8 - 12.5 fL LAB HEMATOLOGY METHOD 10/14/2024 5:20 AM EDT [facility] nRBC 0.0 <=0.0 per 100 WBCs LAB HEMATOLOGY METHOD 10/14/2024 5:20 AM EDT [facility] Differential Type Automated LAB HEMATOLOGY METHOD 10/14/2024 5:20 AM EDT [facility] Neutrophils % 75 % LAB HEMATOLOGY METHOD 10/14/2024 5:20 AM EDT [facility] Lymphocytes % 18 % LAB HEMATOLOGY METHOD 10/14/2024 5:20 AM EDT [facility] Monocytes % 6 % LAB HEMATOLOGY METHOD 10/14/2024 5:20 AM EDT [facility] Eosinophils % 0 % LAB HEMATOLOGY METHOD 10/14/2024 5:20 AM EDT [facility] Basophils % 0 % LAB HEMATOLOGY METHOD 10/14/2024 5:20 AM EDT [facility] Immature Granulocytes % 1 % LAB HEMATOLOGY METHOD 10/14/2024 5:20 AM EDT [facility] Neutrophils Absolute 8.28(H) 1.60 - 6.10 10*3/uL LAB HEMATOLOGY METHOD 10/14/2024 5:20 AM EDT [facility] Lymphocytes Absolute 1.97 1.20 - 3.90 10*3/uL LAB HEMATOLOGY METHOD 10/14/2024 5:20 AM EDT [facility] Monocytes Absolute 0.68 0.30 - 0.90 10*3/uL LAB HEMATOLOGY METHOD 10/14/2024 5:20 AM EDT [facility] Eosinophils Absolute 0.03 0.00 - 0.50 10*3/uL LAB HEMATOLOGY METHOD 10/14/2024 5:20 AM EDT [facility] Basophils Absolute 0.03 0.00 - 0.10 10*3/uL LAB HEMATOLOGY METHOD 10/14/2024 5:20 AM EDT [facility] Immature Granulocytes Absolute 0.05 0.00 - 0.06 10*3/uL LAB HEMATOLOGY METHOD 10/14/2024 5:20 AM EDT [facility] Blood Venous blood specimen / Unknown Venipuncture / Unknown 10/14/2024 5:15 AM EDT 10/14/2024 5:17 AM EDT Narrative [facility] - 10/14/2024 5:20 AM EDT Therapeutic decision making should be based on absolute values, rather than percentages. Fantasma Mccurdy MD LAB BLOOD ORDERABLES Final Re sult [facility] [address] [place] [address] * CT NEURO OUTSIDE IMAGES (10/14/2024 12:28 AM EDT) Only the most recent of5 resultswithin the time period is included. Anatomical Region Laterality Modality Computed Tomogra phy 10/14/2024 12:2 8 AM EDT us External Provider IMG CT PROCEDURES Final Result from Last 3 Months Insurance [facility] MEDICARE Care Teams Paperhanger Supervisor Relationship Specialty Start Date End Date Pcp, Brittany [address] [place] [address] PCP - General Family Medicine 10/14/24
--- OUTSIDE RECORDS SUMMARY | 2024-12-04 15:20 | XMS_ITS | Referral Summary ---
Author Organization [employer] ([place], [place], [place], [place]) Address [address] [place] [address] Care Team Providers Care Band Edger Name Role Phone Unavailable Primary Care Provider [...]
--- OUTSIDE RECORDS SUMMARY | 2024-12-04 15:20 | XMS_ITS | Clinical Summary ---
Author Organization [employer] ([place], [place], [place], [place]) Address [address] [place] [address] Care Team Providers Care Engineering Production Liaison Name Role Phone Unavailable Primary Care Provider [...]
--- OUTSIDE RECORDS SUMMARY | 2024-12-04 15:20 | XMS_ITS | Data Portability ---
Author Organization [facility] BhagatS LADERA RANCH CLOSED Address [address] [address] [place] [address] Care Team Providers Care Strip Presser Name Role Phone SHAWNCHARISSAKirsty Guzman Primary Care Provider [phone] MAGDALENA CANTU Mid Level Net Developer Assessment Encounter Date Assessment Date Assessment LastModified by Organization Details LastModified Time 08/20/2024 08/20/2024 69-year-old with rheumatoid arthritis. Follow-up visit: [place] [id number] Not available 08/20/2024 15:48:37 11/15/2024 11/15/2024 69-year-old with rheumatoid arthritis. Follow-up visit: [place] [id number] Not available 11/16/2024 08:42:24 Plan of Treatment [...] 100 mg intraveno us solution [address] [facility], [address] [place] [address] E Edinson Garcia[place]Humberto [place], [id number], 11/15/2024 09:00:15 Remicade 100 mg intraveno us solution [address] [facility], [address] [place] [address] E Edinson Garcia-Humberto [place], [id number], 10/05/2024 10:05:18 Remicade 100 mg intraveno us solution [address] [facility], [address] [place] [address] E Humberto Aguilar [place], [id number], 08/20/2024 14:40:59 Patient TargetsNo targets recorded. Patient InstructionsNo instructions recorded. Reason for Referral None Reported. Results Created Date Observation Date Name Description Value Unit Range Abnormal Flag Note LastModifiedBy Organization Detail LastModifiedTime 11/16/1911/15/2024 COMPL ETE BLOOD COUNT white blood cells 7.7 10*3/ uL 3.8-10 .8 normal Not Available [facility] [address] [place] [address], [address], 11/15/2024 08:13:09 11/16/1911/15/2024 COMPL ETE BLOOD COUNT red blood cells 4.31 10*6/ uL 4.20-5 .80 normal Not Available [facility] [address] [place] [address], [address], 11/15/2024 08:13:09 11/16/1911/15/2024 COMPL ETE BLOOD COUNT hemoglobin 14.4 g/dL 14.0-1 8.0 normal Not Available [facility] [address] [place] [address], [address], 11/15/2024 08:13:09 11/16/19 25 11/15/2024 COMPL ETE BLOOD COUNT hematocrit 41.5 % 40.0-5 2.0 normal Not Available [facility] [address] [place] [address], [address], 11/15/2024 08:13:11/16/1911/15/2024 COMPL ETE BLOOD COUNT MCV 96 fL 80-100 normal Not Available [facility] [address] [place] [address], [address], 11/15/2024 08:13:11/16/1911/15/2024 COMPL ETE BLOOD COUNT MCH 33 pg 26-35 normal Not Available [facility] [address] [place] [address], [address], 11/15/2024 08:13:11/16/1911/15/2024 COMPL ETE BLOOD COUNT MCHC 35 g/dL 32-36 normal Not Available [facility] [address] [place] [address], [address], 11/15/2024 08:13:11/16/1911/15/2024 COMPL ETE BLOOD COUNT RDW 13.2 % 11.0-1 5.0 normal Not Available [facility] [address] [place] [address], [address], 11/15/2024 08:13:11/16/1911/15/2024 COMPL ETE BLOOD COUNT MPV 7.4 fL 6.2-10 .5 normal Not Available [facility] [address] [place] [address], [address], 11/15/2024 08:13:11/16/1911/15/2024 COMPL ETE BLOOD COUNT platelet count 222 10*3/ uL 150-40 0 normal Not Available [facility] [address] [place] [address], [address], 11/15/2024 08:13:11/16/1911/15/2024 COMPL ETE BLOOD COUNT neutrophil,a bsolute 6.0 10*3/ uL 1.6-8. 4 normal Not Available [facility] [address] [place] [address], [address], 11/15/2024 08:13:11/16/1911/15/2024 COMPL ETE BLOOD COUNT lymphocyte,a bsolute 1.2 10*3/ uL 0.4-5. 1 normal Not Available [facility] [address] [place] [address], [address], 11/15/2024 08:13:11/16/1911/15/2024 COMPL ETE BLOOD COUNT monocyte,abs olute 0.4 10*3/ uL 0.0-1. 2 normal Not Available [facility] [address] [place] [address], [address], 11/15/2024 08:13:11/16/1911/15/2024 COMPL ETE BLOOD COUNT eosinophil,a bsolute 0.0 10*3/ uL 0.0-0. 8 normal Not Available [facility] [address] [place] [address], [address], 11/15/2024 08:13:11/16/1911/15/2024 COMPL ETE BLOOD COUNT basophil,abs olute 0.0 10*3/ uL 0.0-0. 3 normal Not Available [facility] [address] [place] [address], [address], 11/15/2024 08:13:11/16/1911/15/2024 COMPL ETE BLOOD COUNT % neutrophils 77.9 % 42.0-7 8.0 normal Not Available [facility] [address] [place] [address], [address], 11/15/2024 08:13:11/16/1911/15/2024 COMPL ETE BLOOD COUNT % lymphocytes 16.0 % 11.0-4 7.0 normal Not Available [facility] [address] [place] [address], [address], 11/15/2024 08:13:09 11/16/1911/15/2024 COMPL ETE BLOOD COUNT % monocytes 5.7 % 0.0-11 .0 normal Not Available [facility] [address] [place] [address], [address], 11/15/2024 08:13:09 11/16/1911/15/2024 COMPL ETE BLOOD COUNT % eosinophils 0.2 % 0.0-7. 0 normal Not Available [facility] [address] [place] [address], [address], 11/15/2024 08:13:09 11/16/1911/15/2024 COMPL ETE BLOOD COUNT % basophils 0.2 % 0.0-3. 0 normal Not Available [facility] [address] [place] [address], [address], 11/15/2024 08:13:09 11/16/1911/15/2024 COMPL ETE BLOOD COUNT nucleated red cells 0.0 % 0.0-0. 9 normal Not Available [facility] [address] [place] [address], [address], 11/15/2024 08:13:09 11/16/1911/15/2024 COMPL ETE BLOOD COUNT nucleated RBCs, absolute 0.00 10*3/ uL not estab. normal Not Available [facility] [address] [place] [address], [address], 11/15/2024 08:13:09 11/16/1911/15/2024 CREAT ININE creatinine 0.72 mg/dL 0.70-1 .20 normal Not Available [facility] [address] [place] [address], [address], 11/15/2024 08:25:14 11/16/1911/15/2024 ALT ALT 17 U/L 0-41 normal Not Available [facility] [address] [place] [address], [address], 11/15/2024 08:25:16 11/16/19 25 11/15/2024 GFR ESTIM ATE eGFR 99 >= 60 [...] patie nts refer to [email or web address] :[email or web address] [email or web address] [email or web address] rg/pr ofess ional s/KDO QI/gf r_cal culat orPed Not Available [facility] [address] [place] [address], [address], 11/15/2024 08:25:19 11/16/1911/15/2024 AST AST 15 U/L 0-40 normal Not Available [facility] [address] [place] [address], [address], 11/15/2024 08:25:20 11/16/1911/15/2024 ESR, AUTOM ATED ESR, automated 28 mm 0-19 high Not Available [facility] [address] [place] [address], [address], 11/15/2024 11:07:43 Result Notes None recorded. Problems No Known Problems Procedures Surgical History Date Name Laterality Status Provider Name and Address Organization Details Recorded Time 11/16/19 25 Injection Joint/Bursa, Major, w/o US completed MAGDALENA CANTU MD [facility] [place], [address], [facility] 11/16/2024 08:42:14 11/16/19 25 Remicade Infusion completed Aracely Jim [facility] 11/15/2024 09:46:56 10/06/19 25 Remicade Infusion completed Shashi Saldaña [facility] 10/05/2024 09:15:47 08/21/19 25 Remicade Infusion completed Aracely Jim [facility] 08/20/2024 14:31:08 07/10/19 25 [facility] 07/09/2024 10:54:46 07/03/19 25 Injection Joint/Bursa, Major, w/o US completed MAGDALENA CANTU MD [address] [place], [address], [facility] 07/03/2024 09:38:50 05/28/19 25 Remicade Infusion completed Shashi Piotr [facility] 05/28/2024 12:01:37 04/06/20 24 Remicade Infusion completed Shashi Piotr [facility] 04/06/2024 08:53:00 03/15/20 24 Injection Joint/Bursa, Major, w/o US completed MAGDALENA CANTU MD [address] [place], [address], [facility] 03/15/2024 12:34:32 02/24/20 24 Remicade Infusion completed Shashi Piotr [facility] 02/24/2024 12:12:59 01/12/20 24 Injection Joint/Bursa, Major, w/o US completed MAGDALENA CANTU MD [address] [place], [address], [facility] 01/12/2024 12:58:03 01/12/20 24 Remicade Infusion completed Shashi Saldaña [facility] 01/12/2024 09:33:19 11/17/19 24 Remicade Infusion completed Paulo Camarillo [facility] 11/17/2023 09:40:51 09/22/19 24 Injection Joint/Bursa, Major, w/o US completed MAGDALENA CANTU MD [address] [place], [address], [facility] 09/22/2023 08:32:32 09/22/19 24 Remicade Infusion completed Shashi Piotr [facility] 09/22/2023 09:24:57 07/28/19 24 Remicade Infusion completed Shashi Piotr [facility] 07/28/2023 09:49:14 06/02/19 24 Remicade Infusion completed Shashi Piotr [facility] 06/02/2023 12:09:58 04/07/20 23 Remicade Infusion completed Shashi Saldaña [facility] 04/07/2023 11:31:24 03/03/20 23 Injection Joint/Bursa, Major, w/o US completed MAGDALENA CANTU MD [address] [place], [address], [facility] 03/03/2023 11:59:07 02/11/20 23 Remicade Infusion completed Paulo Camarillo [facility] 02/10/2023 12:22:47 12/17/19 23 Remicade Infusion completed Shashi Saldaña [facility] 12/16/2022 12:18:00 12/03/19 23 Injection Joint/Bursa, Major, w/o US completed MAGDALENA CANTU MD [address] [place], [address], [facility] 12/02/2022 11:48:47 12/03/19 23 Injection Joint/Bursa, Second, Major completed MAGDALENA CANTU MD [address] [place], [address], [facility] 12/02/2022 11:49:53 10/22/19 23 Remicade Infusion completed Shashi Saldaña [facility] 10/21/2022 13:08:33 09/10/19 23 Remicade Infusion completed Shashi Saldaña [facility] 09/09/2022 10:55:34 08/28/19 23 Remicade Infusion completed Shashi Saldaña [facility] 08/27/2022 12:09:41 04/16/20 21 Injection Joint/Bursa, Major, w/o US completed MAGDALENA CANTU MD [address] [place], [address], [place] [facility] 04/16/2021 09:03:50 02/05/20 21 Injection Joint/Bursa, Major, w/o US completed MAGDALENA CANTU MD [address] [place], [address], [facility] 02/04/2021 08:54:38 11/05/19 21 Injection Joint/Bursa, Major, w/o US completed MAGDALENA CANTU MD [address] [place], [address], [facility] 11/04/2020 08:38:34 08/07/19 21 Injection Joint/Bursa, Interm, w/o US completed MAGDALENA CANTU MD [address] [place], [address], [facility] 08/06/2020 08:39:30 08/07/19 21 Injection Joint/Bursa, Major, w/o US completed MAGDALENA CANTU MD [address] [place], [address], [facility] 08/06/2020 08:39:49 05/07/20 20 Injection Joint/Bursa, Interm, w/o US completed MAGDALENA CANTU MD [address] [place], [address], [facility] 05/07/2020 10:36:34 05/07/20 20 Injection Joint/Bursa, Major, w/o US completed MAGDALENA CANTU MD [address] [place], [address], [facility] 05/07/2020 10:36:11 02/05/20 20 Injection Joint/Bursa, Interm, w/o US completed MAGDALENA CANTU MD [address] [place], [address], [facility] 02/05/2020 16:19:36 02/05/20 20 Injection Joint/Bursa, Major, w/o US completed MAGDALENA CANTU MD [address] [place], [address], [facility] 02/05/2020 16:19:32 11/07/19 20 Injection Joint/Bursa, Interm, w/o US completed MAGDALENA CANTU MD [address] [place], [address], [facility] 11/07/2019 08:40:12 11/07/19 20 Injection Joint/Bursa, Major, w/o US completed MAGDALENA CANTU MD [address] [place], [address], [facility] 11/07/2019 08:40:05 11/07/19 20 Injection Joint/Bursa, Second, Intermediate completed MAGDALENA CANTU MD [address] [place], [address], [facility] 11/07/2019 08:40:35 07/11/19 20 Injection Joint/Bursa, Interm, w/o US completed MAGDALENA CANTU MD [address] [place], [address], [facility] 07/11/2019 08:36:01 04/10/20 19 Injection Joint/Bursa, Interm, w/o US completed MAGDALENA CANTU MD [address] [place], [address], [facility] 04/10/2019 08:47:22 12/15/19 19 Injection Joint/Bursa, Interm, w/o US completed MAGDALENA CANTU MD [address] [place], [address], [facility] 12/14/2018 09:04:11 12/15/19 19 Injection Joint/Bursa, Major, w/o US completed MAGDALENA CANTU MD [address] [place], [address], [facility] 12/14/2018 09:04:39 02/16/20 18 Skin Tag Removal completed Aissatou Wilson [facility] 02/15/2018 08:32:42 02/16/20 18 Destruction Premalignant Lesion(s) completed Aissatou Wilson [facility] 02/15/2018 08:27:15 Imaging Results None recorded. [...] M05.79 - rapid infusion - med by [employer] - DO NOT BILL Not Available Not [...] e 50 mcg/actua tion nasal spray,mago pension 03/31 /2021 completed Not Available Not Available [...] n partners ) 07/10 completed stopped 12/14/18 [facility] ref # [id number] no PA required Not Available Not [...] Organization Details Last Updated DateTime 187.96 cm 37 kg/m2 428963. 7 g 97.9 [degF] 94 /min 16 /min 136/83 mm[Hg] Aracely Jim [facility] 12:37:56 Date Recorded Body height Body mass index (BMI) Body weight Provider Name and Address Organization Details Last Updated DateTime 10/05/2024 187.96 cm 37.2 kg/m2 975106.99 g Shashi Piotr [facility] 10/05/2024 08:09:26 Date Recorded Body height Provider Name an d Address Organization Details Last Updated DateTime 11/15/2024 187.96 cm Antonio Bermudez [facility] 11/15/2024 07:39:42 Date Recorded Body height Body mass index (BMI) Body weight Body temperature Heart rate Respiratory rate Systolic And Diastolic Provider Name and Address Organization Details Last Updated DateTime 5 187.96 cm 37.3 kg/m2 375399. 59 g 97.7 [degF] 69 /min 16 /min 150/82 mm[Hg] Aracely Escamillas [facility] 5 07:55:13 Social History Question Answer Notes LastModified by EVOFEM Details LastModified Time Tobacco Smoking Status Never Smoker [facility] 07/10/2018 10:37:10 How Much Tobacco Do You Chew? None Information not available 12/14/2018 What Was The Date Of Your Most Recent Tobacco Screening? 11/15/2024 [email or web address] Information not available 11/15/2024 How Much Tobacco Do You Smoke? No Information not available 12/14/2018 Has Tobacco Cessation Counseling Been Provided? No Information not available 12/14/2018 On What Date Was Tobacco Cessation Counseling Provided? 08/06/2020 [email or web address] Answered No To The Tobacco Cessation Counseling Provided Question On 12/14/2018. [email or web address] Information not available 08/06/2020 How Many Years Have You Smoked Tobacco? 0 Information not available 12/14/2018 Have You Recently Traveled Abroad? No Information not available 07/22/2022 Sex: Male Functional Status Question Answer Note LastModified by EVOFEM Details LastModified Time Do you use any [...] Organization Details LastModified Time Father Hypertensive disorder [email or web address] Not available 07/10 10:37:03 Medical History Condition Response Diabetes N Bleeding Disorder N Arthritis Y Emphysema N Acid Reflux (GERD) Y Heart Disease N Rheumatoid Arthritis Y Hypertension Y COPD N Asthma N Immunizations Vaccine Type Date Status Note Provider Nam e and Address Organization Details Recorded Time Hep A, adult 12/07/2018 completed [facility] 12/14/2018 08:21:28 Hep A, adult 07/07/2018 completed Marcelo [facility] 12/14/2018 08:22:13 Past Encounters Encounter ID Performer Location Encounter Start Date Encounter Closed Date Diagnosis/Indication Diagnosis SNOMED-CT Code Diagnosis ICD10 Code Diagnosis Note [id number] DOMINIC DEUTSCH MD [facility] [address] [place] [address] 02/15/2018 07:54:43 02/15/2018 13:13:58 Lentigo 928911458 L81.4 reassuranc e Actinic keratosis 168476 [address] x 4 Senile hyperkeratosis 39 0447724 L82.1 reassuranc e Multiple skin tags [address] x 5 Pain of skin 365642121 R 52 [id number] MAGDALENA CARROL CANTU MD [facility] [address] [place] [address] 07/10/2018 09:36:35 07/12/2018 10:16:50 Rheumatoid arthritis 44989642 M06.9 a very pleasant 63-year-ol d gentleman [...] today. Labs 04/10/2018. Reviewed and stable. Medication [facility]#:[id number] Medication Lot#:[id number] Medication Exp: 9. [id number] MAGDALENA CANTU MD RHEUMATOL [facility] [address] [place] [address] 09/12/2018 08:31:17 09/12/2018 09:01:15 Rheumatoid arthritis 06156598 M06.9 63-year-ol d gentleman with significan t [...] back in 3 months. Long-term drug therapy 699561054 Z79.899 labs obtained to follow-up on the current medication s. [id number] MAGDALENA CANTU [facility] [address] [place] [address] 12/14/2018 08:05:40 12/15/2018 14:12:12 Rheumatoid arthritis 85059801 M06.9 63-year-ol d gentleman with significan t rheumatoid arthritis followed at the arthritis Center, [facility]. He is now on the combinatio n [...] back in 3 months. Long-term drug therapy 797675565 Z79.899 labs obtained to follow-up on the current medication s. Synovitis of joint of right knee 9987191684 3237346 M25.861 symptomati c right knee secondary to rheumatoid arthritis along with chronic underlying osteoarthr itis. Maintain the rheumatoid treatment as above. For symptomati c relief the right knee joint is injected with Depo-Medro l. Synovitis of elbow 17291 6008 M65.9 symptomati c bilateral elbow joint with fixed flexion contractur e. Maintain cardiac care as above. On account of pain and discomfort in the elbow joints are injected with Depo-Medro l. [id number] MAGDALENA CANTU [facility] [address] [place] [address] 04/10/2019 08:17:04 04/10/2019 09:01:43 Rheumatoid arthritis 63125301 M06.9 63-year-ol d gentleman with chronic but [...] back in 3 months. Long-term drug therapy 617951399 Z79.899 labs obtained to follow-up on the current medication s. Synovitis of elbow 77257 6008 M65.9 symptomati c bilateral elbow joint with fixed flexion contractur e. On account of pain and discomfort in the elbow joints, both joints are injected with Depo-Medro l. Screening for malignant neoplasm of prostate 367319415 Z12.5 he has concerns about BPH, suggested him to follow with his family physician and consider urology evaluation . Meantime I've obtained a PSA. [id number] MAGDALENA CANTU MD RHEUMATOL [facility] [address] [place] [address] 07/11/2019 08:08:41 07/11/2019 08:41:31 Rheumatoid arthritis 87033805 M06.9 64-year-ol d gentleman with chronic but [...] 3 - 4 months. Long-term drug therapy 226696500 Z79.899 labs obtained to follow-up on the current medication s. Synovitis of elbow 29959 6008 M65.9 symptomati c bilateral elbow joint with fixed flexion contractur e right > left. x-rays obtained [id number] MAGDALENA CANTU MD RHEUMATOL [facility] [address] [place] [address] 11/07/2019 07:58:15 11/07/2019 08:32:31 Rheumatoid arthritis 33091910 M06.9 64-year-ol d gentleman with chronic but [...] 3 - 4 months. Long-term drug therapy 470002338 Z79.899 labs obtained to follow-up on the current medication s. [id number] MAGDALENA CANTU [facility] [address] [place] [address] 02/05/2020 14:52:56 02/05/2020 15:33:37 Rheumatoid arthritis 80429888 M06.9 64-year-ol d gentleman with chronic rheumatoid [...] 3 - 4 months. Long-term drug therapy 633630678 Z79.899 labs obtained to follow-up on the current medication s. [id number] MAGDALENA CANTU MD [facility] [address] [place] [address] 05/07/2020 07:39:15 05/07/2020 10:52:40 Rheumatoid arthritis 51490712 M06.9 64-year-ol d gentleman with chronic rheumatoid [...] 3 - 4 months. Long-term drug therapy 418264746 Z79.899 labs obtained to follow-up on the current medication s. Pain in right knee 77235 22251 67951 M25.561 secondary to osteoarthr itis. Symptomati feliz treatment for now, the right knee is given steroid injection. He will contact [facility] to discuss knee joint replacemen t. [id number] MAGDALENA CANTU MD RHEUMATOL [facility] [address] [place] [address] 08/06/2020 07:44:24 08/06/2020 09:09:16 Rheumatoid arthritis 01293720 M06.9 very pleasant 65-year-ol d gentleman with [...] me in 3 months. Long-term drug therapy 884962154 Z79.899 high-risk medication s. Labs every 3 months. Recently done through primary care physician. Pain in right knee 10560 30761 77103 M25.561 chronic, secondary to osteoarthr itis. Symptomati feliz treatment for now, the right knee is given steroid injection. He will contact [facility] to discuss knee joint replacemen t. [id number] AMGDALENA CANTU MD RHEUMATOL [address] [address] 11/04/2020 07:43:39 11/04/2020 09:22:37 Rheumatoid arthritis 09507323 M06.9 very pleasant 65-year-ol d gentleman with [...] studies. follow-up 3 months Long-term drug therapy 430928584 Z79.899 high-risk medication s. Labs every 3 months. Pain in right knee 22905 35655 26553 M25.561 chronic, secondary to osteoarthr itis. Symptomati c treatment for now, the right knee is given steroid injection. In case of knee replacemen t, [facility], Dr. Priyank reese. 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 Unfortunat [...] activity. Stable cardiopulm onary examinatio n We discussed his Medicare situation in the [...] has failed Kevzara/ Enbrel. Long-term drug therapy 460771165 Z79.899 high-risk medication s. Labs every 3 months. Most recent labs 11/04/2020 fairly stable. Modest elevation in the ALT. Repeat next month [id number] MAGDALENA CANTU MD RHEUMATOL [facility] [address] [place] [address] 02/04/2021 08:03:35 02/04/2021 09:22:13 Pain in right knee 0594481982 47242 M25.561 Symptomati c right knee joint, advanced degenerati ve process. Today the right knee is given intra-sy cular steroid injection. Ultimately as discussed, he would need to consider right knee replacemen t. He would like to see Dr. Lita guzman in case if he decides to proceed with a knee replacemen t. Weight loss and exercise reviewed. Long-term drug therapy 192471039 Z79.899 high-risk medication s. Labs every 3 months. Most recent labs 11/04/2020 fairly stable. Modest elevation in the ALT. Repeat next month Repeat the CBC today. 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 Unfortunat amna the [...] Follow-up with me in couple of months. [id number] MAGDALENA CANTU MD RHEUMATOL [facility] [address] [place] [address] 04/16/2021 07:42:44 04/16/2021 09:27:15 Pain in right knee 8778973452 72982 M25.561 Symptomati c right knee joint, advanced degenerati ve process. He needs right knee replacemen t. He is requesting [facility]. In the meantime, the right knee is given intra-sy cular steroid for symptomati c relief. We are trying to schedule his appointmen t in early spring next year to consider the knee replacemen t Weight loss and exercise reviewed. Long-term drug therapy 854386709 Z79.899 high-risk medication s. Labs every 3 months. Lab studies 02/04/2021 stable negative TB test. 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 On Rinvoq 15 [...] Follow-up with me in couple of months. [id number] MAGDALENA CANTU MD [facility]OL [facility] [address] [place] [address] 07/23/2021 08:05:52 07/23/2021 13:03:53 Pain in right knee [id number] 20171 M25.561 Symptomati c right knee joint, advanced [...] knee replacemen t surgery. Long-term drug therapy [id number] Z79.899 high-risk medication s. Labs every 3 months.Lab s are repeated. TPMT enzyme activity obtained in anticipati on of Imuran. 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 He has done [...] Follow-up with me in couple of months. [id number] MAGDALENA CANTU MD RHEUMATOL [facility] [address] [place] [address] 10/22/2021 07:33:37 10/22/2021 13:06:31 Long-term drug therapy [id number] Z79.899 66-year-ol d gentleman on high risk medication including methotrexa te and Imuran. labs every 3 months.Lab s are repeated. 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 He did very [...] Follow-up with me in couple of months. [id number] MAGDALENA CANTU MD RHEUMATOL [facility] [address] [place] [address] 02/24/2022 07:41:09 02/24/2022 14:00:08 Long-term drug therapy 133137963 Z79.899 66-year-ol d gentleman on high risk medication including methotrexa te and Imuran. labs every 3 months.Lab s are repeated. 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 Is now on [...] Benign pro static hyperplasia with outflow obstruction [id number] N40.1 History of BPH with changes in the urine stream. Has not done PSA recently I suggested him to repeat a PSA and we will schedule him to see a urologist. [id number] MAGDALENA CANTU MD RHEUMATOL [facility] [address] [place] [address] 07/22/2022 08:16:06 07/26/2022 11:25:05 Long-term drug therapy 792505374 Z79.899 67-year-ol d gentleman on high risk medication including methotrexa te and Imuran. labs every 3 months.Lab s are repeated. 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 He is now [...] Follow-up with me in one month Fatigue 78787750 R53.83 Chronic multifacto rial.Obtai n labs, hep panel toComplete the work-up [id number] [facility] WEINSTEIN APRN RHEUMATOL [facility] [address] [place] [address] 08/19/2022 10:23:26 08/24/2022 15:49:10 Long-term drug therapy 800768017 Z79.899 67-year-ol d gentleman on high risk medication including methotrexa te and Imuran. 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 He is now [...] Tylenol 1 g and Benadryl 25 mg. 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 He is now [...] mg. 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 He is now [...] mg. 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 He is now [...] mg. 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 He is now [...] stable. Osteoarthr itis of left knee joint [id number] 79250 M17.12 Symptomati c left knee joint. Positive joint line tenderness with medial lateral joint line. Positive crepitus. Minimal synovitis. Unfortunat amna very symptomati c and discomfort . Local cares have not helped. Using ice applicatio n regularly. Today the left knee is given intra-sy cular steroid injection without complicati ons. Pes anseri nus bursitis of right knee [id number] 024766 M70.51 He is status post right knee replacemen t. However has persistent pain and discomfort involving the Pez anserine bursa. He has failed conservati ve care including ice applicatio n stretching for the last few months. Today the past anserine bursa is given a steroid injection without complicati on. 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 He is now [...] Labs dated 10/21/2022 reviewed and fairly stable. 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 He is now [...] sent. Osteoarthr itis of left knee joint 4509277662 86147 M17.12 Symptomati c left knee joint.Mode rately advanced disease.On account of his pain, discomfort the left knee is given intra-sy cular steroid injection. Further prescripti on for topical compound gel sent to the pharmacy. Ultimately , he would need left knee arthroplas ty. Pes anseri nus bursitis of right knee [id number] 939640 M70.51 Chronic recurrent right pes anserine bursitis. Post steroid injection modest benefit. Suggested local care ice heat. Further prescribed topical compound gel for symptomati c relief. 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 He is now [...] e to injections . Prescripti on sent. 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 He is now [...] e to injections . Prescripti on sent. 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 He is now on the combinatio n of methotrexa te and Remicade infusion therapy, tolerating it well. Some activity of the disease specially in the left hand second and third MCP as well as left second PIP, some activity in the right second and third MCP joint. 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 Right hand photocopying equipment mechanic strength is fairly stable. No active nodules. [...] which seems to have helped his liver enzymes.Hi d list updated. Long-term current use of immunosuppressive drug 885957388 Z79.60 Lab studies 06/02/2023, normal ESR/CRP. Normal AST and ALT. GFR normal at 102 mL/min. TB test up-to-date March 2023. Repeat in March 2024. 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 He is now on the combinatio n of methotrexa te and Remicade infusion therapy, tolerating it well.Sympt omatic left knee joint otherwise rest of the joints are fairly stable. 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 Cardiopulm onary semination is physiologi c. [...] helped his liver enzymes.Me d list updated. 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 He is now on the combinatio n of methotrexa te and Remicade infusion therapy, tolerating it well.Sympt omatic left knee joint otherwise rest of the joints are fairly stable. 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 Cardiopulm onary semination is physiologi c. [...] updated. Long-term current use of immunosuppressive drug 564911239 Z79.60 Lab studies 06/02/2023, normal ESR/CRP. Normal AST and ALT. GFR normal at 102 mL/min. TB test up-to-date March 2023. Repeat in March 2024. Synovitis of joint of left knee 7862813467 7617168 M65.862 Symptomati c secondary to rheumatoid arthritis. Today the left knee is given intra-sy cular steroid injection without complicati ons. 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 He is now [...] updated. Long-term current use of immunosuppressive drug 781784154 Z79.60 5/16/24 labs including CBC, GFR and liver functions. All normal Synovitis of joint of left knee 9997394249 8091232 M65.862 Chronic recurrent and symptomati c. Combinatio n of both OA and RA. Today suggested IV Solu-Medro l in combinatio n with the Remicade and we decided to hold off on the intra-sy cular steroid injection. 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 He is now [...] which seems to have helped his liver enzymes.Hi d list updated. 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 He is now [...] updated. Long-term current use of immunosuppressive drug 766473012 Z79.60 09/22/23 labs including CBC, GFR and liver functions. All normal Synovitis of joint of left knee 4533613048 5852832 M65.862 Traumatic left knee. Unfortunat amna chronic and recurrent. He is trying to hold off on the knee replacemen t. Today the left knee is given intra-sy cular steroid injection. No complicati ons noted. Patient was given post care instructio ns. Pain of le ft shoulder joint [id number] 2518927 M25.512 Left shoulder pain seems to be more from supraspina tus tendinopat hy and some AC osteoarthr itis. Negative drop arm test. Negative effusion. Does have positive empty can test. Suggested local massage therapy such as [place] balm to apply to the left shoulder at least twice a day. Range of motion exercises reviewed. 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 He is now [...] helped his liver enzymes.Me d list updated. 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 He is now [...] updated. Long-term current use of immunosuppressive drug 179556926 Z79.60 01/12/24 labsESR 20, CRP 0.60Creati nine, GFR normalAST, ALT normalCBC 13.7 hemoglobin . Recommende d to take 40mg iron supplement every other day. Synovitis of joint of left knee 1608130536 5942437 M65.862 Symptomati c left knee. Recurrent effusion and synovitis. Secondary to rheumatoid although there is a component of OA. Today the left knee is given intra-sy cular steroid injection. No complicati ons noted. Patient was given post care instructio ns. 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 He is now [...] which seems to have helped his liver enzymes.Hi d list updated. 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 He is now [...] which seems to have helped his liver enzymes.Hi d list updated. 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 He is now [...] 4-month Long-term current use of immunosuppressive drug 921872473 Z79.60 01/12/24 labsESR 20, CRP 0.60Creati nine, GFR normalAST, ALT normalCBC 13.7 hemoglobin . Recommende d to take 40mg iron supplement every other day. Synovitis of joint of left knee 9510450657 2994802 M65.862 Symptomati c left knee. Recurrent effusion and synovitis. Secondary to severe osteoarthr itis with superimpos ed rheumatoid . We are trying to avoid knee replacemen t. He is post right knee replacemen t. Today the left knee is given intra-sy cular steroid injection. No complicati ons noted. Patient was given post care instructio ns. Updated x-ray of left knee. 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 On the [...] 4-month Long-term current use of immunosuppressive drug 165634808 Z79.60 01/12/24 labsESR 20, CRP 0.60Creati nine, GFR normalAST, ALT normalCBC 13.7 hemoglobin . July 09, 2024 reviewed. 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 On the [...] 4-month Long-term current use of immunosuppressive drug 949373218 Z79.60 01/12/24 labsESR 20, CRP 0.60Creati nine, [...] Member ID Regalado Member ID Guarantor Name 11/11/2024 1 [employer] [id number] Bryant Bonds [id number] Bryant Bonds 11/20/2024 1 [id number] (MEDICARE REPLACEMENT/A DVANTAGE - PPO) Bryant Bonds [id number] Bryant Bonds
--- OUTSIDE RECORDS SUMMARY | 2024-12-04 15:20 | XMS_ITS | Encounter Summary ---
Author Organization Healthcare Address [address] [place] [address] Care Team Providers Care Infection Preventionist Name Role Phone Pcp, No Primary Care Provider Unavailabl e Encounter Details Date Type Department Care Team (Late Contact Info) Description 10/14/2024 Orders Only External Location [address] [place] [address] Provider, External Social History Tobacco Use Types Packs/Day Years Used Date Smoking Tobacco: Never Assessed Sex and Gender Information Value Date Recorded Sex Assigned at Not on file Legal Sex Male 8:42 PM EDT Gender Identity Male 10/17/2024 2:22 PM EDT Sexual Orientation Not on file documented as of this encounter Functional Status * Calculated C-SSRS Risk Score (Lifetime/Recent) Answer Date of Assessment Author No Risk Indicated 10/14/2024 5:19 AM EDT Chiquita Esquivel, RN * Question Answer Date of Assessment Author 1. Wish to be (Past 1 Month) No 025 5:19 AM EDT Chiquita Esquivel, RN 2. Non-Specific Active Suici jazmin Thoughts (Past 1 Month) No 10/14/2024 5:19 AM EDT Chiquita Esquivel, RN 6. Suicidal Behavior (Lifetime) No 5:19 AM EDT Chiquita Esquivel, RN documented as of this encounter Plan of Treatment Upcoming Encounters Date Type Department Care Team (Late Contact Info) Description 12/21/2024 8:45 AM EDT Office Visit [facility] [place] [address], [address] [place] [id number] Sancho Menon, DO [address] [place] [address] documented as of this encounter Procedures Procedure Name Priority Date/Time Associated Diagnosis Comments CT NEURO OUTSIDE IMAGES 10/14/2024 12:15 AM EDT documented in this encounter Results * CT NEURO OUTSIDE IMAGES (10/14/2024 12:15 AM EDT) Anatomical Region Laterality Modality Computed Tomogra phy 10/14/2024 12:1 5 AM EDT us External Provider IMG CT PROCEDURES Final Result documented in this encounter Visit Diagnoses Not on filedocumented in this encounter Care Teams Infection Preventionist Relationship Specialty Start Date End Date Pcp, [place] [address] PCP - General Family Medicine 10/14/24 documented as of this encounter
--- OUTSIDE RECORDS SUMMARY | 2024-12-04 15:21 | XMS_ITS | Continuity of Care Document ---
Author Organization [facility], RHEUMATOLOGY SB Address [address] [place] [address] Care Team Providers Care Credit Rating Checker Name Role Phone XAVI ESCOBAR Primary Care Provider [phone] MAGDALENA CANTU Patient Care Assessment No assessment recorded. Plan of Treatment [...] 100 mg intraveno us solution [address] [facility], [address] [place] [address], [id number], 10/05/2024 10:05:18 Patient TargetsNo targets recorded. Patient InstructionsNo instructions recorded. Reason for Referral None Reported. Problems No Known Problems Procedures Surgical History Date Name Laterality Status Provider Name and Address Organization Details Recorded Time 11/16/19 25 Injection Joint/Bursa, Major, w/o US completed MAGDALENA CANTU MD [address] [place], [address], [facility] 11/16/2024 08:42:14 11/16/19 25 Remicade Infusion completed Aracely Jim [facility] 11/15/2024 09:46:56 10/06/19 25 Remicade Infusion completed Shashi Saldaña [facility] 10/05/2024 09:15:47 08/21/19 25 Remicade Infusion completed Aracely Jim [facility] 08/20/2024 14:31:08 07/10/19 25 Remicade Infusion completed Shashi Piotr [facility] 07/09/2024 10:54:46 07/03/19 25 Injection Joint/Bursa, Major, w/o US completed MAGDALENA CANTU MD [address] [place], [address], [facility] 07/03/2024 09:38:50 05/28/19 25 Remicade Infusion completed Shashi Saldaña [facility] 05/28/2024 12:01:37 04/06/20 24 Remicade Infusion completed Shashi Saldaña [facility] 04/06/2024 08:53:00 03/15/20 24 Injection Joint/Bursa, Major, w/o US completed MAGDALENA CANTU MD [address] [place], [address], [facility] 03/15/2024 12:34:32 02/24/20 24 Remicade Infusion completed Shashi Saldaña [facility] 02/24/2024 12:12:59 01/12/20 24 Injection Joint/Bursa, Major, w/o US completed MAGDALENA CANTU MD [address] [place], [address], [facility] 01/12/2024 12:58:03 01/12/20 24 Remicade Infusion completed Shashi Saldaña [facility] 01/12/2024 09:33:19 11/17/19 24 Remicade Infusion completed Paulo Camarillo [facility] 11/17/2023 09:40:51 09/22/19 24 Injection Joint/Bursa, Major, w/o US completed MAGDALENA CANTU MD [address] [place], [address], [facility] 09/22/2023 08:32:32 09/22/19 24 Remicade Infusion completed Shashi Saldaña [facility] 09/22/2023 09:24:57 07/28/19 24 Remicade Infusion completed Shashi Piotr [facility] 07/28/2023 09:49:14 06/02/19 24 Remicade Infusion completed [facility] 06/02/2023 12:09:58 04/07/20 23 Remicade Infusion completed Shashi Piotr [facility] 04/07/2023 11:31:24 03/03/20 23 Injection Joint/Bursa, Major, w/o US completed MAGDALENA CANTU MD [address] [place], [address], [facility] 03/03/2023 11:59:07 02/11/20 23 Remicade Infusion completed Paulo Camarillo [facility] 02/10/2023 12:22:47 12/17/19 23 Remicade Infusion completed Shashi Piotr [facility] 12/16/2022 12:18:00 12/03/19 23 Injection Joint/Bursa, Major, w/o US completed MAGDALENA CANTU MD [address] [place], [address], [facility] 12/02/2022 11:48:47 12/03/19 23 Injection Joint/Bursa, Second, Major completed MAGDALENA CANTU MD [address] [place], [address], [facility] 12/02/2022 11:49:53 10/22/19 23 Remicade Infusion completed Shashi Piotr [facility] 10/21/2022 13:08:33 09/10/19 23 Remicade Infusion completed Shashi Piotr [facility] 09/09/2022 10:55:34 08/28/19 23 Remicade Infusion completed Shashi Piotr [facility] 08/27/2022 12:09:41 04/16/20 21 Injection Joint/Bursa, Major, w/o US completed MAGDALENA CANTU MD [address] [place], [address], [facility] 04/16/2021 09:03:50 02/05/20 21 Injection Joint/Bursa, Major, w/o US completed MAGDALENA CANTU MD [address] [place], [address], [facility] 02/04/2021 08:54:38 11/05/19 21 Injection Joint/Bursa, Major, w/o US completed MAGDALENA CANTU MD [address] [place], [address], [facility] 11/04/2020 08:38:34 08/07/19 21 Injection Joint/Bursa, Interm, w/o US completed MAGDALENA CANTU MD [address] [place], [address], [facility] 08/06/2020 08:39:30 08/07/19 21 Injection Joint/Bursa, Major, w/o US completed MAGDALENA CANTU MD [address] [place], [address], [facility] 08/06/2020 08:39:49 05/07/20 20 Injection Joint/Bursa, Interm, w/o US completed MAGDALENA CANTU MD [address] [place], [address], [facility] 05/07/2020 10:36:34 05/07/20 20 Injection Joint/Bursa, Major, w/o US completed MAGDALENA CANTU MD [address] [place], [address], [facility] 05/07/2020 10:36:11 02/05/20 20 Injection Joint/Bursa, Interm, w/o US completed MAGDALENA CANTU MD [address] [place], [address], [facility] 02/05/2020 16:19:36 02/05/20 20 Injection Joint/Bursa, Major, w/o US completed MAGDALENA CANTU MD [address] [place], [address], [facility] 02/05/2020 16:19:32 11/07/19 20 Injection Joint/Bursa, Interm, w/o US completed MAGDALENA CANTU MD [address] [place], [address], [facility] 11/07/2019 08:40:12 11/07/19 20 Injection Joint/Bursa, Major, w/o US completed MAGDALENA CANTU MD [address] [place], [address], [facility] 11/07/2019 08:40:05 11/07/19 20 Injection Joint/Bursa, Second, Intermediate completed MAGDALENA CANTU MD [address] [place], [address], [facility] 11/07/2019 08:40:35 07/11/19 20 Injection Joint/Bursa, Interm, w/o US completed MAGDALENA CANTU MD [address] [place], [address], [facility] 07/11/2019 08:36:01 04/10/20 19 Injection Joint/Bursa, Interm, w/o US completed MAGDALENA CANTU MD [address] [place], [address], [facility] 04/10/2019 08:47:22 12/15/19 19 Injection Joint/Bursa, Interm, w/o US completed MAGDALENA CANTU MD [address] [place], [address], [facility] 12/14/2018 09:04:11 12/15/19 19 Injection Joint/Bursa, Major, w/o US completed MAGDALENA CANTU MD [address] [place], [address], [facility] 12/14/2018 09:04:39 02/16/20 18 Skin Tag Removal completed Aissatou Wislon [facility] 02/15/2018 08:32:42 10/10/20 18 Destruction Premalignant Lesion(s) completed Aissatou Wilson [facility] 02/15/2018 08:27:15 Imaging Results None recorded. [...] M05.79 - rapid infusion - med by [employer] - DO NOT BILL Not Available Not [...] 07/10 completed stopped 12/14/18 BCBS ref # [id number] no PA required Not Available Not [...] Updated DateTime 10/05/2024 187.96 cm 37.2 kg/m2 657075.99 g [facility] 10/05/2024 08:09:26 Social History Question Answer Notes LastModified by Organizat ion Details LastModified Time Tobacco Smoking Status Never Smoker [facility] 07/10/2018 10:37:10 How Much Tobacco Do You Chew? None Information not available 12/14/2018 What Was The Date Of Your Most Recent Tobacco Screening? 11/15/2024 [email or web address] Information not available 11/15/2024 How Much Tobacco Do You Smoke? No Information not available 12/14/2018 Has Tobacco Cessation Counseling Been Provided? No Information not available 12/14/2018 On What Date Was Tobacco Cessation Counseling Provided? 08/06/2020 [email or web address] Answered No To The Tobacco Cessation Counseling Provided Question On 12/14/2018. [email or web address] Information not available 08/06/2020 How Many Years [...] Organization Details LastModified Time Father Hypertensive disorder [email or web address] Not available 07/10 10:37:03 Medical History Condition Response Diabetes N Bleeding Disorder N Arthritis Y Emphysema N Acid Reflux (GERD) Y Heart Disease N Rheumatoid Arthritis Y Hypertension Y COPD N Asthma N Immunizations Vaccine Type Date Status Note Provider Nam e and Address Organization Details Recorded Time Hep A, adult 12/07/2018 completed Marcelo Gagnono brandi, [facility] 12/14/2018 08:21:28 Hep A, adult 07/07/2018 completed Marcelo paz, [facility] 12/14/2018 08:22:13 Past Encounters Encounter ID Performer Location Encounter Start Date Encounter Closed Date Diagnosis/Indication Diagnosis SNOMED-CT Code Diagnosis ICD10 Code Diagnosis Note [id number] MAGDALENA CANTU MD [facility] [address] [place] [address] 10/05/2024 07:20:32 10/05/2024 09:22:12 Rheumatoid arthritis of multiple joints 552097131 M05.79 69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 On the [...] (MEDICARE REPLACEMENT/A DVANTAGE - PPO) Bryant Bonds [id number] Bryant Bonds
--- OUTSIDE RECORDS SUMMARY | 2024-12-04 15:21 | XMS_ITS | Encounter Summary ---
Author Organization Healthcare Address [address] [place] [address] Care Team Providers Care Conveyor Belt Installer Name Role Phone Pcp, No Primary Care Provider Unavailabl e Encounter Details Date Type Department Care Team (Late Contact Info) Description 10/14/2024 Orders Only External Location [address] [place] [address] Provider, External Social History Tobacco [...] Description 12/21/2024 8:45 AM EDT Office Visit [facility] [place] [address] [place] [address] Sancho Menon, DO [address] [place] [address] documented as of this encounter Procedures Procedure Name Priority Date/Time Associated Diagnosis Comments CT NEURO OUTSIDE IMAGES 10/14/2024 12:28 AM EDT documented in this encounter Results * CT NEURO OUTSIDE IMAGES (10/14/2024 12:28 AM EDT) Anatomical Region Laterality Modality Computed Tomogra phy 10/14/2024 12:2 8 AM EDT us External Provider IMG CT PROCEDURES Final Result documented in this encounter Visit Diagnoses Not on filedocumented in this encounter Care Teams Conveyor Belt Installer Relationship Specialty Start Date End Date Pcp, [place] [address] PCP - General Family Medicine 10/14/24 documented as of this encounter
--- OUTSIDE RECORDS SUMMARY | 2024-12-04 15:21 | XMS_ITS | Encounter Summary ---
Author Organization Healthcare Address [address] [place] [address] Care Team Providers Care Linen Clerk Name Role Phone Pcp, No Primary Care Provider Unavailabl e Encounter Details Date Type Department Care Team (Latest Contact Info) Description 10/14/2024 Travel Social History Tobacco Use Types Packs/Day Years [...] Description 12/21/2024 8:45 AM EDT Office Visit [facility] [place] [address], [address] [place] [address] Sancho Menon, DO [address] [place] [address] documented as of this encounter Visit Diagnoses Not on filedocumented in this encounter Care Teams Linen Clerk Relationship Specialty Start Date End Date Pcp, No [address] [place] [address] PCP - General Family Medicine 10/14/24 documented as of this encounter
--- OUTSIDE RECORDS SUMMARY | 2024-12-04 15:21 | XMS_ITS | Encounter Summary ---
Author Organization Healthcare Address [address] [place] [address] Care Team Providers Care Contract Negotiation Specialist Name Role Phone Pcp, No Primary Care Provider Unavailabl e Encounter Details Date Type Department Care Team (Late Contact Info) Description 10/14/2024 Orders Only External Location [address] [place] [address] Provider, External Social History Tobacco [...] Description 12/21/2024 8:45 AM EDT Office Visit [facility] [place] [address], [address] [place] [address] Sancho Menon, DO [address] [place] [address] documented as of this encounter Procedures Procedure Name Priority Date/Time Associated Diagnosis Comments CT NEURO OUTSIDE IMAGES 10/14/2024 12:18 AM EDT documented in this encounter Results * CT NEURO OUTSIDE IMAGES (10/14/2024 12:18 AM EDT) Anatomical Region Laterality Modality Computed Tomogra phy 10/14/2024 12:1 8 AM EDT us External Provider IMG CT PROCEDURES Final Result documented in this encounter Visit Diagnoses Not on filedocumented in this encounter Care Teams Contract Negotiation Specialist Relationship Specialty Start Date End Date Pcp, [place] [address] PCP - General Family Medicine 10/14/24 documented as of this encounter
--- OUTSIDE RECORDS SUMMARY | 2024-12-04 15:21 | XMS_ITS | Encounter Summary ---
Author Organization Healthcare Address [address] [place] [address] Care Team Providers Care Beauty Advisor Name Role Phone Pcp, No Primary Care Provider Unavailabl e Encounter Details Date Type Department Care Team (Late Contact Info) Description 10/14/2024 Orders Only External Location [address] [place] [address] Provider, External Social History Tobacco [...] Description 12/21/2024 8:45 AM EDT Office Visit [facility] [place] [address] [facility] [facility], [address] [place] [address] Sancho Menon, DO [address] [place] [address] documented as of this encounter Procedures Procedure Name Priority Date/Time Associated Diagnosis Comments CT NEURO OUTSIDE IMAGES 10/14/2024 12:23 AM EDT documented in this encounter Results * CT NEURO OUTSIDE IMAGES (10/14/2024 12:23 AM EDT) Anatomical Region Laterality Modality Computed Tomogra phy 10/14/2024 12:2 3 AM EDT us External Provider IMG CT PROCEDURES Final Result documented in this encounter Visit Diagnoses Not on filedocumented in this encounter Care Teams Beauty Advisor Relationship Specialty Start Date End Date Pcp, [place] [address] PCP - General Family Medicine 10/14/24 documented as of this encounter
--- OUTSIDE RECORDS SUMMARY | 2024-12-04 15:21 | XMS_ITS | Encounter Summary ---
Author Organization Healthcare Address [address] [place] [address] Care Team Providers Care Wood Heel Flap Trimmer Name Role Phone Pcp, No Primary Care Provider Unavailabl e Encounter Details Date Type Department Care Team (Late Contact Info) Description 10/14/2024 Orders Only External Location [address] [place] [address] Provider, External Social History Tobacco [...] Description 12/21/2024 8:45 AM EDT Office Visit [facility] [place] [address], [address] [place] [address] Sancho Menon, DO [address] [place] [address] documented as of this encounter [...] on filedocumented in this encounter Care Teams Wood Heel Flap Trimmer Relationship Specialty Start Date End Date Pcp, [place] [address] PCP - General Family Medicine 10/14/24 documented as of this encounter
--- OUTSIDE RECORDS SUMMARY | 2024-12-04 15:21 | XMS_ITS | Continuity of Care Document ---
Author Organization [facility], RHEUMATOLOGY SB Address [address] [place] [address] Care Team Providers Care Quality Eng Name Role Phone XAVI ESCOBAR Primary Care Provider MAGDALENA CANTU Mold Insert Changer Assessment No assessment recorded. Plan of Treatment [...] available RHEUM RECHECK 2024 08:15A M MAGDALENA CARROL CANTU MD Not available Not available Not available Lab None recorded. Referral None recorded. Procedures None recorded. Surgeries None recorded. Imaging None recorded. Medication Orders Remicade 100 mg intraveno us solution [address] [facility], [address] [place] [address], [phone], 11/15/2024 09:00:15 Patient TargetsNo targets recorded. Patient InstructionsNo instructions recorded. Reason for Referral None Reported. Results Created Date Observation Date Name Description Value Unit Range Abnormal Flag Note LastModifiedBy Organization Detail LastModifiedTime 11/16/1911/15/2024 COMPL ETE BLOOD COUNT white blood cells 7.7 10*3/ uL 3.8-10 .8 normal Not Available [facility] [address] [place] [address], [address], 11/15/2024 08:13:09 11/16/1911/15/2024 COMPL ETE BLOOD COUNT red blood cells 4.31 10*6/ uL 4.20-5 .80 normal Not Available [facility] [address] [place] [address], [address], 11/15/2024 08:13:11/16/1911/15/2024 COMPL ETE BLOOD COUNT hemoglobin 14.4 g/dL 14.0-1 8.0 normal Not Available [facility] [address] [place] [address], [address], 11/15/2024 08:13:11/16/1911/15/2024 COMPL ETE BLOOD COUNT hematocrit 41.5 % 40.0-5 2.0 normal Not Available [facility] [address] [place] [address], [address], 11/15/2024 08:13:11/16/1911/15/2024 COMPL ETE BLOOD COUNT MCV 96 fL 80-100 normal Not Available [facility] [address] [place] [address], [address], 11/15/2024 08:13:11/16/1911/15/2024 COMPL ETE BLOOD COUNT MCH 33 pg 26-35 normal Not Available [facility] [address] [place] [address], [address], 11/15/2024 08:13:11/16/1911/15/2024 COMPL ETE BLOOD COUNT MCHC 35 g/dL 32-36 normal Not Available [facility] [address] [place] [address], [address], 11/15/2024 08:13:09 07/10/20 25 11/15/2024 COMPL ETE BLOOD COUNT RDW 13.2 % 11.0-1 5.0 normal Not Available [facility] [address] [place] [address], [address], 11/15/2024 08:13:09 11/16/1911/15/2024 COMPL ETE BLOOD COUNT MPV 7.4 fL 6.2-10 .5 normal Not Available [facility] [address] [place] [address], [address], 11/15/2024 08:13:11/16/1911/15/2024 COMPL ETE BLOOD COUNT platelet count 222 10*3/ uL 150-40 0 normal Not Available [facility] [address] [place] [address], [address], 11/15/2024 08:13:11/16/1911/15/2024 COMPL ETE BLOOD COUNT neutrophil,a bsolute 6.0 10*3/ uL 1.6-8. 4 normal Not Available [facility] [address] [place] [address], [address], 11/15/2024 08:13:11/16/1911/15/2024 COMPL ETE BLOOD COUNT lymphocyte,a bsolute 1.2 10*3/ uL 0.4-5. 1 normal Not Available [facility] [address] [place] [address], [address], 11/15/2024 08:13:11/16/1911/15/2024 COMPL ETE BLOOD COUNT monocyte,abs olute 0.4 10*3/ uL 0.0-1. 2 normal Not Available [facility] [address] [place] [address], [address], 11/15/2024 08:13:11/16/1911/15/2024 COMPL ETE BLOOD COUNT eosinophil,a bsolute 0.0 10*3/ uL 0.0-0. 8 normal Not Available [facility] [address] [place] [address], [address], 11/15/2024 08:13:09 11/16/1911/15/2024 COMPL ETE BLOOD COUNT basophil,abs olute 0.0 10*3/ uL 0.0-0. 3 normal Not Available [facility] [address] [place] [address], [address], 11/15/2024 08:13:09 11/16/1911/15/2024 COMPL ETE BLOOD COUNT % neutrophils 77.9 % 42.0-7 8.0 normal Not Available [facility] [address] [place] [address], [address], 11/15/2024 08:13:11/16/1911/15/2024 COMPL ETE BLOOD COUNT % lymphocytes 16.0 % 11.0-4 7.0 normal Not Available [facility] [address] [place] [address], [address], 11/15/2024 08:13:09 11/16/19 25 11/15/2024 COMPL ETE BLOOD COUNT % monocytes 5.7 % 0.0-11 .0 normal Not Available [facility] [address] [place] [address], [address], 11/15/2024 08:13:09 11/16/1911/15/2024 COMPL ETE BLOOD COUNT % eosinophils 0.2 % 0.0-7. 0 normal Not Available [facility] [address] [place] [address], [address], 11/15/2024 08:13:09 11/16/19 25 11/15/2024 COMPL ETE BLOOD COUNT % basophils 0.2 % 0.0-3. 0 normal Not Available [facility] [address] [place] [address], [address], 11/15/2024 08:13:09 11/16/19 25 11/15/2024 COMPL ETE BLOOD COUNT nucleated red cells 0.0 % 0.0-0. 9 normal Not Available [facility] [address] [place], [address], 11/15/2024 08:13:09 11/16/19 25 11/15/2024 COMPL ETE BLOOD COUNT nucleated RBCs, absolute 0.00 10*3/ uL not estab. normal Not Available [facility] [address] [place], [address], 11/15/2024 08:13:09 11/16/1911/15/2024 CREAT ININE creatinine 0.72 mg/dL 0.70-1 .20 normal Not Available [facility] [address] [place], [address], 11/15/2024 08:25:14 11/16/19 25 11/15/2024 ALT ALT 17 U/L 0-41 normal Not Available [facility] [address] [place], [address], 11/15/2024 08:25:16 11/16/1911/15/2024 GFR ESTIM ATE eGFR 99 >= 60 normal NOT E New calcu latio n for GFR (CKD- EPI 2020) is formu lated witho ut race adjus tment facto rs at the recom menda tion of the [employer] at[employer] and Ameri can [facility] . This calcu latio n has not been valid ated in pregn ant women . For pedia tric patie nts refer to https ://jaxson w.sue love.o rg/pr marjess ional s/KDO QI/gf r_cal culat orPed Not Available [facility] [address] [place], [address], 11/15/2024 08:25:19 11/16/19 25 11/15/2024 AST AST 15 U/L 0-40 normal Not Available [facility] [address] [place], [address], 11/15/2024 08:25:20 11/16/19 25 11/15/2024 ESR, AUTOM ATED ESR, automated 28 mm 0-19 high Not Available [facility] [address] [place], [address], 11/15/2024 11:07:43 Result Notes None recorded. Problems No Known Problems Procedures Surgical History Date Name Laterality Status Provider Name and Address Organization Details Recorded Time 11/16/19 25 Injection Joint/Bursa, Major, w/o US completed MAGDALENA CANTU MD [address] [place], [address], [facility] 11/16/2024 08:42:14 11/16/19 25 Remicade Infusion completed Aracely [facility] 11/15/2024 09:46:56 10/06/19 25 Remicade Infusion completed [facility] 10/05/2024 09:15:47 08/21/19 25 Remicade Infusion completed Aracely [facility] 08/20/2024 14:31:08 07/10/19 25 Remicade Infusion completed [facility] 07/09/2024 10:54:46 07/03/19 25 Injection Joint/Bursa, Major, w/o US completed MAGDALENA CANTU MD [address] [place], [address], [facility] 07/03/2024 09:38:50 05/28/19 25 Remicade Infusion completed [facility] 05/28/2024 12:01:37 04/06/20 24 Remicade Infusion completed [facility] 04/06/2024 08:53:00 03/15/20 24 Injection Joint/Bursa, Major, w/o US completed MAGDALENA CANTU MD [address] [place], [address], [facility] 03/15/2024 12:34:32 02/24/20 24 Remicade Infusion completed [facility] 02/24/2024 12:12:59 01/12/20 24 Injection Joint/Bursa, Major, w/o US completed MAGDALENA CANTU MD [address] [place], [address], [facility] 01/12/2024 12:58:03 01/12/20 24 Remicade Infusion completed Shashi Saldaña [facility] 01/12/2024 09:33:19 11/17/19 24 Remicade Infusion completed Paulo Camarillo [facility] 11/17/2023 09:40:51 09/22/19 24 Injection Joint/Bursa, Major, w/o US completed MAGDALENA CANTU MD [address] [place], [address], [facility] 09/22/2023 08:32:32 09/22/19 24 Remicade Infusion completed Shashi Saldaña [facility] 09/22/2023 09:24:57 07/28/19 24 Remicade Infusion completed Shashi Saldaña [facility] 07/28/2023 09:49:14 06/02/19 24 Remicade Infusion completed Shashi Piotr [facility] 06/02/2023 12:09:58 04/07/20 23 Remicade Infusion completed Shashi Saldaña [facility] 04/07/2023 11:31:24 03/03/20 23 Injection Joint/Bursa, Major, w/o US completed MAGDALENA CANTU MD [address] [place], [address], [facility] 03/03/2023 11:59:07 02/11/20 23 Remicade Infusion completed Paulo Camarillo [facility] 02/10/2023 12:22:47 12/17/19 23 Remicade Infusion completed Shashi Saldaña [facility] 12/16/2022 12:18:00 12/03/19 23 Injection Joint/Bursa, Major, w/o US completed MAGDALENA CANTU MD [address] [place], [address], [facility] 12/02/2022 11:48:47 12/03/19 23 Injection Joint/Bursa, Second, Major completed MAGDALENA CANTU MD [address] [place], [address], [facility] 12/02/2022 11:49:53 10/22/19 23 Remicade Infusion completed Shashi Saldaña [facility] 10/21/2022 13:08:33 09/10/19 23 Remicade Infusion completed Shashi Saldaña [facility] 09/09/2022 10:55:34 08/28/19 23 Remicade Infusion completed Shashi Saldaña [facility] 08/27/2022 12:09:41 04/16/20 21 Injection Joint/Bursa, Major, w/o US completed MAGDALENA CANTU MD [address] [place], [address], [facility] 04/16/2021 09:03:50 02/05/20 21 Injection Joint/Bursa, Major, w/o US completed MAGDALENA CANTU MD [address] [place], [address], [facility] 02/04/2021 08:54:38 11/05/19 21 Injection Joint/Bursa, Major, w/o US completed MAGDALENA CANTU MD [address] [place], [address], [facility] 11/04/2020 08:38:34 08/07/19 21 Injection Joint/Bursa, Interm, w/o US completed MAGDALENA CANTU MD [address] [place], [address], [facility] 08/06/2020 08:39:30 08/07/19 21 Injection Joint/Bursa, Major, w/o US completed MAGDALENA CANTU MD [address] [place], [address], [facility] 08/06/2020 08:39:49 05/07/20 20 Injection Joint/Bursa, Interm, w/o US completed MAGDALENA CANTU MD [address] [place], [address], [facility] 05/07/2020 10:36:34 05/07/20 20 Injection Joint/Bursa, Major, w/o US completed MAGDALENA CANTU MD [address] [place], [address], [facility] 05/07/2020 10:36:11 02/05/20 20 Injection Joint/Bursa, Interm, w/o US completed MAGDALENA CANTU MD [address] [place], [address], [facility] 02/05/2020 16:19:36 02/05/20 20 Injection Joint/Bursa, Major, w/o US completed MAGDALENA CANTU MD [address] [place], [address], [facility] 02/05/2020 16:19:32 11/07/19 20 Injection Joint/Bursa, Interm, w/o US completed MAGDALENA CANTU MD [address] [place], [address], [facility] 11/07/2019 08:40:12 11/07/19 20 Injection Joint/Bursa, Major, w/o US completed MAGDALENA CANTU MD [address] [place], [address], [facility] 11/07/2019 08:40:05 11/07/19 20 Injection Joint/Bursa, Second, Intermediate completed MAGDALENA CANTU MD [address] [place], [address], [facility] 11/07/2019 08:40:35 07/11/19 20 Injection Joint/Bursa, Interm, w/o US completed MAGDALENA CANTU MD [address] [place], [address], [facility] 07/11/2019 08:36:01 04/10/20 19 Injection Joint/Bursa, Interm, w/o US completed MAGDALENA CANTU MD [address] [place], [address], [facility] 04/10/2019 08:47:22 12/15/19 19 Injection Joint/Bursa, Interm, w/o US completed MAGDALENA CANTU MD [address] [place], [address], [facility] 12/14/2018 09:04:11 12/15/19 19 Injection Joint/Bursa, Major, w/o US completed MAGDALENA CANTU MD [address] [place], [address], [facility] 12/14/2018 09:04:39 02/16/20 18 Skin Tag Removal completed Aissatou [facility] 02/15/2018 08:32:42 02/16/20 18 Destruction Premalignant Lesion(s) completed Aissatou [facility] 02/15/2018 08:27:15 Imaging Results None recorded. Procedure [...] M05.79 - rapid infusion - med by [facility] - DO NOT BILL Not Available Not [...] active Not Available Not Available Not Avai jason diclofena c sodium 75 mg tablet,de layed [...] 07/10 completed stopped 12/14/18 BCBS ref # [id number] 2936-00 no PA required Not Available Not [...] Updated DateTime 11/15/2024 187.96 cm Antonio Bermudez [facility] 11/15/2024 07:39:42 Date Recorded Body height Body mass index (BMI) Body weight Body temperature Heart rate Respiratory rate Systolic And Diastolic Provider Name and Address Organization Details Last Updated DateTime 187.96 cm 37.3 kg/m2 598572. 59 g 97.7 [degF] 69 /min 16 /min 150/82 mm[Hg] Aracely Jim [facility] 07:55:13 Social History Question Answer Notes LastModified by [employer] ion Details LastModified Time Tobacco Smoking Status [facility] 10:37:10 How Much Tobacco Do You Chew? None Information not available 12/14/2018 What Was The Date Of Your Most Recent Tobacco Screening? 11/15/2024 [email or web address] Information not available 11/15/2024 How Much Tobacco Do You Smoke? No Information not available 12/14/2018 Has Tobacco Cessation Counseling Been Provided? No Information not available 12/14/2018 On What Date Was Tobacco Cessation Counseling Provided? 08/06/2020 [email or web address] Answered No To The Tobacco Cessation Counseling Provided Question On 12/14/2018. [email or web address] Information not available 08/06/2020 How Many Years Have You Smoked Tobacco? 0 Information not available 12/14/2018 Have You Recently Traveled Abroad? No Information not available 07/22/2022 Sex: Male Functional Status Question Answer Note LastModified by [employer] ion Details LastModified Time Do you use [...] Organization Details LastModified Time Father Hypertensive disorder Not available 07/10 10:37:03 Medical History Condition Response Emphysema N COPD N Diabetes N Bleeding Disorder N Arthritis Y Acid Reflux (GERD) Y Asthma N Heart Disease N Rheumatoid Arthritis Y Hypertension Y Immunizations Vaccine Type Date Status Note Provider Nam e and Address Organization Details Recorded Time Hep A, adult 12/07/2018 [facility] 12/14/2018 08:21:28 Hep A, adult 07/07/2018 [facility] 12/14/2018 08:22:13 Past Encounters Encounter ID Performer Location Encounter Start Date Encounter Closed Date Diagnosis/Indication Diagnosis SNOMED-CT Code Diagnosis ICD10 Code Diagnosis Note [id number] MAGDALENA CANTU MD [facility] [address] [place] [address] 11/15/2024 07:28:03 11/15/2024 09:47:09 Seropositive rheumatoid arthritis 021123890 M05.9 [id number] MAGDALENA CANTU MD [facility] [address] [place] [address] 11/15/2024 07:29:14 11/19/2024 16:09:56 Rheumatoid arthritis 66941738 M05.79 69-year-ol d retired [employer] with chronic rheumatoid arthritis. On the combinatio n of methotrexa te and Remicade infusion therapy, tolerating it well.Sympt omatic left knee. Secondary to the combinatio n of osteoarthr itis and rheumatoid arthritis chronic and recurrent. Otherwise stable joints. Right knee is replaced. Cardiopulm onary semination is christina pemberton. Currently on Remicade infusion therapy 5 Mg [...] 4-month Long-term current use of immunosuppressive drug [id number] Z79.60 01/12/24 labsESR 20, CRP 0.60Creati nine, [...] (MEDICARE REPLACEMENT/A DVANTAGE - PPO) Bryant Bonds [id number] Bryant Bonds
== END 2024-12-03 23:59 | disposition home or self-care (01) ==
LOC: LAB.DROPOF 12-04 15:17
PROVIDERS: PCP Internal Medicine; Visit Provider Internal Medicine
DX: I10 Essential (primary) hypertension (principal); E87.1 Hypo-osmolality and hyponatremia
CPT/HCPCS: 80048

== ENCOUNTER 2025-04-15 09:00 | Outpatient (CLI) | payer MEDICARE, SELFPAY ==
[2025-04-15 14:29] LABS: Hematocrit 44.1 % (42.0-52.0); Hemoglobin 14.9 g/dL (14.1-18.0); Immature Granulocytes % 0 %; Mean Corpuscular HGB Conc 33.8 g/dL (31.8-35.4); Mean Corpuscular Hemoglobin 32.7 pg (27.0-31.2); Mean Corpuscular Volume 96.9 fl (80-94); Nucleated Red Blood Cells % 0 %; Platelet Count 247 K/mm3 (142-424); Red Blood Count 4.55 M/mm3 (4.60-6.20); Red Cell Distribution Width-SD 44.4 fL; White Blood Count 6.5 K/mm3 (4.8-10.8)
[2025-04-15 14:47] LABS: Alanine Aminotransferase 28 U/L (12-78); Albumin Level 4.1 g/dl (3.5-5.0); Albumin/Globulin Ratio 1.2 (1.1-1.8); Alkaline Phosphatase 104 U/L (38-126); Anion Gap 16.6 mEq/L (5-15); Aspartate Amino Transferase 27 U/L (17-59); Bilirubin,Total 0.6 mg/dl (0.2-1.3); Blood Urea Nitrogen 15 mg/dl (9-20); Calcium 9.4 mg/dl (8.4-10.2); Carbon Dioxide 28 mmol/L (22.0-30.0); Chloride 100 mmol/L (98-107); Cholesterol 124 mg/dl (140-200); Creatinine,Serum 0.70 mg/dl (0.66-1.25); Estimated Glomerular Filt Rate 112 ml/min (>60); GFR (African American) 136 ML/MIN (>60); Globulin 3.4 g/dL (1.3-3.2); Glucose 91 mg/dl (74-100); HDL Cholesterol 35 mg/dl (40-60); Potassium 4.6 mmoL/L (3.5-5.1); Sodium 140 mmol/L (136-145); Total Protein,Serum 7.5 g/dl (6.3-8.2); Triglycerides 140 mg/dl (30-150)
== END 2025-04-15 23:59 | disposition home or self-care (01) ==
LOC: LAB.DROPOF 04-16 15:01
PROVIDERS: PCP Internal Medicine; Visit Provider Internal Medicine
DX: E78.5 Hyperlipidemia, unspecified (principal); Z12.5 Encounter for screening for malignant neoplasm of prostate; M06.9 Rheumatoid arthritis, unspecified; I10 Essential (primary) hypertension; R73.02 Impaired glucose tolerance (oral)
CPT/HCPCS: 80053; 80061; 85025; G0103